=== PATIENT | male | born 1945 ===

== ENCOUNTER 2018-03-29 13:45 | Inpatient (IN) | payer MEDICARE ==
[2018-03-29 15:21] LABS: BASO % 0.4 % (0.0-2.0); EOS # 0.2 K/uL (0.0-0.7); EOS % 2.8 % (0.0-4.0); HEMOGLOBIN 12.4 g/dL (12.0-18.0); LYMPH # 1.6 K/uL (1.0-4.3); LYMPH % 22.2 % (20.0-40.0); MEAN CELL VOLUME 83.7 fL (80.0-94.0); MEAN CORPUSCULAR HEMOGLOBIN 27.9 pg (27.0-31.0); MEAN CORPUSCULAR HGB CONC 33.4 g/dL (33.0-37.0); MEAN PLATELET VOLUME 8.1 fL (7.2-11.7); MONO # 0.6 K/uL (0.0-0.8); MONO % 8.5 % (0.0-10.0); NEUT # 4.8 K/uL (1.8-7.0); NEUT % 66.1 % (50.0-75.0); RBC 4.44 Mil/uL (4.40-5.90); RED CELL DISTRIBUTION WIDTH 15.4 % (11.5-14.5); WHITE BLOOD COUNT 7.3 K/uL (4.8-10.8)
[2018-03-29] MEDS ORDERED: Albuterol 0.083% Inhal Sol (2.5 mg/3 mL) UD IH STA (15:24)
[2018-03-29 15:34] LABS: ALB/GLOB RATIO 1.2 (1.0-2.1); ALBUMIN 3.9 g/dL (3.5-5.0); ALT/SGPT 21 U/L (21-72); AST/SGOT 20 U/L (17-59); BLOOD UREA NITROGEN 11 mg/dL (9-20); CALCIUM 9.2 mg/dl (8.6-10.4); GFR NON-AFRICAN AMERICAN > 60; LIPASE 34 U/L (23-300)
--- NOTE | 2018-03-29 15:39 | C.PDOC ---
History Of Present Illness 73 y/o male with history of HTN, Hypercholesterolemia, COPD, GERD presents to ED with c/o epigastric abdominal pain radiating to chest for 2 months. Patient also c/o sob, hoarse voice, decreased appetite, weight loss (20 lbs in 2 months) and pain to feet bilaterally. Patient seen by PMD today and was instructed to come to ED for further evaluation. Time Seen by Provider: 03/29/18 14:11 Chief Complaint (Nursing): Abdominal Pain History Per: Patient, Family (daughter) History/Exam Limitations: no limitations Onset/Duration Of Symptoms: Days Current Symptoms Are (Timing): Still Present Location Of Pain/Discomfort: Epigastric Past Medical History Reviewed: Historical Data, Nursing Documentation, Vital Signs Vital Signs: Last Vital Signs Temp 97.4 F L 03/29/18 13:58 Pulse 64 03/29/18 13:58 Resp 20 03/29/18 13:58 BP 137/68 03/29/18 13:58 Pulse Ox 99 03/29/18 13:58 - Medical History PMH: Asthma, HTN, Hypercholesterolemia Surgical History: No Surg Hx Family History: States: No Known Family Hx - Social History Hx Alcohol Use: No Hx Substance Use: No - Immunization History Hx Tetanus Toxoid Vaccination: No Hx Influenza Vaccination: No Hx Pneumococcal Vaccination: No Review Of Systems Constitutional: Positive for: Malaise, Weight loss. Negative for: Fever, Chills Cardiovascular: Positive for: Chest Pain Respiratory: Positive for: Shortness of Breath. Negative for: Cough Gastrointestinal: Positive for: Abdominal Pain. Negative for: Nausea, Vomiting Skin: Negative for: Rash Physical Exam - Physical Exam Appears: Non-toxic, Chronically Ill, Other (Hoarse voice) Skin: Warm, Dry, No Rash Head: Atraumatic, Normacephalic Eye(s): bilateral: Normal Inspection, EOMI Oral Mucosa: Moist Neck: Normal ROM, Supple Chest: Symmetrical Cardiovascular: Rhythm Regular Respiratory: Normal Breath Sounds, No Accessory Muscle Use, No Rales, No Rhonchi, No Wheezing Gastrointestinal/Abdominal: Soft, Tenderness (Epigastric), No Guarding, No Rebound Back: No CVA Tenderness Neurological/Psych: Oriented x3, Normal Speech, Normal Cognition ED Course And Treatment - Laboratory Results Result Diagrams: 03/31/18 07:09 03/31/18 07:09 ECG: Interpreted By Me, Viewed By Me ECG Rhythm: Sinus Rhythm Rate From EC (BPM) O2 Sat by Pulse Oximetry: 99 (RA) Pulse Ox Interpretation: Normal Progress Note: EKG, Neb treatment. D/w Dr. Aldana instructs for patient to be admitted under his service. 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 - Scribe Statement The provider has reviewed the documentation as recorded by the Scribe Davion Chavira All medical record entries made by the Oleg were at my direction and personally dictated by me. I have reviewed the chart and agree that the record accurately reflects my personal performance of the history, physical exam, medical decision making, and the department course for this patient. I have also personally directed, reviewed, and agree with the discharge instructions and disposition.
[2018-03-29 15:45] LABS: B-TYPE NATRIURETIC PEPTIDE 340 pg/mL (0-900); CK-MB 1.05 ng/mL (0.0-3.38)
[2018-03-29] MEDS ORDERED: Albuterol 0.083% Inhal Sol (2.5 mg/3 mL) UD ONE (15:47)
--- NOTE | 2018-03-29 16:04 | RAD ---
Date of service: 03/29/2018 PROCEDURE: CHEST RADIOGRAPH, 1 VIEW HISTORY: SOB COMPARISON: None available. FINDINGS: LUNGS: The lungs are clear. PLEURA: No pneumothorax or pleural fluid seen. CARDIOVASCULAR: Mild cardiomegaly. OSSEOUS STRUCTURES: No significant abnormalities. VISUALIZED UPPER ABDOMEN: Normal. OTHER FINDINGS: None. IMPRESSION: No active pulmonary disease.
[2018-03-29 16:10] LABS: SQUAMOUS EPITHIAL < 1 /hpf (0-5); URINE AMORPHOUS SEDIMENT RARE /ul (<OCC); URINE BACTERIA RARE (<OCC); URINE BILIRUBIN NEGATIVE (NEGATIVE); URINE BLOOD 1+ (NEGATIVE); URINE CLARITY Clear (Clear); URINE COLOR Yellow (YELLOW); URINE GLUCOSE (UA) NORMAL (Normal); URINE LEUKOCYTE ESTERASE NEG Leu/uL (Negative); URINE PROTEIN NEGATIVE (NEGATIVE)
[2018-03-29] MEDS ORDERED: Albuterol 0.083% Inhal Sol (2.5 mg/3 mL) UD INH PRN (17:15)
[2018-03-29] MEDS ORDERED: Iohexol 240 (50 ml) PO ONE (17:43)
[2018-03-29] MEDS ORDERED: Iohexol 240 (50 ml) ONE (17:51)
[2018-03-29] MEDS ORDERED: Dextrose 5%-0.225% NS 1,000 ML IV ONE (17:51)
[2018-03-29] MEDS: Dextrose 5%/0.45% NS 1,000 ML IV SCH (17:54)
[2018-03-29] MEDS ORDERED: Iohexol 350mg/ml 100 ML ONE (18:06)
[2018-03-30] MEDS: Dextrose 5%/0.45% NS 1,000 ML IV SCH ×3 (05:48→21:23)
[2018-03-30] MEDS ORDERED: Calcium Carbonate 500 mg Chewable Antacid Tab PO PRN (06:04)
[2018-03-30] MEDS ORDERED: Pantoprazole 20 mg EC Tab PO STA (06:05)
[2018-03-30 07:23] LABS: BASO % 0.6 % (0.0-2.0); EOS # 0.2 K/uL (0.0-0.7); EOS % 3.7 % (0.0-4.0); HEMOGLOBIN 12.2 g/dL (12.0-18.0); LYMPH # 1.3 K/uL (1.0-4.3); LYMPH % 24.2 % (20.0-40.0); MEAN CORPUSCULAR HEMOGLOBIN 28.7 pg (27.0-31.0); MEAN CORPUSCULAR HGB CONC 34.6 g/dL (33.0-37.0); MEAN PLATELET VOLUME 8.5 fL (7.2-11.7); MONO # 0.5 K/uL (0.0-0.8); MONO % 9.5 % (0.0-10.0); NEUT # 3.2 K/uL (1.8-7.0); NRBC % 0.1 % (0.0-2.0); RBC 4.24 Mil/uL (4.40-5.90); RED CELL DISTRIBUTION WIDTH 15.6 % (11.5-14.5); WHITE BLOOD COUNT 5.2 K/uL (4.8-10.8)
[2018-03-30 07:39] LABS: BLOOD UREA NITROGEN 8 mg/dL (9-20); CALCIUM 8.9 mg/dl (8.6-10.4); GFR NON-AFRICAN AMERICAN > 60; HDL CHOLESTEROL 39 mg/dL (30-70)
[2018-03-30 07:41] LABS: LDL CHOLESTEROL 83 mg/dL (0-129)
[2018-03-30] MEDS ORDERED: Influenza Vaccine 60 MCG/0.5 ML SYR (3 yr & up) IM ONE (10:00)
--- NOTE | 2018-03-30 12:59 | CT ---
Date of service: 03/29/2018 PROCEDURE: CT Chest, Abdomen and Pelvis with intravenous contrast HISTORY: Rule out malignancy COMPARISON: N correlation made with chest radiograph obtained earlier same day TECHNIQUE: Contiguous helical/transaxial sections of the chest, abdomen and pelvis performed in standard fashion following oral and intravenous injection of approximately 100 cc Omnipaque 350 contrast material. Additional 2D sagittal and coronal reformats provided. This CT exam was performed using one or more of the following dose reduction techniques: Automated exposure control, adjustment of the mA and/or kV according to patient size, and/or use of iterative reconstruction technique. Radiation dose: Total exam DLP = 500.81 mGy-cm. FINDINGS: CT CHEST WITH CONTRAST: LUNGS: There is a large somewhat lobulated mass lesion (disease most consistent with malignant neoplasm) with scattered spiculations located in the left upper lobe that measures approximately 9.3 x 4.9 x 4.0 cm. This lesion abuts the lateral margin of the transverse portion of the aortic arch and extends anteriorly into the prevascular space. The lesion also extends into the upper mediastinum and hilar region. This lesion completely surrounds the distal aspect of the left main pulmonary artery as well as left upper lobe and and upper lobe segmental branches. The lesion also nearly completely envelopment the left lower lobe branch. There is narrowing of the distal left main pulmonary artery and upper/lower lobe branches. Lesion surrounds and narrows the proximal left upper and lower lobe bronchi bronchi.. Lesion also appears contiguous with what may represent left apical pleural thickening and/or atelectasis. Mild atelectasis and or scarring changes seen in the left lingular region as well. Mild right apical pleural thickening is present... Mild paraseptal emphysematous changes are also present in the upper lobes.. Small 4 mm nodule lateral aspect right middle lobe and a 2nd small nodule also measuring approximately 4 mm nodule medial aspect of the middle lobe bordering fissure. MEDIASTINUM: Heart is enlarged. Aorti no significant pericardial effusion. Ascending thoracic aorta measures approximate 3.5 cm and descending thoracic aorta measures approximate 3.2 cm. Pulmonary trunk measures approximately 0.4 cm. LYMPH NODES: Fairly extensive left hilar and mediastinal adenopathy contiguous with large left upper lobe mass density which abuts the mediastinum. There is a small hiatal hernia. Central airways are midline and patent. No large central endoluminal lesions.. PLEURA: Unremarkable. No pneumothorax. No pleural fluid. BONES: Multilevel degenerative spondylosis of the thoracic as well as upper cervical spine. No acute compression fractures no retropulsed fragments. There are no discrete lytic or blastic lesions. OTHER FINDINGS: None. CT ABDOMEN AND PELVIS: Evaluation of the abdomen is limited due to motion artifact. LIVER: Evaluation of the liver is slightly limited due to motion artifact which results in heterogeneous appearance... There is mild diffuse fatty hepatic infiltration. . There is a small approximately 6 mm rounded low-attenuation lesion left lobe liver which could represent volume averaging of the shawnee hepatis versus tiny cyst or hemangioma. The possibility of a small metastatic deposit cannot be completely excluded. Clinical correlation recommended. GALLBLADDER AND BILE DUCTS: . Gallbladder appears incompletely distended. No evidence of intraluminal gallbladder calculi. PANCREAS: Unremarkable. No gross lesion or ductal dilatation. SPLEEN: Spleen exhibits normal size and attenuation pattern without mass collection or calcification. ADRENALS: Bilateral nodular adrenal gland; rule out metastases. KIDNEYS AND URETERS: Unremarkable. No hydronephrosis. No solid mass. VASCULATURE: No evidence of abdominal aortic or iliac artery aneurysms. Partially calcified atherosclerotic plaque seen along the abdominal aorta and iliac arteries as well as at the origins of major branch vessels. BOWEL: Evaluation of the bowel is limited due to incomplete opacification. Stomach is incompletely distended which in part accounts for thick-walled appearance. Rule out gastritis. Visualized loops of small bowel exhibit normal contour and caliber. No evidence of acute mechanical small bowel obstruction. Stool and air seen throughout the large bowel. APPENDIX: Normal appendix.. PERITONEUM: Unremarkable. No free fluid. No free air. LYMPH NODES: There are a few small nonspecific retroperitoneal lymph nodes. BLADDER: Urinary bladder is incompletely distended which may in part account for thick-walled appearance. Muscular hypertrophy may contribute. Correlation with urinalysis recommended to exclude cystitis or other intrinsic/invasive wall lesion. REPRODUCTIVE: Prostate gland measures approximately 3.4 cm in transverse dimension. BONES: Multilevel degenerative spondylosis of the lumbar spine. There are no acute compression fractures no retropulsed fragments. Definitive lytic or blastic lesions. Sclerotic changes both SI joints left greater than right partial fusion left greater than right. OTHER FINDINGS: None. IMPRESSION: Limited motion degraded study. There is a large left upper lobe mass lesion with lobulated borders and scattered spiculations consistent with neoplasm. Lesion abuts the upper mediastinum including the transverse portion of the aorta. There is mediastinal and hilar adenopathy. Lesion also surrounds the left distal main pulmonary trunk which is and left upper and lower lobe branches with narrowing. Lesion also partially surrounds left upper and lower lobe bronchi with narrowing. Two small nodules right middle lobe. Paraseptal emphysematous changes upper lobes. Evaluation of the abdomen is limited due to motion artifact with resultant heterogeneous appearance of the hepatic parenchyma. There is however mild fatty infiltration. Additionally, there is a small low-attenuation focus left lobe liver possibly representing volume averaging of the shawnee hepatis however small cyst hemangioma or metastatic lesion cannot be excluded.. Bilateral nodular adrenal glands right greater than left. Rule out metastases. Consider follow-up PET scan for further evaluation of all these findings
--- NOTE | 2018-03-30 13:36 | CP.PCM.CON ---
History of Present Illness - History of Present Illness History of Present Illness: 73 yo male h/o HTN, COPD, Chol, TARIQ admitted with weakness and wt loss. Daughter is present. Pt reports wt loss 20 lbs, epig pain, cough,esoph reflux to chest, and dysphagia to pills. Reports PUD many yrs when smoked a lot. Reports colonosocpy 25 yrs ago. Review of Systems - Constitutional Constitutional: Anorexia, Fatigue, Lethargy, Weight Loss. absent: Headache - EENT Eyes: absent: Photophobia Nose/Mouth/Throat: Dysphagia, Hoarsness. absent: Odynophagia, Throat Swelling, Neck Mass - Cardiovascular Cardiovascular: absent: Leg Edema - Respiratory Respiratory: Cough. absent: Hemoptysis, Wheezing - Gastrointestinal Gastrointestinal: Abdominal Pain, Dysphagia, Heartburn - Genitourinary Genitourinary: absent: Hematuria - Musculoskeletal Musculoskeletal: absent: Muscle Weakness, Myalgias - Integumentary Integumentary: absent: Rash, Jaundice - Neurological Neurological: absent: Convulsions Past Patient History - Past Social History Smoking Status: Former Smoker - CARDIAC Hx Hypercholesterolemia: Yes Hx Hypertension: Yes - PULMONARY Hx Asthma: Yes - MUSCULOSKELETAL/RHEUMATOLOGICAL Hx Falls: No - PSYCHIATRIC Hx Substance Use: No - SURGICAL HISTORY Hx Surgeries: Yes Other/Comment: Explore lap 1974 - ANESTHESIA Hx Anesthesia: No Meds Allergies/Adverse Reactions: Allergies Allergy/AdvReac Type Severity Reaction Status Date / Time No Known Allergies Allergy Verified 03/29/18 14:03 - Medications Medications: Current Medications Albuterol Sulfate (Albuterol 0.083% Inhal Cathie (2.5 Mg/3 Ml) Ud) 2.5 mg INH RQ6 PRN PRN Reason: Shortness of Breath Aspirin (Aspirin Chewable) 81 mg PO DAILY [facility] Last Admin: 03/30/18 09:06 Dose: 81 mg Calcium Carbonate (Tums) 500 mg PO BID PRN PRN Reason: Heartburn Cyproheptadine HCl (Periactin) 4 mg PO TID [facility] Heparin Sodium (Porcine) (Heparin) 5,000 units SC Q12 [facility] Last Admin: 03/30/18 09:05 Dose: 5,000 units Hydrochlorothiazide (Microzide) 12.5 mg PO DAILY [facility] Last Admin: 03/30/18 09:05 Dose: 12.5 mg Dextrose/Sodium Chloride (Dextrose 5%/0.45% Ns 1000 Ml) 1,000 mls @ 80 mls/hr IV .[id number] [facility] Last Admin: 03/30/18 05:48 Dose: 80 mls/hr Loratadine (Claritin) 10 mg PO DAILY [facility] Last Admin: 03/30/18 09:05 Dose: 10 mg Losartan Potassium (Cozaar) 50 mg PO DAILY [facility] Last Admin: 03/30/18 09:12 Dose: 50 mg Montelukast Sodium (Singulair) 10 mg PO DAILY [facility] Last Admin: 03/30/18 09:06 Dose: 10 mg Pantoprazole Sodium (Protonix Inj) 40 mg IVP DAILY [facility] Last Admin: 03/30/18 09:04 Dose: 40 mg Pneumococcal Polyvalent Vaccine (Pneumovax 23 Vaccine) 0.5 ml IM .ONCE ONE Stop: 04/02/18 10:01 Rosuvastatin Calcium (Crestor) 10 mg PO HS [facility] Last Admin: 03/29/18 23:00 Dose: 10 mg Physical Exam - Constitutional Appears: Non-toxic - Respiratory Exam Respiratory Exam: Rhonchi - Cardiovascular Exam Cardiovascular Exam: RRR - GI/Abdominal Exam GI & Abdominal Exam: Normal Bowel Sounds, Soft. absent: Distended, Guarding, Mass, Rebound, Tenderness - Extremities Exam Extremities exam: Negative for: tenderness - Neurological Exam Neurological exam: Alert, Oriented x3 - Psychiatric Exam Psychiatric exam: Normal Mood Results - Vital Signs Recent Vital Signs: Last Vital Signs Temp 98.2 F 03/30/18 07:21 Pulse 57 L 03/30/18 07:21 Resp 20 03/30/18 07:21 BP 133/56 L 03/30/18 07:21 Pulse Ox 99 03/30/18 07:21 - Labs Result Diagrams: 03/30/18 07:05 03/30/18 07:05 Labs: Laboratory Results - last 24 hr 03/29/18 03/29/18 03/29/18 15:15 15:15 16:00 WBC 7.3 RBC 4.44 Hgb 12.4 Hct 37.1 MCV 83.7 MCH 27.9 MCHC 33.4 RDW 15.4 H Plt Count 295 MPV 8.1 Neut % (Auto) 66.1 Lymph % (Auto) 22.2 [place] % (Auto) 8.5 Eos % (Auto) 2.8 Baso % (Auto) 0.4 Neut # (Auto) 4.8 Lymph # (Auto) 1.6 [place] # (Auto) 0.6 Eos # (Auto) 0.2 Baso # (Auto) 0.0 Sodium 139 Potassium 4.5 Chloride 101 Carbon Dioxide 27 Anion Gap 15 BUN 11 Creatinine 0.7 L Est GFR ( Amer) > 60 Est GFR (Non-Af Amer) > 60 Random Glucose 93 Calcium 9.2 Total Bilirubin 0.6 AST 20 ALT 21 Alkaline Phosphatase 86 Total Creatine Kinase 53 L CK-MB (Mass) 1.05 Troponin I < 0.0120 NT-Pro-B Natriuret Pep 340 Total Protein 7.0 Albumin 3.9 Globulin 3.2 Albumin/Globulin Ratio 1.2 Triglycerides Cholesterol LDL Cholesterol Direct HDL Cholesterol Lipase 34 CA 19-9 Antigen CA 125 Antigen Urine Color Yellow Urine Clarity Clear Urine pH 7.0 Ur Specific Adrian 1.013 Urine Protein Negative Urine Glucose (UA) Normal Urine Ketones Negative Urine Blood 1+ H Urine Nitrate Negative Urine Bilirubin Negative Urine Urobilinogen 2.0 Ur Leukocyte Esterase Neg Urine WBC (Auto) < 1 Urine RBC (Auto) 1 Ur Squamous Epith Cells < 1 Amorphous Sediment Rare H Urine Bacteria Rare 03/30/18 03/30/18 07:05 07:05 WBC 5.2 RBC 4.24 L Hgb 12.2 Hct 35.2 MCV 83.0 MCH 28.7 MCHC 34.6 RDW 15.6 H Plt Count 300 MPV 8.5 Neut % (Auto) 62.0 Lymph % (Auto) 24.2 [place] % (Auto) 9.5 Eos % (Auto) 3.7 Baso % (Auto) 0.6 Neut # (Auto) 3.2 Lymph # (Auto) 1.3 [place] # (Auto) 0.5 Eos # (Auto) 0.2 Baso # (Auto) 0.0 Sodium 138 Potassium 4.4 Chloride 102 Carbon Dioxide 27 Anion Gap 13 BUN 8 L Creatinine 0.7 L Est GFR ( Amer) > 60 Est GFR (Non-Af Amer) > 60 Random Glucose 112 H Calcium 8.9 Total Bilirubin AST ALT Alkaline Phosphatase Total Creatine Kinase CK-MB (Mass) Troponin I 0.0120 NT-Pro-B Natriuret Pep Total Protein Albumin Globulin Albumin/Globulin Ratio Triglycerides 64 Cholesterol 150 LDL Cholesterol Direct 83 HDL Cholesterol 39 Lipase CA 19-9 Antigen < 1.4 CA 125 Antigen 21.3 Urine Color Urine Clarity Urine pH Ur Specific Adrian Urine Protein Urine Glucose (UA) Urine Ketones Urine Blood Urine Nitrate Urine Bilirubin Urine Urobilinogen Ur Leukocyte Esterase Urine WBC (Auto) Urine RBC (Auto) Ur Squamous Epith Cells Amorphous Sediment Urine Bacteria Assessment & Plan (1) Lung mass Assessment and Plan: r/o malignancy. Pulm , oncology w/u Status: Acute (2) Epigastric pain Assessment and Plan: Gastritis. Consdier ulcer Status: Acute (3) Esophageal reflux Status: Acute (4) Weight loss Assessment and Plan: c/w malignancy Status: Acute (5) COPD (chronic obstructive pulmonary disease) Status: Acute (6) Dysphagia Assessment and Plan: GERD. Rec- EGD- depending on pulm status. Protonix Status: Acute
--- NOTE | 2018-03-30 15:36 | CARD ---
APPROVED REPORT Date of service: 03/29/2018 EKG Measurement Heart [id number] <Conclusion> Sinus rhythm with 1st degree AV block Otherwise normal ECG
[2018-03-30] MEDS: Albuterol 0.083% Inhal Sol (2.5 mg/3 mL) UD INH SCH (19:00)
[2018-03-31] MEDS: Albuterol 0.083% Inhal Sol (2.5 mg/3 mL) UD INH SCH ×4 (02:27→19:14)
[2018-03-31] MEDS: Dextrose 5%/0.45% NS 1,000 ML IV SCH ×3 (07:00→21:26)
[2018-03-31 07:21] LABS: BASO % 0.7 % (0.0-2.0); EOS # 0.2 K/uL (0.0-0.7); EOS % 3.8 % (0.0-4.0); LYMPH # 1.5 K/uL (1.0-4.3); LYMPH % 23.5 % (20.0-40.0); MEAN CELL VOLUME 83.9 fL (80.0-94.0); MEAN CORPUSCULAR HEMOGLOBIN 28.4 pg (27.0-31.0); MEAN CORPUSCULAR HGB CONC 33.8 g/dL (33.0-37.0); MEAN PLATELET VOLUME 8.5 fL (7.2-11.7); MONO # 0.5 K/uL (0.0-0.8); MONO % 8.6 % (0.0-10.0); NEUT # 4.1 K/uL (1.8-7.0); NEUT % 63.4 % (50.0-75.0); NRBC % 0.1 % (0.0-2.0); RBC 4.59 Mil/uL (4.40-5.90); RED CELL DISTRIBUTION WIDTH 15.4 % (11.5-14.5); WHITE BLOOD COUNT 6.4 K/uL (4.8-10.8)
[2018-03-31 07:58] LABS: ALB/GLOB RATIO 1.2 (1.0-2.1); ALBUMIN 3.9 g/dL (3.5-5.0); ALT/SGPT 17 U/L (21-72); AST/SGOT 24 U/L (17-59); BLOOD UREA NITROGEN 7 mg/dL (9-20); CALCIUM 9.2 mg/dl (8.6-10.4)
[2018-03-31 08:12] LABS: GFR NON-AFRICAN AMERICAN > 60
--- NOTE | 2018-03-31 09:54 | CP.PCM.PN ---
Subjective - Date & Time of Evaluation Date of Evaluation: 03/31/18 Time of Evaluation: 09:45 - Subjective Subjective: F/u abdom pain. Daughter is present. Reports poor appetite. Epig pain and TARIQ less with PPI. Denies RB, melena, fever, chills, SZ, LOC, hemoptysis, hematuria Objective - Vital Signs/Intake and Output Vital Signs (last 24 hours): Temp Pulse Resp BP Pulse Ox 98.2 F 60 20 128/67 97 03/31/18 08:17 03/31/18 08:17 03/31/18 08:17 03/31/18 08:17 03/31/18 08:17 Intake and Output: 03/31/18 03/31/18 06:59 18:59 Intake Total 990 Balance 990 - Medications Medications: Current Medications Albuterol Sulfate (Albuterol 0.083% Inhal Cathie (2.5 Mg/3 Ml) Ud) 2.5 mg INH RQ6 [facility] Last Admin: 03/31/18 09:02 Dose: 2.5 mg Aspirin (Aspirin Chewable) 81 mg PO DAILY [facility] Last Admin: 03/31/18 09:17 Dose: 81 mg Calcium Carbonate (Tums) 500 mg PO BID PRN PRN Reason: Heartburn Last Admin: 03/31/18 09:18 Dose: 500 mg Cyproheptadine HCl (Periactin) 4 mg PO TID [facility] Last Admin: 03/31/18 09:18 Dose: 4 mg Heparin Sodium (Porcine) (Heparin) 5,000 units SC Q12 [facility] Last Admin: 03/31/18 09:18 Dose: 5,000 units Hydrochlorothiazide (Microzide) 12.5 mg PO DAILY [facility] Last Admin: 03/31/18 09:17 Dose: 12.5 mg Dextrose/Sodium Chloride (Dextrose 5%/0.45% Ns 1000 Ml) 1,000 mls @ 80 mls/hr IV .[id number] [facility] Last Admin: 03/31/18 08:25 Dose: 80 mls/hr Loratadine (Claritin) 10 mg PO DAILY [facility] Last Admin: 03/31/18 09:18 Dose: 10 mg Losartan Potassium (Cozaar) 50 mg PO DAILY [facility] Last Admin: 03/30/18 09:12 Dose: 50 mg Montelukast Sodium (Singulair) 10 mg PO DAILY [facility] Last Admin: 10/13/18 09:22 Dose: 10 mg Pantoprazole Sodium (Protonix Inj) 40 mg IVP DAILY [facility] Last Admin: 03/31/18 09:18 Dose: 40 mg Pneumococcal Polyvalent Vaccine (Pneumovax 23 Vaccine) 0.5 ml IM .ONCE ONE Stop: 04/02/18 10:01 Rosuvastatin Calcium (Crestor) 10 mg PO HS [facility] Last Admin: 03/30/18 21:17 Dose: 10 mg - Labs Labs: 03/31/18 07:09 03/31/18 07:09 - Constitutional Appears: Non-toxic - Respiratory Exam Respiratory Exam: Rhonchi - Cardiovascular Exam Cardiovascular Exam: RRR - GI/Abdominal Exam GI & Abdominal Exam: Soft, Normal Bowel Sounds. absent: Guarding, Tenderness, Mass, Rebound - Extremities Exam Extremities Exam: absent: Calf Tenderness - Neurological Exam Neurological Exam: Alert, Awake, Oriented x3 Assessment and Plan (1) Lung mass Assessment & Plan: consider malignancy,. F/u pulmonary, oncology Status: Acute (2) Epigastric pain Assessment & Plan: gastritis. Rec- PPI. Hold EGD- depending on pulmonary work-up. Improving with PPI. Discussed with PA and . Status: Acute (3) Esophageal reflux Status: Acute (4) Weight loss Status: Acute (5) COPD (chronic obstructive pulmonary disease) Status: Acute (6) Dysphagia Assessment & Plan: Consider EGD- depending on pulmonary w/u. Status: Acute
--- NOTE | 2018-03-31 14:26 | CP.PCM.CON ---
History of Present Illness - History of Present Illness History of Present Illness: CHART REVIEWED. PT SEEN AND EXAMINED. 73 YO HISP MALE WITH A HX COPD, HTN, GERD, ADM 03/29/18 WITH INCREASED MOD- SEVERE GEN WEAKNESS X 1 MONTH. UNABLE TO EAT +50LB WT LOSS. DENIES DYSPHAGIA. NO N/V. +EPIGASTRIC PAINS. NO SOB. NO COUGH., ON HOME NEB . NO HOME O2. QUIT SMOKING AND ETOH YRS AGO. Review of Systems - Review of Systems All systems: reviewed and no additional remarkable complaints except - Constitutional Constitutional: Weight Loss - EENT Eyes: absent: Change in Vision Ears: absent: Decreased Hearing Nose/Mouth/Throat: Hoarsness - Cardiovascular Cardiovascular: absent: Chest Pain - Respiratory Respiratory: absent: Dyspnea, Hemoptysis, Excessive Mucous Production - Gastrointestinal Gastrointestinal: absent: Coffee Ground Emesis, Nausea, Vomiting - Genitourinary Genitourinary: absent: Difficulty Urinating - Musculoskeletal Musculoskeletal: Muscle Weakness - Integumentary Integumentary: absent: Rash - Neurological Neurological: absent: Confusion, Focal Weakness - Psychiatric Psychiatric: Change in Appetite. absent: Confusion - Endocrine Endocrine: absent: Excessive Sweating - Hematologic/Lymphatic Hematologic: absent: Easy Bleeding Past Patient History - Past Medical History & Family History Past Medical History?: Yes Past Family History: Reviewed and not pertinent - Past Social History Smoking Status: Former Smoker Alcohol: None - CARDIAC Hx Hypercholesterolemia: Yes Hx Hypertension: Yes - PULMONARY Hx Asthma: Yes Hx Chronic Obstructive Pulmonary Disease (COPD): Yes - NEUROLOGICAL Hx Neurological Disorder: No - HEENT Hx HEENT Problems: No - RENAL Hx Chronic Kidney Disease: No - ENDOCRINE/METABOLIC Hx Endocrine Disorders: No - HEMATOLOGICAL/ONCOLOGICAL Hx Blood Disorders: No - INTEGUMENTARY Hx Dermatological Problems: No - MUSCULOSKELETAL/RHEUMATOLOGICAL Hx Falls: No - GASTROINTESTINAL Hx Gastroesophageal Reflux: Yes - GENITOURINARY/GYNECOLOGICAL Hx Genitourinary Disorders: No - PSYCHIATRIC Hx Psychophysiologic Disorder: No Hx Substance Use: No - SURGICAL HISTORY Hx Surgeries: Yes Other/Comment: Explore lap 1973 - ANESTHESIA Hx Anesthesia: Yes Meds Allergies/Adverse Reactions: Allergies Allergy/AdvReac Type Severity Reaction Status Date / Time No Known Allergies Allergy Verified 03/29/18 14:03 - Medications Medications: Current Medications Albuterol Sulfate (Albuterol 0.083% Inhal Cathie (2.5 Mg/3 Ml) Ud) 2.5 mg INH RQ6 [facility] Last Admin: 03/31/18 09:02 Dose: 2.5 mg Aspirin (Aspirin Chewable) 81 mg PO DAILY [facility] Last Admin: 03/31/18 09:17 Dose: 81 mg Calcium Carbonate (Tums) 500 mg PO BID PRN PRN Reason: Heartburn Last Admin: 03/31/18 09:18 Dose: 500 mg Cyproheptadine HCl (Periactin) 4 mg PO TID [facility] Last Admin: 03/31/18 13:04 Dose: 4 mg Heparin Sodium (Porcine) (Heparin) 5,000 units SC Q12 [facility] Last Admin: 03/31/18 09:18 Dose: 5,000 units Hydrochlorothiazide (Microzide) 12.5 mg PO DAILY [facility] Last Admin: 03/31/18 09:17 Dose: 12.5 mg Dextrose/Sodium Chloride (Dextrose 5%/0.45% Ns 1000 Ml) 1,000 mls @ 80 mls/hr IV .[id number] [facility] Last Admin: 03/31/18 08:25 Dose: 80 mls/hr Loratadine (Claritin) 10 mg PO DAILY [facility] Last Admin: 03/31/18 09:18 Dose: 10 mg Losartan Potassium (Cozaar) 50 mg PO DAILY [facility] Last Admin: 03/31/18 09:10 Dose: 50 mg Montelukast Sodium (Singulair) 10 mg PO DAILY [facility] Last Admin: 03/31/18 09:22 Dose: 10 mg Pantoprazole Sodium (Protonix Inj) 40 mg IVP DAILY [facility] Last Admin: 03/31/18 09:18 Dose: 40 mg Pneumococcal Polyvalent Vaccine (Pneumovax 23 Vaccine) 0.5 ml IM .ONCE ONE Stop: 04/02/18 10:01 Rosuvastatin Calcium (Crestor) 10 mg PO HS [facility] Last Admin: 03/30/18 21:17 Dose: 10 mg Physical Exam - Constitutional Appears: Chronically Ill - Head Exam Head Exam: ATRAUMATIC, NORMOCEPHALIC - Eye Exam Eye Exam: EOMI, Normal appearance - ENT Exam ENT Exam: Mucous Membranes Dry - Neck Exam Neck exam: Positive for: Normal Inspection - Respiratory Exam Respiratory Exam: Decreased Breath Sounds. absent: Chest Wall Tenderness, Wheezes - Cardiovascular Exam Cardiovascular Exam: RRR, +S1, +S2 - GI/Abdominal Exam GI & Abdominal Exam: Soft. absent: Tenderness - Rectal Exam Rectal Exam: Deferred - Extremities Exam Extremities exam: Negative for: calf tenderness, pedal edema - Back Exam Back exam: absent: CVA tenderness (L), CVA tenderness (R) - Neurological Exam Neurological exam: Alert, CN II-XII Intact, Oriented x3 - Psychiatric Exam Psychiatric exam: Normal Mood - Skin Skin Exam: Intact Results - Vital Signs Recent Vital Signs: Last Vital Signs Temp 98.2 F 03/31/18 08:17 Pulse 60 03/31/18 08:17 Resp 20 03/31/18 08:17 BP 128/67 03/31/18 08:17 Pulse Ox 97 03/31/18 08:17 - Labs Result Diagrams: 03/31/18 07:09 03/31/18 07:09 Labs: Laboratory Results - last 24 hr 03/31/18 03/31/18 07:09 07:09 WBC 6.4 RBC 4.59 Hgb 13.0 Hct 38.6 MCV 83.9 MCH 28.4 MCHC 33.8 RDW 15.4 H Plt Count 319 MPV 8.5 Neut % (Auto) 63.4 Lymph % (Auto) 23.5 Mora % (Auto) 8.6 Eos % (Auto) 3.8 Baso % (Auto) 0.7 Neut # (Auto) 4.1 Lymph # (Auto) 1.5 Mora # (Auto) 0.5 Eos # (Auto) 0.2 Baso # (Auto) 0.0 Sodium 138 Potassium 4.3 Chloride 103 Carbon Dioxide 23 Anion Gap 16 BUN 7 L Creatinine 0.7 L Est GFR ( Amer) > 60 Est GFR (Non-Af Amer) > 60 Random Glucose 109 Calcium 9.2 Total Bilirubin 0.5 AST 24 ALT 17 L Alkaline Phosphatase 88 Total Protein 7.0 Albumin 3.9 Globulin 3.1 Albumin/Globulin Ratio 1.2 Assessment & Plan (1) Hypertension Status: Acute (2) Lung mass Status: Acute (3) Esophageal reflux Status: Acute (4) Weight loss Status: Acute (5) COPD (chronic obstructive pulmonary disease) Status: Acute - Assessment and Plan (Free Text) Assessment: 73 YO MALE WITH A HX MULT MED PROBS ADM WITH WT LOSS, +CARMELA LUNG MASS ON CT CHEST R/O CA. CONT NEB BD., MONITOR O2 SAT. CT GUIDED BX FOR DX. GI/DVT PROPHYLAXIS. PROG POOR. DISCUSSED WITH STAFF AT LENGTH AND FAMILY AT BEDSIDE.
--- NOTE | 2018-03-31 17:50 | CP.PCM.CON ---
History of Present Illness - History of Present Illness History of Present Illness: 73 year old male with a history of COPD, HTN, HL, presenting with weakness, poor PO intake and weightloss, found to have radiographic evidence of metastatic lung cancer. The patient notes to progressive weakness and weightloss for about 6 weeks time. This has led to a 50 pound weightloss and pain his back. He denies fevers and chills. A CT scan of the C/A/P is concerning for large tumor burden in the chest and adrenal metastasis. Past medical history: COPD, HTN, HL Past surgical history: Abdominal surgery Family history: Brother of unknown cancer Social history: Former 2ppd x 50 years, denies alcohol, and illicit drug use. Allergies: NKA Review of systems: All remaining review of systems including HEENT, cardiovascular, respiratory, gastrointestinal, genitourinary, musculoskeletal, dermatologic, neurologic, and psychiatric are negative unless mentioned in the HPI. Past Patient History - Past Medical History & Family History Past Medical History?: Yes Past Family History: Reviewed and not pertinent - Past Social History Smoking Status: Former Smoker Alcohol: None - CARDIAC Hx Hypercholesterolemia: Yes Hx Hypertension: Yes - PULMONARY Hx Asthma: Yes Hx Chronic Obstructive Pulmonary Disease (COPD): Yes - NEUROLOGICAL Hx Neurological Disorder: No - HEENT Hx HEENT Problems: No - RENAL Hx Chronic Kidney Disease: No - ENDOCRINE/METABOLIC Hx Endocrine Disorders: No - HEMATOLOGICAL/ONCOLOGICAL Hx Blood Disorders: No - INTEGUMENTARY Hx Dermatological Problems: No - MUSCULOSKELETAL/RHEUMATOLOGICAL Hx Falls: No - GASTROINTESTINAL Hx Gastroesophageal Reflux: Yes - GENITOURINARY/GYNECOLOGICAL Hx Genitourinary Disorders: No - PSYCHIATRIC Hx Psychophysiologic Disorder: No Hx Substance Use: No - SURGICAL HISTORY Hx Surgeries: Yes Other/Comment: Explore lap 1975 - ANESTHESIA Hx Anesthesia: Yes Meds Allergies/Adverse Reactions: Allergies Allergy/AdvReac Type Severity Reaction Status Date / Time No Known Allergies Allergy Verified 03/29/18 14:03 - Medications Medications: Current Medications Albuterol Sulfate (Albuterol 0.083% Inhal Cathie (2.5 Mg/3 Ml) Ud) 2.5 mg INH RQ6 [facility] Last Admin: 03/31/18 14:42 Dose: 2.5 mg Aspirin (Aspirin Chewable) 81 mg PO DAILY [facility] Last Admin: 03/31/18 09:17 Dose: 81 mg Calcium Carbonate (Tums) 500 mg PO BID PRN PRN Reason: Heartburn Last Admin: 03/31/18 09:18 Dose: 500 mg Heparin Sodium (Porcine) (Heparin) 5,000 units SC Q12 [facility] Last Admin: 03/31/18 09:18 Dose: 5,000 units Hydrochlorothiazide (Microzide) 12.5 mg PO DAILY [facility] Last Admin: 03/31/18 09:17 Dose: 12.5 mg Dextrose/Sodium Chloride (Dextrose 5%/0.45% Ns 1000 Ml) 1,000 mls @ 80 mls/hr IV .[id number] [facility] Last Admin: 03/31/18 08:25 Dose: 80 mls/hr Loratadine (Claritin) 10 mg PO DAILY [facility] Last Admin: 03/31/18 09:18 Dose: 10 mg Losartan Potassium (Cozaar) 50 mg PO DAILY [facility] Last Admin: 03/31/18 09:10 Dose: 50 mg Megestrol Acetate (Megace) 400 mg PO DAILY [facility] Montelukast Sodium (Singulair) 10 mg PO DAILY [facility] Last Admin: 03/31/18 09:22 Dose: 10 mg Pantoprazole Sodium (Protonix Inj) 40 mg IVP DAILY [facility] Last Admin: 03/31/18 09:18 Dose: 40 mg Pneumococcal Polyvalent Vaccine (Pneumovax 23 Vaccine) 0.5 ml IM .ONCE ONE Stop: 04/02/18 10:01 Rosuvastatin Calcium (Crestor) 10 mg PO HS [facility] Last Admin: 03/30/18 21:17 Dose: 10 mg Physical Exam - Head Exam Head Exam: ATRAUMATIC - Eye Exam Eye Exam: Normal appearance - ENT Exam ENT Exam: Mucous Membranes Dry - Respiratory Exam Respiratory Exam: NORMAL BREATHING PATTERN - Cardiovascular Exam Cardiovascular Exam: +S1, +S2 - GI/Abdominal Exam GI & Abdominal Exam: Normal Bowel Sounds - Extremities Exam Extremities exam: Positive for: pedal edema - Neurological Exam Neurological exam: Oriented x3 - Psychiatric Exam Psychiatric exam: Normal Affect, Normal Mood - Skin Skin Exam: Warm Results - Vital Signs Recent Vital Signs: Last Vital Signs Temp 98.0 F 03/31/18 15:00 Pulse 90 03/31/18 15:00 Resp 20 03/31/18 15:00 BP 114/59 L 03/31/18 15:00 Pulse Ox 96 03/31/18 15:00 - Labs Result Diagrams: 03/31/18 07:09 03/31/18 07:09 Labs: Laboratory Results - last 24 hr 03/31/18 03/31/18 07:09 07:09 WBC 6.4 RBC 4.59 Hgb 13.0 Hct 38.6 MCV 83.9 MCH 28.4 MCHC 33.8 RDW 15.4 H Plt Count 319 MPV 8.5 Neut % (Auto) 63.4 Lymph % (Auto) 23.5 Millard % (Auto) 8.6 Eos % (Auto) 3.8 Baso % (Auto) 0.7 Neut # (Auto) 4.1 Lymph # (Auto) 1.5 Millard # (Auto) 0.5 Eos # (Auto) 0.2 Baso # (Auto) 0.0 Sodium 138 Potassium 4.3 Chloride 103 Carbon Dioxide 23 Anion Gap 16 BUN 7 L Creatinine 0.7 L Est GFR ( Amer) > 60 Est GFR (Non-Af Amer) > 60 Random Glucose 109 Calcium 9.2 Total Bilirubin 0.5 AST 24 ALT 17 L Alkaline Phosphatase 88 Total Protein 7.0 Albumin 3.9 Globulin 3.1 Albumin/Globulin Ratio 1.2 Assessment & Plan (1) Lung mass Assessment and Plan: concerning for lung cancer for CT guided lung lesion biopsy further treatment recommendations based on pathology Status: Acute (2) Anemia Assessment and Plan: anemia of chronic disease Thank you for this interesting consult. Status: Acute
[2018-03-31] MEDS: Megestrol Acetate 40 mg/ml Cup PO SCH (18:20)
[2018-04-01] MEDS: Albuterol 0.083% Inhal Sol (2.5 mg/3 mL) UD INH SCH ×4 (02:23→19:07)
--- NOTE | 2018-04-01 05:37 | PN ---
DATE: 04/01/2018 SUBJECTIVE: Today, the patient is lying on bed, feels weak. Denies any shortness of breath at rest. But, however, is complaining of some discomfort to the throat. PHYSICAL EXAMINATION: VITAL SIGNS: Blood pressure is stable. NECK: Supple. LUNGS: There are some rales bilaterally. HEART: Regular rate and rhythm. ABDOMEN: Soft and nontender. EXTREMITIES: There is no edema. ASSESSMENT AND PLAN: The patient was seen on 03/31/2018. Plan is to add Megace to increase the appetite, and also we are going to add some Ensure. The case was reviewed and discussed with daughter, who is aware of mass of the left upper lobe and will have a consult with Dr. Oro, the registered travel nurse attending, and the case was reviewed also with Pooja Meyers, the nurse practitioner. Kyle Aldana MD
[2018-04-01 08:01] LABS: BASO % 0.6 % (0.0-2.0); EOS # 0.2 K/uL (0.0-0.7); EOS % 3.3 % (0.0-4.0); HEMOGLOBIN 13.8 g/dL (12.0-18.0); LYMPH # 1.6 K/uL (1.0-4.3); LYMPH % 21.5 % (20.0-40.0); MEAN CELL VOLUME 83.8 fL (80.0-94.0); MEAN CORPUSCULAR HEMOGLOBIN 28.7 pg (27.0-31.0); MEAN CORPUSCULAR HGB CONC 34.2 g/dL (33.0-37.0); MEAN PLATELET VOLUME 8.7 fL (7.2-11.7); MONO # 0.6 K/uL (0.0-0.8); MONO % 8.6 % (0.0-10.0); NEUT # 4.8 K/uL (1.8-7.0); NRBC % 0.1 % (0.0-2.0); RBC 4.81 Mil/uL (4.40-5.90); RED CELL DISTRIBUTION WIDTH 15.6 % (11.5-14.5); WHITE BLOOD COUNT 7.3 K/uL (4.8-10.8)
[2018-04-01 08:15] LABS: ALB/GLOB RATIO 1.2 (1.0-2.1); ALBUMIN 3.8 g/dL (3.5-5.0); ALT/SGPT 19 U/L (21-72); AST/SGOT 18 U/L (17-59); BLOOD UREA NITROGEN 8 mg/dL (9-20); CALCIUM 9.5 mg/dl (8.6-10.4); GFR NON-AFRICAN AMERICAN > 60
[2018-04-01] MEDS: Megestrol Acetate 40 mg/ml Cup PO SCH (09:09)
[2018-04-01] MEDS: Dextrose 5%/0.45% NS 1,000 ML IV SCH (09:09)
--- NOTE | 2018-04-01 13:33 | CP.PCM.PN ---
Subjective - Date & Time of Evaluation Date of Evaluation: 04/01/18 Time of Evaluation: 13:29 - Subjective Subjective: PT ALERT, EATING BETTER. NO SOB. NO PAIN. ROS ; OTHERWISE NEG. Objective - Vital Signs/Intake and Output Vital Signs (last 24 hours): Temp Pulse Resp BP Pulse Ox 98.1 F 78 20 128/72 97 04/01/18 07:05 04/01/18 07:05 04/01/18 07:05 04/01/18 07:05 04/01/18 07:05 Intake and Output: 04/01/18 04/01/18 06:59 18:59 Intake Total 1140 1160 Balance 1140 1160 - Medications Medications: Current Medications Albuterol Sulfate (Albuterol 0.083% Inhal Cathie (2.5 Mg/3 Ml) Ud) 2.5 mg INH RQ6 [facility] Last Admin: 04/01/18 13:25 Dose: 2.5 mg Aspirin (Aspirin Chewable) 81 mg PO DAILY [facility] Last Admin: 04/01/18 09:08 Dose: 81 mg Calcium Carbonate (Tums) 500 mg PO BID PRN PRN Reason: Heartburn Last Admin: 03/31/18 09:18 Dose: 500 mg Heparin Sodium (Porcine) (Heparin) 5,000 units SC Q12 [facility] Last Admin: 04/01/18 09:10 Dose: 5,000 units Hydrochlorothiazide (Microzide) 12.5 mg PO DAILY [facility] Last Admin: 04/01/18 09:08 Dose: 12.5 mg Dextrose/Sodium Chloride (Dextrose 5%/0.45% Ns 1000 Ml) 1,000 mls @ 80 mls/hr IV .[id number] [facility] Last Admin: 04/01/18 09:09 Dose: 80 mls/hr Loratadine (Claritin) 10 mg PO DAILY [facility] Last Admin: 04/01/18 09:08 Dose: 10 mg Losartan Potassium (Cozaar) 50 mg PO DAILY [facility] Last Admin: 04/01/18 09:07 Dose: 50 mg Megestrol Acetate (Megace) 400 mg PO DAILY [facility] Last Admin: 04/01/18 09:09 Dose: 400 mg Montelukast Sodium (Singulair) 10 mg PO DAILY [facility] Last Admin: 04/01/18 09:07 Dose: 10 mg Pantoprazole Sodium (Protonix Inj) 40 mg IVP DAILY [facility] Last Admin: 04/01/18 09:11 Dose: 40 mg Pneumococcal Polyvalent Vaccine (Pneumovax 23 Vaccine) 0.5 ml IM .ONCE ONE Stop: 04/02/18 10:01 Rosuvastatin Calcium (Crestor) 10 mg PO HS [facility] Last Admin: 03/31/18 21:25 Dose: 10 mg - Labs Labs: 04/01/18 07:49 04/01/18 07:49 - Constitutional Appears: Chronically Ill - Head Exam Head Exam: ATRAUMATIC, NORMOCEPHALIC - Eye Exam Eye Exam: EOMI, Normal appearance. absent: Scleral icterus - ENT Exam ENT Exam: Mucous Membranes Moist - Neck Exam Neck Exam: Normal Inspection - Respiratory Exam Respiratory Exam: Decreased Breath Sounds. absent: Accessory Muscle Use, Respiratory Distress, Stridor - Cardiovascular Exam Cardiovascular Exam: RRR, +S1, +S2 - GI/Abdominal Exam GI & Abdominal Exam: Soft. absent: Tenderness - Rectal Exam Rectal Exam: Deferred - Extremities Exam Extremities Exam: absent: Calf Tenderness, Pedal Edema - Back Exam Back Exam: absent: CVA tenderness (L), CVA tenderness (R) - Neurological Exam Neurological Exam: Alert, Awake, CN II-XII Intact, Oriented x3 - Psychiatric Exam Psychiatric exam: Normal Mood - Skin Skin Exam: absent: Rash Assessment and Plan (1) Hypertension Status: Acute (2) Lung mass Status: Acute (3) Esophageal reflux Status: Acute (4) Weight loss Status: Acute (5) COPD (chronic obstructive pulmonary disease) Status: Acute - Assessment and Plan (Free Text) Assessment: RESP STATUS COMFORTABLE AT REST. CONT PULM TOILET, NEB BD., MONITOR O2 SAT. CXR REVIEWED., CT REVIEWED +LARGE CARMELA MASS WITH EVID METS. , PLAN FOR CT GUIDED BX R/O CA. ONC EVAL NOTED. PROG POOR. DISCUSSED WITH STAFF.
[2018-04-01 20:07] LABS: INR 1.3; PROTHROMBIN TIME 14.2 SECONDS (9.7-12.2)
--- NOTE | 2018-04-02 00:15 | PN ---
DATE: 04/01/2018 SUBJECTIVE: Today, the patient is more alert and awake and has better appetite, but still coughing and shortness of breath with exertion. PHYSICAL EXAMINATION: VITAL SIGNS: Blood pressure is 108/62, pulse 82, respirations 20, temperature 99.1. NECK: Supple. LUNGS: There are some rales bilaterally and some hoarseness noted. HEART: Regular rate and rhythm. ABDOMEN: Soft and nontender. Positive bowel sounds. EXTREMITIES: There is no edema. LABORATORY DATA: Labs were done which showed WBC 7.3, hemoglobin 13.8, hematocrit 40.3, and platelets 318. Chemistry showed a sodium of 139, potassium of 4.3, chloride 103, bicarb 27, and glucose is 108. ASSESSMENT AND PLAN: Dr. Oro consult is appreciated. consult is also appreciated. We discussed the case and considered bronchoscopy versus biopsy of the breast. The case was discussed with who was at bedside. Kyle Aldana MD
[2018-04-02] MEDS: Albuterol 0.083% Inhal Sol (2.5 mg/3 mL) UD INH SCH ×4 (02:15→19:28)
--- NOTE | 2018-04-02 06:54 | HP ---
HISTORY OF PRESENT ILLNESS: The patient is a 73-year-old male with a history of hypertension, hyperlipidemia, and COPD. The patient came to my office, was complaining of anorexia with remarkable weight loss and generalized weakness. The patient was advised to go to the hospital for evaluation, and the patient was admitted. ALLERGIES: THE PATIENT HAS NO KNOWN ALLERGIES. PAST MEDICAL HISTORY: As I mentioned, history of hypertension, COPD, and also history of peripheral vascular disease. FAMILY HISTORY: Father and mother , unknown cause. 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 He denies EtOH abuse or smoking at this point. REVIEW OF SYSTEMS: RESPIRATORY SYSTEM: The patient has shortness of breath on exertion and congestive cough. CARDIOVASCULAR: Denies chest pain. GASTROINTESTINAL: Anorexia. GENITOURINARY: No dysuria but nocturia two to four times. NEURO: The patient is feeling weak. PSYCHIATRIC: The patient is somewhat forgetful. PHYSICAL EXAMINATION: GENERAL: The patient is alert and awake but very weak with some hoarseness noted. NECK: Supple. LUNGS: There are some rales bilaterally. HEART: Regular rate and rhythm. ABDOMEN: Soft. No tenderness noted. EXTREMITIES: There are varices noted. LABORATORY DATA: The patient had some tests done. WBC was 7.3, hemoglobin 12.4, hematocrit 37.1 and platelets 295. Chemistry: Sodium on admission 139, potassium 4.5, chloride 101, bicarb 27, BUN 11, creatinine 0.7, calcium 9.2. Total bilirubin 0.6, AST 20, ALT 21, alkaline phosphatase 86, and CK of 63. Troponin is 0.012. BNP is 340. The patient today had a CAT scan of the abdomen and pelvis. Evaluation of the abdomen is limited due to motion artifact appearance of the hepatic parenchyma. There is, however, mild fatty infiltration. Additionally, there is a small low-attenuation focus on the left lobe of the liver, possibly . There is a small cyst that can be hemangioma although metastatic lesion cannot be excluded. The chest showed that there is a large left upper lobe mass lesion with lobulated borders and scattered spiculation consistent with neoplasm, of the aorta. There is mediastinal and hilar adenopathy. Lesion is also shown in the left distal main pulmonary trunk and left upper and lower lobes (narrowing lesion surrounding left upper and lower lobe bronchi was narrowing). IMPRESSION AND PLAN: Cachexia rule out malignancy. left upper lobe mass in the lungs, hypertension, cachexia, anorexia, peripheral vascular disease, and dementia. The patient will have a gastroenterology consult with Dr. Hernandez also will have a consult with Dr. Oro, Pulmonary. Also, we are going to order an oncology consult with Dr. Leos. The case was discussed and reviewed with Pooja Meyers, the nurse practitioner. Kyle Aldana MD
[2018-04-02 07:44] LABS: BASO % 0.5 % (0.0-2.0); EOS # 0.3 K/uL (0.0-0.7); EOS % 3.2 % (0.0-4.0); HEMOGLOBIN 13.7 g/dL (12.0-18.0); LYMPH % 22.7 % (20.0-40.0); MEAN CELL VOLUME 84.2 fL (80.0-94.0); MEAN CORPUSCULAR HEMOGLOBIN 28.3 pg (27.0-31.0); MEAN CORPUSCULAR HGB CONC 33.6 g/dL (33.0-37.0); MEAN PLATELET VOLUME 8.7 fL (7.2-11.7); MONO # 0.7 K/uL (0.0-0.8); MONO % 7.5 % (0.0-10.0); NEUT # 5.8 K/uL (1.8-7.0); NEUT % 66.1 % (50.0-75.0); NRBC % 0.1 % (0.0-2.0); RBC 4.83 Mil/uL (4.40-5.90); RED CELL DISTRIBUTION WIDTH 15.9 % (11.5-14.5); WHITE BLOOD COUNT 8.8 K/uL (4.8-10.8)
[2018-04-02 08:02] LABS: ALB/GLOB RATIO 1.2 (1.0-2.1); ALBUMIN 3.8 g/dL (3.5-5.0); ALT/SGPT 23 U/L (21-72); AST/SGOT 44 U/L (17-59); BLOOD UREA NITROGEN 10 mg/dL (9-20); CALCIUM 9.6 mg/dl (8.6-10.4); GFR NON-AFRICAN AMERICAN > 60
[2018-04-02] MEDS: Megestrol Acetate 40 mg/ml Cup PO SCH (09:28)
[2018-04-02] MEDS: Pantoprazole 40 mg EC Tab PO SCH (09:33)
[2018-04-02] MEDS ORDERED: Pneumococcal 23-Valent Vaccine IM ONE (10:00)
--- NOTE | 2018-04-02 14:05 | CP.PCM.PN ---
Subjective - Date & Time of Evaluation Date of Evaluation: 04/02/18 Time of Evaluation: 14:03 - Subjective Subjective: f/u weight loss Ate well today Denies dysphagia/odynophagia Needs biopsy of lung mass- discussed with daughters Objective - Vital Signs/Intake and Output Vital Signs (last 24 hours): Temp Pulse Resp BP Pulse Ox 98.3 F 71 18 126/63 97 04/02/18 08:06 04/02/18 08:06 04/02/18 08:06 04/02/18 08:06 04/02/18 08:06 Intake and Output: 04/02/18 04/02/18 06:59 18:59 Intake Total 1040 Balance 1040 - Medications Medications: Current Medications Albuterol Sulfate (Albuterol 0.083% Inhal Cathie (2.5 Mg/3 Ml) Ud) 2.5 mg INH RQ6 [facility] Last Admin: 04/02/18 02:15 Dose: Not Given Aspirin (Aspirin Chewable) 81 mg PO DAILY [facility] Last Admin: 04/02/18 09:28 Dose: 81 mg Calcium Carbonate (Tums) 500 mg PO BID PRN PRN Reason: Heartburn Last Admin: 03/31/18 09:18 Dose: 500 mg Docusate Sodium (Colace) 100 mg PO BID [facility] Last Admin: 04/02/18 09:28 Dose: 100 mg Hydrochlorothiazide (Microzide) 12.5 mg PO DAILY [facility] Last Admin: 04/02/18 09:28 Dose: 12.5 mg Loratadine (Claritin) 10 mg PO DAILY [facility] Last Admin: 04/02/18 09:28 Dose: 10 mg Losartan Potassium (Cozaar) 50 mg PO DAILY [facility] Last Admin: 04/02/18 09:33 Dose: 50 mg Megestrol Acetate (Megace) 400 mg PO DAILY [facility] Last Admin: 04/02/18 09:28 Dose: 400 mg Montelukast Sodium (Singulair) 10 mg PO DAILY [facility] Last Admin: 04/02/18 09:33 Dose: 10 mg Pantoprazole Sodium (Protonix Ec Tab) 40 mg PO DAILY [facility] Last Admin: 04/02/18 09:33 Dose: 40 mg Pneumococcal Polyvalent Vaccine (Pneumovax 23 Vaccine) 0.5 ml SC .ONCE ONE Stop: 04/04/18 10:01 Rosuvastatin Calcium (Crestor) 10 mg PO HS [facility] Last Admin: 04/01/18 21:20 Dose: 10 mg - Labs Labs: 04/02/18 07:21 04/02/18 07:21 PT 14.2 SECONDS (9.7-12.2) H 04/01/18 19:44 INR 1.3 04/01/18 19:44 APTT 34 SECONDS (21-34) 04/01/18 19:44 - Constitutional Appears: Well, No Acute Distress - Head Exam Head Exam: NORMOCEPHALIC - Eye Exam Eye Exam: absent: Scleral icterus - Cardiovascular Exam Cardiovascular Exam: REGULAR RHYTHM - GI/Abdominal Exam GI & Abdominal Exam: Soft. absent: Tenderness Assessment and Plan (1) Lung mass Assessment & Plan: likely malignant check biopsy Status: Acute (2) Weight loss Assessment & Plan: due to underlying pulmonary lesion Monitor PO intake Status: Acute
--- NOTE | 2018-04-02 14:41 | PCM.IRP ---
History of Present Illness - History of Present Illness History of Present Illness: IR requested to perform CT guided biopsy of left upper lobe mass. CT reviewed and this appears to be post-obstructive atelectasis of left upper lobe bronchus. Most of the consolidation is lung parenchyma. Recommend bronchoscopy or PET scan. Objective - Vital Signs/Intake and Output Vital Signs (last 24 hours): Vital Signs - 24 hr 04/01/18 04/02/18 04/02/18 16:00 00:00 08:06 Temperature 99.1 F 98 F 98.3 F Pulse Rate 82 80 71 Respiratory 20 20 18 Rate Blood Pressure 108/62 121/64 126/63 O2 Sat by Pulse 97 96 97 Oximetry Intake and Output (last 12 hours): Intake & Output 04/01/18 04/02/18 04/02/18 18:59 06:59 18:59 Intake Total 1160 1040 Balance 1160 1040 Intake: Intake, IV Amount 560 560 Right Forearm 560 560 Oral 600 480 Other: # Voids Urine, Voided 2 2 # Bowel Movements 0 0 - Medications Medications: Current Medications Albuterol Sulfate (Albuterol 0.083% Inhal Cathie (2.5 Mg/3 Ml) Ud) 2.5 mg INH RQ6 [facility] Last Admin: 04/02/18 02:15 Dose: Not Given Aspirin (Aspirin Chewable) 81 mg PO DAILY [facility] Last Admin: 04/02/18 09:28 Dose: 81 mg Calcium Carbonate (Tums) 500 mg PO BID PRN PRN Reason: Heartburn Last Admin: 03/31/18 09:18 Dose: 500 mg Docusate Sodium (Colace) 100 mg PO BID [facility] Last Admin: 04/02/18 09:28 Dose: 100 mg Hydrochlorothiazide (Microzide) 12.5 mg PO DAILY [facility] Last Admin: 04/02/18 09:28 Dose: 12.5 mg Loratadine (Claritin) 10 mg PO DAILY [facility] Last Admin: 04/02/18 09:28 Dose: 10 mg Losartan Potassium (Cozaar) 50 mg PO DAILY [facility] Last Admin: 04/02/18 09:33 Dose: 50 mg Megestrol Acetate (Megace) 400 mg PO DAILY [facility] Last Admin: 04/02/18 09:28 Dose: 400 mg Montelukast Sodium (Singulair) 10 mg PO DAILY [facility] Last Admin: 04/02/18 09:33 Dose: 10 mg Pantoprazole Sodium (Protonix Ec Tab) 40 mg PO DAILY [facility] Last Admin: 04/02/18 09:33 Dose: 40 mg Pneumococcal Polyvalent Vaccine (Pneumovax 23 Vaccine) 0.5 ml SC .ONCE ONE Stop: 04/04/18 10:01 Rosuvastatin Calcium (Crestor) 10 mg PO HS [facility] Last Admin: 04/01/18 21:20 Dose: 10 mg - Labs Labs (last 24 hours): Laboratory Results - last 24 hr 04/01/18 04/02/18 04/02/18 19:44 07:21 07:21 WBC 8.8 RBC 4.83 Hgb 13.7 Hct 40.6 MCV 84.2 MCH 28.3 MCHC 33.6 RDW 15.9 H Plt Count 366 MPV 8.7 Neut % (Auto) 66.1 Lymph % (Auto) 22.7 Davis % (Auto) 7.5 Eos % (Auto) 3.2 Baso % (Auto) 0.5 Neut # (Auto) 5.8 Lymph # (Auto) 2.0 Davis # (Auto) 0.7 Eos # (Auto) 0.3 Baso # (Auto) 0.0 PT 14.2 H INR 1.3 APTT 34 Sodium 139 Potassium 4.2 Chloride 102 Carbon Dioxide 27 Anion Gap 14 BUN 10 Creatinine 0.7 L Est GFR ( Amer) > 60 Est GFR (Non-Af Amer) > 60 Random Glucose 97 Calcium 9.6 Phosphorus 3.7 Magnesium 2.1 Total Bilirubin 0.5 AST 44 ALT 23 Alkaline Phosphatase 93 Total Protein 7.0 Albumin 3.8 Globulin 3.2 Albumin/Globulin Ratio 1.2
--- NOTE | 2018-04-02 15:28 | CP.PCM.PN ---
Subjective - Date & Time of Evaluation Date of Evaluation: 04/02/18 Time of Evaluation: 15:28 - Subjective Subjective: PT FEELS BETTER, EATING MORE. NO SOB. ROS; OTHERWISE NEG. Objective - Vital Signs/Intake and Output Vital Signs (last 24 hours): Temp Pulse Resp BP Pulse Ox 98.3 F 71 18 126/63 97 04/02/18 08:06 04/02/18 08:06 04/02/18 08:06 04/02/18 08:06 04/02/18 08:06 Intake and Output: 04/02/18 04/02/18 06:59 18:59 Intake Total 1040 Balance 1040 - Medications Medications: Current Medications Albuterol Sulfate (Albuterol 0.083% Inhal Cathie (2.5 Mg/3 Ml) Ud) 2.5 mg INH RQ6 [facility] Last Admin: 04/02/18 13:30 Dose: 2.5 mg Aspirin (Aspirin Chewable) 81 mg PO DAILY [facility] Last Admin: 04/02/18 09:28 Dose: 81 mg Calcium Carbonate (Tums) 500 mg PO BID PRN PRN Reason: Heartburn Last Admin: 03/31/18 09:18 Dose: 500 mg Docusate Sodium (Colace) 100 mg PO BID [facility] Last Admin: 04/02/18 09:28 Dose: 100 mg Hydrochlorothiazide (Microzide) 12.5 mg PO DAILY [facility] Last Admin: 04/02/18 09:28 Dose: 12.5 mg Loratadine (Claritin) 10 mg PO DAILY [facility] Last Admin: 04/02/18 09:28 Dose: 10 mg Losartan Potassium (Cozaar) 50 mg PO DAILY [facility] Last Admin: 04/02/18 09:33 Dose: 50 mg Megestrol Acetate (Megace) 400 mg PO DAILY [facility] Last Admin: 04/02/18 09:28 Dose: 400 mg Montelukast Sodium (Singulair) 10 mg PO DAILY [facility] Last Admin: 04/02/18 09:33 Dose: 10 mg Pantoprazole Sodium (Protonix Ec Tab) 40 mg PO DAILY [facility] Last Admin: 04/02/18 09:33 Dose: 40 mg Pneumococcal Polyvalent Vaccine (Pneumovax 23 Vaccine) 0.5 ml SC .ONCE ONE Stop: 04/04/18 10:01 Rosuvastatin Calcium (Crestor) 10 mg PO HS [facility] Last Admin: 04/01/18 21:20 Dose: 10 mg - Labs Labs: 04/02/18 07:21 04/02/18 07:21 PT 14.2 SECONDS (9.7-12.2) H 04/01/18 19:44 INR 1.3 04/01/18 19:44 APTT 34 SECONDS (21-34) 04/01/18 19:44 - Constitutional Appears: No Acute Distress, Chronically Ill - Head Exam Head Exam: ATRAUMATIC, NORMOCEPHALIC - Eye Exam Eye Exam: EOMI, Normal appearance - ENT Exam ENT Exam: Mucous Membranes Moist - Neck Exam Neck Exam: Normal Inspection - Respiratory Exam Respiratory Exam: Decreased Breath Sounds - Cardiovascular Exam Cardiovascular Exam: RRR, +S1, +S2 - GI/Abdominal Exam GI & Abdominal Exam: Soft. absent: Tenderness - Rectal Exam Rectal Exam: Deferred - Extremities Exam Extremities Exam: absent: Calf Tenderness, Pedal Edema - Back Exam Back Exam: absent: CVA tenderness (L), CVA tenderness (R) - Neurological Exam Neurological Exam: Alert, Awake, CN II-XII Intact, Oriented x3 - Psychiatric Exam Psychiatric exam: Normal Mood - Skin Skin Exam: absent: Rash Assessment and Plan (1) Hypertension Status: Acute (2) Lung mass Status: Acute (3) Esophageal reflux Status: Acute (4) Weight loss Status: Acute (5) COPD (chronic obstructive pulmonary disease) Status: Acute - Assessment and Plan (Free Text) Assessment: RESP STATUS NO SIG CHANGE., CONT PULM TOILET., MONITOR O2 SAT. CXR REVIEWED. FOR IR EVAL . PROG POOR. DISCUSSED WITH STAFF AND FAMILIY AT BEDSIDE.
--- NOTE | 2018-04-02 22:01 | CP.PCM.PN ---
Subjective - Date & Time of Evaluation Date of Evaluation: 04/02/18 Time of Evaluation: 19:00 - Subjective Subjective: Tired, percutaneous biopsy not done. IR recommends brochoscopy Objective - Vital Signs/Intake and Output Vital Signs (last 24 hours): Temp Pulse Resp BP Pulse Ox 98.6 F 74 20 100/59 L 96 04/02/18 16:05 04/02/18 16:05 04/02/18 16:05 04/02/18 16:05 04/02/18 16:05 - Medications Medications: Current Medications Albuterol Sulfate (Albuterol 0.083% Inhal Cathie (2.5 Mg/3 Ml) Ud) 2.5 mg INH RQ6 [facility] Last Admin: 04/02/18 19:28 Dose: 2.5 mg Aspirin (Aspirin Chewable) 81 mg PO DAILY [facility] Last Admin: 04/02/18 09:28 Dose: 81 mg Calcium Carbonate (Tums) 500 mg PO BID PRN PRN Reason: Heartburn Last Admin: 03/31/18 09:18 Dose: 500 mg Docusate Sodium (Colace) 100 mg PO BID [facility] Last Admin: 04/02/18 17:17 Dose: 100 mg Hydrochlorothiazide (Microzide) 12.5 mg PO DAILY [facility] Last Admin: 04/02/18 09:28 Dose: 12.5 mg Loratadine (Claritin) 10 mg PO DAILY [facility] Last Admin: 04/02/18 09:28 Dose: 10 mg Losartan Potassium (Cozaar) 50 mg PO DAILY [facility] Last Admin: 04/02/18 09:33 Dose: 50 mg Megestrol Acetate (Megace) 400 mg PO DAILY [facility] Last Admin: 04/02/18 09:28 Dose: 400 mg Montelukast Sodium (Singulair) 10 mg PO DAILY [facility] Last Admin: 04/02/18 09:33 Dose: 10 mg Pantoprazole Sodium (Protonix Ec Tab) 40 mg PO DAILY [facility] Last Admin: 04/02/18 09:33 Dose: 40 mg Pneumococcal Polyvalent Vaccine (Pneumovax 23 Vaccine) 0.5 ml SC .ONCE ONE Stop: 04/04/18 10:01 Rosuvastatin Calcium (Crestor) 10 mg PO HS [facility] Last Admin: 04/02/18 21:22 Dose: 10 mg - Labs Labs: 04/02/18 07:21 04/02/18 07:21 PT 14.2 SECONDS (9.7-12.2) H 04/01/18 19:44 INR 1.3 04/01/18 19:44 APTT 34 SECONDS (21-34) 04/01/18 19:44 - Head Exam Head Exam: ATRAUMATIC - Eye Exam Eye Exam: Normal appearance - ENT Exam ENT Exam: Mucous Membranes Dry - Respiratory Exam Respiratory Exam: NORMAL BREATHING PATTERN - Cardiovascular Exam Cardiovascular Exam: +S1, +S2 - GI/Abdominal Exam GI & Abdominal Exam: Normal Bowel Sounds Assessment and Plan (1) Lung mass Assessment & Plan: concerning for lung cancer unable to get CT guided lung lesion biopsy IR recommends bronchoscopy evaluation further treatment recommendations based on pathology Status: Acute (2) Anemia Assessment & Plan: anemia of chronic disease Status: Acute
--- NOTE | 2018-04-03 00:01 | PN ---
DATE: 04/02/2018 SUBJECTIVE: Today, the patient is alert and awake, feels somewhat better and has better appetite. Denied any shortness of breath at rest. No chest pain. No palpitations. PHYSICAL EXAMINATION: VITAL SIGNS: The patient has a blood pressure of 100/59, pulse 74, respirations 20, temperature 98.6. NECK: Supple. There is hoarseness noted. LUNGS: There are some rales bilaterally. HEART: Regular rate and rhythm. ABDOMEN: Soft. EXTREMITIES: There is no edema. ASSESSMENT AND PLAN: The patient was scheduled to have a biopsy of the lung mass but according to the Interventional Radiology, stated that this is probably an atelectasis and has recommended either bronchoscopy or PET scan. We are going to consider a bronchoscopy, and we will discuss the case with Dr. Oro, Pulmonary. The case was reviewed and discussed this morning with David, the nurse practitioner. Kyle Aldana MD
[2018-04-03] MEDS: Albuterol 0.083% Inhal Sol (2.5 mg/3 mL) UD INH SCH ×4 (01:33→19:24)
[2018-04-03] MEDS: Pantoprazole 40 mg EC Tab PO SCH (09:25)
[2018-04-03] MEDS: Megestrol Acetate 40 mg/ml Cup PO SCH (09:26)
--- NOTE | 2018-04-03 11:01 | CP.PCM.PN ---
Subjective - Date & Time of Evaluation Date of Evaluation: 04/03/18 Time of Evaluation: 11:00 - Subjective Subjective: PT ALERT, NO SOB, OCC COUGH +WHITE SPUTUM., ROS; OTHERWISE NEG. Objective - Vital Signs/Intake and Output Vital Signs (last 24 hours): Temp Pulse Resp BP Pulse Ox 98.6 F 98 H 20 114/63 95 04/03/18 07:23 04/03/18 09:25 04/03/18 07:23 04/03/18 09:25 04/03/18 07:23 Intake and Output: 04/03/18 04/03/18 06:59 18:59 Intake Total 250 Balance 250 - Medications Medications: Current Medications Albuterol Sulfate (Albuterol 0.083% Inhal Cathie (2.5 Mg/3 Ml) Ud) 2.5 mg INH RQ6 [facility] Last Admin: 04/03/18 08:54 Dose: 2.5 mg Aspirin (Aspirin Chewable) 81 mg PO DAILY [facility] Last Admin: 04/03/18 09:25 Dose: 81 mg Calcium Carbonate (Tums) 500 mg PO BID PRN PRN Reason: Heartburn Last Admin: 03/31/18 09:18 Dose: 500 mg Docusate Sodium (Colace) 100 mg PO BID [facility] Last Admin: 04/03/18 09:25 Dose: 100 mg Hydrochlorothiazide (Microzide) 12.5 mg PO DAILY [facility] Last Admin: 04/03/18 09:26 Dose: 12.5 mg Loratadine (Claritin) 10 mg PO DAILY [facility] Last Admin: 04/03/18 09:26 Dose: 10 mg Losartan Potassium (Cozaar) 50 mg PO DAILY [facility] Last Admin: 04/03/18 09:26 Dose: 50 mg Megestrol Acetate (Megace) 400 mg PO DAILY [facility] Last Admin: 04/03/18 09:26 Dose: 400 mg Montelukast Sodium (Singulair) 10 mg PO DAILY [facility] Last Admin: 04/03/18 09:26 Dose: 10 mg Pantoprazole Sodium (Protonix Ec Tab) 40 mg PO DAILY [facility] Last Admin: 04/03/18 09:25 Dose: 40 mg Pneumococcal Polyvalent Vaccine (Pneumovax 23 Vaccine) 0.5 ml SC .ONCE ONE Stop: 04/04/18 10:01 Rosuvastatin Calcium (Crestor) 10 mg PO HS [facility] Last Admin: 04/02/18 21:22 Dose: 10 mg - Labs Labs: 04/02/18 07:21 04/02/18 07:21 PT 14.2 SECONDS (9.7-12.2) H 04/01/18 19:44 INR 1.3 04/01/18 19:44 APTT 34 SECONDS (21-34) 04/01/18 19:44 - Constitutional Appears: Chronically Ill - Head Exam Head Exam: ATRAUMATIC, NORMOCEPHALIC - Eye Exam Eye Exam: EOMI - ENT Exam ENT Exam: Mucous Membranes Moist - Neck Exam Neck Exam: Normal Inspection - Respiratory Exam Respiratory Exam: Decreased Breath Sounds. absent: Wheezes - Cardiovascular Exam Cardiovascular Exam: RRR, +S1, +S2 - GI/Abdominal Exam GI & Abdominal Exam: Soft. absent: Tenderness - Rectal Exam Rectal Exam: Deferred - Extremities Exam Extremities Exam: absent: Calf Tenderness, Pedal Edema - Back Exam Back Exam: absent: CVA tenderness (L), CVA tenderness (R) - Neurological Exam Neurological Exam: Alert, Awake, CN II-XII Intact, Oriented x3 - Psychiatric Exam Psychiatric exam: absent: Normal Mood - Skin Skin Exam: absent: Rash Assessment and Plan (1) Hypertension Status: Acute (2) Lung mass Status: Acute (3) Esophageal reflux Status: Acute (4) Weight loss Status: Acute (5) COPD (chronic obstructive pulmonary disease) Status: Acute - Assessment and Plan (Free Text) Assessment: RESP STATUS NO SIG CHANGE., AFEBRILE. CONT PULM TOILET., NEB BD., ADEQ OXYGENATION., CT CHEST REVIEWED WITH RADIOLOGIST., NO ENDOBRONCHIAL LESION SEEN., TO DISCUSS WITH DR MATOS. MARISSA VIRAMONTES. DISCUSSED WITH STAFF AT LENGTH AND PMD.
--- NOTE | 2018-04-03 18:00 | CP.PCM.PN ---
Subjective - Date & Time of Evaluation Date of Evaluation: 04/03/18 Time of Evaluation: 17:40 - Subjective Subjective: f/u abdom pain. Daught karenemi powers Reorts abdom is feeling better. Denies abdom pain, reflux, SZ, RB, melena, DUQUE, hematuria, myalgia Could not do pulm Bx biopsy today Objective - Vital Signs/Intake and Output Vital Signs (last 24 hours): Temp Pulse Resp BP Pulse Ox 98.2 F 79 20 102/54 L 97 04/03/18 15:00 04/03/18 15:00 04/03/18 15:00 04/03/18 15:00 04/03/18 15:00 Intake and Output: 04/03/18 04/03/18 06:59 18:59 Intake Total 250 Balance 250 - Medications Medications: Current Medications Acetaminophen (Tylenol 325mg Tab) 650 mg PO Q6 PRN PRN Reason: Pain, moderate (4-7) Albuterol Sulfate (Albuterol 0.083% Inhal Cathie (2.5 Mg/3 Ml) Ud) 2.5 mg INH RQ6 [facility] Last Admin: 04/03/18 14:18 Dose: 2.5 mg Aspirin (Aspirin Chewable) 81 mg PO DAILY [facility] Last Admin: 04/03/18 09:25 Dose: 81 mg Calcium Carbonate (Tums) 500 mg PO BID PRN PRN Reason: Heartburn Last Admin: 03/31/18 09:18 Dose: 500 mg Docusate Sodium (Colace) 100 mg PO BID [facility] Last Admin: 04/03/18 17:11 Dose: 100 mg Hydrochlorothiazide (Microzide) 12.5 mg PO DAILY [facility] Last Admin: 04/03/18 09:26 Dose: 12.5 mg Loratadine (Claritin) 10 mg PO DAILY [facility] Last Admin: 04/03/18 09:26 Dose: 10 mg Losartan Potassium (Cozaar) 50 mg PO DAILY [facility] Last Admin: 04/03/18 09:26 Dose: 50 mg Megestrol Acetate (Megace) 400 mg PO DAILY [facility] Last Admin: 04/03/18 09:26 Dose: 400 mg Montelukast Sodium (Singulair) 10 mg PO DAILY [facility] Last Admin: 04/03/18 09:26 Dose: 10 mg Pantoprazole Sodium (Protonix Ec Tab) 40 mg PO DAILY [facility] Last Admin: 04/03/18 09:25 Dose: 40 mg Pneumococcal Polyvalent Vaccine (Pneumovax 23 Vaccine) 0.5 ml SC .ONCE ONE Stop: 04/04/18 10:01 Rosuvastatin Calcium (Crestor) 10 mg PO HS [facility] Last Admin: 04/02/18 21:22 Dose: 10 mg - Labs Labs: 04/02/18 07:21 04/02/18 07:21 PT 14.2 SECONDS (9.7-12.2) H 04/01/18 19:44 INR 1.3 04/01/18 19:44 APTT 34 SECONDS (21-34) 04/01/18 19:44 - Constitutional Appears: Non-toxic - Respiratory Exam Respiratory Exam: Rhonchi - Cardiovascular Exam Cardiovascular Exam: RRR - GI/Abdominal Exam GI & Abdominal Exam: Soft, Normal Bowel Sounds. absent: Guarding, Tenderness, Mass - Neurological Exam Neurological Exam: Alert, Oriented x3 Assessment and Plan (1) Lung mass Assessment & Plan: Oncology and pulm w/u. Consider bronch Status: Acute (2) Epigastric pain Assessment & Plan: better. Continue PPI Status: Acute (3) Esophageal reflux Assessment & Plan: better. COntinue PPI.. Will see again if needed. Status: Acute (4) Weight loss Assessment & Plan: lung CA Status: Acute (5) COPD (chronic obstructive pulmonary disease) Status: Acute (6) Dysphagia Assessment & Plan: better Status: Acute
[2018-04-04] MEDS: Albuterol 0.083% Inhal Sol (2.5 mg/3 mL) UD INH SCH ×4 (02:54→19:30)
--- NOTE | 2018-04-04 06:17 | PN ---
DATE: 04/03/2018 SUBJECTIVE: The patient was seen earlier this morning and according to the daughter, the patient was still complaining of anorexia. No chest pain. No shortness of breath. The patient is having some hoarseness. PHYSICAL EXAMINATION: VITAL SIGNS: The patient has a blood pressure of 114/63, pulse is 98, respirations 20, and temperature is 98.2. NECK: Supple. LUNGS: Clear than previously. HEART: Regular rate and rhythm. ABDOMEN: Soft and nontender. No palpable mass. EXTREMITIES: There is no edema noted. ASSESSMENT AND PLAN: The patient has some blood wok done including also a CAT scan of the chest that showed a questionable left upper lobe mass, showed that the epicenter is felt to be located in the left upper hilar region, possibly with or adjacent to the left upper lobe bronchus, and there is also an element of left upper lobe atelectasis likely obstructive, the lesion is accessible for biopsy via bronchoscopy. A PET CT scan is recommended. The case was discussed with Dr. Oro, Pulmonary, and also with Pooja Meyers, the nurse practitioner. The plan is to do a bronchoscopy in the morning. daughter was informed of the management. Kyle Aldana MD
[2018-04-04] MEDS: Pantoprazole 40 mg EC Tab PO SCH (09:49)
[2018-04-04] MEDS: Megestrol Acetate 40 mg/ml Cup PO SCH (09:50)
[2018-04-04] MEDS ORDERED: Pneumococcal 23-Valent Vaccine SC ONE (10:00)
[2018-04-04] MEDS ORDERED: Lidocaine 2% MPF (5 ml) Inj ONE (10:10)
[2018-04-04] MEDS ORDERED: EPINEPHrine 1 mg/ml (1:1000) Inj ONE (10:10)
[2018-04-04] MEDS ORDERED: Propofol 10 mg/ml Inj (20 ML) ONE (10:48)
--- NOTE | 2018-04-04 11:51 | PCM.OP ---
Operative Report - Operative Report Date of Surgery/Procedure: 04/04/18 Time of Surgery/Procedure: 11:43 Surgeon: CARLOS A Anesthesia/Sedation: VISCOUS LIDO TO NARES., AEROSOLIZED 2% LIDO TO OROPHARYNX. IV SEDATION PER ANESTHESIOLOGIST. Pre-Operative Diagnosis: LEFT LUNG MASS Post-Operative Diagnosis: LEFT LUNG MASS Indication for Surgery: LEFT LUNG MASS Operative Findings: FOB DONE VIA LEFT NARES. VOCAL CORDS WNL. TRACHEA WNL. MAJOR AZUL SHARP. RUL NO MASS NL MUCOSA. RML NO MASS NL MUCOSA. RLL NO MASS , NL MUCOSA. CARMELA /LINGULA ERYTHEMATOUS IRREG MUCOSA. NO MASS. BRUSHINGS DONE +FRIABLE, HEMOSTASIS NOTED., WASHINGS DONE. LLL IRREG MUCOSA, NO MASS, EXTRINSIC COMPRESSION. WASHINGS DONE. Procedure/Operation Description: BRONCHOSCOPY WITH BRUSHINGS. Estimated Blood Loss: 0 Complications: NONE Discharge & Condition: PT TOLERATED PROCEDURE WELL.
--- NOTE | 2018-04-04 11:51 | CP.PCM.PN ---
Subjective - Date & Time of Evaluation Date of Evaluation: 04/03/18 Time of Evaluation: 18:00 - Subjective Subjective: Tired, for bronchoscopy in AM Objective - Vital Signs/Intake and Output Vital Signs (last 24 hours): Temp Pulse Resp BP Pulse Ox 98.7 F 81 20 109/62 97 04/04/18 07:55 04/04/18 09:48 04/04/18 07:55 04/04/18 09:48 04/04/18 07:55 - Medications Medications: Current Medications Acetaminophen (Tylenol 325mg Tab) 650 mg PO Q6 PRN PRN Reason: Pain, moderate (4-7) Albuterol Sulfate (Albuterol 0.083% Inhal Cathie (2.5 Mg/3 Ml) Ud) 2.5 mg INH RQ6 [facility] Last Admin: 04/04/18 08:04 Dose: 2.5 mg Aspirin (Aspirin Chewable) 81 mg PO DAILY [facility] Last Admin: 04/04/18 09:49 Dose: 81 mg Calcium Carbonate (Tums) 500 mg PO BID PRN PRN Reason: Heartburn Last Admin: 03/31/18 09:18 Dose: 500 mg Docusate Sodium (Colace) 100 mg PO BID [facility] Last Admin: 04/04/18 09:49 Dose: 100 mg Hydrochlorothiazide (Microzide) 12.5 mg PO DAILY [facility] Last Admin: 04/04/18 09:49 Dose: 12.5 mg Loratadine (Claritin) 10 mg PO DAILY [facility] Last Admin: 04/04/18 09:49 Dose: 10 mg Losartan Potassium (Cozaar) 50 mg PO DAILY [facility] Last Admin: 04/04/18 09:49 Dose: 50 mg Megestrol Acetate (Megace) 400 mg PO DAILY [facility] Last Admin: 04/03/18 09:26 Dose: 400 mg Montelukast Sodium (Singulair) 10 mg PO DAILY [facility] Last Admin: 04/04/18 09:49 Dose: 10 mg Pantoprazole Sodium (Protonix Ec Tab) 40 mg PO DAILY [facility] Last Admin: 04/04/18 09:49 Dose: 40 mg Rosuvastatin Calcium (Crestor) 10 mg PO HS [facility] Last Admin: 04/03/18 21:22 Dose: 10 mg - Labs Labs: 04/02/18 07:21 04/02/18 07:21 PT 14.2 SECONDS (9.7-12.2) H 04/01/18 19:44 INR 1.3 04/01/18 19:44 APTT 34 SECONDS (21-34) 04/01/18 19:44 - Head Exam Head Exam: ATRAUMATIC - Eye Exam Eye Exam: Normal appearance - ENT Exam ENT Exam: Mucous Membranes Dry - Respiratory Exam Respiratory Exam: Decreased Breath Sounds - Cardiovascular Exam Cardiovascular Exam: +S1, +S2 - GI/Abdominal Exam GI & Abdominal Exam: Normal Bowel Sounds Assessment and Plan (1) Lung mass Assessment & Plan: unable to do percutaneous biopsy by IR for bronchoscopy in AM Status: Acute (2) Anemia Assessment & Plan: chronic disease Status: Acute
--- NOTE | 2018-04-04 12:02 | CP.PCM.PN ---
Subjective - Date & Time of Evaluation Date of Evaluation: 04/04/18 Time of Evaluation: 11:56 - Subjective Subjective: PT ALERT, NO SOB. POOR APPETITE. ROS ; OTHERWISE NEG. Objective - Vital Signs/Intake and Output Vital Signs (last 24 hours): Temp Pulse Resp BP Pulse Ox 98.7 F 81 20 109/62 97 04/04/18 07:55 04/04/18 09:48 04/04/18 07:55 04/04/18 09:48 04/04/18 07:55 Intake and Output: 04/04/18 04/04/18 06:59 18:59 Intake Total 350 Balance 350 - Medications Medications: Current Medications Acetaminophen (Tylenol 325mg Tab) 650 mg PO Q6 PRN PRN Reason: Pain, moderate (4-7) Albuterol Sulfate (Albuterol 0.083% Inhal Cathie (2.5 Mg/3 Ml) Ud) 2.5 mg INH RQ6 [facility] Last Admin: 04/04/18 08:04 Dose: 2.5 mg Aspirin (Aspirin Chewable) 81 mg PO DAILY [facility] Last Admin: 04/04/18 09:49 Dose: 81 mg Calcium Carbonate (Tums) 500 mg PO BID PRN PRN Reason: Heartburn Last Admin: 03/31/18 09:18 Dose: 500 mg Docusate Sodium (Colace) 100 mg PO BID [facility] Last Admin: 04/04/18 09:49 Dose: 100 mg Hydrochlorothiazide (Microzide) 12.5 mg PO DAILY [facility] Last Admin: 04/04/18 09:49 Dose: 12.5 mg Loratadine (Claritin) 10 mg PO DAILY [facility] Last Admin: 04/04/18 09:49 Dose: 10 mg Losartan Potassium (Cozaar) 50 mg PO DAILY [facility] Last Admin: 04/04/18 09:49 Dose: 50 mg Megestrol Acetate (Megace) 400 mg PO DAILY [facility] Last Admin: 04/03/18 09:26 Dose: 400 mg Montelukast Sodium (Singulair) 10 mg PO DAILY [facility] Last Admin: 04/04/18 09:49 Dose: 10 mg Pantoprazole Sodium (Protonix Ec Tab) 40 mg PO DAILY [facility] Last Admin: 04/04/18 09:49 Dose: 40 mg Rosuvastatin Calcium (Crestor) 10 mg PO HS [facility] Last Admin: 04/03/18 21:22 Dose: 10 mg - Labs Labs: 04/02/18 07:21 04/02/18 07:21 PT 14.2 SECONDS (9.7-12.2) H 04/01/18 19:44 INR 1.3 04/01/18 19:44 APTT 34 SECONDS (21-34) 04/01/18 19:44 - Constitutional Appears: Chronically Ill - Head Exam Head Exam: ATRAUMATIC, NORMOCEPHALIC - Eye Exam Eye Exam: EOMI, Normal appearance - ENT Exam ENT Exam: Mucous Membranes Moist - Neck Exam Neck Exam: Normal Inspection - Respiratory Exam Respiratory Exam: Decreased Breath Sounds. absent: Wheezes - Cardiovascular Exam Cardiovascular Exam: RRR, +S1, +S2 - GI/Abdominal Exam GI & Abdominal Exam: Soft. absent: Tenderness - Rectal Exam Rectal Exam: Deferred - Extremities Exam Extremities Exam: absent: Calf Tenderness, Pedal Edema - Back Exam Back Exam: absent: CVA tenderness (L), CVA tenderness (R) - Neurological Exam Neurological Exam: Alert, Awake, CN II-XII Intact, Oriented x3 - Psychiatric Exam Psychiatric exam: Normal Mood - Skin Skin Exam: absent: Rash Assessment and Plan (1) Hypertension Status: Acute (2) Lung mass Status: Acute (3) Esophageal reflux Status: Acute (4) Weight loss Status: Acute (5) COPD (chronic obstructive pulmonary disease) Status: Acute - Assessment and Plan (Free Text) Assessment: RESP STATUS NO SIG CHANGE. CONT PULM TOILET., DISCUSSED AND REVIEWED CT WITH RADIOLOGISTS AT [facility] AND DR LOPEZ. PLAN FOR FOB TODAY. DISCUSSED WITH DAUGHTERS AT LENGTH AND STAFF.
--- NOTE | 2018-04-04 12:58 | RAD ---
Date of service: 04/04/2018 HISTORY: post bronchoscopy r/o pneumothorax COMPARISON: Portable chest 03/29/2018. Chest, abdomen and pelvis CT 03/29/2018. FINDINGS: LUNGS: Hazy density corresponding to left upper lobe mass is reiterated. No interval acute infiltrate. Right chest remains clear. PLEURA: No significant pleural effusion identified, no pneumothorax apparent. CARDIOVASCULAR: No atherosclerotic calcification present Normal. OSSEOUS STRUCTURES: No significant abnormalities. VISUALIZED UPPER ABDOMEN: Normal. OTHER FINDINGS: None. IMPRESSION: No interval acute infiltrate, pleural effusion or pneumothorax. No pulmonary vascular congestion. Left upper lobe mass reiterated.
[2018-04-04 13:52] VITALS: RESP 20
--- NOTE | 2018-04-05 00:57 | PN ---
DATE: 04/04/2018 SUBJECTIVE: Today, the patient had a bronchoscopy done and the patient was seen in the recovery room. Alert and awake. Denied any shortness of breath any pain or any dizziness, but generalized weakness. PHYSICAL EXAMINATION: VITAL SIGNS: The patient had blood pressure of 106/59, pulse 70, respiration 20, temperature 98.5. NECK: Supple. No JVD. LUNGS: Clear. HEART: Regular rate and rhythm. ABDOMEN: Soft and nontender. Positive bowel sounds. EXTREMITIES: There is no edema. ASSESSMENT AND PLAN: The patient had a bronchoscopy done as per Lupe Adams, there was no evidence of tumor, but the patient had atelectasis and sent to pathology. Now, the plan is that we are going to continue the respiratory treatment and also we are going to continue the medications, pending the pathology report. The case was reviewed with Lupe Adams and also with Pooja Meyers, the nurse practitioner. Kyle Aldana MD
[2018-04-05] MEDS: Albuterol 0.083% Inhal Sol (2.5 mg/3 mL) UD INH SCH ×3 (02:47→13:05)
[2018-04-05 08:00] VITALS: TEMP 98.2; O2SAT 97
[2018-04-05] MEDS: Pantoprazole 40 mg EC Tab PO SCH (10:05)
[2018-04-05] MEDS: Megestrol Acetate 40 mg/ml Cup PO SCH (10:06)
[2018-04-05 10:07] VITALS: BP 109/64; PULSE 92
[2018-04-05 11:28] LABS: BASO % 0.4 % (0.0-2.0); EOS # 0.2 K/uL (0.0-0.7); HEMOGLOBIN 13.5 g/dL (12.0-18.0); LYMPH # 1.5 K/uL (1.0-4.3); LYMPH % 19.4 % (20.0-40.0); MEAN CELL VOLUME 83.6 fL (80.0-94.0); MEAN CORPUSCULAR HEMOGLOBIN 28.3 pg (27.0-31.0); MEAN CORPUSCULAR HGB CONC 33.9 g/dL (33.0-37.0); MEAN PLATELET VOLUME 8.2 fL (7.2-11.7); MONO # 0.5 K/uL (0.0-0.8); MONO % 7.1 % (0.0-10.0); NEUT # 5.3 K/uL (1.8-7.0); NEUT % 70.1 % (50.0-75.0); NRBC % 0.1 % (0.0-2.0); RBC 4.76 Mil/uL (4.40-5.90); RED CELL DISTRIBUTION WIDTH 15.4 % (11.5-14.5); WHITE BLOOD COUNT 7.5 K/uL (4.8-10.8)
[2018-04-05 12:14] LABS: ALB/GLOB RATIO 1.1 (1.0-2.1); ALBUMIN 3.6 g/dL (3.5-5.0); ALT/SGPT 35 U/L (21-72); AST/SGOT 31 U/L (17-59); BLOOD UREA NITROGEN 17 mg/dL (9-20); CALCIUM 9.3 mg/dl (8.6-10.4); GFR NON-AFRICAN AMERICAN > 60
[2018-04-05 12:26] LABS: ABG ALLEN TEST POS; ARTERIAL BLOOD GAS HCO3 23.6 mmol/L (21-28); ARTERIAL BLOOD GAS HEMOGLOBIN 12.7 g/dL (11.7-17.4); ARTERIAL BLOOD GAS O2 SAT 99.3 % (95-98); ARTERIAL BLOOD GAS PCO2 30 mm/Hg (35-45); ARTERIAL BLOOD GAS PH 7.46 (7.35-7.45); ARTERIAL BLOOD GAS PO2 104 mm/Hg (80-100); ARTERIAL BLOOD GAS TCO2 22.2 mmol/L (22-28)
[2018-04-05] MEDS ORDERED: Potassium Chloride 20 mEq ER Tab PO ONE (12:45)
--- NOTE | 2018-04-05 12:52 | CP.PCM.PN ---
Subjective - Date & Time of Evaluation Date of Evaluation: 04/05/18 Time of Evaluation: 12:52 - Subjective Subjective: PATIENT SEEN AND EXAMINED AT THE BEDSIDE Objective - Vital Signs/Intake and Output Vital Signs (last 24 hours): Temp Pulse Resp BP Pulse Ox 98.2 F 92 H 20 109/64 97 04/05/18 07:59 04/05/18 10:06 04/05/18 07:59 04/05/18 10:06 04/05/18 07:59 - Medications Medications: Current Medications Acetaminophen (Tylenol 325mg Tab) 650 mg PO Q6 PRN PRN Reason: Pain, moderate (4-7) Last Admin: 04/05/18 11:36 Dose: 650 mg Albuterol Sulfate (Albuterol 0.083% Inhal Cathie (2.5 Mg/3 Ml) Ud) 2.5 mg INH RQ6 [facility] Last Admin: 04/05/18 07:33 Dose: 2.5 mg Aspirin (Aspirin Chewable) 81 mg PO DAILY [facility] Last Admin: 04/05/18 10:05 Dose: 81 mg Calcium Carbonate (Tums) 500 mg PO BID PRN PRN Reason: Heartburn Last Admin: 03/31/18 09:18 Dose: 500 mg Docusate Sodium (Colace) 100 mg PO BID [facility] Last Admin: 04/05/18 10:05 Dose: 100 mg Hydrochlorothiazide (Microzide) 12.5 mg PO DAILY [facility] Last Admin: 04/05/18 10:05 Dose: 12.5 mg Loratadine (Claritin) 10 mg PO DAILY [facility] Last Admin: 04/05/18 10:05 Dose: 10 mg Losartan Potassium (Cozaar) 50 mg PO DAILY [facility] Last Admin: 04/05/18 10:05 Dose: 50 mg Megestrol Acetate (Megace) 400 mg PO DAILY [facility] Last Admin: 04/05/18 10:06 Dose: 400 mg Montelukast Sodium (Singulair) 10 mg PO DAILY [facility] Last Admin: 04/05/18 10:05 Dose: 10 mg Pantoprazole Sodium (Protonix Ec Tab) 40 mg PO DAILY [facility] Last Admin: 04/05/18 10:05 Dose: 40 mg Potassium Chloride (Potassium Chloride Oral Soln) 40 meq PO ONCE ONE Stop: 04/05/18 13:01 Rosuvastatin Calcium (Crestor) 10 mg PO HS [facility] Last Admin: 04/04/18 22:40 Dose: Not Given - Labs Labs: 04/05/18 11:12 04/05/18 11:12 PT 14.2 SECONDS (9.7-12.2) H 04/01/18 19:44 INR 1.3 04/01/18 19:44 APTT 34 SECONDS (21-34) 04/01/18 19:44 Assessment and Plan - Assessment and Plan (Free Text) Assessment: FOLLOW UP WITH DR LOPEZ IN HIS OFFICE ----CALL FOR APPOINTMENT ADDRESS YOUR EXAM RESULT AT YOUR VISIT FOLLOW UP WITH DR HANCOCK IN HIS OFFICE ----CALL FOR APPOINTMENT CONT[facility] HOME MEDICATION NEW PRESCRIPTION GIVEN COLACE 100 MG PO TWICE A DAY FOR 5 DAYS PROTONIX 40 MG PO DAILY MEGACE 400 MG PO DAILY ACTIVITY TOLERATED CALL DR LOPEZ OR GO TO THE EMERGENCY ROOM IF SYMPTOM RETURN OR WORSENING
[2018-04-05] MEDS ORDERED: Potassium Chloride 20 mEq/15 ml LIQ UD PO ONE (13:00)
--- NOTE | 2018-04-05 19:40 | CP.PCM.PN ---
Subjective - Date & Time of Evaluation Date of Evaluation: 04/04/18 Time of Evaluation: 12:00 - Subjective Subjective: No complaints. Objective - Vital Signs/Intake and Output Vital Signs (last 24 hours): Temp Pulse Resp BP Pulse Ox 98.2 F 92 H 20 109/64 97 04/05/18 07:59 04/05/18 10:06 04/05/18 07:59 04/05/18 10:06 04/05/18 07:59 - Labs Labs: 04/05/18 11:12 04/05/18 11:12 PT 14.2 SECONDS (9.7-12.2) H 04/01/18 19:44 INR 1.3 04/01/18 19:44 APTT 34 SECONDS (21-34) 04/01/18 19:44 - Head Exam Head Exam: ATRAUMATIC - Eye Exam Eye Exam: Normal appearance - ENT Exam ENT Exam: Mucous Membranes Dry - Respiratory Exam Respiratory Exam: NORMAL BREATHING PATTERN - Cardiovascular Exam Cardiovascular Exam: +S1, +S2 - GI/Abdominal Exam GI & Abdominal Exam: Normal Bowel Sounds Assessment and Plan (1) Lung mass Assessment & Plan: unable to do percutaneous biopsy by IR s/p bronchoscopy Status: Acute (2) Anemia Assessment & Plan: chronic disease Status: Acute
--- NOTE | 2018-04-05 19:41 | CP.PCM.PN ---
Subjective - Date & Time of Evaluation Date of Evaluation: 04/05/18 Time of Evaluation: 12:00 - Subjective Subjective: No complaints. Objective - Vital Signs/Intake and Output Vital Signs (last 24 hours): Temp Pulse Resp BP Pulse Ox 98.2 F 92 H 20 109/64 97 04/05/18 07:59 04/05/18 10:06 04/05/18 07:59 04/05/18 10:06 04/05/18 07:59 - Labs Labs: 04/05/18 11:12 04/05/18 11:12 PT 14.2 SECONDS (9.7-12.2) H 04/01/18 19:44 INR 1.3 04/01/18 19:44 APTT 34 SECONDS (21-34) 04/01/18 19:44 - Head Exam Head Exam: ATRAUMATIC - Eye Exam Eye Exam: Normal appearance - ENT Exam ENT Exam: Mucous Membranes Dry - Respiratory Exam Respiratory Exam: NORMAL BREATHING PATTERN - Cardiovascular Exam Cardiovascular Exam: +S1, +S2 - GI/Abdominal Exam GI & Abdominal Exam: Normal Bowel Sounds Assessment and Plan (1) Lung mass Assessment & Plan: s/p bronchscopy outpatient f/u of results. Status: Acute (2) Anemia Assessment & Plan: chronic disease. Status: Acute
--- NOTE | 2018-04-06 00:45 | PN ---
DATE: 04/05/2018 SUBJECTIVE: Today, the patient is more alert and awake. Has no shortness of breath. No chest pain or palpitation. The patient denies any dizziness or chest pain. The patient has been having improvement of anorexia. PHYSICAL EXAMINATION: VITAL SIGNS: The patient has a blood pressure of 109/64, pulse 92, respirations 20, temperature 98.2. NECK: Supple. No JVD. LUNGS: Clear today. HEART: Regular rate and rhythm. ABDOMEN: Soft. Positive bowel sounds. EXTREMITIES: There is no edema. LABORATORY DATA: Blood test done today showed a WBC of 7.5, hemoglobin 13.5, hematocrit 39.8 and platelet is 374. Chemistry showed a sodium of 137, potassium 3.4, chloride 100, bicarbonate 23, BUN 17, creatinine 0.8, and glucose is 171. ASSESSMENT AND PLAN: The patient had yesterday bronchoscopy done, the result is pending. The patient wants to go home and so we are going to refer him to discharge the patient home today. We will follow the pathology report. The patient is also have to follow with Dr. Oro, the Pulmonary. The case was discussed with Pooja Meyers and David and . Kyle Aldana MD
--- NOTE | 2018-04-11 06:27 | DS ---
HISTORY OF PRESENT ILLNESS: The patient is a 73-year-old male with history of hypertension, hyperlipidemia and COPD. The patient was seen in the emergency room because the patient was found to be anorexic. He has weakness and loss of weight. The patient was admitted to my service and we have found that the patient has lost about 20 pounds for the past few months and still the patient with moderate short of breath. The patient was evaluated and had CAT scan of the chest that was interpreted as having mass in the left upper lobe which was corrected in the addendum that there is an element of left lower lobe atelectasis likely postobstructive, and the patient was somewhat anorexic as I mentioned. On the physical exam also we found the patient had some rales in the lungs, and abdomen was soft. We have requested consult with Dr. Oro Pulmonary and also had a consult with Dr. Leos. The patient was scheduled for IR, but bronchoscopy was done and washing was done by Dr. Oro Pulmonary. Plan is that the patient will be discharged home. Also, we have to mention that prior the patient had GI consult with Dr. Hernandez. Now, the patient is discharged to home, and we are going to continue to follow the bronchoscopy and washing results. Kyle Aldana MD
== END 2018-04-05 13:12 | disposition home or self-care (01) | DRG 181 ==
LOC: C.ER 13:45 → C.9E 15:14 → C.5S 23:00
PROVIDERS: ADMIT Specialist; ATTEND Specialist
PROC: 0BDJ8ZX Extraction of Left Lower Lung Lobe, Via Natural or Artificial Opening Endoscopic, Diagnostic (ICD-10-PCS; principal; 2018-04-04 10:30)
DX: C34.12 Malignant neoplasm of upper lobe, left bronchus or lung (principal); J98.11 Atelectasis; R64 Cachexia; J44.9 Chronic obstructive pulmonary disease, unspecified; I10 Essential (primary) hypertension; R13.10 Dysphagia, unspecified; D63.8 Anemia in other chronic diseases classified elsewhere; I73.9 Peripheral vascular disease, unspecified; F03.90 Unspecified dementia, unspecified severity, without behavioral disturbance, psychotic disturbance, mood disturbance, and anxiety; K21.9 Gastro-esophageal reflux disease without esophagitis; K29.70 Gastritis, unspecified, without bleeding; E78.5 Hyperlipidemia, unspecified; E78.00 Pure hypercholesterolemia, unspecified; Z87.891 Personal history of nicotine dependence

== ENCOUNTER 2018-04-20 22:08 | Inpatient (IN) | payer MEDICARE ==
[2018-04-20 22:51] LABS: BASO # 0.1 K/uL (0.0-0.2); BASO % 0.6 % (0.0-2.0); EOS # 0.3 K/uL (0.0-0.7); EOS % 3.1 % (0.0-4.0); HEMOGLOBIN 12.9 g/dL (12.0-18.0); LYMPH # 2.2 K/uL (1.0-4.3); LYMPH % 24.9 % (20.0-40.0); MEAN CELL VOLUME 83.1 fL (80.0-94.0); MEAN CORPUSCULAR HEMOGLOBIN 28.4 pg (27.0-31.0); MEAN CORPUSCULAR HGB CONC 34.1 g/dL (33.0-37.0); MONO # 0.9 K/uL (0.0-0.8); MONO % 9.6 % (0.0-10.0); NEUT # 5.6 K/uL (1.8-7.0); NEUT % 61.8 % (50.0-75.0); NRBC % 0.1 % (0.0-2.0); RBC 4.54 Mil/uL (4.40-5.90); RED CELL DISTRIBUTION WIDTH 15.3 % (11.5-14.5)
[2018-04-20 22:59] LABS: INR 1.4; PROTHROMBIN TIME 15.1 SECONDS (9.7-12.2)
--- NOTE | 2018-04-20 23:08 | C.PDOC ---
History Of Present Illness 73 year old male with a history of COPD, lung mass, and HTN presents to the emergency department from home with complaints of vomiting and chest pain. Patient reports that his chest pain is chronic, but reports that vomiting started today. Patient reports that he just finished a prolonged hospital course, and that he was due for an endoscopy today but couldn't make it. He has no other complaints otherwise. Time Seen by Provider: 04/20/18 22:19 Chief Complaint (Nursing): Abdominal Pain History Per: Patient History/Exam Limitations: no limitations Onset/Duration Of Symptoms: Days (1) Current Symptoms Are (Timing): Still Present Quality Of Discomfort: "Pain" Associated Symptoms: Vomiting Past Medical History Vital Signs: Last Vital Signs Temp 99.3 F 04/20/18 22:15 Pulse 99 H 04/20/18 22:15 Resp 20 04/20/18 22:15 BP 152/77 H 04/20/18 22:15 Pulse Ox 98 04/20/18 22:15 - Medical History PMH: Asthma, COPD, HTN, Hypercholesterolemia Denies: Chronic Kidney Disease Surgical History: No Surg Hx - [facility] (03/29/18) Family History: States: No Known Family Hx - Social History Hx Alcohol Use: No Hx Substance Use: No - Immunization History Hx Tetanus Toxoid Vaccination: No Hx Influenza Vaccination: No Hx Pneumococcal Vaccination: No Review Of Systems Except As Marked, All Systems Reviewed And Found Negative. Constitutional: Negative for: Fever, Chills Cardiovascular: Positive for: Chest Pain Gastrointestinal: Positive for: Vomiting Physical Exam - Physical Exam Appears: Non-toxic, No Acute Distress, Other (cachectic, chronically ill- appearing) Skin: Warm, Dry Head: Atraumatic, Normacephalic Eye(s): bilateral: Normal Inspection, PERRL, EOMI Oral Mucosa: Moist Neck: Normal, Supple Chest: Symmetrical, No Tenderness Cardiovascular: Rhythm Regular, No Murmur Respiratory: Normal Breath Sounds, No Rales, No Rhonchi, No Wheezing Gastrointestinal/Abdominal: Soft, No Tenderness, No Guarding, No Rebound Extremity: Normal ROM (all extremities) Neurological/Psych: Oriented x3, Normal Speech, Normal Cognition ED Course And Treatment - Laboratory Results Result Diagrams: 04/20/18 22:47 04/20/18 22:47 ECG Rhythm: Sinus Rhythm ECG Interpretation: Normal, No Acute Changes (No ST/T wave changes) Rate From EC O2 Sat by Pulse Oximetry: 98 (RA) Pulse Ox Interpretation: Normal Medical Decision Making Medical Decision Making: pt with known lung mass -now with vomiting Plan: EKG CMP Lipase Troponin CBC PTT Prothrombin Time CXR Zofran 4mg IVP Urinalysis case discussed with dr barboza on arrival, agrees with obs ct shows possible ileus vs obstruction. attemtped to update pmd, pending callback. cxr no interval change. wiht known left sided mass. Disposition - Disposition Disposition: HOSPITALIZED Disposition Time: 01:00 Condition: FAIR - Clinical Impression Clinical Impression: Vomiting, Bowel obstruction - Scribe Statement The provider has reviewed the documentation as recorded by the Scribe (Kodak Levy) Provider Attestation: All medical record entries made by the Scribe were at my direction and personally dictated by me. I have reviewed the chart and agree that the record accurately reflects my personal performance of the history, physical exam, medical decision making, and the department course for this patient. I have also personally directed, reviewed, and agree with the discharge instructions and disposition. Decision To Admit - Pt Status Changed To: Hospital Disposition Of: Inpatient - Admit Certification Admit to Inpatient:: After my assessment, the patient will require hospitalization for at least two midnights. This is because of the severity of symptoms shown, intensity of services needed, and/or the medical risk in this patient being treated as an outpatient. - InPatient: Physician Admission Certification:: needs surgical evla. - . Bed Request Type: Regular Admitting Physician: Kyle Barboza Patient Diagnosis: Vomiting, Bowel obstruction
[2018-04-20 23:09] LABS: ALB/GLOB RATIO 1.2 (1.0-2.1); ALBUMIN 3.9 g/dL (3.5-5.0); ALT/SGPT 36 U/L (21-72); AST/SGOT 26 U/L (17-59); BLOOD UREA NITROGEN 15 mg/dL (9-20); CALCIUM 9.3 mg/dl (8.6-10.4); GFR NON-AFRICAN AMERICAN > 60; LIPASE 51 U/L (23-300)
[2018-04-20] MEDS ORDERED: Iodixanol 320 MG/ML 100 ML BOTTLE IV ONE (23:29)
[2018-04-21 06:58] LABS: URINE BILIRUBIN NEGATIVE (NEGATIVE); URINE BLOOD NEGATIVE (NEGATIVE); URINE CLARITY Hazy (Clear); URINE COLOR Yellow (YELLOW); URINE GLUCOSE (UA) NORMAL (Normal); URINE LEUKOCYTE ESTERASE NEG Leu/uL (Negative); URINE PROTEIN NEGATIVE (NEGATIVE); URINE UROBILINOGEN NORMAL mg/dL (0.2-1.0)
--- NOTE | 2018-04-21 09:47 | RAD ---
Date of service: 04/20/2018 HISTORY: chest pain COMPARISON: Portable chest 03/25/2018. FINDINGS: LUNGS: No right-sided infiltrate identified. Medial left apical density unchanged. Linear atelectasis identified at the left base. Left hemidiaphragm is further elevated, etiology unclear. PLEURA: No significant pleural effusion identified, no pneumothorax apparent. CARDIOVASCULAR: Calcific atherosclerotic changes are seen related to the thoracic aorta. Normal cardiac size. No pulmonary vascular congestion. OSSEOUS STRUCTURES: No significant abnormalities. VISUALIZED UPPER ABDOMEN: Normal. OTHER FINDINGS: None. IMPRESSION: No pneumothorax bilaterally. Medial left apical density unchanged. Left hemidiaphragm further elevated, etiology indeterminate.
[2018-04-21] MEDS: Enoxaparin 40 mg Syringe SC SCH (10:47)
[2018-04-21] MEDS ORDERED: POTASSIUM CHL IV SCH (13:15)
[2018-04-21] MEDS ORDERED: D5 IV SCH (13:15)
[2018-04-21] MEDS ORDERED: [UNRECOGNIZED DRUG - OTHER] IV SCH (13:15)
[2018-04-21] MEDS ORDERED: DEXTROSE IV SCH (13:15)
[2018-04-21] MEDS: Potassium Chl 10 mEq in D5-1/2 1,000 ML IV SCH (14:49)
--- NOTE | 2018-04-21 16:15 | CT ---
Date of service: 04/20/2018 PROCEDURE: CT Abdomen and Pelvis with contrast HISTORY: abd pain, vomiting COMPARISON: None. TECHNIQUE: Following the intravenous administration of iodinated contrast material, a CT examination of the abdomen and pelvis performed from the domes of the diaphragms to the symphysis pubis with reformatted datasets provided in axial, sagittal and coronal planes. Oral contrast was not administered as per referring physician request. Coronal and sagittal reformats were generated. contrast dose: Visipaque 320, 100 Radiation dose: Total exam DLP = 274.44 mGy-cm. This CT exam was performed using one or more of the following dose reduction techniques: Automated exposure control, adjustment of the mA and/or kV according to patient size, and/or use of iterative reconstruction technique. FINDINGS: LOWER THORAX: Ground-glass opacities identified at the lingula and linear atelectasis or fibrosis seen at the left lower lobe. Cardiomegaly. No pulmonary vascular congestion pleural or pericardial effusion. Left perihilar lymphadenopathy or other mass reiterated. LIVER: Unremarkable. No gross lesion or ductal dilatation. GALLBLADDER AND BILE DUCTS: Unremarkable. PANCREAS: Unremarkable. No gross lesion or ductal dilatation. SPLEEN: Unremarkable. ADRENALS: Mild bilateral adrenal hyperplasia is identified with a 1.5 cm nodule identified in the right adrenal gland measuring 39 Hounsfield units. Follow-up MRI without contrast is advised to exclude potential malignancy though this is not definite. KIDNEYS AND URETERS: Unremarkable. No hydronephrosis. No solid mass. VASCULATURE: Nonaneurysmal abdominal aortic calcific atherosclerotic changes are identified. No aortic atherosclerotic calcification or mural plaque present. Extensive iliac arterial atherosclerosis appreciated and there is likely occlusion of the proximal right superficial femoral artery. BOWEL: The stomach is collapsed and poorly evaluated. Evaluation of the gastrointestinal tract is limited due to the lack of oral contrast administration. No bowel obstruction appreciated. Moderate retained fecal material scattered throughout various large-bowel segments. APPENDIX: No CT evidence of appendicitis. Appendix not identified. PERITONEUM: Unremarkable. No free fluid. No free air. LYMPH NODES: Unremarkable. No enlarged lymph nodes. BLADDER: Unremarkable. REPRODUCTIVE: Prostate gland enlargement. BONES: No acute fracture. OTHER FINDINGS: Elevated left hemidiaphragm noted. IMPRESSION: 1. Evaluation of the gastrointestinal tract is limited due to the lack of oral contrast administration. No bowel obstruction, measure edema, free intra peritoneal gas collection or ascites. 2. 1.5 cm right adrenal nodule. Follow-up MRI advised without contrast to exclude potential malignancy. Bilateral adrenal hyperplasia appears mild. 3. Incidental probable occlusion right superficial femoral artery.
--- NOTE | 2018-04-22 00:45 | HP ---
HISTORY OF PRESENT ILLNESS: This patient is a 73-year-old male with history of COPD and lung mass and history of hypertension and weight loss. The patient was brought to the emergency room because of chest pain and vomiting, starting today. The patient also was complaining of anorexia. ALLERGIES: THE PATIENT HAS NO KNOWN ALLERGIES. PAST MEDICAL HISTORY: As I mentioned, history of COPD, questionable lung mass, hypertension, weight loss, depression, and also loss of memory. MEDICATIONS: The patient was on megestrol, hydrochlorothiazide, pantoprazole, Singulair, Proventil inhaler. 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 The patient is living with . FAMILY HISTORY: No inherited disease. REVIEW OF SYSTEMS: RESPIRATORY SYSTEM: Shortness of breath on exertion. CARDIOVASCULAR: No chest pain. GASTROINTESTINAL: The patient has anorexia. Also, the patient is complaining of some epigastric pain and vomiting. GENITOURINARY: No dysuria. NEUROLOGIC: The patient feels weak. PHYSICAL EXAMINATION: GENERAL: The patient is awake but obviously weak. VITAL SIGNS: Has a blood pressure of 126/63, pulse 73, respiration 20, temperature 98.3. NECK: Supple. LUNGS: There are some rales bilaterally and more on the left side. HEART: Regular rate and rhythm. ABDOMEN: Soft. Mild tenderness to the epigastric area. There is an old surgical scar in the epigastric area. Positive bowel sounds. EXTREMITIES: There is no edema. NEUROLOGIC: The patient is alert and awake but weak, unsteady gait. LABORATORY DATA: The patient had some blood tests done. WBC 9, hemoglobin 12.9, hematocrit 37.7, and platelet is 260. Chemistry shows sodium 137, potassium 3.7, chloride 101, bicarb 36, BUN 16, creatinine 0.7, and glucose 111. Calcium 9.3, AST 26, ALT 36, alkaline phosphatase 95. The troponin is less than 0.012, albumin 3.9, globulin 3.2, lipase 61. Coag: PT 16.1, INR 1.1, and PTT 34. The patient also has a chest x-ray that showed new right-sided infiltrates and there is medial left apical density, and unchanged linear atelectasis identified on the left base, left hemidiaphragm is slightly elevated, is unclear. Also I mentioned that the patient was complaining of having black stool. ASSESSMENT: The patient is admitted with diagnoses of: 1. Chronic obstructive pulmonary disease. 2. Gastrointestinal bleed. 3. Lung mass. 4. Weight loss. 5. Possibility of gastrointestinal obstruction. PLAN: The patient is now put on n.p.o. and will continue the current medications including Proventil nebulizer and also Singulair. The patient will continue antibiotic therapy and will increase the calorie diet by adding Ensure. The case was discussed with the nurse, and we have a consult with Dr. Oro of Pulmonary and Dr. Blanton of GI. Kyle Aldana MD
[2018-04-22] MEDS: Potassium Chl 10 mEq in D5-1/2 1,000 ML IV SCH ×3 (01:00→19:39)
[2018-04-22 08:08] LABS: BASO % 0.7 % (0.0-2.0); EOS # 0.3 K/uL (0.0-0.7); EOS % 4.2 % (0.0-4.0); HEMOGLOBIN 12.4 g/dL (12.0-18.0); LYMPH # 1.2 K/uL (1.0-4.3); LYMPH % 17.9 % (20.0-40.0); MEAN CORPUSCULAR HEMOGLOBIN 28.7 pg (27.0-31.0); MEAN CORPUSCULAR HGB CONC 34.6 g/dL (33.0-37.0); MEAN PLATELET VOLUME 8.3 fL (7.2-11.7); MONO # 0.6 K/uL (0.0-0.8); MONO % 8.9 % (0.0-10.0); NEUT # 4.6 K/uL (1.8-7.0); NEUT % 68.3 % (50.0-75.0); NRBC % 0.1 % (0.0-2.0); RBC 4.32 Mil/uL (4.40-5.90); RED CELL DISTRIBUTION WIDTH 15.1 % (11.5-14.5); WHITE BLOOD COUNT 6.7 K/uL (4.8-10.8)
[2018-04-22 08:36] LABS: INR 1.3; PROTHROMBIN TIME 14.6 SECONDS (9.7-12.2)
[2018-04-22 08:38] LABS: ALBUMIN 3.3 g/dL (3.5-5.0); ALT/SGPT 28 U/L (21-72); AST/SGOT 17 U/L (17-59); BLOOD UREA NITROGEN 9 mg/dL (9-20); GFR NON-AFRICAN AMERICAN > 60
--- NOTE | 2018-04-22 08:55 | CP.PCM.CON ---
History of Present Illness - History of Present Illness History of Present Illness: 73 YO HISP MALE WITH A HX COPD, HTN, GERD, +CARMELA LUNG MASS S/P FOB NEG JOCY, LAST MONTH, ADM 04/21/18 WITH INCREASED MOD EPIGASTRIC CONSTANT PAIN X 3 DAYS N/V ?COFFEE GROUNDS NO DIARRHEA. POOR APPETITE X FEW MONTHS, +WT LOSS . PT TX WITH PO AB 2 WKS AGO FOR +PSEUDOMONAS BRONCH CULT. PT DENIES SOB. NO CP. USING ALBUTEROL HOME NEB PRN. AMBULATES INDEPENDENTLY., +GEN WEAKNESS. Review of Systems - Review of Systems All systems: reviewed and no additional remarkable complaints except - Constitutional Constitutional: Weight Loss, Weakness. absent: Fever - EENT Eyes: absent: Change in Vision Ears: absent: Decreased Hearing Nose/Mouth/Throat: Nasal Congestion, Hoarsness - Cardiovascular Cardiovascular: absent: Chest Pain, Edema - Respiratory Respiratory: Cough. absent: Hemoptysis, Stridor, Excessive Mucous Production - Gastrointestinal Gastrointestinal: Coffee Ground Emesis, Heartburn, Nausea, Vomiting. absent: Diarrhea - Genitourinary Genitourinary: absent: Difficulty Urinating - Musculoskeletal Musculoskeletal: absent: Limited Range of Motion - Integumentary Integumentary: absent: Rash - Neurological Neurological: absent: Confusion, Focal Weakness - Psychiatric Psychiatric: absent: Confusion - Endocrine Endocrine: absent: Change in Body Appearance - Hematologic/Lymphatic Hematologic: Lymphadenopathy Past Patient History - Past Medical History & Family History Past Medical History?: Yes Past Family History: Reviewed and not pertinent - Past Social History Smoking Status: Former Smoker Chewing Tobacco Use: No Cigar Use: No Alcohol: None - CARDIAC Hx Hypercholesterolemia: Yes Hx Hypertension: Yes - PULMONARY Hx Asthma: Yes Hx Chronic Obstructive Pulmonary Disease (COPD): Yes Hx Pneumonia: Yes Hx Tuberculosis: No - NEUROLOGICAL Hx Neurological Disorder: No - HEENT Hx HEENT Problems: No - RENAL Hx Chronic Kidney Disease: No - ENDOCRINE/METABOLIC Hx Endocrine Disorders: No - HEMATOLOGICAL/ONCOLOGICAL Hx Blood Disorders: No - INTEGUMENTARY Hx Dermatological Problems: No - MUSCULOSKELETAL/RHEUMATOLOGICAL Hx Falls: No - GASTROINTESTINAL Hx Gastroesophageal Reflux: Yes - GENITOURINARY/GYNECOLOGICAL Hx Genitourinary Disorders: No - PSYCHIATRIC Hx Substance Use: No - SURGICAL HISTORY Hx Surgeries: Yes Other/Comment: Explore lap 1974 - ANESTHESIA Hx Anesthesia: Yes Meds Allergies/Adverse Reactions: Allergies Allergy/AdvReac Type Severity Reaction Status Date / Time No Known Allergies Allergy Verified 03/29/18 14:03 - Medications Medications: Current Medications Albuterol Sulfate (Albuterol 0.083% Inhal Cathie (2.5 Mg/3 Ml) Ud) 2.5 mg INH RQ6 PRN PRN Reason: Shortness of Breath Cyproheptadine HCl (Periactin) 4 mg PO DAILY [facility] Docusate Sodium (Colace) 100 mg PO BID [facility] Last Admin: 04/21/18 17:30 Dose: 100 mg Enoxaparin Sodium (Lovenox) 40 mg SC DAILY [facility] Last Admin: 04/21/18 10:47 Dose: 40 mg Hydrochlorothiazide (Microzide) 12.5 mg PO DAILY [facility] Potassium Chloride/Dextrose/Sod Cl (Potassium Chl 10 Meq In D5-1/2ns) 1,000 mls @ 100 mls/hr IV .Q10H [facility] Last Admin: 04/22/18 01:00 EST Dose: 100 mls/hr Loratadine (Claritin) 10 mg PO DAILY [facility] Losartan Potassium (Cozaar) 50 mg PO DAILY [facility] Megestrol Acetate (Megace) 400 mg PO DAILY [facility] Montelukast Sodium (Singulair) 10 mg PO HS [facility] Last Admin: 04/21/18 22:43 Dose: Not Given Morphine Sulfate (Morphine) 2 mg IVP Q4 PRN PRN Reason: Pain, moderate (4-7) Moxifloxacin HCl (Avelox) 400 mg PO DAILY [facility]; Protocol Ondansetron HCl (Zofran Inj) 4 mg IVP Q4 PRN PRN Reason: Nausea/Vomiting Last Admin: 04/22/18 06:24 Dose: 4 mg Pantoprazole Sodium (Protonix Inj) 40 mg IVP DAILY [facility] Sertraline HCl (Zoloft) 25 mg PO DAILY [facility] Physical Exam - Constitutional Appears: Chronically Ill - Head Exam Head Exam: ATRAUMATIC, NORMOCEPHALIC - Eye Exam Eye Exam: EOMI, Normal appearance - ENT Exam ENT Exam: Mucous Membranes Moist - Neck Exam Neck exam: Positive for: Normal Inspection - Respiratory Exam Respiratory Exam: Decreased Breath Sounds. absent: Accessory Muscle Use, Wheezes - Cardiovascular Exam Cardiovascular Exam: RRR, +S1, +S2 - GI/Abdominal Exam GI & Abdominal Exam: Soft, Tenderness. absent: Rebound, Rigid Additional comments: +EPIGASTRIC - Rectal Exam Rectal Exam: Deferred - Extremities Exam Extremities exam: Negative for: calf tenderness, pedal edema - Back Exam Back exam: absent: CVA tenderness (L), CVA tenderness (R) - Neurological Exam Neurological exam: Alert, CN II-XII Intact, Oriented x3 - Psychiatric Exam Psychiatric exam: Normal Affect Results - Vital Signs Recent Vital Signs: Last Vital Signs Temp 98.6 F 04/22/18 07:43 Pulse 72 04/22/18 07:43 Resp 20 04/22/18 07:43 BP 162/66 H 04/22/18 07:43 Pulse Ox 96 04/22/18 07:43 - Labs Result Diagrams: 04/22/18 07:51 04/22/18 07:51 Labs: Laboratory Results - last 24 hr 04/21/18 04/22/18 04/22/18 18:10 07:51 07:51 WBC 6.7 RBC 4.32 L Hgb 12.4 Hct 35.8 MCV 83.0 MCH 28.7 MCHC 34.6 RDW 15.1 H Plt Count 334 MPV 8.3 Neut % (Auto) 68.3 Lymph % (Auto) 17.9 L [place] % (Auto) 8.9 Eos % (Auto) 4.2 H Baso % (Auto) 0.7 Neut # (Auto) 4.6 Lymph # (Auto) 1.2 [place] # (Auto) 0.6 Eos # (Auto) 0.3 Baso # (Auto) 0.0 PT INR APTT Sodium 137 Potassium 4.3 Chloride 103 Carbon Dioxide 25 Anion Gap 13 BUN 9 Creatinine 0.8 Est GFR ( Amer) > 60 Est GFR (Non-Af Amer) > 60 Random Glucose 108 Calcium 9.0 Phosphorus 4.1 Magnesium 2.1 Total Bilirubin 0.5 AST 17 D ALT 28 Alkaline Phosphatase 71 Total Protein 6.4 Albumin 3.3 L Globulin 3.2 Albumin/Globulin Ratio 1.0 Stool Occult Blood Negative 04/22/18 07:51 WBC RBC Hgb Hct MCV MCH MCHC RDW Plt Count MPV Neut % (Auto) Lymph % (Auto) [place] % (Auto) Eos % (Auto) Baso % (Auto) Neut # (Auto) Lymph # (Auto) [place] # (Auto) Eos # (Auto) Baso # (Auto) PT 14.6 H INR 1.3 APTT 34 Sodium Potassium Chloride Carbon Dioxide Anion Gap BUN Creatinine Est GFR ( Amer) Est GFR (Non-Af Amer) Random Glucose Calcium Phosphorus Magnesium Total Bilirubin AST ALT Alkaline Phosphatase Total Protein Albumin Globulin Albumin/Globulin Ratio Stool Occult Blood Assessment & Plan (1) Abdominal pain Status: Acute (2) COPD (chronic obstructive pulmonary disease) Status: Acute (3) Esophageal reflux Status: Acute (4) Hypertension Status: Acute (5) Lung mass Status: Acute (6) Weight loss Status: Acute - Assessment and Plan (Free Text) Assessment: 73 YO MALE WITH A HX MULT MED PROBS., ADM WITH EPISGASTRIC PAIN, R/O PUD, ?ILEUS. FOR GI EVAL. AFEBRILE ON EMPIRIC AB. +CARMELA LUNG MASS R/O CA WITH SUPERIMPOSED PSEUDOMONAS PNA, TX WITH PO LEVAQUIN. S/P NONDIAGNOSTIC FOB 03/2018. CONT NEB BD, PULM TOILET. REPEAT CT CHEST WHEN STABLE. GI/DVT PROPHYLAXIS. PROG POOR. DISCUSSED WITH STAFF AND FAMILY AT BEDSIDE.
[2018-04-22] MEDS: Megestrol Acetate 40 mg/ml Cup PO SCH (09:27)
[2018-04-22] MEDS: Enoxaparin 40 mg Syringe SC SCH (09:28)
--- NOTE | 2018-04-22 11:08 | CP.PCM.CON ---
History of Present Illness - History of Present Illness History of Present Illness: Covering Dr Blanton CC: abdominal pain HPI: 73 year old man admitted with upper abdominal and chest pain yesterday after eating. Poor appetitCT scan does not show evidence of GI disease, obstruction, malignancy, etc, but constipated bowel pattern is noted.CTe and weight loss, cachexia. Was admitted for same 2 weeks ago at which time pulmonary mass and malignancy were suspected, however malignancy was not diagnosed, based on bronchoscopy and lavage. His symptoms resolved at the time with PPI and patient was released with plans for out patient follow up. Patient also nauseated with meals and daughter states he sometimes has blood in emesis and phlegm and dark BMs. Currently Hgb is stable and unchanged, stool OB is normal and no melena is noted. Has been on antibiotics for pulmonary infection. CT does not show bowel pathology, but contrast was not used. Review of Systems - Gastrointestinal Gastrointestinal: As Per HPI Past Patient History - Past Medical History & Family History Past Medical History?: Yes Past Family History: Reviewed and not pertinent - Past Social History Smoking Status: Former Smoker Chewing Tobacco Use: No Cigar Use: No Alcohol: None - CARDIAC Hx Hypercholesterolemia: Yes Hx Hypertension: Yes - PULMONARY Hx Asthma: Yes Hx Chronic Obstructive Pulmonary Disease (COPD): Yes Hx Pneumonia: Yes Hx Tuberculosis: No - NEUROLOGICAL Hx Neurological Disorder: No - HEENT Hx HEENT Problems: No - RENAL Hx Chronic Kidney Disease: No - ENDOCRINE/METABOLIC Hx Endocrine Disorders: No - HEMATOLOGICAL/ONCOLOGICAL Hx Blood Disorders: No - INTEGUMENTARY Hx Dermatological Problems: No - MUSCULOSKELETAL/RHEUMATOLOGICAL Hx Falls: No - GASTROINTESTINAL Hx Gastroesophageal Reflux: Yes - GENITOURINARY/GYNECOLOGICAL Hx Genitourinary Disorders: No - PSYCHIATRIC Hx Substance Use: No - SURGICAL HISTORY Hx Surgeries: Yes Other/Comment: Explore lap 1973 - ANESTHESIA Hx Anesthesia: Yes Meds Allergies/Adverse Reactions: Allergies Allergy/AdvReac Type Severity Reaction Status Date / Time No Known Allergies Allergy Verified 03/29/18 14:03 - Medications Medications: Current Medications Albuterol Sulfate (Albuterol 0.083% Inhal Cathie (2.5 Mg/3 Ml) Ud) 2.5 mg INH RQ6 PRN PRN Reason: Shortness of Breath Cyproheptadine HCl (Periactin) 4 mg PO DAILY [facility] Last Admin: 04/22/18 09:27 Dose: 4 mg Docusate Sodium (Colace) 100 mg PO BID [facility] Last Admin: 04/22/18 09:27 Dose: 100 mg Enoxaparin Sodium (Lovenox) 40 mg SC DAILY [facility] Last Admin: 04/22/18 09:28 Dose: 40 mg Hydrochlorothiazide (Microzide) 12.5 mg PO DAILY [facility] Last Admin: 04/22/18 09:27 Dose: 12.5 mg Potassium Chloride/Dextrose/Sod Cl (Potassium Chl 10 Meq In D5-1/2ns) 1,000 mls @ 100 mls/hr IV .Q10H [facility] Last Admin: 04/22/18 09:28 Dose: 100 mls/hr Loratadine (Claritin) 10 mg PO DAILY [facility] Last Admin: 04/22/18 09:27 Dose: 10 mg Losartan Potassium (Cozaar) 50 mg PO DAILY [facility] Last Admin: 04/22/18 09:27 Dose: 50 mg Megestrol Acetate (Megace) 400 mg PO DAILY [facility] Last Admin: 04/22/18 09:27 Dose: 400 mg Montelukast Sodium (Singulair) 10 mg PO [facility] Last Admin: 04/21/18 22:43 Dose: Not Given Morphine Sulfate (Morphine) 2 mg IVP Q4 PRN PRN Reason: Pain, moderate (4-7) Moxifloxacin HCl (Avelox) 400 mg PO DAILY [facility]; Protocol Ondansetron HCl (Zofran Inj) 4 mg IVP Q4 PRN PRN Reason: Nausea/Vomiting Last Admin: 04/22/18 06:24 Dose: 4 mg Pantoprazole Sodium (Protonix Inj) 40 mg IVP DAILY [facility] Last Admin: 04/22/18 09:28 Dose: 40 mg Sertraline HCl (Zoloft) 25 mg PO DAILY [facility] Last Admin: 04/22/18 09:27 Dose: 25 mg Physical Exam - Constitutional Appears: Chronically Ill - Head Exam Head Exam: NORMOCEPHALIC - Eye Exam Eye Exam: absent: Scleral icterus - Respiratory Exam Respiratory Exam: NORMAL BREATHING PATTERN - Cardiovascular Exam Cardiovascular Exam: REGULAR RHYTHM - GI/Abdominal Exam GI & Abdominal Exam: Soft. absent: Mass, Tenderness Results - Vital Signs Recent Vital Signs: Last Vital Signs Temp 98.6 F 04/22/18 07:43 Pulse 72 04/22/18 07:43 Resp 20 04/22/18 07:43 BP 162/66 H 04/22/18 07:43 Pulse Ox 96 04/22/18 07:43 - Labs Result Diagrams: 04/22/18 07:51 04/22/18 07:51 Labs: Laboratory Results - last 24 hr 04/21/18 04/22/18 04/22/18 18:10 07:51 07:51 WBC 6.7 RBC 4.32 L Hgb 12.4 Hct 35.8 MCV 83.0 MCH 28.7 MCHC 34.6 RDW 15.1 H Plt Count 334 MPV 8.3 Neut % (Auto) 68.3 Lymph % (Auto) 17.9 L [place] % (Auto) 8.9 Eos % (Auto) 4.2 H Baso % (Auto) 0.7 Neut # (Auto) 4.6 Lymph # (Auto) 1.2 [place] # (Auto) 0.6 Eos # (Auto) 0.3 Baso # (Auto) 0.0 PT INR APTT Sodium 137 Potassium 4.3 Chloride 103 Carbon Dioxide 25 Anion Gap 13 BUN 9 Creatinine 0.8 Est GFR ( Amer) > 60 Est GFR (Non-Af Amer) > 60 Random Glucose 108 Calcium 9.0 Phosphorus 4.1 Magnesium 2.1 Total Bilirubin 0.5 AST 17 D ALT 28 Alkaline Phosphatase 71 Total Protein 6.4 Albumin 3.3 L Globulin 3.2 Albumin/Globulin Ratio 1.0 Stool Occult Blood Negative 04/22/18 07:51 WBC RBC Hgb Hct MCV MCH MCHC RDW Plt Count MPV Neut % (Auto) Lymph % (Auto) [place] % (Auto) Eos % (Auto) Baso % (Auto) Neut # (Auto) Lymph # (Auto) [place] # (Auto) Eos # (Auto) Baso # (Auto) PT 14.6 H INR 1.3 APTT 34 Sodium Potassium Chloride Carbon Dioxide Anion Gap BUN Creatinine Est GFR ( Amer) Est GFR (Non-Af Amer) Random Glucose Calcium Phosphorus Magnesium Total Bilirubin AST ALT Alkaline Phosphatase Total Protein Albumin Globulin Albumin/Globulin Ratio Stool Occult Blood Assessment & Plan (1) Abdominal pain Assessment and Plan: Perhaps peptic. Has not responded to PPI Recommend elective EGD. Pt on Plavix Status: Acute (2) COPD (chronic obstructive pulmonary disease) Assessment and Plan: managed by pulmonary on antibiotics Status: Acute (3) Dysphagia Assessment and Plan: weight loss, anorexia. R/O esophagitis, Lila, etc Rec: UGI series or EGD Dr Blanton will assume GI care in AM Status: Acute (4) Esophageal reflux Assessment and Plan: PPI/EGD may start clear liquids trial Status: Acute (5) Lung mass Assessment and Plan: No malignancy on recent workup. Management Per pulmonary Status: Acute - Date & Time Date: 04/22/18 Time: 11:11
[2018-04-22] MEDS: Sucralfate 1 gm/10 ml Oral Susp UD PO SCH (15:53)
[2018-04-22] MEDS: Acetaminophen 650mg/20.3ml solution UD PO PRN (20:37)
--- NOTE | 2018-04-22 21:33 | PN ---
DATE: 04/22/2018SUBJECTIVE: Today, the patient feels weak. He is complaining of some epigastric pain and increased with swallowing. The patient is having some shortness of breath on exertion, epigastric pain, and constipation. PHYSICAL EXAMINATION: VITAL SIGNS: The patient has a blood pressure of 159/68, pulse of 80, respirations 20, temperature 98.6. NECK: Supple. LUNGS: Some rales bilaterally at the base. HEART: Regular rate and rhythm. Positive murmur. ABDOMEN: Soft. There is mild tenderness to the epigastric area and positive bowel sounds. EXTREMITIES: There is no edema. LABORATORY DONE: The patient has a CT of the abdomen and pelvis which showed the stomach is collapsed and evaluation of the gastrointestinal tract is limited due to the lack of oral contrast. lumbar resection appreciated. Moderate retained fecal material is scattered throughout the various large bowel segments. ASSESSMENT AND PLAN: Gastroenterology consult with covering Dr. Blanton is appreciated. Endoscopy in the morning on Monday, two days from today due to the patient being on Plavix, want to stop the Plavix. Lactulose is ordered for constipation. We encouraged the patient to eat. Kyle Aldana MD
[2018-04-23] MEDS ORDERED: Simethicone 80 mg Chewtab PO ONE (01:23)
[2018-04-23] MEDS: Potassium Chl 10 mEq in D5-1/2 1,000 ML IV SCH ×2 (06:05→16:10)
[2018-04-23] MEDS: Megestrol Acetate 40 mg/ml Cup PO SCH (10:00)
[2018-04-23] MEDS: Sucralfate 1 gm/10 ml Oral Susp UD PO SCH ×3 (10:00→18:15)
[2018-04-23] MEDS: Enoxaparin 40 mg Syringe SC SCH (10:03)
--- NOTE | 2018-04-23 10:42 | CP.PCM.PN ---
Subjective - Date & Time of Evaluation Date of Evaluation: 04/23/18 Time of Evaluation: 10:39 - Subjective Subjective: PT ALERT, +NAUSEA. +COUGH ?HEMOPTYSIS. ROS ; OTHERWISE NEG Objective - Vital Signs/Intake and Output Vital Signs (last 24 hours): Temp Pulse Resp BP Pulse Ox 98.4 F 79 20 124/70 95 04/23/18 08:11 04/23/18 08:11 04/23/18 08:11 04/23/18 08:11 04/23/18 08:11 Intake and Output: 04/23/18 04/23/18 06:59 18:59 Intake Total 820 Balance 820 - Medications Medications: Current Medications Acetaminophen (Tylenol 650mg/20.3ml Solution Ud) 650 mg PO Q6 PRN PRN Reason: Pain, moderate (4-7) Last Admin: 04/22/18 20:37 Dose: 650 mg Albuterol Sulfate (Albuterol 0.083% Inhal Cathie (2.5 Mg/3 Ml) Ud) 2.5 mg INH RQ6 PRN PRN Reason: Shortness of Breath Cyproheptadine HCl (Periactin) 4 mg PO DAILY [facility] Last Admin: 04/23/18 10:30 Dose: Not Given Docusate Sodium (Colace) 100 mg PO BID [facility] Last Admin: 04/23/18 10:29 Dose: Not Given Enoxaparin Sodium (Lovenox) 40 mg SC DAILY [facility] Last Admin: 04/23/18 10:03 Dose: 40 mg Hydrochlorothiazide (Microzide) 12.5 mg PO DAILY [facility] Last Admin: 04/23/18 10:29 Dose: Not Given Potassium Chloride/Dextrose/Sod Cl (Potassium Chl 10 Meq In D5-1/2ns) 1,000 mls @ 100 mls/hr IV .Q10H [facility] Last Admin: 04/23/18 06:05 Dose: 100 mls/hr Lactulose (Enulose) 20 gm PO BID [facility] Last Admin: 04/23/18 10:01 Dose: 20 gm Loratadine (Claritin) 10 mg PO DAILY [facility] Last Admin: 04/23/18 10:29 Dose: Not Given Losartan Potassium (Cozaar) 50 mg PO DAILY [facility] Last Admin: 04/23/18 10:29 Dose: Not Given Megestrol Acetate (Megace) 400 mg PO DAILY [facility] Last Admin: 04/23/18 10:00 Dose: 400 mg Montelukast Sodium (Singulair) 10 mg PO HS [facility] Last Admin: 04/22/18 21:44 Dose: Not Given Morphine Sulfate (Morphine) 2 mg IVP Q4 PRN PRN Reason: Pain, moderate (4-7) Last Admin: 04/23/18 01:32 Dose: 2 mg Moxifloxacin HCl (Avelox) 400 mg PO DAILY [facility]; Protocol Last Admin: 04/23/18 10:29 Dose: Not Given Ondansetron HCl (Zofran Inj) 4 mg IVP Q4 PRN PRN Reason: Nausea/Vomiting Last Admin: 04/23/18 10:06 Dose: 4 mg Pantoprazole Sodium (Protonix Inj) 40 mg IVP DAILY [facility] Last Admin: 04/23/18 10:01 Dose: 40 mg Pneumococcal Polyvalent Vaccine (Pneumovax 23 Vaccine) 0.5 ml IM .ONCE ONE Stop: 04/24/18 10:01 Sertraline HCl (Zoloft) 25 mg PO DAILY [facility] Last Admin: 04/23/18 10:30 Dose: Not Given Sucralfate (Carafate Oral Susp) 1 gm PO TIDAC [facility] Last Admin: 04/23/18 10:00 Dose: 1 gm - Labs Labs: 04/22/18 07:51 04/22/18 07:51 PT 14.6 SECONDS (9.7-12.2) H 04/22/18 07:51 INR 1.3 04/22/18 07:51 APTT 34 SECONDS (21-34) 04/22/18 07:51 - Constitutional Appears: Chronically Ill - Head Exam Head Exam: ATRAUMATIC, NORMOCEPHALIC - Eye Exam Eye Exam: EOMI, Normal appearance - ENT Exam ENT Exam: Mucous Membranes Moist - Neck Exam Neck Exam: Normal Inspection. absent: Tenderness - Respiratory Exam Respiratory Exam: Decreased Breath Sounds. absent: Accessory Muscle Use, Respiratory Distress - Cardiovascular Exam Cardiovascular Exam: RRR, +S1, +S2 - GI/Abdominal Exam GI & Abdominal Exam: Soft. absent: Tenderness - Rectal Exam Rectal Exam: Deferred - Extremities Exam Extremities Exam: absent: Pedal Edema, Tenderness - Back Exam Back Exam: absent: CVA tenderness (L), CVA tenderness (R) - Neurological Exam Neurological Exam: Alert, Awake, CN II-XII Intact, Oriented x3 - Psychiatric Exam Psychiatric exam: Normal Affect - Skin Skin Exam: absent: Rash Assessment and Plan (1) Abdominal pain Status: Acute (2) COPD (chronic obstructive pulmonary disease) Status: Acute (3) Esophageal reflux Status: Acute (4) Hypertension Status: Acute (5) Lung mass Status: Acute (6) Weight loss Status: Acute - Assessment and Plan (Free Text) Assessment: RESP STATUS NO SIG CHANGE., AFEBRILE., CONT PULM TOILET., NEB BD. CHECK SPUTUM CYTO. MONITOR O2 SAT. GI EVAL NOTED, FOR POSS EGD IN AM., CXR REVIEWED., DISCUSSED WITH STAFF AT LENGTH AND FAMILY AT BEDSIDE.
--- NOTE | 2018-04-23 11:27 | CP.PCM.PN ---
Subjective - Date & Time of Evaluation Date of Evaluation: 04/23/18 Time of Evaluation: 11:25 - Subjective Subjective: Events of the weekend discussed with covering doctor. Patient scheduled for EGD tomorrow with Plavix/ASA held to allow biopsies. Pulmonary note reviewed. Objective - Vital Signs/Intake and Output Vital Signs (last 24 hours): Temp Pulse Resp BP Pulse Ox 98.4 F 79 20 124/70 95 04/23/18 08:11 04/23/18 08:11 04/23/18 08:11 04/23/18 08:11 04/23/18 08:11 Intake and Output: 04/23/18 04/23/18 06:59 18:59 Intake Total 820 Balance 820 - Medications Medications: Current Medications Acetaminophen (Tylenol 650mg/20.3ml Solution Ud) 650 mg PO Q6 PRN PRN Reason: Pain, moderate (4-7) Last Admin: 04/22/18 20:37 Dose: 650 mg Albuterol Sulfate (Albuterol 0.083% Inhal Cathie (2.5 Mg/3 Ml) Ud) 2.5 mg INH RQ6 PRN PRN Reason: Shortness of Breath Cyproheptadine HCl (Periactin) 4 mg PO DAILY [facility] Last Admin: 04/23/18 10:30 Dose: Not Given Docusate Sodium (Colace) 100 mg PO BID [facility] Last Admin: 04/23/18 10:29 Dose: Not Given Enoxaparin Sodium (Lovenox) 40 mg SC DAILY [facility] Last Admin: 04/23/18 10:03 Dose: 40 mg Hydrochlorothiazide (Microzide) 12.5 mg PO DAILY [facility] Last Admin: 04/23/18 10:29 Dose: Not Given Potassium Chloride/Dextrose/Sod Cl (Potassium Chl 10 Meq In D5-1/2ns) 1,000 mls @ 100 mls/hr IV .Q10H [facility] Last Admin: 04/23/18 06:05 Dose: 100 mls/hr Lactulose (Enulose) 20 gm PO BID [facility] Last Admin: 04/23/18 10:01 Dose: 20 gm Loratadine (Claritin) 10 mg PO DAILY [facility] Last Admin: 04/23/18 10:29 Dose: Not Given Losartan Potassium (Cozaar) 50 mg PO DAILY [facility] Last Admin: 11/05/18 10:29 Dose: Not Given Megestrol Acetate (Megace) 400 mg PO DAILY [facility] Last Admin: 04/23/18 10:00 Dose: 400 mg Montelukast Sodium (Singulair) 10 mg PO HS [facility] Last Admin: 04/22/18 21:44 Dose: Not Given Morphine Sulfate (Morphine) 2 mg IVP Q4 PRN PRN Reason: Pain, moderate (4-7) Last Admin: 04/23/18 01:32 Dose: 2 mg Moxifloxacin HCl (Avelox) 400 mg PO DAILY [facility]; Protocol Last Admin: 04/23/18 10:29 Dose: Not Given Ondansetron HCl (Zofran Inj) 4 mg IVP Q4 PRN PRN Reason: Nausea/Vomiting Last Admin: 04/23/18 10:06 Dose: 4 mg Pantoprazole Sodium (Protonix Inj) 40 mg IVP DAILY [facility] Last Admin: 04/23/18 10:01 Dose: 40 mg Pneumococcal Polyvalent Vaccine (Pneumovax 23 Vaccine) 0.5 ml IM .ONCE [facility] Stop: 04/24/18 10:01 Sertraline HCl (Zoloft) 25 mg PO DAILY [facility] Last Admin: 04/23/18 10:30 Dose: Not Given Sucralfate (Carafate Oral Susp) 1 gm PO TIDAC [facility] Last Admin: 04/23/18 10:00 Dose: 1 gm - Labs Labs: 04/22/18 07:51 04/22/18 07:51 PT 14.6 SECONDS (9.7-12.2) H 04/22/18 07:51 INR 1.3 04/22/18 07:51 APTT 34 SECONDS (21-34) 04/22/18 07:51 - Constitutional Appears: No Acute Distress, Cachectic - Eye Exam Eye Exam: EOMI, PERRL - Respiratory Exam Respiratory Exam: Decreased Breath Sounds, NORMAL BREATHING PATTERN - Cardiovascular Exam Cardiovascular Exam: REGULAR RHYTHM, +S1 - GI/Abdominal Exam GI & Abdominal Exam: Soft, Normal Bowel Sounds. absent: Tenderness - Back Exam Back Exam: NORMAL INSPECTION Assessment and Plan (1) Dysphagia Assessment & Plan: r/o stricture, malignancy, sever reflux disease or motility disorder. EGD planned for am after Plavix and ASA held for two days Status: Acute (2) Epigastric pain Assessment & Plan: as above Status: Acute (3) Weight loss Assessment & Plan: colonoscopy pending results of EGD prior to discharge. Last exam 15 years ago according to daughter at bedside. Status: Acute
--- NOTE | 2018-04-23 12:16 | CARD ---
APPROVED REPORT Date of service: 04/20/2018 EKG Measurement Heart [id number] <Conclusion> Normal sinus rhythm Left axis deviation Abnormal ECG
[2018-04-23 14:30] LABS: BASO % 0.3 % (0.0-2.0); EOS % 0.4 % (0.0-4.0); HEMOGLOBIN 11.6 g/dL (12.0-18.0); LYMPH # 1.2 K/uL (1.0-4.3); LYMPH % 16.4 % (20.0-40.0); MEAN CELL VOLUME 82.5 fL (80.0-94.0); MEAN CORPUSCULAR HEMOGLOBIN 28.2 pg (27.0-31.0); MEAN CORPUSCULAR HGB CONC 34.2 g/dL (33.0-37.0); MEAN PLATELET VOLUME 8.6 fL (7.2-11.7); MONO # 0.7 K/uL (0.0-0.8); MONO % 9.2 % (0.0-10.0); NEUT # 5.6 K/uL (1.8-7.0); NEUT % 73.7 % (50.0-75.0); NRBC % 0.1 % (0.0-2.0); RBC 4.11 Mil/uL (4.40-5.90); RED CELL DISTRIBUTION WIDTH 15.3 % (11.5-14.5); WHITE BLOOD COUNT 7.6 K/uL (4.8-10.8)
[2018-04-23 15:01] LABS: BLOOD UREA NITROGEN 8 mg/dL (9-20)
[2018-04-23 15:02] LABS: GFR NON-AFRICAN AMERICAN > 60
[2018-04-23] MEDS ORDERED: Potassium Chloride 20 mEq ER Tab PO ONE (17:30)
[2018-04-23] MEDS: Acetaminophen 650mg/20.3ml solution UD PO PRN (23:19)
[2018-04-24] MEDS: Potassium Chl 10 mEq in D5-1/2 1,000 ML IV SCH ×2 (02:16→15:43)
--- NOTE | 2018-04-24 02:39 | PN ---
DATE: 04/24/2018 SUBJECTIVE: Today, the patient was seen early this morning, out of bed to chair. The patient is somewhat comfortable even though the patient had few episode of nausea, vomiting the night before and the patient still has been having some less pain today, epigastric area. PHYSICAL EXAMINATION: VITAL SIGNS: The patient has blood pressure of 122/60, pulse 93, respirations 20, temperature 98.6. NECK: Supple. LUNGS: Some fine rales at the bases. HEART: Regular rate and rhythm. ABDOMEN: Soft, mild epigastric tenderness. EXTREMITIES: There is no edema. LABORATORY DATA: The patient's blood test shows that WBC is 7.6, hemoglobin is 11.6, hematocrit 33.9, and platelet is 320. The chemistries show that the sodium is 135, potassium 3.5, chloride 104, bicarb is 22, BUN 8, creatinine 0.6 and, glucose is 100. ASSESSMENT AND PLAN: Note of Dr. Blanton is appreciated. The patient is going to have an EG tube in the morning and also Dr. Oro, Pulmonary, note is also appreciated, and we will continue biopsy and pathology of the sputum is ordered. Case was reviewed and discussed with the family and also with the nurse practitioner, Pooja Meyers. Kyle Aldana MD
[2018-04-24] MEDS ORDERED: Benzocaine/Menthol (Cepacol) Lozenge MT ONE (05:01)
[2018-04-24] MEDS ORDERED: Simethicone 80 mg Chewtab PO ONE (06:50)
[2018-04-24 07:38] LABS: ALB/GLOB RATIO 1.1 (1.0-2.1); ALBUMIN 3.3 g/dL (3.5-5.0); ALT/SGPT 32 U/L (21-72); AST/SGOT 34 U/L (17-59); BLOOD UREA NITROGEN 7 mg/dL (9-20); CALCIUM 8.7 mg/dl (8.6-10.4); GFR NON-AFRICAN AMERICAN > 60
[2018-04-24] MEDS ORDERED: Propofol 10 mg/ml Inj (20 ML) ONE (08:27)
[2018-04-24] MEDS ORDERED: Pneumococcal 23-Valent Vaccine IM ONE (10:00)
--- NOTE | 2018-04-24 10:14 | CP.PCM.PN ---
Subjective - Date & Time of Evaluation Date of Evaluation: 04/24/18 Time of Evaluation: 10:12 - Subjective Subjective: EGD: See full report Gerd Antral gastritis flattened duodenal folds r/o celiac disease Given absence of significant findings will prep for colonoscopy tomorrow Hold anti platelet drugs and Lovenox for colonoscopy Check celiac antibody profile and genotype Continue Protonix. Check biopsies Objective - Vital Signs/Intake and Output Vital Signs (last 24 hours): Temp Pulse Resp BP Pulse Ox 98.6 F 69 17 124/56 L 99 04/24/18 09:11 04/24/18 09:11 04/24/18 09:11 04/24/18 09:11 04/24/18 09:11 Intake and Output: 04/24/18 04/24/18 06:59 18:59 Intake Total 1000 500 Output Total 750 Balance 250 500 - Medications Medications: Current Medications Acetaminophen (Tylenol 650mg/20.3ml Solution Ud) 650 mg PO Q6 PRN PRN Reason: Pain, moderate (4-7) Last Admin: 04/23/18 23:19 Dose: 650 mg Albuterol Sulfate (Albuterol 0.083% Inhal Cathie (2.5 Mg/3 Ml) Ud) 2.5 mg INH RQ6 PRN PRN Reason: Shortness of Breath Bisacodyl (Dulcolax) 10 mg PO ONCE ONE Stop: 04/24/18 17:01 Cyproheptadine HCl (Periactin) 4 mg PO DAILY [facility] BEDS AT [facility] Last Admin: 04/23/18 12:24 Dose: 4 mg Docusate Sodium (Colace) 100 mg PO BID [facility]S [facility]CLUDE 234 BEDS AT THE [facility] Last Admin: 04/23/18 18:00 Dose: 100 mg Enoxaparin Sodium (Lovenox) 40 mg SC DAILY [facility]S [facility]CLUDE 234 BEDS AT THE [facility] Last Admin: 04/23/18 10:03 Dose: 40 mg Hydrochlorothiazide (Microzide) 12.5 mg PO DAILY [facility]S [facility]CLUDE 234 BEDS AT THE [facility] Last Admin: 04/23/18 10:29 Dose: Not Given Potassium Chloride/Dextrose/Sod Cl (Potassium Chl 10 Meq In D5-1/2ns) 1,000 mls @ 100 mls/hr IV .Q10H [facility]S [facility]CLUDE 234 BEDS AT THE [facility] Last Admin: 04/24/18 02:16 Dose: 100 mls/hr Lactulose (Enulose) 20 gm PO BID COUNTS INCLUDE 234 BEDS AT THE [facility] Last Admin: 04/23/18 18:16 Dose: 20 gm Loratadine (Claritin) 10 mg PO DAILY [facility]S [facility]CLUDE 234 BEDS AT THE [facility] Last Admin: 04/23/18 10:29 Dose: Not Given Losartan Potassium (Cozaar) 50 mg PO DAILY [facility]CLUDE 234 BEDS AT THE [facility] Last Admin: 04/23/18 12:25 Dose: 50 mg Megestrol Acetate (Megace) 400 mg PO DAILY [facility]CLUDE 234 BEDS AT [facility] Last Admin: 04/23/18 10:00 Dose: 400 mg Montelukast Sodium (Singulair) 10 mg PO HS [facility]S [facility]CLUDE 234 BEDS AT [facility] Last Admin: 04/23/18 22:00 Dose: 10 mg Morphine Sulfate (Morphine) 2 mg IVP Q4 PRN PRN Reason: Pain, moderate (4-7) Last Admin: 04/24/18 05:26 Dose: 2 mg Moxifloxacin HCl (Avelox) 400 mg PO DAILY [facility]CLUDE 234 BEDS AT THE [facility]; Protocol Last Admin: 04/23/18 12:25 Dose: 400 mg Ondansetron HCl (Zofran Inj) 4 mg IVP Q4 PRN PRN Reason: Nausea/Vomiting Last Admin: 04/24/18 02:42 Dose: 4 mg Ondansetron HCl (Zofran Tab) 4 mg PO Q8 [facility]S [facility]CLUDE 234 BEDS AT THE [facility] Pantoprazole Sodium (Protonix Inj) 40 mg IVP DAILY [facility]CLUDE 234 BEDS AT THE [facility] Last Admin: 04/23/18 10:01 Dose: 40 mg Pneumococcal Polyvalent Vaccine (Pneumovax 23 Vaccine) 0.5 ml IM .ONCE ONE Stop: 04/24/18 10:01 Polyethylene Glycol/Electrolytes (Golytely) 4,000 ml PO ONCE ONE Stop: 04/24/18 19:01 Sertraline HCl (Zoloft) 25 mg PO DAILY [facility]S [facility]CLUDE 234 BEDS AT [facility] Last Admin: 04/23/18 12:25 Dose: 25 mg Sucralfate (Carafate Oral Susp) 1 gm PO TIDAC COUNTS INCLUDE 234 BEDS AT THE [facility] Last Admin: 04/23/18 18:15 Dose: 1 gm - Labs Labs: 04/23/18 13:45 04/24/18 07:10 PT 14.6 SECONDS (9.7-12.2) H 04/22/18 07:51 INR 1.3 04/22/18 07:51 APTT 34 SECONDS (21-34) 04/22/18 07:51 Assessment and Plan (1) Dysphagia Status: Acute (2) Epigastric pain Status: Acute (3) Weight loss Status: Acute
[2018-04-24] MEDS: Megestrol Acetate 40 mg/ml Cup PO SCH (10:32)
--- NOTE | 2018-04-24 11:51 | CP.PCM.PN ---
Subjective - Date & Time of Evaluation Date of Evaluation: 04/24/18 Time of Evaluation: 11:47 - Subjective Subjective: PT AWAKE, ++HEARTBURN . +NAUSEA. OCC COUGH., ROS; OTHERWISE NEG. Objective - Vital Signs/Intake and Output Vital Signs (last 24 hours): Temp Pulse Resp BP Pulse Ox 98.6 F 69 17 124/56 L 99 04/24/18 09:11 04/24/18 09:11 04/24/18 09:11 04/24/18 09:11 04/24/18 09:11 Intake and Output: 04/24/18 04/24/18 06:59 18:59 Intake Total 1000 500 Output Total 750 Balance 250 500 - Medications Medications: Current Medications Acetaminophen (Tylenol 650mg/20.3ml Solution Ud) 650 mg PO Q6 PRN PRN Reason: Pain, moderate (4-7) Last Admin: 04/23/18 23:19 Dose: 650 mg Albuterol Sulfate (Albuterol 0.083% Inhal Cathie (2.5 Mg/3 Ml) Ud) 2.5 mg INH RQ6 PRN PRN Reason: Shortness of Breath Bisacodyl (Dulcolax) 10 mg PO ONCE ONE Stop: 04/24/18 17:01 Cyproheptadine HCl (Periactin) 4 mg PO DAILY [facility] Last Admin: 04/24/18 10:32 Dose: Not Given Docusate Sodium (Colace) 100 mg PO BID [facility] Last Admin: 04/24/18 10:32 Dose: Not Given Enoxaparin Sodium (Lovenox) 40 mg SC DAILY [facility] Last Admin: 04/23/18 10:03 Dose: 40 mg Hydrochlorothiazide (Microzide) 12.5 mg PO DAILY [facility] Last Admin: 04/24/18 10:32 Dose: Not Given Potassium Chloride/Dextrose/Sod Cl (Potassium Chl 10 Meq In D5-1/2ns) 1,000 mls @ 100 mls/hr IV .Q10H [facility] Last Admin: 04/24/18 02:16 Dose: 100 mls/hr Lactulose (Enulose) 20 gm PO BID [facility] Last Admin: 04/24/18 10:32 Dose: 20 gm Loratadine (Claritin) 10 mg PO DAILY [facility] Last Admin: 04/24/18 10:32 Dose: Not Given Losartan Potassium (Cozaar) 50 mg PO DAILY [facility] Last Admin: 04/24/18 10:32 Dose: Not Given Megestrol Acetate (Megace) 400 mg PO DAILY [facility] Last Admin: 04/24/18 10:32 Dose: 400 mg Montelukast Sodium (Singulair) 10 mg PO HS [facility] Last Admin: 04/23/18 22:00 Dose: 10 mg Morphine Sulfate (Morphine) 2 mg IVP Q4 PRN PRN Reason: Pain, moderate (4-7) Last Admin: 04/24/18 05:26 Dose: 2 mg Moxifloxacin HCl (Avelox) 400 mg PO DAILY [facility]; Protocol Last Admin: 04/24/18 10:33 Dose: Not Given Ondansetron HCl (Zofran Inj) 4 mg IVP Q4 PRN PRN Reason: Nausea/Vomiting Last Admin: 04/24/18 02:42 Dose: 4 mg Ondansetron HCl (Zofran Tab) 4 mg PO Q8 [facility] Pantoprazole Sodium (Protonix Inj) 40 mg IVP DAILY [facility] Last Admin: 04/24/18 10:32 Dose: 40 mg Polyethylene Glycol/Electrolytes (Golytely) 4,000 ml PO ONCE ONE Stop: 04/24/18 19:01 Sertraline HCl (Zoloft) 25 mg PO DAILY [facility] Last Admin: 04/24/18 10:33 Dose: Not Given Sucralfate (Carafate Oral Susp) 1 gm PO TIDAC [facility] Last Admin: 04/23/18 18:15 Dose: 1 gm - Labs Labs: 04/23/18 13:45 04/24/18 07:10 PT 14.6 SECONDS (9.7-12.2) H 04/22/18 07:51 INR 1.3 04/22/18 07:51 APTT 34 SECONDS (21-34) 04/22/18 07:51 - Constitutional Appears: Chronically Ill - Head Exam Head Exam: ATRAUMATIC, NORMOCEPHALIC - Eye Exam Eye Exam: EOMI, Normal appearance - ENT Exam ENT Exam: Mucous Membranes Moist - Neck Exam Neck Exam: Normal Inspection - Respiratory Exam Respiratory Exam: Decreased Breath Sounds. absent: Wheezes - Cardiovascular Exam Cardiovascular Exam: RRR, +S1, +S2 - GI/Abdominal Exam GI & Abdominal Exam: Soft - Rectal Exam Rectal Exam: Deferred - Extremities Exam Extremities Exam: absent: Calf Tenderness, Pedal Edema - Back Exam Back Exam: absent: CVA tenderness (L), CVA tenderness (R) - Neurological Exam Neurological Exam: Alert, Awake, CN II-XII Intact, Oriented x3 - Psychiatric Exam Psychiatric exam: Normal Affect - Skin Skin Exam: absent: Rash Assessment and Plan (1) Abdominal pain Status: Acute (2) COPD (chronic obstructive pulmonary disease) Status: Acute (3) Esophageal reflux Status: Acute (4) Hypertension Status: Acute (5) Lung mass Status: Acute (6) Weight loss Status: Acute - Assessment and Plan (Free Text) Assessment: RESP STATUS NO SIG CHANGE. AFEBRILE ON AB., S/P EGD THIS AM., RESULTS NOTED, PLAN FOR COLONOSCOPY IN AM PER GI. CXR REVIEWED., CONT PULM TOILET., F/U SPUTUM CYTO. DISCUSSED WITH STAFF AND FAMILY AT BEDSIDE AT LENGTH.
[2018-04-24] MEDS: Alum-Mag Hydrox-Simethicone Susp (30 mL) PO PRN ×2 (15:19→21:37)
[2018-04-24] MEDS ORDERED: Bisacodyl 5mg EC Tab PO ONE ×2 (17:00→18:15)
[2018-04-24] MEDS: Sucralfate 1 gm/10 ml Oral Susp UD PO SCH (18:01)
[2018-04-24] MEDS ORDERED: Peg-Electrolyte Oral Soln 4L (Golytely) PO ONE (19:00)
[2018-04-24] MEDS ORDERED: Magnesium Citrate Oral SOL (300 ml) PO ONE (19:47)
[2018-04-24] MEDS: Albuterol 0.083% Inhal Sol (2.5 mg/3 mL) UD INH PRN (19:47)
[2018-04-24] MEDS: Tiotropium 18 mcg Cap For Inhalation INH SCH (19:48)
[2018-04-25] MEDS: Potassium Chl 10 mEq in D5-1/2 1,000 ML IV SCH ×5 (01:41→22:45)
--- NOTE | 2018-04-25 03:39 | PN ---
DATE: 04/24/2018 SUBJECTIVE: Today, the patient had an EGD done. He is having some epigastric discomfort. The patient denies any short of breath and no chest pain. PHYSICAL EXAMINATION: VITAL SIGNS: Blood pressure 152/74, pulse 81, respirations 20, temperature 97.1. NECK: Supple. LUNGS: There are some rales bilaterally. HEART: Regular rate and rhythm. ABDOMEN: Soft and nontender with positive bowel sounds. EXTREMITIES: There is no edema. ASSESSMENT AND PLAN: The patient has an esophagogastroduodenoscopy today that showed gastritis and ruled out celiac disease and as per report, the patient is scheduled for colonoscopy in the morning, so we are going to continue the current treatment. The case was discussed with the daughter at the bedside. Kyle Aldana MD
[2018-04-25] MEDS: Tiotropium 18 mcg Cap For Inhalation INH SCH (08:53)
[2018-04-25] MEDS: Sucralfate 1 gm/10 ml Oral Susp UD PO SCH ×3 (09:44→16:30)
[2018-04-25] MEDS: Megestrol Acetate 40 mg/ml Cup PO SCH (09:44)
[2018-04-25] MEDS ORDERED: Lidocaine Hydrochloride 5 ML INJ ONE (11:09)
[2018-04-25] MEDS ORDERED: Propofol 10 mg/ml Inj (20 ML) ONE (11:09)
[2018-04-25] MEDS ORDERED: Phenylephrine 10 mg/ml Inj ONE (11:18)
--- NOTE | 2018-04-25 11:26 | CP.PCM.PN ---
Subjective - Date & Time of Evaluation Date of Evaluation: 04/25/18 Time of Evaluation: 11:26 - Subjective Subjective: PT WITH LESS ABDOM DISCOMFORT. NO SOB. ROS; OTHERWISE NEG. Objective - Vital Signs/Intake and Output Vital Signs (last 24 hours): Temp Pulse Resp BP Pulse Ox 98.5 F 76 20 137/57 L 96 04/25/18 11:05 04/25/18 11:05 04/25/18 11:05 04/25/18 11:05 04/25/18 11:05 Intake and Output: 04/25/18 04/25/18 06:59 18:59 Intake Total 1920 0 Balance 1920 0 - Medications Medications: Current Medications Acetaminophen (Tylenol 650mg/20.3ml Solution Ud) 650 mg PO Q6 PRN PRN Reason: Pain, moderate (4-7) Last Admin: 04/23/18 23:19 Dose: 650 mg Al Hydrox/Mg Hydrox/Simethicone (Maalox Plus 30 Ml) 30 ml PO Q6 PRN PRN Reason: Indigestion / Heartburn Last Admin: 04/24/18 21:37 Dose: 30 ml Albuterol Sulfate (Albuterol 0.083% Inhal Cathie (2.5 Mg/3 Ml) Ud) 2.5 mg INH RQ6 PRN PRN Reason: Shortness of Breath Last Admin: 04/24/18 19:47 Dose: 2.5 mg Cyproheptadine HCl (Periactin) 4 mg PO DAILY [facility] Last Admin: 04/24/18 10:32 Dose: Not Given Docusate Sodium (Colace) 100 mg PO BID [facility] Last Admin: 04/25/18 09:44 Dose: Not Given Enoxaparin Sodium (Lovenox) 40 mg SC DAILY [facility] Last Admin: 04/23/18 10:03 Dose: 40 mg Hydrochlorothiazide (Microzide) 12.5 mg PO DAILY [facility] Last Admin: 04/25/18 09:44 Dose: Not Given Potassium Chloride/Dextrose/Sod Cl (Potassium Chl 10 Meq In D5-1/2ns) 1,000 mls @ 100 mls/hr IV .Q10H [facility] Last Admin: 04/25/18 09:44 Dose: Not Given Lactulose (Enulose) 20 gm PO BID [facility] Last Admin: 04/25/18 09:44 Dose: Not Given Loratadine (Claritin) 10 mg PO DAILY [facility] Last Admin: 04/25/18 09:44 Dose: Not Given Losartan Potassium (Cozaar) 50 mg PO DAILY [facility] Last Admin: 04/25/18 09:44 Dose: Not Given Megestrol Acetate (Megace) 400 mg PO DAILY [facility] Last Admin: 04/25/18 09:44 Dose: Not Given Montelukast Sodium (Singulair) 10 mg PO HS [facility] Last Admin: 04/24/18 21:31 Dose: 10 mg Morphine Sulfate (Morphine) 2 mg IVP Q4 PRN PRN Reason: Pain, moderate (4-7) Last Admin: 04/24/18 05:26 Dose: 2 mg Moxifloxacin HCl (Avelox) 400 mg PO DAILY [facility]; Protocol Last Admin: 04/24/18 10:33 Dose: Not Given Ondansetron HCl (Zofran Inj) 4 mg IVP Q4 PRN PRN Reason: Nausea/Vomiting Last Admin: 04/24/18 20:40 Dose: 4 mg Pantoprazole Sodium (Protonix Inj) 40 mg IVP DAILY [facility] Last Admin: 04/25/18 09:45 Dose: Not Given Sertraline HCl (Zoloft) 25 mg PO DAILY [facility] Last Admin: 04/25/18 09:45 Dose: Not Given Sucralfate (Carafate Oral Susp) 1 gm PO TIDAC [facility] Last Admin: 04/25/18 09:44 Dose: Not Given Tiotropium [place] (Spiriva) 18 mcg INH RQ24 [facility] Last Admin: 04/25/18 08:53 Dose: 18 mcg - Labs Labs: 04/23/18 13:45 04/24/18 07:10 PT 14.6 SECONDS (9.7-12.2) H 04/22/18 07:51 INR 1.3 04/22/18 07:51 APTT 34 SECONDS (21-34) 04/22/18 07:51 - Constitutional Appears: Chronically Ill - Head Exam Head Exam: ATRAUMATIC, NORMOCEPHALIC - Eye Exam Eye Exam: EOMI, Normal appearance - ENT Exam ENT Exam: Mucous Membranes Moist - Neck Exam Neck Exam: Normal Inspection - Respiratory Exam Respiratory Exam: Decreased Breath Sounds. absent: Wheezes - Cardiovascular Exam Cardiovascular Exam: RRR, +S1, +S2 - GI/Abdominal Exam GI & Abdominal Exam: Soft - Rectal Exam Rectal Exam: Deferred - Extremities Exam Extremities Exam: absent: Calf Tenderness, Pedal Edema - Back Exam Back Exam: absent: CVA tenderness (L), CVA tenderness (R) - Neurological Exam Neurological Exam: Alert, Awake, CN II-XII Intact, Oriented x3 - Psychiatric Exam Psychiatric exam: Normal Affect - Skin Skin Exam: absent: Rash Assessment and Plan (1) Abdominal pain Status: Acute (2) COPD (chronic obstructive pulmonary disease) Status: Acute (3) Esophageal reflux Status: Acute (4) Hypertension Status: Acute (5) Lung mass Status: Acute (6) Weight loss Status: Acute - Assessment and Plan (Free Text) Assessment: RESP STATUS NO SIG CHANGE., CONT PULM TOILET., MONITOR O2 SAT. F/U SPUTUM CYTO. CXR REVIEWED. FOR COLONOSCOPY. DISCUSSED WITH STAFF AND FAMILY AT BEDSIDE.
--- NOTE | 2018-04-25 11:37 | CP.PCM.PN ---
Subjective - Date & Time of Evaluation Date of Evaluation: 04/25/18 Time of Evaluation: 11:35 - Subjective Subjective: Colonoscopy: See full operative report Mild to moderate diverticulosis throughout colon Internal hemorrhoids without bleeding No masses, polyps or obstruction, inflammation. Advance diet Await biopsies and celiac serologies Out patient follow up with me as needed Discussed findings with daughter in detail following exam. Discharge if diet tolerated and cleared by Pulmonary. Objective - Vital Signs/Intake and Output Vital Signs (last 24 hours): Temp Pulse Resp BP Pulse Ox 98.5 F 76 20 137/57 L 96 04/25/18 11:05 04/25/18 11:05 04/25/18 11:05 04/25/18 11:05 04/25/18 11:05 Intake and Output: 04/25/18 04/25/18 06:59 18:59 Intake Total 1920 0 Balance 1920 0 - Medications Medications: Current Medications Acetaminophen (Tylenol 650mg/20.3ml Solution Ud) 650 mg PO Q6 PRN PRN Reason: Pain, moderate (4-7) Last Admin: 04/23/18 23:19 Dose: 650 mg Al Hydrox/Mg Hydrox/Simethicone (Maalox Plus 30 Ml) 30 ml PO Q6 PRN PRN Reason: Indigestion / Heartburn Last Admin: 04/24/18 21:37 Dose: 30 ml Albuterol Sulfate (Albuterol 0.083% Inhal Cathie (2.5 Mg/3 Ml) Ud) 2.5 mg INH RQ6 PRN PRN Reason: Shortness of Breath Last Admin: 04/24/18 19:47 Dose: 2.5 mg Cyproheptadine HCl (Periactin) 4 mg PO DAILY [facility] Last Admin: 04/24/18 10:32 Dose: Not Given Docusate Sodium (Colace) 100 mg PO BID [facility] Last Admin: 04/25/18 09:44 Dose: Not Given Enoxaparin Sodium (Lovenox) 40 mg SC DAILY [facility] Last Admin: 04/23/18 10:03 Dose: 40 mg Hydrochlorothiazide (Microzide) 12.5 mg PO DAILY [facility] Last Admin: 04/25/18 09:44 Dose: Not Given Potassium Chloride/Dextrose/Sod Cl (Potassium Chl 10 Meq In D5-1/2ns) 1,000 mls @ 100 mls/hr IV .Q10H [facility] Last Admin: 04/25/18 09:44 Dose: Not Given Lactulose (Enulose) 20 gm PO BID [facility] Last Admin: 04/25/18 09:44 Dose: Not Given Loratadine (Claritin) 10 mg PO DAILY [facility] Last Admin: 04/25/18 09:44 Dose: Not Given Losartan Potassium (Cozaar) 50 mg PO DAILY [facility] Last Admin: 04/25/18 09:44 Dose: Not Given Megestrol Acetate (Megace) 400 mg PO DAILY [facility] Last Admin: 04/25/18 09:44 Dose: Not Given Montelukast Sodium (Singulair) 10 mg PO HS [facility] Last Admin: 04/24/18 21:31 Dose: 10 mg Morphine Sulfate (Morphine) 2 mg IVP Q4 PRN PRN Reason: Pain, moderate (4-7) Last Admin: 04/24/18 05:26 Dose: 2 mg Moxifloxacin HCl (Avelox) 400 mg PO DAILY [facility]; Protocol Last Admin: 04/24/18 10:33 Dose: Not Given Ondansetron HCl (Zofran Inj) 4 mg IVP Q4 PRN PRN Reason: Nausea/Vomiting Last Admin: 04/24/18 20:40 Dose: 4 mg Pantoprazole Sodium (Protonix Inj) 40 mg IVP DAILY [facility] Last Admin: 04/25/18 09:45 Dose: Not Given Sertraline HCl (Zoloft) 25 mg PO DAILY [facility] Last Admin: 04/25/18 09:45 Dose: Not Given Sucralfate (Carafate Oral Susp) 1 gm PO TIDAC [facility] Last Admin: 04/25/18 09:44 Dose: Not Given Tiotropium [place] (Spiriva) 18 mcg INH RQ24 [facility] Last Admin: 04/25/18 08:53 Dose: 18 mcg - Labs Labs: 04/23/18 13:45 04/24/18 07:10 PT 14.6 SECONDS (9.7-12.2) H 04/22/18 07:51 INR 1.3 04/22/18 07:51 APTT 34 SECONDS (21-34) 04/22/18 07:51 Assessment and Plan (1) Dysphagia Status: Acute (2) Epigastric pain Status: Acute (3) Weight loss Status: Acute
[2018-04-25] MEDS: Alum-Mag Hydrox-Simethicone Susp (30 mL) PO PRN (16:36)
[2018-04-25 16:52] VITALS: RESP 20
--- NOTE | 2018-04-26 00:51 | PN ---
DATE: 04/25/2018 SUBJECTIVE: Today, the patient had a colonoscopy done. Post colonoscopy, the patient was fully alert and awake, denied any abdominal pain. No shortness of breath. The patient has no dizziness although the patient is still weak. PHYSICAL EXAMINATION VITAL SIGNS: The patient has a blood pressure of 147/64, pulse 88, respirations 20, temperature 98.7. NECK: Supple. LUNGS: Some noted. HEART: Regular rate and rhythm. ABDOMEN: Soft. Positive bowel sounds. EXTREMITIES: There is no edema. LABORATORY DATA: Lab was done on 03/23/2018 and the patient had a colonoscopy done and the finding was diverticulosis and internal hemorrhoids. PLAN: Resume diet. Resume medication. Also continue to monitor the respiratory system. The case was discussed with Pooja Meyesr, the nurse practitioner. Kyle Aldana MD
[2018-04-26] MEDS: Potassium Chl 10 mEq in D5-1/2 1,000 ML IV SCH ×3 (04:53→18:44)
[2018-04-26] MEDS: Alum-Mag Hydrox-Simethicone Susp (30 mL) PO PRN ×2 (05:27→13:34)
[2018-04-26 07:05] LABS: BLOOD UREA NITROGEN 8 mg/dL (9-20); CALCIUM 8.3 mg/dl (8.6-10.4); GFR NON-AFRICAN AMERICAN > 60
[2018-04-26 07:20] LABS: BASO % 0.4 % (0.0-2.0); EOS # 0.3 K/uL (0.0-0.7); EOS % 3.9 % (0.0-4.0); LYMPH # 1.8 K/uL (1.0-4.3); LYMPH % 23.9 % (20.0-40.0); MEAN CELL VOLUME 82.4 fL (80.0-94.0); MEAN CORPUSCULAR HEMOGLOBIN 28.5 pg (27.0-31.0); MEAN CORPUSCULAR HGB CONC 34.6 g/dL (33.0-37.0); MEAN PLATELET VOLUME 8.3 fL (7.2-11.7); MONO # 0.8 K/uL (0.0-0.8); MONO % 10.2 % (0.0-10.0); NEUT # 4.6 K/uL (1.8-7.0); NEUT % 61.6 % (50.0-75.0); NRBC % 0.1 % (0.0-2.0); RBC 4.2 Mil/uL (4.40-5.90); WHITE BLOOD COUNT 7.5 K/uL (4.8-10.8)
[2018-04-26] MEDS: Tiotropium 18 mcg Cap For Inhalation INH SCH (08:12)
[2018-04-26] MEDS: Sucralfate 1 gm/10 ml Oral Susp UD PO SCH ×3 (08:20→17:57)
[2018-04-26] MEDS: Megestrol Acetate 40 mg/ml Cup PO SCH (10:20)
[2018-04-26] MEDS: Enoxaparin 40 mg Syringe SC SCH (10:20)
--- NOTE | 2018-04-26 11:52 | CP.PCM.PN ---
Subjective - Date & Time of Evaluation Date of Evaluation: 04/26/18 Time of Evaluation: 11:48 - Subjective Subjective: PT ALERT, +N/V THIS AM WITH EPIGASTRIC DISCOMFORT., NO COUGH., ROS; OTHERWISE NEG. Objective - Vital Signs/Intake and Output Vital Signs (last 24 hours): Temp Pulse Resp BP Pulse Ox 98.4 F 82 20 161/75 H 98 04/26/18 07:00 04/26/18 07:00 04/26/18 07:00 04/26/18 07:00 04/26/18 07:00 Intake and Output: 04/26/18 04/26/18 06:59 18:59 Intake Total 300 850 Balance 300 850 - Medications Medications: Current Medications Acetaminophen (Tylenol 650mg/20.3ml Solution Ud) 650 mg PO Q6 PRN PRN Reason: Pain, moderate (4-7) Last Admin: 04/23/18 23:19 Dose: 650 mg Al Hydrox/Mg Hydrox/Simethicone (Maalox Plus 30 Ml) 30 ml PO Q6 PRN PRN Reason: Indigestion / Heartburn Last Admin: 04/26/18 05:27 Dose: 30 ml Albuterol Sulfate (Albuterol 0.083% Inhal Cathie (2.5 Mg/3 Ml) Ud) 2.5 mg INH RQ6 PRN PRN Reason: Shortness of Breath Last Admin: 04/24/18 19:47 Dose: 2.5 mg Cyproheptadine HCl (Periactin) 4 mg PO DAILY [facility] Last Admin: 04/26/18 10:21 Dose: Not Given Docusate Sodium (Colace) 100 mg PO BID [facility] Last Admin: 04/26/18 10:21 Dose: Not Given Enoxaparin Sodium (Lovenox) 40 mg SC DAILY [facility] Last Admin: 04/26/18 10:20 Dose: 40 mg Hydrochlorothiazide (Microzide) 12.5 mg PO DAILY [facility] Last Admin: 04/26/18 10:20 Dose: 12.5 mg Potassium Chloride/Dextrose/Sod Cl (Potassium Chl 10 Meq In D5-1/2ns) 1,000 mls @ 100 mls/hr IV .Q10H [facility] Last Admin: 04/26/18 08:43 Dose: 100 mls/hr Lactulose (Enulose) 20 gm PO BID [facility] Last Admin: 04/26/18 10:19 Dose: 20 gm Loratadine (Claritin) 10 mg PO DAILY [facility] Last Admin: 04/26/18 10:21 Dose: Not Given Losartan Potassium (Cozaar) 50 mg PO DAILY [facility] Last Admin: 04/26/18 10:20 Dose: 50 mg Megestrol Acetate (Megace) 400 mg PO DAILY [facility] Last Admin: 04/26/18 10:20 Dose: 400 mg Montelukast Sodium (Singulair) 10 mg PO HS [facility] Last Admin: 04/25/18 21:50 Dose: 10 mg Morphine Sulfate (Morphine) 2 mg IVP Q4 PRN PRN Reason: Pain, moderate (4-7) Last Admin: 04/24/18 05:26 Dose: 2 mg Moxifloxacin HCl (Avelox) 400 mg PO DAILY [facility]; Protocol Last Admin: 04/26/18 10:22 Dose: Not Given Ondansetron HCl (Zofran Inj) 4 mg IVP Q4 PRN PRN Reason: Nausea/Vomiting Last Admin: 04/26/18 10:21 Dose: 4 mg Pantoprazole Sodium (Protonix Inj) 40 mg IVP DAILY [facility] Last Admin: 04/26/18 10:20 Dose: 40 mg Sertraline HCl (Zoloft) 25 mg PO DAILY [facility] Last Admin: 04/26/18 10:22 Dose: Not Given Sucralfate (Carafate Oral Susp) 1 gm PO TIDAC [facility] Last Admin: 04/26/18 08:20 Dose: 1 gm Tiotropium [place] (Spiriva) 18 mcg INH RQ24 [facility] Last Admin: 04/26/18 08:12 Dose: 18 mcg - Labs Labs: 04/26/18 06:44 04/26/18 06:44 PT 14.6 SECONDS (9.7-12.2) H 04/22/18 07:51 INR 1.3 04/22/18 07:51 APTT 34 SECONDS (21-34) 04/22/18 07:51 - Constitutional Appears: Chronically Ill - Head Exam Head Exam: ATRAUMATIC, NORMOCEPHALIC - Eye Exam Eye Exam: EOMI, Normal appearance - ENT Exam ENT Exam: Mucous Membranes Moist - Neck Exam Neck Exam: Normal Inspection - Respiratory Exam Respiratory Exam: Decreased Breath Sounds. absent: Respiratory Distress - Cardiovascular Exam Cardiovascular Exam: RRR, +S1, +S2 - GI/Abdominal Exam GI & Abdominal Exam: Soft - Rectal Exam Rectal Exam: Deferred - Extremities Exam Extremities Exam: absent: Calf Tenderness, Pedal Edema - Back Exam Back Exam: absent: CVA tenderness (L), CVA tenderness (R) - Neurological Exam Neurological Exam: Alert, Awake, CN II-XII Intact, Oriented x3 - Psychiatric Exam Psychiatric exam: Normal Affect - Skin Skin Exam: absent: Rash Assessment and Plan (1) Abdominal pain Status: Acute (2) COPD (chronic obstructive pulmonary disease) Status: Acute (3) Esophageal reflux Status: Acute (4) Hypertension Status: Acute (5) Lung mass Status: Acute (6) Weight loss Status: Acute - Assessment and Plan (Free Text) Assessment: RESP STATUS UNLABORED., CONT PULM TOILET. ADEQ OXYGENATION. MONITOR O2 SAT. CXR REVIEWED. S/P COLONSCOPY YESTERDAY, TOLERATED PROCEDURE WELL. RESULTS NOTED +DIVERTICULOSIS. NOT TOLERATING PO NOW. CONT IVF. PROG POOR. DISCUSSED WITH STAFF AT LENGTH AND FAMILY AT BEDSIDE.
--- NOTE | 2018-04-26 22:09 | PN ---
DATE: 04/26/2018 SUBJECTIVE: Today, the patient is complaining of nausea and vomiting, has multiple episodes of vomiting this morning and complaining of severe epigastric discomfort. The patient has nausea. PHYSICAL EXAMINATION: VITAL SIGNS: The patient has a blood pressure of 161/75, pulse 82, respiration 20, temperature 98.4. HEENT: Head is normocephalic. NECK: Supple. LUNGS: He has some rales bilaterally. HEART: Regular rate and rhythm. ABDOMEN: Soft. Positive mild tenderness in the epigastric area. Positive bowel sounds. EXTREMITIES: There is no edema. LABORATORY DATA: Labs done today showed that the WBC is 7.5, hemoglobin 12, hematocrit 34.6, and platelets 313. Chemistry showed sodium 135, potassium 3.8, chloride 104, bicarb is 25, BUN 8, creatinine 0.7, glucose is 100, and calcium 8.3. ASSESSMENT AND PLAN: The plan is that we are going to keep the patient nothing by mouth today. Zofran will be ordered. Also, he is going to have Bentyl 10 mg. The patient will be on intravenous fluid, which should be 100 mL per hour for the next 24 hours. The case was discussed with the family at bedside and also with Pooja Meyers, the nurse practitioner. Kyle Aldana MD
[2018-04-27] MEDS: Potassium Chl 10 mEq in D5-1/2 1,000 ML IV SCH ×4 (04:53→20:40)
[2018-04-27 07:28] LABS: BASO % 0.4 % (0.0-2.0); EOS # 0.3 K/uL (0.0-0.7); LYMPH # 1.6 K/uL (1.0-4.3); LYMPH % 22.8 % (20.0-40.0); MEAN CELL VOLUME 82.3 fL (80.0-94.0); MEAN CORPUSCULAR HEMOGLOBIN 28.9 pg (27.0-31.0); MEAN CORPUSCULAR HGB CONC 35.1 g/dL (33.0-37.0); MEAN PLATELET VOLUME 8.3 fL (7.2-11.7); MONO # 0.7 K/uL (0.0-0.8); MONO % 10.2 % (0.0-10.0); NEUT # 4.3 K/uL (1.8-7.0); NEUT % 62.6 % (50.0-75.0); RBC 4.14 Mil/uL (4.40-5.90); RED CELL DISTRIBUTION WIDTH 14.9 % (11.5-14.5); WHITE BLOOD COUNT 6.8 K/uL (4.8-10.8)
[2018-04-27 07:38] LABS: ALBUMIN 2.9 g/dL (3.5-5.0); ALT/SGPT 31 U/L (21-72); AST/SGOT 21 U/L (17-59); BLOOD UREA NITROGEN 6 mg/dL (9-20); CALCIUM 8.4 mg/dl (8.6-10.4); GFR NON-AFRICAN AMERICAN > 60
[2018-04-27] MEDS: Sucralfate 1 gm/10 ml Oral Susp UD PO SCH ×3 (08:56→16:38)
[2018-04-27] MEDS: Megestrol Acetate 40 mg/ml Cup PO SCH (09:28)
[2018-04-27] MEDS: Tiotropium 18 mcg Cap For Inhalation INH SCH (09:32)
--- NOTE | 2018-04-27 13:47 | CP.PCM.PN ---
Subjective - Date & Time of Evaluation Date of Evaluation: 04/27/18 Time of Evaluation: 13:45 - Subjective Subjective: No pain or bleeding. Celiac antibody testing negative. pathology still pending Objective - Vital Signs/Intake and Output Vital Signs (last 24 hours): Temp Pulse Resp BP Pulse Ox 98.3 F 76 20 133/74 97 04/27/18 07:52 04/27/18 07:52 04/27/18 07:52 04/27/18 07:52 04/27/18 07:52 Intake and Output: 04/27/18 04/27/18 06:59 18:59 Intake Total 800 800 Output Total 800 Balance 0 800 - Medications Medications: Current Medications Acetaminophen (Tylenol 650mg/20.3ml Solution Ud) 650 mg PO Q6 PRN PRN Reason: Pain, moderate (4-7) Last Admin: 04/23/18 23:19 Dose: 650 mg Al Hydrox/Mg Hydrox/Simethicone (Maalox Plus 30 Ml) 30 ml PO Q6 PRN PRN Reason: Indigestion / Heartburn Last Admin: 04/26/18 13:34 Dose: 30 ml Albuterol Sulfate (Albuterol 0.083% Inhal Cathie (2.5 Mg/3 Ml) Ud) 2.5 mg INH RQ6 PRN PRN Reason: Shortness of Breath Last Admin: 04/24/18 19:47 Dose: 2.5 mg Cyproheptadine HCl (Periactin) 4 mg PO DAILY [facility] Last Admin: 04/27/18 09:28 Dose: Not Given Dicyclomine HCl (Bentyl) 10 mg PO BID [facility] Last Admin: 04/27/18 09:26 Dose: 10 mg Docusate Sodium (Colace) 100 mg PO BID [facility] Last Admin: 04/27/18 09:27 Dose: Not Given Enoxaparin Sodium (Lovenox) 40 mg SC DAILY [facility] Last Admin: 04/26/18 10:20 Dose: 40 mg Hydrochlorothiazide (Microzide) 12.5 mg PO DAILY [facility] Last Admin: 04/27/18 09:26 Dose: 12.5 mg Potassium Chloride/Dextrose/Sod Cl (Potassium Chl 10 Meq In D5-1/2ns) 1,000 mls @ 100 mls/hr IV .Q10H [facility] Last Admin: 04/27/18 04:53 Dose: 100 mls/hr Lactulose (Enulose) 20 gm PO BID [facility] Last Admin: 04/27/18 09:28 Dose: Not Given Loratadine (Claritin) 10 mg PO DAILY [facility] Last Admin: 04/27/18 09:27 Dose: Not Given Losartan Potassium (Cozaar) 50 mg PO DAILY [facility] Last Admin: 04/27/18 09:26 Dose: 50 mg Megestrol Acetate (Megace) 400 mg PO DAILY [facility] Last Admin: 04/27/18 09:28 Dose: Not Given Metoclopramide HCl (Reglan) 10 mg IVP ACHS [facility] Montelukast Sodium (Singulair) 10 mg PO HS [facility] Last Admin: 04/26/18 21:33 Dose: Not Given Morphine Sulfate (Morphine) 2 mg IVP Q4 PRN PRN Reason: Pain, moderate (4-7) Last Admin: 04/24/18 05:26 Dose: 2 mg Ondansetron HCl (Zofran Inj) 4 mg IVP Q4 PRN PRN Reason: Nausea/Vomiting Last Admin: 04/26/18 10:21 Dose: 4 mg Pantoprazole Sodium (Protonix Inj) 40 mg IVP DAILY [facility] Last Admin: 04/27/18 11:31 Dose: 40 mg Sertraline HCl (Zoloft) 25 mg PO DAILY [facility] Last Admin: 04/27/18 09:28 Dose: Not Given Sucralfate (Carafate Oral Susp) 1 gm PO TIDAC [facility] Last Admin: 04/27/18 11:42 Dose: 1 gm Tiotropium [place] (Spiriva) 18 mcg INH RQ24 [facility] Last Admin: 04/27/18 09:32 Dose: 18 mcg - Labs Labs: 04/27/18 07:17 04/27/18 07:17 PT 14.6 SECONDS (9.7-12.2) H 04/22/18 07:51 INR 1.3 04/22/18 07:51 APTT 34 SECONDS (21-34) 04/22/18 07:51 - Constitutional Appears: No Acute Distress - Head Exam Head Exam: ATRAUMATIC, NORMOCEPHALIC - Respiratory Exam Respiratory Exam: NORMAL BREATHING PATTERN - Cardiovascular Exam Cardiovascular Exam: REGULAR RHYTHM - GI/Abdominal Exam GI & Abdominal Exam: Soft, Normal Bowel Sounds. absent: Tenderness Assessment and Plan (1) Dysphagia Status: Resolved (2) Epigastric pain Status: Resolved (3) Weight loss Assessment & Plan: Continue supportive care. Awaiting pathology results. No further GI work up at this time. Recall as needed. Status: Acute
--- NOTE | 2018-04-27 14:59 | CP.PCM.PN ---
Subjective - Date & Time of Evaluation Date of Evaluation: 04/27/18 Time of Evaluation: 14:56 - Subjective Subjective: PT FEELS SL BETTER., NO N/V TODAY. NO COUGH. ROS ; OTHERWISE NEG. Objective - Vital Signs/Intake and Output Vital Signs (last 24 hours): Temp Pulse Resp BP Pulse Ox 98.3 F 76 20 133/74 97 04/27/18 07:52 04/27/18 07:52 04/27/18 07:52 04/27/18 07:52 04/27/18 07:52 Intake and Output: 04/27/18 04/27/18 06:59 18:59 Intake Total 800 800 Output Total 800 Balance 0 800 - Medications Medications: Current Medications Acetaminophen (Tylenol 650mg/20.3ml Solution Ud) 650 mg PO Q6 PRN PRN Reason: Pain, moderate (4-7) Last Admin: 04/23/18 23:19 Dose: 650 mg Al Hydrox/Mg Hydrox/Simethicone (Maalox Plus 30 Ml) 30 ml PO Q6 PRN PRN Reason: Indigestion / Heartburn Last Admin: 04/26/18 13:34 Dose: 30 ml Albuterol Sulfate (Albuterol 0.083% Inhal Cathie (2.5 Mg/3 Ml) Ud) 2.5 mg INH RQ6 PRN PRN Reason: Shortness of Breath Last Admin: 04/24/18 19:47 Dose: 2.5 mg Cyproheptadine HCl (Periactin) 4 mg PO DAILY [facility] Last Admin: 04/27/18 09:28 Dose: Not Given Dicyclomine HCl (Bentyl) 10 mg PO BID [facility] Last Admin: 04/27/18 09:26 Dose: 10 mg Docusate Sodium (Colace) 100 mg PO BID [facility] Last Admin: 04/27/18 09:27 Dose: Not Given Enoxaparin Sodium (Lovenox) 40 mg SC DAILY [facility] Last Admin: 04/26/18 10:20 Dose: 40 mg Hydrochlorothiazide (Microzide) 12.5 mg PO DAILY [facility] Last Admin: 04/27/18 09:26 Dose: 12.5 mg Potassium Chloride/Dextrose/Sod Cl (Potassium Chl 10 Meq In D5-1/2ns) 1,000 mls @ 100 mls/hr IV .Q10H [facility] Last Admin: 04/27/18 13:47 Dose: 100 mls/hr Lactulose (Enulose) 20 gm PO BID [facility] Last Admin: 04/27/18 09:28 Dose: Not Given Loratadine (Claritin) 10 mg PO DAILY [facility] Last Admin: 04/27/18 09:27 Dose: Not Given Losartan Potassium (Cozaar) 50 mg PO DAILY [facility] Last Admin: 04/27/18 09:26 Dose: 50 mg Megestrol Acetate (Megace) 400 mg PO DAILY [facility] Last Admin: 04/27/18 09:28 Dose: Not Given Metoclopramide HCl (Reglan) 10 mg IVP ACHS [facility] Last Admin: 04/27/18 13:49 Dose: 10 mg Montelukast Sodium (Singulair) 10 mg PO HS [facility] Last Admin: 04/26/18 21:33 Dose: Not Given Morphine Sulfate (Morphine) 2 mg IVP Q4 PRN PRN Reason: Pain, moderate (4-7) Last Admin: 04/24/18 05:26 Dose: 2 mg Ondansetron HCl (Zofran Inj) 4 mg IVP Q4 PRN PRN Reason: Nausea/Vomiting Last Admin: 04/26/18 10:21 Dose: 4 mg Pantoprazole Sodium (Protonix Inj) 40 mg IVP DAILY [facility] Last Admin: 04/27/18 11:31 Dose: 40 mg Sertraline HCl (Zoloft) 25 mg PO DAILY [facility] Last Admin: 04/27/18 09:28 Dose: Not Given Sucralfate (Carafate Oral Susp) 1 gm PO TIDAC [facility] Last Admin: 04/27/18 11:42 Dose: 1 gm Tiotropium [place] (Spiriva) 18 mcg INH RQ24 [facility] Last Admin: 04/27/18 09:32 Dose: 18 mcg - Labs Labs: 04/27/18 07:17 04/27/18 07:17 PT 14.6 SECONDS (9.7-12.2) H 04/22/18 07:51 INR 1.3 04/22/18 07:51 APTT 34 SECONDS (21-34) 04/22/18 07:51 - Constitutional Appears: Chronically Ill - Head Exam Head Exam: ATRAUMATIC, NORMOCEPHALIC - Eye Exam Eye Exam: EOMI, Normal appearance - ENT Exam ENT Exam: Mucous Membranes Moist - Neck Exam Neck Exam: Normal Inspection - Respiratory Exam Respiratory Exam: Decreased Breath Sounds. absent: Wheezes, Respiratory Distress - Cardiovascular Exam Cardiovascular Exam: RRR, +S1, +S2 - GI/Abdominal Exam GI & Abdominal Exam: Soft. absent: Tenderness - Rectal Exam Rectal Exam: Deferred - Extremities Exam Extremities Exam: absent: Calf Tenderness, Pedal Edema - Back Exam Back Exam: absent: CVA tenderness (L), CVA tenderness (R) - Neurological Exam Neurological Exam: Alert, Awake, CN II-XII Intact, Oriented x3 - Psychiatric Exam Psychiatric exam: Normal Affect - Skin Skin Exam: absent: Rash Assessment and Plan (1) Abdominal pain Status: Acute (2) COPD (chronic obstructive pulmonary disease) Status: Acute (3) Esophageal reflux Status: Acute (4) Hypertension Status: Acute (5) Lung mass Status: Acute (6) Weight loss Status: Acute - Assessment and Plan (Free Text) Assessment: RESP STATUS NO SIG CHANGE., CONT PULM TOILET., MONITOR O2 SAT. CXR REVIEWED. ON IVF, FOR PO LIQ. PROG GUARDED. DISCUSSED WITH STAFF AND FAMILY AT BEDSIDE.
--- NOTE | 2018-04-28 01:51 | PN ---
DATE: 04/27/2018 SUBJECTIVE: Today, the patient is alert and awake but had been complaining of abdominal discomfort and nausea. The patient denies any chest pain or dizziness but has some shortness of breath on exertion. PHYSICAL EXAMINATION: VITAL SIGNS: The patient has a blood pressure of 160/75, pulse 67, respirations 20, temperature 99. NECK: Supple. LUNGS: Rales at the bases. HEART: Regular rate and rhythm. ABDOMEN: Soft, nontender, no palpable mass. There is mild tenderness in the epigastric area and positive bowel sounds. EXTREMITIES: There is no edema. The patient has blood test done that showed WBC 6.8, hemoglobin 12, hematocrit 34, and platelets 305. Chemistry showed sodium 132, potassium 3.6, chloride 102, BUN 6, creatinine 0.7, glucose is 98, and calcium 8.4. AST 21, ALT 31, and alkaline phosphatase 69. So the plan is that we are going to start the patient on a clear liquid diet and ____ also we are going to give some Ensure plus the patient will be put on Zofran. The case was discussed with Micheline Cohen, the nurse practitioner. Kyle Aldana MD
[2018-04-28] MEDS: Potassium Chl 10 mEq in D5-1/2 1,000 ML IV SCH ×3 (06:36→23:30)
[2018-04-28 07:20] LABS: BASO % 0.6 % (0.0-2.0); EOS # 0.3 K/uL (0.0-0.7); EOS % 3.8 % (0.0-4.0); HEMOGLOBIN 12.4 g/dL (12.0-18.0); LYMPH # 1.4 K/uL (1.0-4.3); LYMPH % 20.5 % (20.0-40.0); MEAN CELL VOLUME 82.9 fL (80.0-94.0); MEAN CORPUSCULAR HEMOGLOBIN 27.8 pg (27.0-31.0); MEAN CORPUSCULAR HGB CONC 33.5 g/dL (33.0-37.0); MEAN PLATELET VOLUME 7.8 fL (7.2-11.7); MONO # 0.7 K/uL (0.0-0.8); MONO % 9.8 % (0.0-10.0); NEUT # 4.4 K/uL (1.8-7.0); NEUT % 65.3 % (50.0-75.0); RBC 4.47 Mil/uL (4.40-5.90); RED CELL DISTRIBUTION WIDTH 15.3 % (11.5-14.5); WHITE BLOOD COUNT 6.7 K/uL (4.8-10.8)
[2018-04-28] MEDS: Tiotropium 18 mcg Cap For Inhalation INH SCH (07:35)
[2018-04-28] MEDS: Sucralfate 1 gm/10 ml Oral Susp UD PO SCH ×3 (07:38→17:35)
[2018-04-28 07:50] LABS: ALB/GLOB RATIO 1.1 (1.0-2.1); ALBUMIN 3.4 g/dL (3.5-5.0); ALT/SGPT 34 U/L (21-72); AST/SGOT 25 U/L (17-59); BLOOD UREA NITROGEN 5 mg/dL (9-20); CALCIUM 8.8 mg/dl (8.6-10.4); GFR NON-AFRICAN AMERICAN > 60
--- NOTE | 2018-04-28 09:59 | CP.PCM.PN ---
Subjective - Date & Time of Evaluation Date of Evaluation: 04/28/18 Time of Evaluation: 09:56 - Subjective Subjective: PT ALERT, FEELS BETTER., NO ABD PAIN. NO N/V. LESS COUGH +WHITE SPUTUM., ROS; OTHERWISE NEG Objective - Vital Signs/Intake and Output Vital Signs (last 24 hours): Temp Pulse Resp BP Pulse Ox 98.1 F 83 20 145/73 99 04/28/18 07:58 04/28/18 07:58 04/28/18 07:58 04/28/18 07:58 04/28/18 07:58 Intake and Output: 04/28/18 04/28/18 06:59 18:59 Intake Total 1050 800 Balance 1050 800 - Medications Medications: Current Medications Acetaminophen (Tylenol 650mg/20.3ml Solution Ud) 650 mg PO Q6 PRN PRN Reason: Pain, moderate (4-7) Last Admin: 04/23/18 23:19 Dose: 650 mg Al Hydrox/Mg Hydrox/Simethicone (Maalox Plus 30 Ml) 30 ml PO Q6 PRN PRN Reason: Indigestion / Heartburn Last Admin: 04/26/18 13:34 Dose: 30 ml Albuterol Sulfate (Albuterol 0.083% Inhal Cathie (2.5 Mg/3 Ml) Ud) 2.5 mg INH RQ6 PRN PRN Reason: Shortness of Breath Last Admin: 04/24/18 19:47 Dose: 2.5 mg Cyproheptadine HCl (Periactin) 4 mg PO DAILY [facility] Last Admin: 04/27/18 09:28 Dose: Not Given Dicyclomine HCl (Bentyl) 10 mg PO BID [facility] Last Admin: 04/27/18 18:18 Dose: 10 mg Docusate Sodium (Colace) 100 mg PO BID [facility] Last Admin: 04/27/18 18:19 Dose: Not Given Enoxaparin Sodium (Lovenox) 40 mg SC DAILY [facility] Last Admin: 04/26/18 10:20 Dose: 40 mg Hydrochlorothiazide (Microzide) 12.5 mg PO DAILY [facility] Last Admin: 04/27/18 09:26 Dose: 12.5 mg Potassium Chloride/Dextrose/Sod Cl (Potassium Chl 10 Meq In D5-1/2ns) 1,000 mls @ 100 mls/hr IV .Q10H [facility] Last Admin: 04/28/18 06:36 Dose: Not Given Lactulose (Enulose) 20 gm PO BID [facility] Last Admin: 04/27/18 18:19 Dose: Not Given Loratadine (Claritin) 10 mg PO DAILY [facility] Last Admin: 04/27/18 09:27 Dose: Not Given Losartan Potassium (Cozaar) 50 mg PO DAILY [facility] Last Admin: 04/27/18 09:26 Dose: 50 mg Megestrol Acetate (Megace) 400 mg PO DAILY [facility] Last Admin: 04/27/18 09:28 Dose: Not Given Metoclopramide HCl (Reglan) 10 mg IVP ACHS [facility] Last Admin: 04/28/18 07:38 Dose: 10 mg Montelukast Sodium (Singulair) 10 mg PO HS [facility] Last Admin: 04/27/18 21:49 Dose: Not Given Morphine Sulfate (Morphine) 2 mg IVP Q4 PRN PRN Reason: Pain, moderate (4-7) Last Admin: 04/24/18 05:26 Dose: 2 mg Ondansetron HCl (Zofran Inj) 4 mg IVP Q4 PRN PRN Reason: Nausea/Vomiting Last Admin: 04/26/18 10:21 Dose: 4 mg Pantoprazole Sodium (Protonix Susp) 40 mg PO DAILY [facility] Sertraline HCl (Zoloft) 25 mg PO DAILY [facility] Last Admin: 04/27/18 09:28 Dose: Not Given Sucralfate (Carafate Oral Susp) 1 gm PO TIDAC [facility] Last Admin: 04/28/18 07:38 Dose: 1 gm Tiotropium [place] (Spiriva) 18 mcg INH RQ24 [facility] Last Admin: 04/28/18 07:35 Dose: 18 mcg - Labs Labs: 04/28/18 07:06 04/28/18 07:06 PT 14.6 SECONDS (9.7-12.2) H 04/22/18 07:51 INR 1.3 04/22/18 07:51 APTT 34 SECONDS (21-34) 04/22/18 07:51 - Constitutional Appears: No Acute Distress, Chronically Ill - Head Exam Head Exam: ATRAUMATIC, NORMOCEPHALIC - Eye Exam Eye Exam: EOMI, Normal appearance - ENT Exam ENT Exam: Mucous Membranes Moist - Neck Exam Neck Exam: Normal Inspection - Respiratory Exam Respiratory Exam: Decreased Breath Sounds. absent: Respiratory Distress - Cardiovascular Exam Cardiovascular Exam: RRR, +S1, +S2 - GI/Abdominal Exam GI & Abdominal Exam: Soft. absent: Tenderness - Rectal Exam Rectal Exam: Deferred - Extremities Exam Extremities Exam: absent: Calf Tenderness, Pedal Edema - Back Exam Back Exam: absent: CVA tenderness (L), CVA tenderness (R) - Neurological Exam Neurological Exam: Alert, Awake, CN II-XII Intact, Oriented x3 - Psychiatric Exam Psychiatric exam: Normal Affect - Skin Skin Exam: absent: Rash Assessment and Plan (1) Abdominal pain Status: Acute (2) COPD (chronic obstructive pulmonary disease) Status: Acute (3) Esophageal reflux Status: Acute (4) Hypertension Status: Acute (5) Lung mass Status: Acute (6) Weight loss Status: Acute - Assessment and Plan (Free Text) Assessment: RESP STATUS IMPROVING., AFEBRILE ON AB. TOLERATING PO DIET NOW.,CONT PULM TOILET., NEB BD., INCREASE OOB. CXR REVIEWED. PROG POOR. DISCUSSED WITH STAFF AT LENGTH AND FAMILY AT BEDSIDE.
[2018-04-28] MEDS ORDERED: Pantoprazole 40 mg Susp UD PO SCH (10:00)
[2018-04-28] MEDS: Megestrol Acetate 40 mg/ml Cup PO SCH (10:03)
[2018-04-28] MEDS: Enoxaparin 40 mg Syringe SC SCH (10:04)
[2018-04-29] MEDS: Potassium Chl 10 mEq in D5-1/2 1,000 ML IV SCH ×4 (04:33→21:26)
[2018-04-29] MEDS: Sucralfate 1 gm/10 ml Oral Susp UD PO SCH ×3 (08:00→17:50)
[2018-04-29] MEDS: Tiotropium 18 mcg Cap For Inhalation INH SCH (08:00)
[2018-04-29 08:27] LABS: BASO % 0.6 % (0.0-2.0); EOS # 0.1 K/uL (0.0-0.7); EOS % 1.2 % (0.0-4.0); HEMOGLOBIN 12.8 g/dL (12.0-18.0); LYMPH # 1.1 K/uL (1.0-4.3); LYMPH % 19.3 % (20.0-40.0); MEAN CELL VOLUME 82.2 fL (80.0-94.0); MEAN CORPUSCULAR HEMOGLOBIN 28.4 pg (27.0-31.0); MEAN CORPUSCULAR HGB CONC 34.5 g/dL (33.0-37.0); MEAN PLATELET VOLUME 7.9 fL (7.2-11.7); MONO % 17.6 % (0.0-10.0); NEUT # 3.4 K/uL (1.8-7.0); NEUT % 61.3 % (50.0-75.0); NRBC % 0.1 % (0.0-2.0); RBC 4.51 Mil/uL (4.40-5.90); RED CELL DISTRIBUTION WIDTH 15.2 % (11.5-14.5); WHITE BLOOD COUNT 5.5 K/uL (4.8-10.8)
[2018-04-29 08:47] LABS: BLOOD UREA NITROGEN 5 mg/dL (9-20); CALCIUM 9.2 mg/dl (8.6-10.4); GFR NON-AFRICAN AMERICAN > 60
[2018-04-29] MEDS: Megestrol Acetate 40 mg/ml Cup PO SCH (09:34)
[2018-04-29] MEDS: Enoxaparin 40 mg Syringe SC SCH (09:35)
[2018-04-29] MEDS: Albuterol 0.083% Inhal Sol (2.5 mg/3 mL) UD INH PRN (15:19)
--- NOTE | 2018-04-29 16:27 | CP.PCM.PN ---
Subjective - Date & Time of Evaluation Date of Evaluation: 04/29/18 Time of Evaluation: 16:25 - Subjective Subjective: PT EATING BETTER TODAY., +SOB LAST NIGHT +WHEEZE AND COUGH. BETTER WITH NEB TX. ROS; OTHERWISE NEG. Objective - Vital Signs/Intake and Output Vital Signs (last 24 hours): Temp Pulse Resp BP Pulse Ox 99 F 66 20 155/70 H 97 04/29/18 08:00 04/29/18 08:00 04/29/18 08:00 04/29/18 08:00 04/29/18 08:00 Intake and Output: 04/29/18 04/29/18 06:59 18:59 Intake Total 1000 1160 Balance 1000 1160 - Medications Medications: Current Medications Acetaminophen (Tylenol 650mg/20.3ml Solution Ud) 650 mg PO Q6 PRN PRN Reason: Pain, moderate (4-7) Last Admin: 04/23/18 23:19 Dose: 650 mg Al Hydrox/Mg Hydrox/Simethicone (Maalox Plus 30 Ml) 30 ml PO Q6 PRN PRN Reason: Indigestion / Heartburn Last Admin: 04/26/18 13:34 Dose: 30 ml Albuterol Sulfate (Albuterol 0.083% Inhal Cathie (2.5 Mg/3 Ml) Ud) 2.5 mg INH RQ6 PRN PRN Reason: Shortness of Breath Last Admin: 04/29/18 15:19 Dose: 2.5 mg Clotrimazole (Mycelex [place]) 10 mg PO TID [facility] Last Admin: 04/29/18 14:18 Dose: 10 mg Cyproheptadine HCl (Periactin) 4 mg PO DAILY [facility] Last Admin: 04/29/18 09:35 Dose: 4 mg Dicyclomine HCl (Bentyl) 10 mg PO BID [facility] Last Admin: 04/29/18 09:35 Dose: 10 mg Docusate Sodium (Colace) 100 mg PO BID [facility] Last Admin: 04/29/18 09:44 Dose: Not Given Enoxaparin Sodium (Lovenox) 40 mg SC DAILY [facility] Last Admin: 04/29/18 09:35 Dose: 40 mg Fluconazole (Diflucan) 100 mg PO DAILY [facility]; Protocol Last Admin: 04/29/18 14:18 Dose: 100 mg Hydrochlorothiazide (Microzide) 12.5 mg PO DAILY [facility] Last Admin: 04/29/18 09:34 Dose: 12.5 mg Potassium Chloride/Dextrose/Sod Cl (Potassium Chl 10 Meq In D5-1/2ns) 1,000 mls @ 100 mls/hr IV .Q10H [facility] Last Admin: 04/29/18 09:38 Dose: 100 mls/hr Lactulose (Enulose) 20 gm PO BID [facility] Last Admin: 04/29/18 09:44 Dose: Not Given Loratadine (Claritin) 10 mg PO DAILY [facility] Last Admin: 04/29/18 09:34 Dose: 10 mg Losartan Potassium (Cozaar) 50 mg PO DAILY [facility] Last Admin: 04/29/18 09:34 Dose: 50 mg Megestrol Acetate (Megace) 400 mg PO DAILY [facility] Last Admin: 04/29/18 09:34 Dose: 400 mg Metoclopramide HCl (Reglan) 10 mg IVP ACHS [facility] Last Admin: 04/29/18 11:43 Dose: 10 mg Morphine Sulfate (Morphine) 2 mg IVP Q4 PRN PRN Reason: Pain, moderate (4-7) Last Admin: 04/24/18 05:26 Dose: 2 mg Ondansetron HCl (Zofran Inj) 4 mg IVP Q4 PRN PRN Reason: Nausea/Vomiting Last Admin: 04/26/18 10:21 Dose: 4 mg Pantoprazole Sodium (Protonix Inj) 40 mg IVP DAILY [facility] Pantoprazole Sodium (Protonix Susp) 40 mg PO DAILY [facility] Sertraline HCl (Zoloft) 25 mg PO DAILY [facility] Last Admin: 04/29/18 09:34 Dose: 25 mg Sucralfate (Carafate Oral Susp) 1 gm PO TIDAC [facility] Last Admin: 04/29/18 11:43 Dose: 1 gm Tiotropium [place] (Spiriva) 18 mcg INH RQ24 [facility] Last Admin: 04/29/18 08:00 Dose: 18 mcg - Labs Labs: 04/29/18 08:17 04/29/18 08:17 PT 14.6 SECONDS (9.7-12.2) H 04/22/18 07:51 INR 1.3 04/22/18 07:51 APTT 34 SECONDS (21-34) 04/22/18 07:51 - Constitutional Appears: No Acute Distress, Chronically Ill - Head Exam Head Exam: ATRAUMATIC, NORMOCEPHALIC - Eye Exam Eye Exam: EOMI, Normal appearance - ENT Exam ENT Exam: Mucous Membranes Moist - Neck Exam Neck Exam: Normal Inspection - Respiratory Exam Respiratory Exam: Decreased Breath Sounds. absent: Accessory Muscle Use, Wheezes - Cardiovascular Exam Cardiovascular Exam: RRR, +S1, +S2 - GI/Abdominal Exam GI & Abdominal Exam: Soft. absent: Tenderness - Rectal Exam Rectal Exam: Deferred - Extremities Exam Extremities Exam: absent: Calf Tenderness, Pedal Edema - Back Exam Back Exam: absent: CVA tenderness (L), CVA tenderness (R) - Neurological Exam Neurological Exam: Alert, Awake, CN II-XII Intact, Oriented x3 - Psychiatric Exam Psychiatric exam: Normal Mood - Skin Skin Exam: absent: Rash Assessment and Plan (1) Abdominal pain Status: Acute (2) COPD (chronic obstructive pulmonary disease) Status: Acute (3) Esophageal reflux Status: Acute (4) Hypertension Status: Acute (5) Lung mass Status: Acute (6) Weight loss Status: Acute - Assessment and Plan (Free Text) Assessment: RESP STATUS IMPROVED WITH NEB BD., CONT SPIRIVA. MONITOR O2 SAT. CXR REVIEWED. PO INTAKE BETTER. DISCUSSED WITH STAFF AND FAMILY AT BEDSIDE.
--- NOTE | 2018-04-29 23:46 | PN ---
DATE: 04/29/2018 SUBJECTIVE: Today, the patient is more alert and awake and has no episode of vomiting and denies any abdominal pain this morning; however, the patient has very poor appetite. PHYSICAL EXAMINATION: VITAL SIGNS: Blood pressure is 165/70, pulse 66, respiration 20, temperature 99 degrees Fahrenheit now tonight at 1600 hours it was 98.2. NECK: Supple. HEENT: Mouth is whitish coloration picture. LUNGS: Some rales at the bases. HEART: Regular rate and rhythm. ABDOMEN: Soft and nontender. No palpable mass at this point and positive bowel sounds. EXTREMITIES: There is no edema. NEUROLOGIC: The patient is little weak. LABORATORY DATA: The patient has some blood tests done today show WBC 5.5, hemoglobin 12.8, hematocrit 37, and platelets 263. Chemistry show that sodium 134, potassium 4.3, chloride 100, bicarbonate 26, BUN 5, creatinine 0.7, and glucose is 107. PLAN: Is that we are going to continue the respiratory treatment and we are going to add Diflucan 100 mg daily. Also, we will continue the current medication. The case was discussed with the nurse attending the patient. Kyle Aldana MD
[2018-04-30] MEDS: Potassium Chl 10 mEq in D5-1/2 1,000 ML IV SCH ×4 (05:04→17:46)
[2018-04-30] MEDS: Sucralfate 1 gm/10 ml Oral Susp UD PO SCH ×3 (08:55→17:20)
[2018-04-30] MEDS: Tiotropium 18 mcg Cap For Inhalation INH SCH (08:58)
[2018-04-30] MEDS: Albuterol 0.083% Inhal Sol (2.5 mg/3 mL) UD INH PRN (08:59)
[2018-04-30] MEDS: Pantoprazole 40 mg Susp UD PO SCH (09:35)
[2018-04-30] MEDS: Megestrol Acetate 40 mg/ml Cup PO SCH (09:36)
[2018-04-30] MEDS: Enoxaparin 40 mg Syringe SC SCH (09:36)
--- NOTE | 2018-04-30 10:31 | PN ---
DATE: 04/28/2018 SUBJECTIVE: Today, the whole day, the patient was feeling better and had this evening, the patient had developed some epigastric pain and also mostly some phlegm . The patient, however, denied any chest pain. The patient has bowel movement. PHYSICAL EXAMINATION: VITAL SIGNS: Blood pressure 145/73, pulse 83, respirations 20, temperature 98.1. NECK: Supple. LUNGS: Some rales bilaterally but diminishing. HEART: Regular rate and rhythm. ABDOMEN: Soft. Mild epigastric tenderness. EXTREMITIES: There is no edema. LABORATORY DATA: The lab that was done in the patient showed that WBC is 6.7, hemoglobin 12.4, hematocrit 37, and platelets 363. Chemistry showed sodium 133, potassium 3.6, chloride 99, BUN 5, creatinine 0.6, glucose is 118. PLAN: The plan is that we are going to advance the diet, thick liquid to soft diet, and will be discontinued, but we are going to continue other medications including the Zofran, and for tomorrow. The case was discussed with Pooja Meyers, the nurse practitioner. Kyle Aldana MD
--- NOTE | 2018-04-30 10:56 | CP.PCM.PN ---
Subjective - Date & Time of Evaluation Date of Evaluation: 04/30/18 Time of Evaluation: 10:53 - Subjective Subjective: PT ALERT, OOB IN CHAIR. EATING SMALL AMOUNTS. NO N/V. LESS COUGH. ROS; OTHERWISE NEG Objective - Vital Signs/Intake and Output Vital Signs (last 24 hours): Temp Pulse Resp BP Pulse Ox 98.7 F 100 H 20 136/69 98 04/30/18 07:00 04/30/18 07:00 04/30/18 07:00 04/30/18 07:00 04/30/18 07:00 Intake and Output: 04/30/18 04/30/18 06:59 18:59 Intake Total 1800 Output Total 650 Balance 1150 - Medications Medications: Current Medications Acetaminophen (Tylenol 650mg/20.3ml Solution Ud) 650 mg PO Q6 PRN PRN Reason: Pain, moderate (4-7) Last Admin: 04/23/18 23:19 Dose: 650 mg Al Hydrox/Mg Hydrox/Simethicone (Maalox Plus 30 Ml) 30 ml PO Q6 PRN PRN Reason: Indigestion / Heartburn Last Admin: 04/26/18 13:34 Dose: 30 ml Albuterol Sulfate (Albuterol 0.083% Inhal Cathie (2.5 Mg/3 Ml) Ud) 2.5 mg INH RQ6 PRN PRN Reason: Shortness of Breath Last Admin: 04/30/18 08:59 Dose: 2.5 mg Clotrimazole (Mycelex Ryne) 10 mg PO TID [facility] Last Admin: 04/30/18 10:35 Dose: 10 mg Cyproheptadine HCl (Periactin) 4 mg PO DAILY [facility] Last Admin: 04/30/18 09:36 Dose: 4 mg Dicyclomine HCl (Bentyl) 10 mg PO BID [facility] Last Admin: 04/30/18 09:36 Dose: 10 mg Docusate Sodium (Colace) 100 mg PO BID [facility] Last Admin: 04/29/18 17:49 Dose: 100 mg Enoxaparin Sodium (Lovenox) 40 mg SC DAILY [facility] Last Admin: 04/30/18 09:36 Dose: 40 mg Fluconazole (Diflucan) 100 mg PO DAILY [facility]; Protocol Last Admin: 04/30/18 09:36 Dose: 100 mg Hydrochlorothiazide (Microzide) 12.5 mg PO DAILY [facility] Last Admin: 04/30/18 09:36 Dose: 12.5 mg Potassium Chloride/Dextrose/Sod Cl (Potassium Chl 10 Meq In D5-1/2ns) 1,000 mls @ 100 mls/hr IV .Q10H [facility] Last Admin: 04/30/18 09:37 Dose: Not Given Lactulose (Enulose) 20 gm PO BID [facility] Last Admin: 04/30/18 09:35 Dose: 20 gm Loratadine (Claritin) 10 mg PO DAILY [facility] Last Admin: 04/30/18 09:35 Dose: 10 mg Losartan Potassium (Cozaar) 50 mg PO DAILY [facility] Last Admin: 04/30/18 09:35 Dose: 50 mg Megestrol Acetate (Megace) 400 mg PO DAILY [facility] Last Admin: 04/30/18 09:36 Dose: 400 mg Morphine Sulfate (Morphine) 2 mg IVP Q4 PRN PRN Reason: Pain, moderate (4-7) Last Admin: 04/24/18 05:26 Dose: 2 mg Ondansetron HCl (Zofran Inj) 4 mg IVP Q4 PRN PRN Reason: Nausea/Vomiting Last Admin: 04/26/18 10:21 Dose: 4 mg Pantoprazole Sodium (Protonix Inj) 40 mg IVP DAILY [facility] Last Admin: 04/30/18 10:14 Dose: 40 mg Pantoprazole Sodium (Protonix Susp) 40 mg PO 0700 [facility] Last Admin: 04/30/18 09:35 Dose: 40 mg Sertraline HCl (Zoloft) 25 mg PO DAILY [facility] Last Admin: 04/30/18 09:35 Dose: 25 mg Sucralfate (Carafate Oral Susp) 1 gm PO TIDAC [facility] Last Admin: 04/30/18 08:55 Dose: 1 gm Tiotropium Vassar (Spiriva) 18 mcg INH RQ24 [facility] Last Admin: 04/30/18 08:58 Dose: 18 mcg - Labs Labs: 04/29/18 08:17 04/29/18 08:17 PT 14.6 SECONDS (9.7-12.2) H 04/22/18 07:51 INR 1.3 04/22/18 07:51 APTT 34 SECONDS (21-34) 04/22/18 07:51 - Constitutional Appears: No Acute Distress, Chronically Ill - Head Exam Head Exam: ATRAUMATIC, NORMOCEPHALIC - Eye Exam Eye Exam: EOMI, Normal appearance - ENT Exam ENT Exam: Mucous Membranes Moist - Neck Exam Neck Exam: Normal Inspection - Respiratory Exam Respiratory Exam: Decreased Breath Sounds. absent: Wheezes, Respiratory D istress - Cardiovascular Exam Cardiovascular Exam: RRR, +S1, +S2 - GI/Abdominal Exam GI & Abdominal Exam: Soft. absent: Tenderness - Rectal Exam Rectal Exam: Deferred - Extremities Exam Extremities Exam: absent: Calf Tenderness, Pedal Edema - Back Exam Back Exam: absent: CVA tenderness (L), CVA tenderness (R) - Neurological Exam Neurological Exam: Alert, Awake, CN II-XII Intact, Oriented x3 - Psychiatric Exam Psychiatric exam: Normal Affect - Skin Skin Exam: absent: Rash Assessment and Plan (1) Abdominal pain Status: Acute (2) COPD (chronic obstructive pulmonary disease) Status: Acute (3) Esophageal reflux Status: Acute (4) Hypertension Status: Acute (5) Lung mass Status: Acute (6) Weight loss Status: Acute - Assessment and Plan (Free Text) Assessment: RESP STATUS NO SIG CHANGE., CHANGE DUONEB QID, CONT PULM TOILET., MONITOR O2 SAT. CXR REVIEWED. PO DIET TOLERATED. FOR PT. PROG POOR. DISCUSSED WITH STAFF AT LENGTH AND FAMILY AT BEDSIDE.
[2018-04-30] MEDS: Albuterol-Ipratrop 3 mg / 0.5 (3 ml) UD INH SCH (20:06)
[2018-05-01] MEDS: Albuterol-Ipratrop 3 mg / 0.5 (3 ml) UD INH SCH ×2 (01:56→10:37)
[2018-05-01] MEDS: Potassium Chl 10 mEq in D5-1/2 1,000 ML IV SCH (02:02)
[2018-05-01] MEDS: Alum-Mag Hydrox-Simethicone Susp (30 mL) PO PRN (06:26)
[2018-05-01 07:02] LABS: BASO % 0.3 % (0.0-2.0); EOS # 0.1 K/uL (0.0-0.7); EOS % 0.9 % (0.0-4.0); HEMOGLOBIN 12.3 g/dL (12.0-18.0); LYMPH # 1.5 K/uL (1.0-4.3); LYMPH % 19.3 % (20.0-40.0); MEAN CELL VOLUME 82.5 fL (80.0-94.0); MEAN CORPUSCULAR HEMOGLOBIN 28.2 pg (27.0-31.0); MEAN CORPUSCULAR HGB CONC 34.1 g/dL (33.0-37.0); MEAN PLATELET VOLUME 7.8 fL (7.2-11.7); NEUT # 5.1 K/uL (1.8-7.0); NEUT % 66.5 % (50.0-75.0); RBC 4.36 Mil/uL (4.40-5.90); RED CELL DISTRIBUTION WIDTH 15.5 % (11.5-14.5); WHITE BLOOD COUNT 7.7 K/uL (4.8-10.8)
--- NOTE | 2018-05-01 07:03 | PN ---
DATE: 04/30/2018 SUBJECTIVE: Today, the patient looked better and has no vomiting. No nausea today, and the patient feels little weak. PHYSICAL EXAMINATION: VITAL SIGNS: The patient has blood pressure of 129/63, pulse 67, respirations 20, and temperature 98 degree Fahrenheit. NECK: Supple. No JVD. LUNGS: Clear today. HEART: Regular rate and rhythm. ABDOMEN: Soft. No tenderness in the epigastric area. EXTREMITIES: There is no edema noted. NEUROLOGIC: The patient has some difficulty walking and needs support to walk. Labs showed that WBC is 5.5, hemoglobin 12.8, hematocrit 37, and platelets 163, that was from yesterday. Plan is that we are going to blunt diet with the instructions to the patient to not take spicy food which patient family and also we want to consider sending the patient to TCU for physical therapy, and the case was discussed with, Pooja Meyers, the nurse practitioner. Kyle Aldana MD
[2018-05-01] MEDS: Sucralfate 1 gm/10 ml Oral Susp UD PO SCH ×2 (07:30→11:37)
[2018-05-01] MEDS: Pantoprazole 40 mg Susp UD PO SCH (07:30)
[2018-05-01 07:53] LABS: ALB/GLOB RATIO 1.1 (1.0-2.1); ALBUMIN 3.2 g/dL (3.5-5.0); ALT/SGPT 37 U/L (21-72); AST/SGOT 26 U/L (17-59); CALCIUM 8.7 mg/dl (8.6-10.4); GFR NON-AFRICAN AMERICAN > 60
[2018-05-01 08:18] LABS: BLOOD UREA NITROGEN 5 mg/dL (9-20)
[2018-05-01] MEDS: Enoxaparin 40 mg Syringe SC SCH (09:26)
[2018-05-01] MEDS: Megestrol Acetate 40 mg/ml Cup PO SCH (09:26)
--- NOTE | 2018-05-01 11:48 | CP.PCM.PN ---
Subjective - Date & Time of Evaluation Date of Evaluation: 05/01/18 Time of Evaluation: 11:43 - Subjective Subjective: PT ALERT, EATING NOW. LESS COUGH., +NICHOLE. ROS; OTHERWISE NEG. Objective - Vital Signs/Intake and Output Vital Signs (last 24 hours): Temp Pulse Resp BP Pulse Ox 99.2 F 80 20 144/68 96 05/01/18 07:46 05/01/18 07:46 05/01/18 07:46 05/01/18 07:46 05/01/18 07:46 Intake and Output: 05/01/18 05/01/18 06:59 18:59 Intake Total 1960 Balance 1960 - Medications Medications: Current Medications Acetaminophen (Tylenol 650mg/20.3ml Solution Ud) 650 mg PO Q6 PRN PRN Reason: Pain, moderate (4-7) Last Admin: 04/23/18 23:19 Dose: 650 mg Al Hydrox/Mg Hydrox/Simethicone (Maalox Plus 30 Ml) 30 ml PO Q6 PRN PRN Reason: Indigestion / Heartburn Last Admin: 05/01/18 06:26 Dose: 30 ml Albuterol/Ipratropium (Duoneb 3 Mg/0.5 Mg (3 Ml) Ud) 3 ml INH RQ6 [facility] Last Admin: 05/01/18 10:37 Dose: 3 ml Clotrimazole (Mycelex Ryne) 10 mg PO TID [facility] Last Admin: 05/01/18 09:38 Dose: 10 mg Cyproheptadine HCl (Periactin) 4 mg PO DAILY [facility] Last Admin: 05/01/18 09:27 Dose: 4 mg Dicyclomine HCl (Bentyl) 10 mg PO BID [facility] Last Admin: 05/01/18 09:27 Dose: 10 mg Docusate Sodium (Colace) 100 mg PO BID [facility] Last Admin: 05/01/18 10:13 Dose: 100 mg Enoxaparin Sodium (Lovenox) 40 mg SC DAILY [facility] Last Admin: 05/01/18 09:26 Dose: 40 mg Fluconazole (Diflucan) 100 mg PO DAILY [facility]; Protocol Last Admin: 05/01/18 09:27 Dose: 100 mg Hydrochlorothiazide (Microzide) 12.5 mg PO DAILY [facility] Last Admin: 05/01/18 09:26 Dose: 12.5 mg Potassium Chloride/Dextrose/Sod Cl (Potassium Chl 10 Meq In D5-1/2ns) 1,000 mls @ 100 mls/hr IV .Q10H [facility] Last Admin: 05/01/18 02:02 Dose: 100 mls/hr Lactulose (Enulose) 20 gm PO BID [facility] Last Admin: 05/01/18 09:27 Dose: Not Given Loratadine (Claritin) 10 mg PO DAILY [facility] Last Admin: 05/01/18 09:26 Dose: 10 mg Losartan Potassium (Cozaar) 50 mg PO DAILY [facility] Last Admin: 05/01/18 09:26 Dose: 50 mg Megestrol Acetate (Megace) 400 mg PO DAILY [facility] Last Admin: 05/01/18 09:26 Dose: 400 mg Morphine Sulfate (Morphine) 2 mg IVP Q4 PRN PRN Reason: Pain, moderate (4-7) Last Admin: 04/24/18 05:26 Dose: 2 mg Ondansetron HCl (Zofran Inj) 4 mg IVP Q4 PRN PRN Reason: Nausea/Vomiting Last Admin: 04/26/18 10:21 Dose: 4 mg Pantoprazole Sodium (Protonix Inj) 40 mg IVP DAILY [facility] Last Admin: 05/01/18 09:26 Dose: 40 mg Pantoprazole Sodium (Protonix Susp) 40 mg PO 0700 [facility] Last Admin: 05/01/18 07:30 Dose: 40 mg Sertraline HCl (Zoloft) 25 mg PO DAILY [facility] Last Admin: 05/01/18 09:26 Dose: 25 mg Sucralfate (Carafate Oral Susp) 1 gm PO TIDAC [facility] Last Admin: 05/01/18 11:37 Dose: 1 gm - Labs Labs: 05/01/18 06:53 05/01/18 06:53 PT 14.6 SECONDS (9.7-12.2) H 04/22/18 07:51 INR 1.3 04/22/18 07:51 APTT 34 SECONDS (21-34) 04/22/18 07:51 - Constitutional Appears: No Acute Distress, Chronically Ill - Head Exam Head Exam: ATRAUMATIC, NORMOCEPHALIC - Eye Exam Eye Exam: EOMI, Normal appearance - ENT Exam ENT Exam: Mucous Membranes Moist - Neck Exam Neck Exam: Normal Inspection - Respiratory Exam Respiratory Exam: Decreased Breath Sounds. absent: Respiratory Distress - Cardiovascular Exam Cardiovascular Exam: RRR, +S1, +S2 - GI/Abdominal Exam GI & Abdominal Exam: Soft. absent: Tenderness - Rectal Exam Rectal Exam: Deferred - Extremities Exam Extremities Exam: absent: Calf Tenderness, Pedal Edema - Back Exam Back Exam: absent: CVA tenderness (L), CVA tenderness (R) - Neurological Exam Neurological Exam: Alert, Awake, CN II-XII Intact, Oriented x3 - Psychiatric Exam Psychiatric exam: Normal Mood - Skin Skin Exam: absent: Rash Assessment and Plan (1) Abdominal pain Status: Acute (2) COPD (chronic obstructive pulmonary disease) Status: Acute (3) Esophageal reflux Status: Acute (4) Hypertension Status: Acute (5) Lung mass Status: Acute (6) Weight loss Status: Acute - Assessment and Plan (Free Text) Assessment: RESP STATUS NO SIG CHANGE., CONT NEB BD., MONITOR O2 SAT. CHECK ROOM AIR. CXR REVIEWED. S/P PSEUDOMONAS PNA WITH UNDERLYING LUNG MASS, FOR F/U CT CHEST OUTPT, NEXT WK. ENCOURAGE PO DIET. INCREASE OOB AND PT. PROG POOR. DISCUSSED WITH STAFF AT LENGTH.
[2018-05-01 12:57] LABS: ABG ALLEN TEST POS; ARTERIAL BLOOD GAS HCO3 22.7 mmol/L (21-28); ARTERIAL BLOOD GAS O2 SAT 98.8 % (95-98); ARTERIAL BLOOD GAS PCO2 26 mm/Hg (35-45); ARTERIAL BLOOD GAS PH 7.48 (7.35-7.45); ARTERIAL BLOOD GAS PO2 79 mm/Hg (80-100); ARTERIAL BLOOD GAS TCO2 20.2 mmol/L (22-28)
[2018-05-01 15:55] VITALS: BP 96/62; PULSE 69; TEMP 98.9; O2SAT 95
--- NOTE | 2018-05-02 03:59 | DS ---
HISTORY OF PRESENT ILLNESS: The patient is a 73-year-old who presented to the emergency room complaining of chest pain, vomiting and nausea. The vomiting started on the day of admission and the patient too was anorexic. The patient has lost some weight of at least 10-20 founds for about a few months. PHYSICAL EXAMINATION GENERAL: The patient is very weak. LUNGS: rhonchi. HEART: Regular. ABDOMEN: Soft . There is tenderness in the epigastric area. HOSPITAL COURSE: The patient had a consult with Dr. Blanton of GI, and also the patient had endoscopy and colonoscopy done. The endoscopy revealed gastritis and the colonoscopy showed some internal hemorrhoids. The patient was put on medications including Zofran and Protonix twice a day, Carafate and Bentyl. Also, the patient was put on appetite stimulant, like Megace. The patient also was found to have thrush in the mouth. Diflucan was ordered. Progressively, the patient got better. The nausea and vomiting was controlled. The patient was able to eat a small amount. Neurologically, the patient has an unsteady gait; therefore, we have suggested the patient to go to the rehab, but the family and the patient have refused and want to have this done as outpatient, so the patient will be discharged home today. We will continue to follow this patient in the office in one week. The patient will go home with Protonix, Carafate, Bentyl, Diflucan and other medications. The case was reviewed and discussed in detail with Pooja Meyers, the nurse practitioner. Kyle Aldana MD
--- NOTE | 2018-05-02 06:29 | PN ---
DATE: 05/01/2018 SUBJECTIVE: Today, the patient is alert and awake but weak and no shortness of breath. Denies any abdominal pain, and the patient is able to tolerate bland diet. PHYSICAL EXAMINATION: GENERAL: The patient has a blood pressure of 96/62, pulse 69, respirations 20, temperature 98.9. NECK: Supple. LUNGS: Clear. HEART: Regular rate and rhythm. ABDOMEN: Soft. No tenderness today and positive bowel sound. EXTREMITIES: There is no edema. In the mouth, the white of the tongue is disappearing. The patient has unsteady gait so actually the plan and recommendation is for the patient to go to TCU but family has refused and wants the patient to go home to physical therapy so at this point we are going to discharge this patient home on medications, and the patient will come to my office within one week. Kyle Aldana MD
--- NOTE | 2018-05-24 12:42 | PQF ---
PROVIDER RESPONSE TEXT: Pseudomonas pneumonia PNA R/I REVIEWER QUERY TEXT: Pneumonia Specificity Pneumonia is documented in the Medical Record. Please specify the type of pneumonia and the causative organism (includes probable or suspected) Such as: Type: -- Aspiration pneumonia (please also specify the aspirate) - (please specify cause) - Please indicate if the aspiration is postprocedure -- Bacterial (please document suspected or probable organism) -- Bronchopneumonia (please document suspected or probable organism) -- Interstitial pneumonia -- Organizing pneumonia / BOOP -- Pneumonia with influenza, efrain flu, or H1N1 flu -- RSV -- Tuberculosis, pulmonary -- Viral -- Other, please specify The patient's Clinical Indicators include: 04/21 X-RAY MEDIAL LEFT APICAL DENSITY TX. WITH LEVAQUIN "PLEASE CLARIFY AND DOCUMENT IF 'PNA" WAS R/I OR R/O. Query created by: Nannette Dykes on 05/02/2018 8:39 AM Electronically signed by: Kyle Aldana MD 05/24/2018 12:39 PM
== END 2018-05-01 18:02 | disposition home or self-care (01) | DRG 178 ==
LOC: C.ER 22:08 → C.3T 04-21 01:25
PROVIDERS: ADMIT Specialist; ATTEND Specialist
DX: J15.1 Pneumonia due to Pseudomonas (principal); B37.0 Candidal stomatitis; R64 Cachexia; K29.60 Other gastritis without bleeding; K21.9 Gastro-esophageal reflux disease without esophagitis; K57.90 Diverticulosis of intestine, part unspecified, without perforation or abscess without bleeding; K64.8 Other hemorrhoids; R13.10 Dysphagia, unspecified; I10 Essential (primary) hypertension; E78.00 Pure hypercholesterolemia, unspecified; Z87.891 Personal history of nicotine dependence; J44.9 Chronic obstructive pulmonary disease, unspecified; K59.00 Constipation, unspecified; R91.8 Other nonspecific abnormal finding of lung field

== ENCOUNTER 2018-05-14 17:21 | Inpatient (IN) | payer MEDICARE ==
[2018-05-14 17:34] VITALS: BMI 19.8
[2018-05-14] MEDS ORDERED: Sodium Chloride 0.9% 500 ML IV ONE ×3 (18:25→21:36)
[2018-05-14] MEDS ORDERED: Piperacillin/Tazobact 3.375 gm 100 ML IVPB STA (19:30)
[2018-05-14 19:40] LABS: BASO % 0.2 % (0.0-2.0); EOS # 0.1 K/uL (0.0-0.7); EOS % 0.5 % (0.0-4.0); HEMOGLOBIN 11.5 g/dL (12.0-18.0); LYMPH % 5.6 % (20.0-40.0); MEAN CELL VOLUME 82.5 fL (80.0-94.0); MEAN CORPUSCULAR HEMOGLOBIN 26.9 pg (27.0-31.0); MEAN CORPUSCULAR HGB CONC 32.7 g/dL (33.0-37.0); MEAN PLATELET VOLUME 8.3 fL (7.2-11.7); MONO # 0.9 K/uL (0.0-0.8); MONO % 5.1 % (0.0-10.0); NEUT # 16.6 K/uL (1.8-7.0); NEUT % 88.6 % (50.0-75.0); PLATELET COUNT 459 K/uL (130-400); RBC 4.28 Mil/uL (4.40-5.90); RED CELL DISTRIBUTION WIDTH 14.9 % (11.5-14.5)
[2018-05-14 19:47] LABS: WHITE BLOOD COUNT 18.8 K/uL (4.8-10.8)
--- NOTE | 2018-05-14 19:47 | C.PDOC ---
History Of Present Illness 73 year old male with PMHx of HTN, COPD presents to the ED c/o generalized weakness. Patient was at his PMD's office where he was hypotensive with 80 systolic in the office. upon arrival to er. pt normotensive. of note, pt had prolong hosptiatl course s/p endoscopy and evla for "lung mass". . Patient got IV fluids. Patient also c/o mild upper abdominal burning. Patient denies fever, chills, nausea, vomit, diarrhea, rash, CP, SOB. PMD : Dr. Aldana Time Seen by Provider: 05/14/18 19:24 Chief Complaint (Nursing): Weakness/Neurological Deficit History Per: Patient History/Exam Limitations: no limitations Onset/Duration Of Symptoms: Days Current Symptoms Are (Timing): Still Present Associated Symptoms Preceding Syncopal Episode: No Predromal Symptoms (Sudden Onset) Seizure Or Post-ictal Symptoms: None Fall Associated With With Symptoms: No Severity: None Recent travel outside of the [place]: No Additional History Per: Patient Past Medical History Reviewed: Historical Data, Nursing Documentation, Vital Signs Vital Signs: Last Vital Signs Temp 97.5 F L 05/14/18 18:00 Pulse 82 05/14/18 18:47 Resp 18 05/14/18 18:47 BP 96/55 L 05/14/18 18:47 Pulse Ox 97 05/14/18 18:47 - Medical History PMH: Asthma, COPD, HTN, Hypercholesterolemia, Pneumonia Denies: Chronic Kidney Disease Surgical History: No Surg Hx - [facility] (03/29/18) Family History: States: Unknown Family Hx - Social History Hx Alcohol Use: No Hx Substance Use: No - Immunization History Hx Tetanus Toxoid Vaccination: No Hx Influenza Vaccination: No Hx Pneumococcal Vaccination: No Review Of Systems Constitutional: Negative for: Fever, Chills Eyes: Negative for: Vision Change Cardiovascular: Negative for: Chest Pain, Palpitations Respiratory: Negative for: Shortness of Breath Gastrointestinal: Positive for: Abdominal Pain. Negative for: Nausea, Vomiting Genitourinary: Negative for: Dysuria Neurological: Positive for: Weakness. Negative for: Numbness, Headache, Dizziness Physical Exam - Physical Exam Appears: Non-toxic, Other (cachectic) Skin: Normal Color, Warm, Dry Head: Atraumatic, Normacephalic Eye(s): bilateral: Normal Inspection Oral Mucosa: Moist Neck: Normal ROM, Supple Chest: Symmetrical Cardiovascular: Rhythm Regular Respiratory: No Rales, Rhonchi (scattered), No Wheezing Gastrointestinal/Abdominal: Soft, Tenderness (minimal epigastric), No Guarding, No Rebound Extremity: Normal ROM, No Tenderness, No Swelling Neurological/Psych: Oriented x3, Normal Speech, Normal Cognition Gait: Steady ED Course And Treatment - Laboratory Results Result Diagrams: 05/14/18 19:37 05/14/18 19:37 ECG: Interpreted By Me, Viewed By Me ECG Rhythm: Sinus Rhythm, Nonspecific Changes (ST/T waves) Rate From EC (BPM) O2 Sat by Pulse Oximetry: 97 (ON RA) Pulse Ox Interpretation: Normal Medical Decision Making Medical Decision Making: ?sepsis dehydration. pt chronically ill appearing. s/p recent endoscopyPlan: * VBG * EKG * Labs * CXR * IV fludis * Vancomycin IVPB * Zosyn IVPB * Blood culture * UA pt reassesed. sleeping in nad. b/p stable in er. noted luekocytosis neg la. will emprically cover with antibiotics for ?sepsis. abd soft no ttp. urine pending. case discussed with dr aldana. defer further imaging and w/u to dr aldana. Disposition - Disposition Disposition: HOSPITALIZED Disposition Time: 21:00 Condition: FAIR - Clinical Impression Clinical Impression: Leukocytosis, Weakness, Near syncope - Scribe Statement The provider has reviewed the documentation as recorded by the Scribe Johnny Matos All medical record entries made by the Scribe were at my direction and personally dictated by me. I have reviewed the chart and agree that the record accurately reflects my personal performance of the history, physical exam, medical decision making, and the department course for this patient. I have also personally directed, reviewed, and agree with the discharge instructions and disposition.
[2018-05-14 19:51] LABS: INR 1.4; PROTHROMBIN TIME 15.8 SECONDS (9.7-12.2)
[2018-05-14 19:59] LABS: ALB/GLOB RATIO 0.9 (1.0-2.1); ALBUMIN 3.2 g/dL (3.5-5.0); ALT/SGPT 136 U/L (21-72); AST/SGOT 71 U/L (17-59); BLOOD UREA NITROGEN 48 mg/dL (9-20); CALCIUM 9.1 mg/dl (8.6-10.4); GFR NON-AFRICAN AMERICAN > 60; LIPASE 22 U/L (23-300)
[2018-05-14 20:01] LABS: VENOUS BLOOD GAS BASE EXCESS 3.7 mmol/L (0.0-2.0); VENOUS BLOOD GAS PCO2 43 mmHg (40-60); VENOUS BLOOD GAS PO2 18 mm/Hg (30-55); VENOUS BLOOD PH 7.43 (7.32-7.43)
[2018-05-14 20:06] LABS: LYMPHOCYTE 10 % (20-40); MONOCYTE 3 % (0-10); NEUTROPHIL 87 % (50-75); PLATELET ESTIMATE INCREASED (NORMAL); TOTAL CELLS COUNTED 100
[2018-05-14] MEDS ORDERED: Piperacillin/Tazobact 3.375 gm 100 ML IVPB ONE (20:07)
[2018-05-14] MEDS ORDERED: Vancomycin 1 gm/NS 200 ml 1 GM/200 ML BAG IVPB STA (20:53)
[2018-05-15 05:10] LABS: SQUAMOUS EPITHIAL < 1 /hpf (0-5); URINE BILIRUBIN NEGATIVE (NEGATIVE); URINE BLOOD NEGATIVE (NEGATIVE); URINE CLARITY Clear (Clear); URINE COLOR Yellow (YELLOW); URINE GLUCOSE (UA) NORMAL (Normal); URINE LEUKOCYTE ESTERASE NEG Leu/uL (Negative); URINE PROTEIN NEGATIVE (NEGATIVE); URINE UROBILINOGEN NORMAL mg/dL (0.2-1.0)
[2018-05-15] MEDS: Piperacill/Tazo 3.375gm in Dex 3.375 GM/50 ML BAG IVPB SCH ×3 (05:11→21:33)
[2018-05-15 06:52] LABS: BASO % 0.4 % (0.0-2.0); EOS # 0.2 K/uL (0.0-0.7); EOS % 1.4 % (0.0-4.0); HEMOGLOBIN 10.2 g/dL (12.0-18.0); LYMPH # 1.1 K/uL (1.0-4.3); MEAN CORPUSCULAR HEMOGLOBIN 27.8 pg (27.0-31.0); MEAN CORPUSCULAR HGB CONC 33.9 g/dL (33.0-37.0); MONO # 0.9 K/uL (0.0-0.8); MONO % 7.1 % (0.0-10.0); NEUT # 10.1 K/uL (1.8-7.0); NEUT % 82.1 % (50.0-75.0); PLATELET COUNT 415 K/uL (130-400); RBC 3.67 Mil/uL (4.40-5.90); RED CELL DISTRIBUTION WIDTH 14.7 % (11.5-14.5); WHITE BLOOD COUNT 12.3 K/uL (4.8-10.8)
[2018-05-15] MEDS: Albuterol 0.083% Inhal Sol (2.5 mg/3 mL) UD INH SCH ×3 (07:23→20:02)
[2018-05-15 07:36] LABS: ALB/GLOB RATIO 0.9 (1.0-2.1); ALBUMIN 2.8 g/dL (3.5-5.0); ALT/SGPT 115 U/L (21-72); AST/SGOT 56 U/L (17-59); B-TYPE NATRIURETIC PEPTIDE 253 pg/mL (0-900); BLOOD UREA NITROGEN 34 mg/dL (9-20); CALCIUM 8.6 mg/dl (8.6-10.4); GFR NON-AFRICAN AMERICAN > 60
--- NOTE | 2018-05-15 07:57 | RAD ---
Date of service: 05/14/2018 PROCEDURE: CHEST RADIOGRAPH, 1 VIEW HISTORY: chest pain COMPARISON: Chest x-ray 04/20/2018; CT chest abdomen and pelvis 03/29/2018 FINDINGS: LUNGS: The vague opacity in the left upper lobe obscuring left aortic knob and left main pulmonary artery with contiguous left superomedial pleural thickening compatible with patient's known mass here. The asymmetrically elevated left hemidiaphragm and volume loss are similar. Known left main bronchus occluding obstruction. The left basal atelectasis is similar. PLEURA: No pneumothorax. No pleural effusion. Left superomedial pleural thickening contiguous with left aortic knob. CARDIOVASCULAR: There is presence of aortic atherosclerotic calcification on x-ray. Obscured by the contiguous left para mediastinal/left parahilar mass. Prominent right hilum-may be projectional-not significantly changed with the chest x-ray from 03/29/2018-no referenced right hilar lymphadenopathy. OSSEOUS STRUCTURES: No significant abnormalities. VISUALIZED UPPER ABDOMEN: Normal. OTHER FINDINGS: None. IMPRESSION: Left paramediastinal/blending left perihilar/blending left upper lobe vague opacity compatible with spur prior CT referenced mass here and associated atelectasis. Left superomedial contiguous pleural thickening-unchanged. No interval pathology suspect.
[2018-05-15 08:47] LABS: BASOPHIL 1 % (0-2); EOSINOPHIL 2 % (0-4); LYMPHOCYTE 10 % (20-40); TOTAL CELLS COUNTED 100
[2018-05-15 08:48] LABS: ANISOCYTOSIS SLIGHT; BURR CELLS SLIGHT; HYPOCHROMIC SLIGHT; MONOCYTE 5 % (0-10); NEUTROPHIL 82 % (50-75); OVALOCYTES SLIGHT; PLATELET ESTIMATE NORMAL (NORMAL); POIKILOCYTOSIS SLIGHT
[2018-05-15] MEDS: Pantoprazole 40 mg EC Tab PO SCH (09:29)
[2018-05-15] MEDS: Megestrol Acetate 40 mg/ml Cup PO SCH (09:29)
[2018-05-15] MEDS ORDERED: Potassium Chloride 20 mEq ER Tab PO ONE (09:30)
[2018-05-15] MEDS ORDERED: Losartan 12.5 MG TAB PO SCH (10:00)
--- NOTE | 2018-05-15 10:44 | CP.PCM.CON ---
History of Present Illness - History of Present Illness History of Present Illness: CHART REVIEWED. PT SEEN AND EXAMINED 73 YO HISP MALE WITH A HX COPD, +CARMELA LUNG MASS PROB CA S/P FOB NONDIAGNOSTIC, CACHEXIA, HTN, GERD, ADM 05/14/18 WITH INCREASED SEVERE GEN WEAKNESS X FEW DAYS., UNABLE TO WALK WITHOUT ASSISTANCE. POOR PO INTAKE. + COUGH WITH MILD HEMOPTYSIS YESTERDAY., ON HOME NEB . NO HOME O2. SEEN BY PMD, NOTED HYPOXIA AND HYPOTENSION, EMS CALLED. Review of Systems - Review of Systems All systems: reviewed and no additional remarkable complaints except - Constitutional Constitutional: Malaise, Weight Loss. absent: Fever - EENT Eyes: absent: Change in Vision Nose/Mouth/Throat: absent: Nasal Congestion - Cardiovascular Cardiovascular: Dyspnea on Exertion. absent: Chest Pain, Edema - Respiratory Respiratory: Cough, Dyspnea, Dyspnea on Exertion, Chest Congestion, Excessive Mucous Production - Gastrointestinal Gastrointestinal: Dyspepsia, Heartburn. absent: Nausea, Vomiting - Genitourinary Genitourinary: absent: Difficulty Urinating - Musculoskeletal Musculoskeletal: absent: Joint Swelling - Integumentary Integumentary: absent: Rash - Neurological Neurological: absent: Confusion - Psychiatric Psychiatric: absent: Confusion - Endocrine Endocrine: absent: Change in Body Appearance - Hematologic/Lymphatic Hematologic: Lymphadenopathy Past Patient History - Past Medical History & Family History Past Medical History?: Yes Past Family History: Reviewed and not pertinent - Past Social History Smoking Status: Former Smoker Alcohol: None Home Situation {Lives}: With Family - CARDIAC Hx Cardiac Disorders: Yes Hx Hypercholesterolemia: Yes Hx Hypertension: Yes - PULMONARY Hx Respiratory Disorders: Yes Hx Asthma: Yes Hx Chronic Obstructive Pulmonary Disease (COPD): Yes Hx Pneumonia: Yes Hx Tuberculosis: No - NEUROLOGICAL Hx Neurological Disorder: No - HEENT Hx HEENT Problems: No - RENAL Hx Chronic Kidney Disease: No - ENDOCRINE/METABOLIC Hx Endocrine Disorders: No - HEMATOLOGICAL/ONCOLOGICAL Hx Blood Disorders: No - INTEGUMENTARY Hx Dermatological Problems: No - MUSCULOSKELETAL/RHEUMATOLOGICAL Hx Musculoskeletal Disorders: Yes Hx Falls: No Hx Unsteady Gait: Yes Other/Comment: weakness to all extremities - GASTROINTESTINAL Hx Gastrointestinal Disorders: Yes Hx Gastroesophageal Reflux: Yes - GENITOURINARY/GYNECOLOGICAL Hx Genitourinary Disorders: No - PSYCHIATRIC Hx Psychophysiologic Disorder: No Hx Substance Use: No - SURGICAL HISTORY Hx Surgeries: Yes Other/Comment: Explore lap 1974 - ANESTHESIA Hx Anesthesia: Yes Hx Anesthesia Reactions: No Meds Allergies/Adverse Reactions: Allergies Allergy/AdvReac Type Severity Reaction Status Date / Time No Known Allergies Allergy Verified 05/14/18 17:33 - Medications Medications: Current Medications Al Hydrox/Mg Hydrox/Simethicone (Maalox Plus 30 Ml) 30 ml PO Q6 PRN PRN Reason: Indigestion / Heartburn Albuterol Sulfate (Albuterol 0.083% Inhal Cathie (2.5 Mg/3 Ml) Ud) 2.5 mg INH RQ6 [facility] Last Admin: 05/15/18 07:23 Dose: 2.5 mg Aspirin (Aspirin Chewable) 81 mg PO DAILY [facility] Last Admin: 05/15/18 09:30 Dose: 81 mg Clopidogrel Bisulfate (Plavix) 75 mg PO DAILY [facility] Last Admin: 05/15/18 09:29 Dose: 75 mg Clotrimazole (Mycelex Ryne) 10 mg PO TID [facility] Last Admin: 05/15/18 09:47 Dose: 10 mg Cyproheptadine HCl (Periactin) 4 mg PO DAILY [facility] Last Admin: 05/15/18 09:30 Dose: 4 mg Heparin Sodium (Porcine) (Heparin) 5,000 units SC Q12 [facility] Last Admin: 05/15/18 09:28 Dose: 5,000 units Piperacillin Sod/Tazobactam Sod (Zosyn 3.375 Gm Iv Premix) 3.375 gm in 50 mls @ 100 mls/hr IVPB Q8 [facility]; Protocol Last Admin: 05/15/18 05:11 Dose: 100 mls/hr Losartan Potassium (Cozaar) 25 mg PO DAILY [facility] Last Admin: 05/15/18 09:30 Dose: 25 mg Megestrol Acetate (Megace) 400 mg PO DAILY [facility] Last Admin: 05/15/18 09:29 Dose: 400 mg Montelukast Sodium (Singulair) 10 mg PO DAILY [facility] Last Admin: 05/15/18 09:29 Dose: 10 mg Pantoprazole Sodium (Protonix Ec Tab) 40 mg PO DAILY [facility] Last Admin: 05/15/18 09:29 Dose: 40 mg Potassium Chloride (K-Dur 20 Meq Er Tab) 20 meq PO DAILY [facility] Stop: 05/17/18 16:01 Sertraline HCl (Zoloft) 25 mg PO DAILY [facility] Last Admin: 05/15/18 09:29 Dose: 25 mg Physical Exam - Constitutional Appears: No Acute Distress, Chronically Ill - Head Exam Head Exam: ATRAUMATIC, NORMOCEPHALIC - Eye Exam Eye Exam: EOMI, Normal appearance - ENT Exam ENT Exam: Mucous Membranes Dry - Neck Exam Neck exam: Positive for: Normal Inspection - Respiratory Exam Respiratory Exam: Decreased Breath Sounds. absent: Accessory Muscle Use, Wheezes, Respiratory Distress - Cardiovascular Exam Cardiovascular Exam: RRR, +S1, +S2 - GI/Abdominal Exam GI & Abdominal Exam: Soft. absent: Tenderness - Rectal Exam Rectal Exam: Deferred - Extremities Exam Extremities exam: Negative for: calf tenderness, pedal edema - Back Exam Back exam: absent: CVA tenderness (L), CVA tenderness (R) - Neurological Exam Neurological exam: Alert, CN II-XII Intact, Oriented x3 - Psychiatric Exam Psychiatric exam: Normal Mood Results - Vital Signs Recent Vital Signs: Last Vital Signs Temp 97.2 F L 05/15/18 07:50 Pulse 102 H 05/15/18 07:50 Resp 20 05/15/18 07:50 BP 98/53 L 05/15/18 07:50 Pulse Ox 96 05/15/18 07:50 - Labs Result Diagrams: 05/15/18 06:44 05/15/18 06:44 Labs: Laboratory Results - last 24 hr 05/14/18 05/14/18 05/14/18 19:37 19:37 19:37 WBC 18.8 H D RBC 4.28 L Hgb 11.5 L Hct 35.3 MCV 82.5 MCH 26.9 L MCHC 32.7 L RDW 14.9 H Plt Count 459 H D MPV 8.3 Neut % (Auto) 88.6 H Lymph % (Auto) 5.6 L [place] % (Auto) 5.1 Eos % (Auto) 0.5 Baso % (Auto) 0.2 Neut # (Auto) 16.6 H Lymph # (Auto) 1.0 [place] # (Auto) 0.9 H Eos # (Auto) 0.1 Baso # (Auto) 0.0 Neutrophils % (Manual) 87 H Lymphocytes % (Manual) 10 L Monocytes % (Manual) 3 Eosinophils % (Manual) Basophils % (Manual) Platelet Estimate Increased H RBC Morphology Normal Hypochromasia (manual) Poikilocytosis (manual Anisocytosis (manual) Ovalocytes Alfie Cells PT 15.8 H INR 1.4 APTT 30 pO2 VBG pH VBG pCO2 VBG HCO3 VBG Total CO2 VBG O2 Sat (Calc) VBG Base Excess VBG Potassium Glucose Lactate Sodium 129 L Potassium 3.4 L Chloride 91 L Carbon Dioxide 26 Anion Gap 16 BUN 48 H Creatinine 1.0 Est GFR ( Amer) > 60 Est GFR (Non-Af Amer) > 60 Random Glucose 102 Calcium 9.1 Phosphorus Magnesium Total Bilirubin 0.7 AST 71 H D ALT 136 H D Alkaline Phosphatase 177 H D Troponin I < 0.0120 NT-Pro-B Natriuret Pep Total Protein 6.6 Albumin 3.2 L Globulin 3.5 Albumin/Globulin Ratio 0.9 L Lipase 22 L Venous Blood Potassium Urine Color Urine Clarity Urine pH Ur Specific [place] Urine Protein Urine Glucose (UA) Urine Ketones Urine Blood Urine Nitrate Urine Bilirubin Urine Urobilinogen Ur Leukocyte Esterase Urine WBC (Auto) Urine RBC (Auto) Ur Squamous Epith Cells Hyaline Casts 05/14/18 05/15/18 05/15/18 19:58 05:04 06:44 WBC 12.3 H RBC 3.67 L Hgb 10.2 L Hct 30.1 L MCV 82.0 MCH 27.8 MCHC 33.9 RDW 14.7 H Plt Count 415 H MPV 8.0 Neut % (Auto) 82.1 H Lymph % (Auto) 9.0 L [place] % (Auto) 7.1 Eos % (Auto) 1.4 Baso % (Auto) 0.4 Neut # (Auto) 10.1 H Lymph # (Auto) 1.1 [place] # (Auto) 0.9 H Eos # (Auto) 0.2 Baso # (Auto) 0.0 Neutrophils % (Manual) 82 H Lymphocytes % (Manual) 10 L Monocytes % (Manual) 5 Eosinophils % (Manual) 2 Basophils % (Manual) 1 Platelet Estimate Normal RBC Morphology Hypochromasia (manual) Slight Poikilocytosis (manual Slight Anisocytosis (manual) Slight Ovalocytes Slight [place] Cells Slight PT INR APTT pO2 18 L VBG pH 7.43 VBG pCO2 43 VBG HCO3 25.9 VBG Total CO2 29.8 H VBG O2 Sat (Calc) 22.7 L VBG Base Excess 3.7 H VBG Potassium 3.2 L Glucose 101 Lactate 0.9 Sodium 136.0 Potassium Chloride 102.0 Carbon Dioxide Anion Gap BUN Creatinine Est GFR ( Amer) Est GFR (Non-Af Amer) Random Glucose Calcium Phosphorus Magnesium Total Bilirubin AST ALT Alkaline Phosphatase Troponin I NT-Pro-B Natriuret Pep Total Protein Albumin Globulin Albumin/Globulin Ratio Lipase Venous Blood Potassium 3.2 L Urine Color Yellow Urine Clarity Clear Urine pH 6.0 Ur Specific [place] 1.018 Urine Protein Negative Urine Glucose (UA) Normal Urine Ketones Negative Urine Blood Negative Urine Nitrate Negative Urine Bilirubin Negative Urine Urobilinogen Normal Ur Leukocyte Esterase Neg Urine WBC (Auto) 2 Urine RBC (Auto) 1 Ur Squamous Epith Cells < 1 Hyaline Casts 3-5 H 05/15/18 06:44 WBC RBC Hgb Hct MCV MCH MCHC RDW Plt Count MPV Neut % (Auto) Lymph % (Auto) [place] % (Auto) Eos % (Auto) Baso % (Auto) Neut # (Auto) Lymph # (Auto) [place] # (Auto) Eos # (Auto) Baso # (Auto) Neutrophils % (Manual) Lymphocytes % (Manual) Monocytes % (Manual) Eosinophils % (Manual) Basophils % (Manual) Platelet Estimate RBC Morphology Hypochromasia (manual) Poikilocytosis (manual Anisocytosis (manual) Ovalocytes [place] Cells PT INR APTT pO2 VBG pH VBG pCO2 VBG HCO3 VBG Total CO2 VBG O2 Sat (Calc) VBG Base Excess VBG Potassium Glucose Lactate Sodium 132 Potassium 3.1 L Chloride 96 L Carbon Dioxide 23 Anion Gap 15 BUN 34 H Creatinine 0.8 Est GFR ( Amer) > 60 Est GFR (Non-Af Amer) > 60 Random Glucose 91 Calcium 8.6 Phosphorus 4.3 Magnesium 2.1 Total Bilirubin 0.6 AST 56 ALT 115 H Alkaline Phosphatase 145 H Troponin I NT-Pro-B Natriuret Pep 253 Total Protein 6.0 L Albumin 2.8 L Globulin 3.2 Albumin/Globulin Ratio 0.9 L Lipase Venous Blood Potassium Urine Color Urine Clarity Urine pH Ur Specific [place] Urine Protein Urine Glucose (UA) Urine Ketones Urine Blood Urine Nitrate Urine Bilirubin Urine Urobilinogen Ur Leukocyte Esterase Urine WBC (Auto) Urine RBC (Auto) Ur Squamous Epith Cells Hyaline Casts Assessment & Plan (1) COPD exacerbation Status: Acute (2) Dehydration Status: Acute (3) Cachexia Status: Acute (4) Respiratory failure Status: Acute (5) Near syncope Status: Acute (6) Esophageal reflux Status: Acute (7) Hypertension Status: Acute (8) Lung mass Status: Acute (9) Weight loss Status: Acute - Assessment and Plan (Free Text) Assessment: 73 YO MALE WITH A HX MULT MED PROBS., ADM WITH HYPOTENSION AND DEHYDRATION., +CARMELA LUNG MASS., PREVIOUS W/U NONDIAGNOSTIC. CXR REVIEWED. REPEAT CT CHEST., PULM TOILET., CONT NEB BD., MONITOR O2 SAT, TOLERATING O2 2L. SPUTUM FOR CYTO. CONT EMPIRIC AB. GI/DVT PROPHYLAXIS. DISCUSSED WITH STAFF AND FAMILY AT BEDSIDE.
--- NOTE | 2018-05-15 11:17 | CP.PCM.CON ---
History of Present Illness - History of Present Illness History of Present Illness: 73 year old male with PMHx of HTN, COPD presents to the ED c/o generalized weakness. Patient was at his PMD's office where he was hypotensive with 80 systolic in the office. upon arrival to er. pt normotensive. of note, pt had prolong hosptiatl course s/p endoscopy and evla for "lung mass". . Patient got IV fluids. Patient also c/o mild upper abdominal burning. Patient denies fever, chills, nausea, vomit, diarrhea, rash, CP, SOB. - Medical History PMH: Asthma, COPD, HTN, Hypercholesterolemia, Pneumonia Denies: Chronic Kidney Disease Surgical History: No Surg Hx - Review of Systems - Review of Systems All systems: reviewed and no additional remarkable complaints except - Constitutional Constitutional: As Per HPI - EENT Eyes: absent: As Per HPI, Blind Spots, Blurred Vision, Change in Vision, Decreased Night Vision, Diplopia, Discharge, Dry Eye, Exophthalmos, Floaters, Irritation, Itchy Eyes, Loss of Peripheral Vision, Pain, Photophobia, Requires Corrective Lenses, Sees Flashes, Spots in Vision, Tunnel Vision, Other Visual Disturbances, Loss of Vision, Other Ears: absent: As Per HPI, Decreased Hearing, Ear Discharge, Ear Pain, Tinnitus, Abnormal Hearing, Disequilibrium, Dizziness, Other Nose/Mouth/Throat: absent: As Per HPI, Epistaxis, Nasal Congestion, Nasal Discharge, Nasal Obstruction, Nasal Trauma, Nose Pain, Post Nasal Drip, Sinus Pain, Sinus Pressure, Bleeding Gums, Change in Voice, Dental Pain, Dry Mouth, Dysphagia, Halitosis, Hoarsness, Lip Swelling, Mouth Lesions, Mouth Pain, Odynophagia, Sore Throat, Throat Swelling, Tongue Swelling, Facial Pain, Neck Pain, Neck Mass, Other - Cardiovascular Cardiovascular: As Per HPI - Respiratory Respiratory: As Per HPI - Gastrointestinal Gastrointestinal: As Per HPI - Genitourinary Genitourinary: absent: As Per HPI, Change in Urinary Stream, Difficulty Urinating, Dysuria, Flank Pain, Hematuria, Pyuria, Nocturia, Urinary Incontinence, Urinary Frequency, Urinary Hesitance, Urinary Urgency, Voiding Freq/Small Amts, Freq UTI, Hx Renal/Bladder Calculi, Hx /Renal Surgery, Bladder Distension, Other - Musculoskeletal Musculoskeletal: absent: As Per HPI, Abnormal Gait, Arthralgias, Atrophy, Back Pain, Deformity, Joint Swelling, Limited Range of Motion, Loss of Height, Muscle Cramps, Muscle Weakness, Myalgias, Neck Pain, Numbness, Radiating Pain into Limb, Stiffness, Tingling, Other - Integumentary Integumentary: absent: As Per HPI, Acne, Alopecia, Bleeding Lesions, Change in Hair, Change in Nails, Change in Pigmentation, Changing Lesions, Dry Skin, Erythema, Furuncle, Hirsutism, Lesions, New Lesions, Non-Healing Lesions, Photosensitivity, Pruritus, Rash, Skin Pain, Skin Ulcer, Sores, Striae, Swelling, Unusual Bruising, Wounds, Jaundice, Other - Neurological Neurological: absent: As Per HPI, Abnormal Gait, Abnormal Hearing, Abnormal Movements, Abnormal Speech, Behavioral Changes, Burning Sensations, Confusion, Convulsions, Disequilibrium, Dizziness, Numbness, Focal Weakness, Frequent Fa lls, Headaches, Lack of Coordination, Loss of Vision, Memory Loss, Paresthesias, Radicular Pain, Restless Legs, Sensory Deficit, Syncope, Tingling, Tremor, Vertigo, Weakness, Other Visual Disturbances, Other - Psychiatric Psychiatric: absent: As Per HPI, Abnormal Sleep Pattern, Anhedonia, Anxiety, Auditory Hallucinations, Behavioral Changes, Change in Appetite, Change in Libido, Confusion, Depression, Difficulty Concentrating, Hallucinations, Homicidal Ideation, Hopelessness, Irritability, Memory Loss, Mood Swings, Panic Attacks, Paranoia, Suicidal Ideation, Visual Hallucinations, Tactile Hallucinations, Other - Endocrine Endocrine: absent: As Per HPI, Change in Body Appearance, Change in Libido, Cold Intolorance, Deepening of Voice, Excessive Sweating, Fatigue, Flushing, Heat Intolorance, Increase in Ring/Shoe/Hat Size, Palpitations, Polydipsia, Polyphagia, Polyuria, Other - Hematologic/Lymphatic Hematologic: absent: As Per HPI, Easy Bleeding, Easy Bruising, Lymphadenopathy, Other Past Patient History - Past Medical History & Family History Past Medical History?: Yes Past Family History: Reviewed and not pertinent - Past Social History Smoking Status: Former Smoker Alcohol: None Home Situation {Lives}: With Family - CARDIAC Hx Cardiac Disorders: Yes Hx Hypercholesterolemia: Yes Hx Hypertension: Yes - PULMONARY Hx Respiratory Disorders: Yes Hx Asthma: Yes Hx Chronic Obstructive Pulmonary Disease (COPD): Yes Hx Pneumonia: Yes Hx Tuberculosis: No - NEUROLOGICAL Hx Neurological Disorder: No - HEENT Hx HEENT Problems: No - RENAL Hx Chronic Kidney Disease: No - ENDOCRINE/METABOLIC Hx Endocrine Disorders: No - HEMATOLOGICAL/ONCOLOGICAL Hx Blood Disorders: No - INTEGUMENTARY Hx Dermatological Problems: No - MUSCULOSKELETAL/RHEUMATOLOGICAL Hx Musculoskeletal Disorders: Yes Hx Falls: No Hx Unsteady Gait: Yes Other/Comment: weakness to all extremities - GASTROINTESTINAL Hx Gastrointestinal Disorders: Yes Hx Gastroesophageal Reflux: Yes - GENITOURINARY/GYNECOLOGICAL Hx Genitourinary Disorders: No - PSYCHIATRIC Hx Psychophysiologic Disorder: No Hx Substance Use: No - SURGICAL HISTORY Hx Surgeries: Yes Other/Comment: Explore lap 1973 - ANESTHESIA Hx Anesthesia: Yes Hx Anesthesia Reactions: No Meds Allergies/Adverse Reactions: Allergies Allergy/AdvReac Type Severity Reaction Status Date / Time No Known Allergies Allergy Verified 05/14/18 17:33 - Medications Medications: Current Medications Al Hydrox/Mg Hydrox/Simethicone (Maalox Plus 30 Ml) 30 ml PO Q6 PRN PRN Reason: Indigestion / Heartburn Albuterol Sulfate (Albuterol 0.083% Inhal Cathie (2.5 Mg/3 Ml) Ud) 2.5 mg INH RQ6 [facility] Last Admin: 05/15/18 07:23 Dose: 2.5 mg Aspirin (Aspirin Chewable) 81 mg PO DAILY [facility] Last Admin: 05/15/18 09:30 Dose: 81 mg Clopidogrel Bisulfate (Plavix) 75 mg PO DAILY [facility] Last Admin: 05/15/18 09:29 Dose: 75 mg Clotrimazole (Mycelex Ryne) 10 mg PO TID [facility] Last Admin: 05/15/18 09:47 Dose: 10 mg Cyproheptadine HCl (Periactin) 4 mg PO DAILY [facility] Last Admin: 05/15/18 09:30 Dose: 4 mg Heparin Sodium (Porcine) (Heparin) 5,000 units SC Q12 [facility] Last Admin: 05/15/18 09:28 Dose: 5,000 units Piperacillin Sod/Tazobactam Sod (Zosyn 3.375 Gm Iv Premix) 3.375 gm in 50 mls @ 100 mls/hr IVPB Q8 [facility]; Protocol Last Admin: 05/15/18 05:11 Dose: 100 mls/hr Losartan Potassium (Cozaar) 25 mg PO DAILY [facility] Last Admin: 05/15/18 09:30 Dose: 25 mg Megestrol Acetate (Megace) 400 mg PO DAILY [facility] Last Admin: 05/15/18 09:29 Dose: 400 mg Montelukast Sodium (Singulair) 10 mg PO DAILY [facility] Last Admin: 05/15/18 09:29 Dose: 10 mg Pantoprazole Sodium (Protonix Ec Tab) 40 mg PO DAILY [facility] Last Admin: 05/15/18 09:29 Dose: 40 mg Potassium Chloride (K-Dur 20 Meq Er Tab) 20 meq PO DAILY [facility] Stop: 05/17/18 16:01 Sertraline HCl (Zoloft) 25 mg PO DAILY [facility] Last Admin: 05/15/18 09:29 Dose: 25 mg Physical Exam - Constitutional Appears: Cachectic, Chronically Ill - Head Exam Head Exam: NORMOCEPHALIC - Eye Exam Eye Exam: absent: Scleral icterus - ENT Exam ENT Exam: Mucous Membranes Dry - Neck Exam Neck exam: Negative for: Lymphadenopathy - Respiratory Exam Respiratory Exam: Decreased Breath Sounds, Prolonged Expiratory Phase, Rhonchi - Cardiovascular Exam Cardiovascular Exam: REGULAR RHYTHM, +S1, +S2 - GI/Abdominal Exam GI & Abdominal Exam: Diminished Bowel Sounds, Soft. absent: Tenderness - Rectal Exam Rectal Exam: Deferred - Extremities Exam Extremities exam: Negative for: pedal edema Results - Vital Signs Recent Vital Signs: Last Vital Signs Temp 97.2 F L 05/15/18 07:50 Pulse 102 H 05/15/18 07:50 Resp 20 05/15/18 07:50 BP 98/53 L 05/15/18 07:50 Pulse Ox 96 05/15/18 07:50 - Labs Result Diagrams: 05/15/18 06:44 05/15/18 06:44 Labs: Laboratory Results - last 24 hr 05/14/18 05/14/18 05/14/18 19:37 19:37 19:37 WBC 18.8 H D RBC 4.28 L Hgb 11.5 L Hct 35.3 MCV 82.5 MCH 26.9 L MCHC 32.7 L RDW 14.9 H Plt Count 459 H D MPV 8.3 Neut % (Auto) 88.6 H Lymph % (Auto) 5.6 L [place] % (Auto) 5.1 Eos % (Auto) 0.5 Baso % (Auto) 0.2 Neut # (Auto) 16.6 H Lymph # (Auto) 1.0 [place] # (Auto) 0.9 H Eos # (Auto) 0.1 Baso # (Auto) 0.0 Neutrophils % (Manual) 87 H Lymphocytes % (Manual) 10 L Monocytes % (Manual) 3 Eosinophils % (Manual) Basophils % (Manual) Platelet Estimate Increased H RBC Morphology Normal Hypochromasia (manual) Poikilocytosis (manual Anisocytosis (manual) Ovalocytes Alfie Cells PT 15.8 H INR 1.4 APTT 30 pO2 VBG pH VBG pCO2 VBG HCO3 VBG Total CO2 VBG O2 Sat (Calc) VBG Base Excess VBG Potassium Glucose Lactate Sodium 129 L Potassium 3.4 L Chloride 91 L Carbon Dioxide 26 Anion Gap 16 BUN 48 H Creatinine 1.0 Est GFR ( Amer) > 60 Est GFR (Non-Af Amer) > 60 Random Glucose 102 Calcium 9.1 Phosphorus Magnesium Total Bilirubin 0.7 AST 71 H D ALT 136 H D Alkaline Phosphatase 177 H D Troponin I < 0.0120 NT-Pro-B Natriuret Pep Total Protein 6.6 Albumin 3.2 L Globulin 3.5 Albumin/Globulin Ratio 0.9 L Lipase 22 L Venous Blood Potassium Urine Color Urine Clarity Urine pH Ur Specific [place] Urine Protein Urine Glucose (UA) Urine Ketones Urine Blood Urine Nitrate Urine Bilirubin Urine Urobilinogen Ur Leukocyte Esterase Urine WBC (Auto) Urine RBC (Auto) Ur Squamous Epith Cells Hyaline Casts 05/14/18 05/15/18 05/15/18 19:58 05:04 06:44 WBC 12.3 H RBC 3.67 L Hgb 10.2 L Hct 30.1 L MCV 82.0 MCH 27.8 MCHC 33.9 RDW 14.7 H Plt Count 415 H MPV 8.0 Neut % (Auto) 82.1 H Lymph % (Auto) 9.0 L [place] % (Auto) 7.1 Eos % (Auto) 1.4 Baso % (Auto) 0.4 Neut # (Auto) 10.1 H Lymph # (Auto) 1.1 [place] # (Auto) 0.9 H Eos # (Auto) 0.2 Baso # (Auto) 0.0 Neutrophils % (Manual) 82 H Lymphocytes % (Manual) 10 L Monocytes % (Manual) 5 Eosinophils % (Manual) 2 Basophils % (Manual) 1 Platelet Estimate Normal RBC Morphology Hypochromasia (manual) Slight Poikilocytosis (manual Slight Anisocytosis (manual) Slight Ovalocytes Slight [place] Cells Slight PT INR APTT pO2 18 L VBG pH 7.43 VBG pCO2 43 VBG HCO3 25.9 VBG Total CO2 29.8 H VBG O2 Sat (Calc) 22.7 L VBG Base Excess 3.7 H VBG Potassium 3.2 L Glucose 101 Lactate 0.9 Sodium 136.0 Potassium Chloride 102.0 Carbon Dioxide Anion Gap BUN Creatinine Est GFR ( Amer) Est GFR (Non-Af Amer) Random Glucose Calcium Phosphorus Magnesium Total Bilirubin AST ALT Alkaline Phosphatase Troponin I NT-Pro-B Natriuret Pep Total Protein Albumin Globulin Albumin/Globulin Ratio Lipase Venous Blood Potassium 3.2 L Urine Color Yellow Urine Clarity Clear Urine pH 6.0 Ur Specific [place] 1.018 Urine Protein Negative Urine Glucose (UA) Normal Urine Ketones Negative Urine Blood Negative Urine Nitrate Negative Urine Bilirubin Negative Urine Urobilinogen Normal Ur Leukocyte Esterase Neg Urine WBC (Auto) 2 Urine RBC (Auto) 1 Ur Squamous Epith Cells < 1 Hyaline Casts 3-5 H 05/15/18 06:44 WBC RBC Hgb Hct MCV MCH MCHC RDW Plt Count MPV Neut % (Auto) Lymph % (Auto) [place] % (Auto) Eos % (Auto) Baso % (Auto) Neut # (Auto) Lymph # (Auto) [place] # (Auto) Eos # (Auto) Baso # (Auto) Neutrophils % (Manual) Lymphocytes % (Manual) Monocytes % (Manual) Eosinophils % (Manual) Basophils % (Manual) Platelet Estimate RBC Morphology Hypochromasia (manual) Poikilocytosis (manual Anisocytosis (manual) Ovalocytes [place] Cells PT INR APTT pO2 VBG pH VBG pCO2 VBG HCO3 VBG Total CO2 VBG O2 Sat (Calc) VBG Base Excess VBG Potassium Glucose Lactate Sodium 132 Potassium 3.1 L Chloride 96 L Carbon Dioxide 23 Anion Gap 15 BUN 34 H Creatinine 0.8 Est GFR ( Amer) > 60 Est GFR (Non-Af Amer) > 60 Random Glucose 91 Calcium 8.6 Phosphorus 4.3 Magnesium 2.1 Total Bilirubin 0.6 AST 56 ALT 115 H Alkaline Phosphatase 145 H Troponin I NT-Pro-B Natriuret Pep 253 Total Protein 6.0 L Albumin 2.8 L Globulin 3.2 Albumin/Globulin Ratio 0.9 L Lipase Venous Blood Potassium Urine Color Urine Clarity Urine pH Ur Specific [place] Urine Protein Urine Glucose (UA) Urine Ketones Urine Blood Urine Nitrate Urine Bilirubin Urine Urobilinogen Ur Leukocyte Esterase Urine WBC (Auto) Urine RBC (Auto) Ur Squamous Epith Cells Hyaline Casts
[2018-05-15] MEDS: Alum-Mag Hydrox-Simethicone Susp (30 mL) PO PRN (11:52)
--- NOTE | 2018-05-15 16:21 | CP.PCM.CON ---
History of Present Illness - History of Present Illness History of Present Illness: THORACIC SURGERY CONSULT NOTE FOR DR. DUMONT 73yo M with PMHx of HTN, COPD, GERD, pseudomonas pneumonia, asthma, former heavy tobacco & etoh abuse presented to the ED with generalized weakness. Pt was at his PMD's office where he was noted to be hypoxic and hypotensive with systolic BP in 80s. He was sent to the ED. Per daughter, patient also has very poor po intake secondary to decreased appetite. Has lost 60 lbs over past 3 months. He has been having productive cough with some hemoptysis yesterday. Pt reports SOB but denies CP. Reports heart burn but no other abdominal pain. Denies nausea or vomiting. Of note, patient was admitted twice recently, once in March and once in Apr. He was found to have large left upper lobe lung mass and possible mets at that time. On 05/05/18, he had a bronchoscopy w/ brushings which was negative for malignant cells. Sputum also negative for malignancy. He had a EGD (GERD, gastritis) and colonoscopy (diverticulosis, internal hemorrhoids) in Apr. Most of information obtained from daughter at bedside and from EMR. PMHx: HTN, COPD, GERD, pneumonia, asthma Surg: ex lap 20 yrs ago (daughter states no resection was done) Allerg: none Social hx: former heavy tobacco abuse w/ 2 PPD for many years, quit 10 years ago, former heavy etoh, also quit 10 years ago, denies illicit drug use Review of Systems - Review of Systems All systems: reviewed and no additional remarkable complaints except (as per HPI) Past Patient History - Past Medical History & Family History Past Medical History?: Yes Past Family History: Reviewed and not pertinent - Past Social History Smoking Status: Former Smoker Alcohol: None Home Situation {Lives}: With Family - CARDIAC Hx Hypercholesterolemia: Yes Hx Hypertension: Yes - PULMONARY Hx Chronic Obstructive Pulmonary Disease (COPD): Yes - NEUROLOGICAL Hx Neurological Disorder: No - HEENT Hx HEENT Problems: No - RENAL Hx Chronic Kidney Disease: No - ENDOCRINE/METABOLIC Hx Endocrine Disorders: No - HEMATOLOGICAL/ONCOLOGICAL Hx Blood Disorders: No - INTEGUMENTARY Hx Dermatological Problems: No - MUSCULOSKELETAL/RHEUMATOLOGICAL Hx Musculoskeletal Disorders: Yes Hx Falls: No Hx Unsteady Gait: Yes Other/Comment: weakness to all extremities - GASTROINTESTINAL Hx Gastrointestinal Disorders: Yes Hx Gastroesophageal Reflux: Yes - GENITOURINARY/GYNECOLOGICAL Hx Genitourinary Disorders: No - PSYCHIATRIC Hx Psychophysiologic Disorder: No Hx Substance Use: No - SURGICAL HISTORY Hx Surgeries: Yes Other/Comment: Explore lap 1974 - ANESTHESIA Hx Anesthesia: Yes Hx Anesthesia Reactions: No Meds Allergies/Adverse Reactions: Allergies Allergy/AdvReac Type Severity Reaction Status Date / Time No Known Allergies Allergy Verified 05/14/18 17:33 - Medications Medications: Current Medications Al Hydrox/Mg Hydrox/Simethicone (Maalox Plus 30 Ml) 30 ml PO Q6 PRN PRN Reason: Indigestion / Heartburn Last Admin: 05/15/18 11:52 Dose: 30 ml Albuterol Sulfate (Albuterol 0.083% Inhal Cathie (2.5 Mg/3 Ml) Ud) 2.5 mg INH RQ6 [facility] Last Admin: 05/15/18 13:45 Dose: 2.5 mg Aspirin (Aspirin Chewable) 81 mg PO DAILY [facility] Last Admin: 05/15/18 09:30 Dose: 81 mg Clopidogrel Bisulfate (Plavix) 75 mg PO DAILY [facility] Last Admin: 05/15/18 09:29 Dose: 75 mg Clotrimazole (Mycelex Ryne) 10 mg PO TID [facility] Last Admin: 05/15/18 14:29 Dose: 10 mg Heparin Sodium (Porcine) (Heparin) 5,000 units SC Q12 [facility] Last Admin: 05/15/18 09:28 Dose: 5,000 units Piperacillin Sod/Tazobactam Sod (Zosyn 3.375 Gm Iv Premix) 3.375 gm in 50 mls @ 100 mls/hr IVPB Q8 [facility]; Protocol Last Admin: 05/15/18 14:29 Dose: 100 mls/hr Losartan Potassium (Cozaar) 25 mg PO DAILY [facility] Last Admin: 05/15/18 09:30 Dose: 25 mg Megestrol Acetate (Megace) 400 mg PO DAILY [facility] Last Admin: 05/15/18 09:29 Dose: 400 mg Montelukast Sodium (Singulair) 10 mg PO DAILY [facility] Last Admin: 05/15/18 09:29 Dose: 10 mg Pantoprazole Sodium (Protonix Ec Tab) 40 mg PO DAILY [facility] Last Admin: 05/15/18 09:29 Dose: 40 mg Potassium Chloride (K-Dur 20 Meq Er Tab) 20 meq PO DAILY [facility] Stop: 05/17/18 16:01 Sertraline HCl (Zoloft) 25 mg PO DAILY [facility] Last Admin: 05/15/18 09:29 Dose: 25 mg Physical Exam - Constitutional Appears: Non-toxic, No Acute Distress, Cachectic - Head Exam Head Exam: ATRAUMATIC - Respiratory Exam Respiratory Exam: NORMAL BREATHING PATTERN. absent: Respiratory Distress - Cardiovascular Exam Cardiovascular Exam: +S1, +S2 - GI/Abdominal Exam GI & Abdominal Exam: Soft. absent: Distended, Firm, Rebound, Rigid, Tenderness Additional comments: well healed midline scar - Neurological Exam Neurological exam: Alert Additional comments: Only oriented to person and place (not time) - Psychiatric Exam Psychiatric exam: Normal Affect, Normal Mood - Skin Skin Exam: Dry, Normal Color Results - Vital Signs Recent Vital Signs: Last Vital Signs Temp 97.2 F L 05/15/18 07:50 Pulse 102 H 05/15/18 07:50 Resp 20 05/15/18 07:50 BP 98/53 L 05/15/18 07:50 Pulse Ox 96 05/15/18 07:50 - Labs Result Diagrams: 05/15/18 06:44 05/15/18 06:44 Labs: Laboratory Results - last 24 hr 05/14/18 05/14/18 05/14/18 19:37 19:37 19:37 WBC 18.8 H D RBC 4.28 L Hgb 11.5 L Hct 35.3 MCV 82.5 MCH 26.9 L MCHC 32.7 L RDW 14.9 H Plt Count 459 H D MPV 8.3 Neut % (Auto) 88.6 H Lymph % (Auto) 5.6 L [place] % (Auto) 5.1 Eos % (Auto) 0.5 Baso % (Auto) 0.2 Neut # (Auto) 16.6 H Lymph # (Auto) 1.0 [place] # (Auto) 0.9 H Eos # (Auto) 0.1 Baso # (Auto) 0.0 Neutrophils % (Manual) 87 H Lymphocytes % (Manual) 10 L Monocytes % (Manual) 3 Eosinophils % (Manual) Basophils % (Manual) Platelet Estimate Increased H RBC Morphology Normal Hypochromasia (manual) Poikilocytosis (manual Anisocytosis (manual) Ovalocytes Alfie Cells PT 15.8 H INR 1.4 APTT 30 pO2 VBG pH VBG pCO2 VBG HCO3 VBG Total CO2 VBG O2 Sat (Calc) VBG Base Excess VBG Potassium Glucose Lactate Sodium 129 L Potassium 3.4 L Chloride 91 L Carbon Dioxide 26 Anion Gap 16 BUN 48 H Creatinine 1.0 Est GFR ( Amer) > 60 Est GFR (Non-Af Amer) > 60 Random Glucose 102 Calcium 9.1 Phosphorus Magnesium Total Bilirubin 0.7 AST 71 H D ALT 136 H D Alkaline Phosphatase 177 H D Troponin I < 0.0120 NT-Pro-B Natriuret Pep Total Protein 6.6 Albumin 3.2 L Globulin 3.5 Albumin/Globulin Ratio 0.9 L Lipase 22 L Venous Blood Potassium Urine Color Urine Clarity Urine pH Ur Specific [place] Urine Protein Urine Glucose (UA) Urine Ketones Urine Blood Urine Nitrate Urine Bilirubin Urine Urobilinogen Ur Leukocyte Esterase Urine WBC (Auto) Urine RBC (Auto) Ur Squamous Epith Cells Hyaline Casts 05/14/18 05/15/18 05/15/18 19:58 05:04 06:44 WBC 12.3 H RBC 3.67 L Hgb 10.2 L Hct 30.1 L MCV 82.0 MCH 27.8 MCHC 33.9 RDW 14.7 H Plt Count 415 H MPV 8.0 Neut % (Auto) 82.1 H Lymph % (Auto) 9.0 L [place] % (Auto) 7.1 Eos % (Auto) 1.4 Baso % (Auto) 0.4 Neut # (Auto) 10.1 H Lymph # (Auto) 1.1 [place] # (Auto) 0.9 H Eos # (Auto) 0.2 Baso # (Auto) 0.0 Neutrophils % (Manual) 82 H Lymphocytes % (Manual) 10 L Monocytes % (Manual) 5 Eosinophils % (Manual) 2 Basophils % (Manual) 1 Platelet Estimate Normal RBC Morphology Hypochromasia (manual) Slight Poikilocytosis (manual Slight Anisocytosis (manual) Slight Ovalocytes Slight [place] Cells Slight PT INR APTT pO2 18 L VBG pH 7.43 VBG pCO2 43 VBG HCO3 25.9 VBG Total CO2 29.8 H VBG O2 Sat (Calc) 22.7 L VBG Base Excess 3.7 H VBG Potassium 3.2 L Glucose 101 Lactate 0.9 Sodium 136.0 Potassium Chloride 102.0 Carbon Dioxide Anion Gap BUN Creatinine Est GFR ( Amer) Est GFR (Non-Af Amer) Random Glucose Calcium Phosphorus Magnesium Total Bilirubin AST ALT Alkaline Phosphatase Troponin I NT-Pro-B Natriuret Pep Total Protein Albumin Globulin Albumin/Globulin Ratio Lipase Venous Blood Potassium 3.2 L Urine Color Yellow Urine Clarity Clear Urine pH 6.0 Ur Specific [place] 1.018 Urine Protein Negative Urine Glucose (UA) Normal Urine Ketones Negative Urine Blood Negative Urine Nitrate Negative Urine Bilirubin Negative Urine Urobilinogen Normal Ur Leukocyte Esterase Neg Urine WBC (Auto) 2 Urine RBC (Auto) 1 Ur Squamous Epith Cells < 1 Hyaline Casts 3-5 H 05/15/18 06:44 WBC RBC Hgb Hct MCV MCH MCHC RDW Plt Count MPV Neut % (Auto) Lymph % (Auto) [place] % (Auto) Eos % (Auto) Baso % (Auto) Neut # (Auto) Lymph # (Auto) [place] # (Auto) Eos # (Auto) Baso # (Auto) Neutrophils % (Manual) Lymphocytes % (Manual) Monocytes % (Manual) Eosinophils % (Manual) Basophils % (Manual) Platelet Estimate RBC Morphology Hypochromasia (manual) Poikilocytosis (manual Anisocytosis (manual) Ovalocytes Alfie Cells PT INR APTT pO2 VBG pH VBG pCO2 VBG HCO3 VBG Total CO2 VBG O2 Sat (Calc) VBG Base Excess VBG Potassium Glucose Lactate Sodium 132 Potassium 3.1 L Chloride 96 L Carbon Dioxide 23 Anion Gap 15 BUN 34 H Creatinine 0.8 Est GFR ( Amer) > 60 Est GFR (Non-Af Amer) > 60 Random Glucose 91 Calcium 8.6 Phosphorus 4.3 Magnesium 2.1 Total Bilirubin 0.6 AST 56 ALT 115 H Alkaline Phosphatase 145 H Troponin I NT-Pro-B Natriuret Pep 253 Total Protein 6.0 L Albumin 2.8 L Globulin 3.2 Albumin/Globulin Ratio 0.9 L Lipase Venous Blood Potassium Urine Color Urine Clarity Urine pH Ur Specific [place] Urine Protein Urine Glucose (UA) Urine Ketones Urine Blood Urine Nitrate Urine Bilirubin Urine Urobilinogen Ur Leukocyte Esterase Urine WBC (Auto) Urine RBC (Auto) Ur Squamous Epith Cells Hyaline Casts Assessment & Plan - Assessment and Plan (Free Text) Assessment: 73yo M with PMHx of HTN, COPD, GERD, pseudomonas pneumonia, asthma, former heavy tobacco & etoh abuse presented with generalized weakness. Surgery consulted for large left upper lobe lung mass, possible mets - Afebrile, VSS - Leukocytosis WBC 12.3, anemia Hgb 10.2, INR 1.4 - CT chest/abd/pelvis (03/29/18): Large left upper lobe mass lesion w/ lobulated borders & scattered spiculations consistent w/ neoplasm. Lesion abuts upper mediastinum & transverse portion of aorta. Mediastinal and hilar adenopathy. Lesion also surrounds left distal main pulmonary trunk and left upper and lower lobe branches with narrowing. Lesion also partially surrounds left upper and lower lobe bronchi with narrowing. 2 small nodules right middle lobe. Paraseptal emphysematous changes upper lobes. Small low-attenuation focus left lobe liver possibly representing volume averaging of the shawnee hepatis however small cyst hemangioma or metastatic lesion cannot be excluded. Bilateral nodular adrenal glands right greater than left. Rule out metastases. - Recommend IR CT guided biopsy - If positive, pt will need PET scan - Discussed plan with Dr. Wing Dunn PGY-4
[2018-05-15] MEDS: Potassium Chloride 20 mEq ER Tab PO SCH (16:32)
--- NOTE | 2018-05-15 17:10 | CARD ---
APPROVED REPORT Date of service: 05/14/2018 EKG Measurement Heart [id number] <Conclusion> Normal sinus rhythm Cannot rule out Inferior infarct, age undetermined Abnormal ECG
[2018-05-15] MEDS: Nystatin 100,000 Units/ml Oral Susp 5 ml UD PO SCH ×2 (18:38→21:40)
[2018-05-16] MEDS: Albuterol 0.083% Inhal Sol (2.5 mg/3 mL) UD INH SCH ×4 (01:12→19:53)
[2018-05-16] MEDS: Piperacill/Tazo 3.375gm in Dex 3.375 GM/50 ML BAG IVPB SCH ×3 (05:46→21:29)
[2018-05-16 06:58] LABS: BASO % 0.3 % (0.0-2.0); EOS # 0.1 K/uL (0.0-0.7); HEMOGLOBIN 10.1 g/dL (12.0-18.0); LYMPH % 10.2 % (20.0-40.0); MEAN CELL VOLUME 82.2 fL (80.0-94.0); MEAN CORPUSCULAR HEMOGLOBIN 27.7 pg (27.0-31.0); MEAN CORPUSCULAR HGB CONC 33.7 g/dL (33.0-37.0); MEAN PLATELET VOLUME 7.7 fL (7.2-11.7); MONO # 0.8 K/uL (0.0-0.8); MONO % 8.4 % (0.0-10.0); NEUT # 7.5 K/uL (1.8-7.0); NEUT % 80.1 % (50.0-75.0); RBC 3.63 Mil/uL (4.40-5.90); RED CELL DISTRIBUTION WIDTH 14.8 % (11.5-14.5); WHITE BLOOD COUNT 9.4 K/uL (4.8-10.8)
[2018-05-16 07:31] LABS: BLOOD UREA NITROGEN 21 mg/dL (9-20); CALCIUM 8.7 mg/dl (8.6-10.4); GFR NON-AFRICAN AMERICAN > 60
--- NOTE | 2018-05-16 10:05 | CP.PCM.PN ---
Subjective - Date & Time of Evaluation Date of Evaluation: 05/16/18 Time of Evaluation: 10:02 - Subjective Subjective: PT ALERT, +COUGH., NO SOB. ROS'; OTHERWISE NEG Objective - Vital Signs/Intake and Output Vital Signs (last 24 hours): Temp Pulse Resp BP Pulse Ox 98.3 F 87 18 115/54 L 96 05/16/18 07:00 05/16/18 08:20 05/16/18 07:00 05/16/18 07:00 05/16/18 07:00 Intake and Output: 05/16/18 05/16/18 06:59 18:59 Intake Total 200 Balance 200 - Medications Medications: Current Medications Al Hydrox/Mg Hydrox/Simethicone (Maalox Plus 30 Ml) 30 ml PO Q6 PRN PRN Reason: Indigestion / Heartburn Last Admin: 05/15/18 11:52 Dose: 30 ml Albuterol Sulfate (Albuterol 0.083% Inhal Cathie (2.5 Mg/3 Ml) Ud) 2.5 mg INH RQ6 [facility] Last Admin: 05/16/18 07:45 Dose: 2.5 mg Aspirin (Aspirin Chewable) 81 mg PO DAILY [facility] Last Admin: 05/15/18 09:30 Dose: 81 mg Clopidogrel Bisulfate (Plavix) 75 mg PO DAILY [facility] Last Admin: 05/15/18 09:29 Dose: 75 mg Clotrimazole (Mycelex Ryne) 10 mg PO TID [facility] Last Admin: 05/15/18 17:32 Dose: 10 mg Heparin Sodium (Porcine) (Heparin) 5,000 units SC Q12 [facility] Last Admin: 05/15/18 21:33 Dose: 5,000 units Piperacillin Sod/Tazobactam Sod (Zosyn 3.375 Gm Iv Premix) 3.375 gm in 50 mls @ 100 mls/hr IVPB Q8 [facility]; Protocol Last Admin: 05/16/18 05:46 Dose: 100 mls/hr Sodium Chloride (Sodium Chloride 0.45%) 500 mls @ 50 mls/hr IV .Q10H [facility] Last Admin: 05/15/18 18:19 Dose: 50 mls/hr Losartan Potassium (Cozaar) 25 mg PO DAILY [facility] Last Admin: 05/15/18 09:30 Dose: 25 mg Megestrol Acetate (Megace) 400 mg PO DAILY [facility] Last Admin: 05/15/18 09:29 Dose: 400 mg Montelukast Sodium (Singulair) 10 mg PO DAILY [facility] Last Admin: 05/15/18 09:29 Dose: 10 mg Nystatin (Nystatin Oral Susp) 5 ml PO QID [facility] Last Admin: 05/15/18 21:40 Dose: Not Given Pantoprazole Sodium (Protonix Ec Tab) 40 mg PO DAILY [facility] Last Admin: 05/15/18 09:29 Dose: 40 mg Potassium Chloride (K-Dur 20 Meq Er Tab) 20 meq PO DAILY [facility] Stop: 05/17/18 16:01 Last Admin: 05/15/18 16:32 Dose: 20 meq Sertraline HCl (Zoloft) 25 mg PO DAILY [facility] Last Admin: 05/15/18 09:29 Dose: 25 mg - Labs Labs: 05/16/18 06:51 05/16/18 06:51 PT 15.8 SECONDS (9.7-12.2) H 05/14/18 19:37 INR 1.4 05/14/18 19:37 APTT 30 SECONDS (21-34) 05/14/18 19:37 - Constitutional Appears: No Acute Distress, Chronically Ill - Head Exam Head Exam: ATRAUMATIC, NORMOCEPHALIC - Eye Exam Eye Exam: EOMI, Normal appearance - ENT Exam ENT Exam: Mucous Membranes Moist - Neck Exam Neck Exam: Normal Inspection - Respiratory Exam Respiratory Exam: Decreased Breath Sounds. absent: Accessory Muscle Use, Wheezes - Cardiovascular Exam Cardiovascular Exam: RRR, +S1, +S2 - GI/Abdominal Exam GI & Abdominal Exam: Soft. absent: Tenderness - Rectal Exam Rectal Exam: Deferred - Extremities Exam Extremities Exam: absent: Calf Tenderness, Pedal Edema - Back Exam Back Exam: absent: CVA tenderness (L), CVA tenderness (R) - Neurological Exam Neurological Exam: Alert, Awake, CN II-XII Intact, Oriented x3 - Psychiatric Exam Psychiatric exam: Normal Affect, Normal Mood - Skin Skin Exam: absent: Rash Assessment and Plan (1) COPD exacerbation Status: Acute (2) Dehydration Status: Acute (3) Cachexia Status: Acute (4) Respiratory failure Status: Acute (5) Near syncope Status: Acute (6) Esophageal reflux Status: Acute (7) Hypertension Status: Acute (8) Lung mass Status: Acute (9) Weight loss Status: Acute - Assessment and Plan (Free Text) Assessment: RESP STATUS NO SIG CHANGE., AFEBRILE ON AB. CONT PULM TOILET., NEB BD., MONITOR O2 SAT., CXR REVIEWED. REPEAT CT CHEST., FOR POSS BX. THORACIC EVAL NOTED. PROG GUARDED. DISCUSSED WITH STAFF AT LENGTH AND FAMILY AT BEDSIDE.
[2018-05-16] MEDS: Potassium Chloride 20 mEq ER Tab PO SCH (10:45)
[2018-05-16] MEDS: Megestrol Acetate 40 mg/ml Cup PO SCH (10:45)
[2018-05-16] MEDS: Pantoprazole 40 mg EC Tab PO SCH (10:50)
[2018-05-16] MEDS: Nystatin 100,000 Units/ml Oral Susp 5 ml UD PO SCH ×4 (10:50→21:28)
--- NOTE | 2018-05-16 14:53 | CP.PCM.PN ---
Subjective - Date & Time of Evaluation Date of Evaluation: 05/16/18 Time of Evaluation: 08:00 - Subjective Subjective: no fever + lung mass Objective - Vital Signs/Intake and Output Vital Signs (last 24 hours): Temp Pulse Resp BP Pulse Ox 98.3 F 89 18 115/54 L 96 05/16/18 07:00 05/16/18 11:53 05/16/18 07:00 05/16/18 07:00 05/16/18 07:00 Intake and Output: 05/16/18 05/16/18 06:59 18:59 Intake Total 200 Balance 200 - Medications Medications: Current Medications Al Hydrox/Mg Hydrox/Simethicone (Maalox Plus 30 Ml) 30 ml PO Q6 PRN PRN Reason: Indigestion / Heartburn Last Admin: 05/15/18 11:52 Dose: 30 ml Albuterol Sulfate (Albuterol 0.083% Inhal Cathie (2.5 Mg/3 Ml) Ud) 2.5 mg INH RQ6 [facility] Last Admin: 05/16/18 07:45 Dose: 2.5 mg Aspirin (Aspirin Chewable) 81 mg PO DAILY [facility] Last Admin: 05/16/18 10:45 Dose: 81 mg Clopidogrel Bisulfate (Plavix) 75 mg PO DAILY [facility] Last Admin: 05/16/18 10:44 Dose: 75 mg Clotrimazole (Mycelex Ryne) 10 mg PO TID [facility] Last Admin: 05/16/18 14:07 Dose: Not Given Famotidine (Pepcid) 20 mg PO BID [facility] Heparin Sodium (Porcine) (Heparin) 5,000 units SC Q12 [facility] Last Admin: 05/15/18 21:33 Dose: 5,000 units Piperacillin Sod/Tazobactam Sod (Zosyn 3.375 Gm Iv Premix) 3.375 gm in 50 mls @ 100 mls/hr IVPB Q8 [facility]; Protocol Last Admin: 05/16/18 14:06 Dose: 100 mls/hr Sodium Chloride (Sodium Chloride 0.45%) 500 mls @ 50 mls/hr IV .Q10H [facility] Last Admin: 05/16/18 12:41 Dose: 50 mls/hr Losartan Potassium (Cozaar) 25 mg PO DAILY [facility] Last Admin: 05/16/18 12:40 Dose: 25 mg Megestrol Acetate (Megace) 400 mg PO DAILY [facility] Last Admin: 05/16/18 10:45 Dose: 400 mg Montelukast Sodium (Singulair) 10 mg PO DAILY [facility] Last Admin: 05/16/18 12:39 Dose: 10 mg Nystatin (Nystatin Oral Susp) 5 ml PO QID [facility] Last Admin: 05/16/18 14:05 Dose: 5 ml Potassium Chloride (K-Dur 20 Meq Er Tab) 20 meq PO DAILY [facility] Stop: 05/17/18 16:01 Last Admin: 05/16/18 10:45 Dose: 20 meq Sertraline HCl (Zoloft) 25 mg PO DAILY [facility] Last Admin: 05/16/18 10:45 Dose: 25 mg - Labs Labs: 05/16/18 06:51 05/16/18 06:51 PT 15.8 SECONDS (9.7-12.2) H 05/14/18 19:37 INR 1.4 05/14/18 19:37 APTT 30 SECONDS (21-34) 05/14/18 19:37 - Constitutional Appears: Non-toxic - Head Exam Head Exam: NORMOCEPHALIC - Eye Exam Eye Exam: PERRL - ENT Exam ENT Exam: Mucous Membranes Dry - Neck Exam Neck Exam: Full ROM - Respiratory Exam Respiratory Exam: Decreased Breath Sounds - Cardiovascular Exam Cardiovascular Exam: REGULAR RHYTHM, +S1, +S2 - GI/Abdominal Exam GI & Abdominal Exam: Distended - Rectal Exam Rectal Exam: Deferred - Exam Exam: NORMAL INSPECTION Assessment and Plan (1) COPD exacerbation Status: Acute (2) Dehydration Status: Acute (3) Leukocytosis Status: Acute - Assessment and Plan (Free Text) Assessment: lung mass for bx
--- NOTE | 2018-05-16 16:06 | CP.PCM.PN ---
Subjective - Date & Time of Evaluation Date of Evaluation: 05/16/18 Time of Evaluation: 11:00 - Subjective Subjective: CT Surgery: Dr. Dimas Pt seen and examined. No acute events overnight. Denies any respiratory complaints at this time. Denies fevers/chills. Objective - Vital Signs/Intake and Output Vital Signs (last 24 hours): Temp Pulse Resp BP Pulse Ox 98.3 F 89 18 115/54 L 96 05/16/18 07:00 05/16/18 11:53 05/16/18 07:00 05/16/18 07:00 05/16/18 07:00 Intake and Output: 05/16/18 05/16/18 06:59 18:59 Intake Total 200 Balance 200 - Medications Medications: Current Medications Al Hydrox/Mg Hydrox/Simethicone (Maalox Plus 30 Ml) 30 ml PO Q6 PRN PRN Reason: Indigestion / Heartburn Last Admin: 05/15/18 11:52 Dose: 30 ml Albuterol Sulfate (Albuterol 0.083% Inhal Cathie (2.5 Mg/3 Ml) Ud) 2.5 mg INH RQ6 [facility] Last Admin: 05/16/18 13:40 Dose: 2.5 mg Aspirin (Aspirin Chewable) 81 mg PO DAILY [facility] Last Admin: 05/16/18 10:45 Dose: 81 mg Clopidogrel Bisulfate (Plavix) 75 mg PO DAILY [facility] Last Admin: 05/16/18 10:44 Dose: 75 mg Clotrimazole (Mycelex Ryne) 10 mg PO TID [facility] Last Admin: 05/16/18 14:07 Dose: Not Given Famotidine (Pepcid) 20 mg PO BID [facility] Heparin Sodium (Porcine) (Heparin) 5,000 units SC Q12 [facility] Last Admin: 05/15/18 21:33 Dose: 5,000 units Piperacillin Sod/Tazobactam Sod (Zosyn 3.375 Gm Iv Premix) 3.375 gm in 50 mls @ 100 mls/hr IVPB Q8 [facility]; Protocol Last Admin: 05/16/18 14:06 Dose: 100 mls/hr Sodium Chloride (Sodium Chloride 0.45%) 500 mls @ 50 mls/hr IV .Q10H [facility] Last Admin: 05/16/18 12:41 Dose: 50 mls/hr Losartan Potassium (Cozaar) 25 mg PO DAILY [facility] Last Admin: 05/16/18 12:40 Dose: 25 mg Megestrol Acetate (Megace) 400 mg PO DAILY [facility] Last Admin: 05/16/18 10:45 Dose: 400 mg Montelukast Sodium (Singulair) 10 mg PO DAILY [facility] Last Admin: 05/16/18 12:39 Dose: 10 mg Nystatin (Nystatin Oral Susp) 5 ml PO QID [facility] Last Admin: 05/16/18 14:05 Dose: 5 ml Potassium Chloride (K-Dur 20 Meq Er Tab) 20 meq PO DAILY [facility] Stop: 05/17/18 16:01 Last Admin: 05/16/18 10:45 Dose: 20 meq Sertraline HCl (Zoloft) 25 mg PO DAILY [facility] Last Admin: 05/16/18 10:45 Dose: 25 mg - Labs Labs: 05/16/18 06:51 05/16/18 06:51 PT 15.8 SECONDS (9.7-12.2) H 05/14/18 19:37 INR 1.4 05/14/18 19:37 APTT 30 SECONDS (21-34) 05/14/18 19:37 - Constitutional Appears: Well, No Acute Distress - ENT Exam ENT Exam: Mucous Membranes Moist - Respiratory Exam Respiratory Exam: NORMAL BREATHING PATTERN - Cardiovascular Exam Cardiovascular Exam: RRR - Neurological Exam Neurological Exam: Alert, Awake - Skin Skin Exam: Dry, Warm Assessment and Plan - Assessment and Plan (Free Text) Assessment: 73M with left upper lobe lung mass as seen on CT Plan: - Recommend IR guided biopsy of lung mass - if positive for malignancy recommend PET scan - outpt follow up with CT surgery if needed - no plan for surgical intervention at this time - d/w Dr. Wing Little
[2018-05-16] MEDS: Sodium Chloride 0.45% 1,000 ML IV SCH (17:49)
--- NOTE | 2018-05-17 00:15 | CON ---
DATE: 05/16/2018 CARDIOLOGY CONSULTATION REASON FOR CONSULTATION: Abnormal EKG with evidence of inferior wall infarct as well as hypotension on admission. HISTORY OF PRESENT ILLNESS: The patient is a 73-year-old male, who was diagnosed recently with a lung mass, presents because of generalized weakness and hypotension with systolic blood pressure of 80 mmHg in office. The patient had a recent prolonged hospitalization at [facility] status post bronchoscopy for evaluation of lung mass. According to the daughter, who was at the bedside, the patient has no known history of coronary artery disease. The patient has been depressed, experiencing productive cough with blood-tinged sputum, and has been progressively losing weight with a very poor appetite. SOCIAL HISTORY: The patient is a former smoker. He lives with his and his daughter. MEDICATIONS: Albuterol inhaler 2.5 mg every 6 hours, aspirin 81 mg once a day, Cozaar 25 mg once a day, heparin 5000 units subcutaneously every 12 hours is being on hold, K-Dur 20 mEq once a day, Megace 400 mg daily, Mycelex 10 mg p.o. three times a day, Pepcid 20 mg p.o. twice a day, Plavix 75 mg once a day, and Zosyn 3.375 g intravenously every 8 hours. PHYSICAL EXAMINATION: GENERAL: The patient is an elderly male, who is lethargic and does not appear to be in acute distress. VITAL SIGNS: Blood pressure 115/54, heart rate 87, temperature 98.3, respirations 18. The patient has very poor skin turgor. HEENT: Normocephalic. CHEST: Diminished air entry bilaterally. HEART: S1 and S2, regular. ABDOMEN: Soft. EXTREMITIES: No edema. LABORATORY DATA: Today's hemoglobin and hematocrit 10.1 and 29.8. White count 9.4, platelet count 420,000. Today's SMA-7: Sodium 133, potassium 4.1, chloride 97, CO2 of 26, glucose 102, BUN 21, creatinine 0.7. Initial AST and ALT are 71 and 136 respectively. Alkaline phosphatase 177. INR on admission was 1.4. EKG revealed sinus rhythm, consider old inferior infarct. Chest x-ray during this admission revealed a large paramediastinal blending, left perihilar blending, left upper lobe vague opacity compatible with prior CT referenced mass here and associated atelectasis. Superimposed ____ pleural thickening unchanged. Chest, abdomen, and pelvis CT scan done last month revealed a large left upper lobe mass lesion with lobulated border and scattered spiculations consistent with neoplasm. Lesion abuts the upper mediastinum including the transverse portion of the aorta. There is mediastinal and hilar adenopathy. Lesion also surrounds the left distal main pulmonary trunk and the left upper and lower lobe branches with narrowing. Lesion also partially surrounds the left upper and lower lobe bronchi with narrowing. ASSESSMENT: 1. Status post hypotensive episode. 2. Lung mass. Consider underlying malignancy. 3. Anemia. 4. Elevated liver enzymes. RECOMMENDATIONS: Discontinue both aspirin and subcutaneous heparin. Obtain an echocardiography study to rule out any cardiac involvement for the lung mass. Start telemetry monitoring. Zach Marquez MD
[2018-05-17] MEDS: Albuterol 0.083% Inhal Sol (2.5 mg/3 mL) UD INH SCH ×4 (01:27→19:41)
--- NOTE | 2018-05-17 02:15 | PN ---
DATE: 05/16/2018 SUBJECTIVE: The patient was seen early this morning and resting comfortably in bed. No shortness of breath. No apparent distress; however, the patient is seen to have no appetite. OBJECTIVE: VITAL SIGNS: He had a blood pressure of 102/52, pulse 92, respirations 20, temperature 98.8. LUNGS: Some rales bilaterally. HEART: Regular rate and rhythm. ABDOMEN: Soft. Nontender. No palpable mass. Mild tenderness in the epigastric area. EXTREMITIES: There is no edema, and the patient has severe weight loss. LABORATORY DATA: Showed WBC 9.4, hemoglobin 10.1, hematocrit 29.8, and platelet is 420. Chemistry showed sodium of 133, potassium 4.1, chloride 97, BUN 21, creatinine 0.7, and glucose 102. ASSESSMENT AND PLAN: The plan is that the patient has a lung mass, was seen also by Dr. Dimas, an associate. The patient will need to have a biopsy of the mass and also going to continue the current medication including nebulizer . I did note Dr. Dimas's note is also appreciated. At this time, the case was discussed with Pooja Meyers, the Nurse Practitioner, and also the daughter and the patient. From 05/17/2018 to 05/21/2018, the patient will be covered medically by Dr. Marquez. Dr. Marquez is informed. Kyle Aldana MD
[2018-05-17] MEDS: Piperacill/Tazo 3.375gm in Dex 3.375 GM/50 ML BAG IVPB SCH ×3 (06:05→21:21)
[2018-05-17] MEDS: Sodium Chloride 0.45% 1,000 ML IV SCH (08:45)
[2018-05-17] MEDS: Potassium Chloride 20 mEq ER Tab PO SCH (10:21)
[2018-05-17] MEDS: Nystatin 100,000 Units/ml Oral Susp 5 ml UD PO SCH ×4 (10:21→21:21)
[2018-05-17] MEDS: Megestrol Acetate 40 mg/ml Cup PO SCH (10:22)
[2018-05-17] MEDS ORDERED: Midazolam 2 MG/2 ML VIAL ONE ×2 (10:55)
[2018-05-17] MEDS ORDERED: Propofol 10 mg/ml Inj (20 ML) ONE (10:55)
--- NOTE | 2018-05-17 11:31 | PCM.SURG1 ---
Surgeon's Initial Post Op Note - Surgeon's Notes Surgeon: Zoltan Eckert MD [employer] As[employer]er: NONE Type of Anesthesia: IV Sedation Pre-Operative Diagnosis: LUng cancer Operative Findings: CT showed large left lung mass Post-Operative Diagnosis: Lung cancer Operation Performed: CT guided lung mass biopsy Specimen/Specimens Removed: 20 gauge core x 2 Estimated Blood Loss: EBL {In ML}: 0 Blood Products Given: N/A Drains Used: No Drains Post-Op Condition: Fair Date of Surgery/Procedure: 05/17/18 Time of Surgery/Procedure: 11:25
--- NOTE | 2018-05-17 12:46 | CT ---
PROCEDURE: Date of procedure: 05/17/2018 Procedure: 1. CT-guided lung mass biopsy, CPT [address] Guidance for biopsy, 57590 Radiation: 428.33 MGy-cm Medications: The patient was sedated by anesthesiologist along with physiologic monitoring. HISTORY: Left upper lobe lung mass TECHNIQUE: Following informed consent and procedure time out, the patient was placed prone on the CT table and noncontrast CT scan was performed. Noncontrast CT scan confirmed the presence large left lung mass with extension to mediastinum. A skin localizer was placed on the patient's LEFT back and a repeat CT scan was performed. The skin was marked, prepped, and draped in the usual sterile fashion. After the skin was anesthetized with lidocaine and the patient sedated by the anesthesiologist, a 20 gauge core needle was advanced percutaneously under direct CT guidance into the mass. Upon confirmation of needle position, Two 20-gauge core specimens were obtained and sent for routine pathology. The needle was removed and a xeroform dressing was applied. A post biopsy CT scan showed no pneumothorax. IMPRESSION: CT guided core biopsy left lung mass.
--- NOTE | 2018-05-17 16:38 | RAD ---
Date of service: 05/17/2018 HISTORY: post lung biopsy COMPARISON: 05/14/2018 FINDINGS: LUNGS: The prior superior left paramediastinal vague opacity compatible with patient's known left lung mass and associated pleural parenchymal pathology here show slight increase opacity consistent with the recent biopsy. PLEURA: No significant pleural effusion identified,. A interval small left apical pneumothorax pleural reflection is appreciated approximately 6 mm from the undersurface of the left 2nd rib series 6558, image 1. CARDIOVASCULAR: There is presence of aortic atherosclerotic calcification on x-ray. Normal cardiac size. No pulmonary vascular congestion. The fullness to the right hilum is similar. OSSEOUS STRUCTURES: No significant abnormalities. VISUALIZED UPPER ABDOMEN: Large amount of gas within grossly nondistended small-bowel loops. The asymmetrically elevated left hemidiaphragm is similar. OTHER FINDINGS: None. IMPRESSION: Interval small left apical pneumothorax. This finding was called up to the nurse Salma taking care of this patient on 05/17/2018 at approximately 4:30 p.m. Other findings as above.
--- NOTE | 2018-05-17 18:30 | PN ---
DATE: 05/17/2018 SUBJECTIVE: The patient has been kept n.p.o. for lung biopsy. He denies any chest pain or shortness of breath. The daughter stayed overnight with him on a recliner. PHYSICAL EXAMINATION: VITAL SIGNS: Blood pressure 108/61, heart rate 95, temperature 97.1, respirations 20. HEENT: Pale conjunctivae. CHEST: Clear. HEART: S1 and S2, regular. EXTREMITIES: No edema. ASSESSMENT: 1. Status post hypertensive episodes on admission and in the primary physician's office. 2. Lung mass, rule out underlying malignancy. 3. Anemia. 4. Elevated liver enzymes. RECOMMENDATIONS: Aspirin and Plavix are being on hold. The patient will undergo a lung biopsy today. In the meantime, continue IV Zosyn at 3.375 g every 8 hours, and I will follow the echocardiographic study that was performed today to rule out any cardiac involvement by the lung mass. Zach Marquez MD
--- NOTE | 2018-05-17 19:01 | CARD ---
APPROVED REPORT Date of service: 05/17/2018 EXAM: Two-dimensional and M-mode echocardiogram with Doppler and color Doppler. Other Information Quality : GoodRhythm : INDICATION Syncope COPD RISK FACTORS Hypertension Hyperlipidemia 2D DIMENSIONS IVSd0.9 (0.7-1.1cm)LVDd4.8 (3.9-5.9cm) LVOT Diameter2.1 (1.8-2.4cm)PWd1.0 (0.7-1.1cm) LA Igqonr96 (18-58mL)LVDs3.3 (2.5-4.0cm) FS (%) 30.6 %LVEF (%)58.0 (>50%) LVEF (Duval's)63.31 %IVC0.00 cm M-Mode DIMENSIONS RVDd2.24 (2.1-3.2cm)Left Atrium (MM)3.01 (2.5-4.0cm) IVSd1.04 (0.7-1.1cm)Aortic Root3.90 (2.2-3.7cm) LVDd5.28 (4.0-5.6cm)Aortic Cusp Exc.2.10 (1.5-2.0cm) PWd1.04 (0.7-1.1cm)FS (%) 34 % LVDs3.48 (2.0-3.8cm)LVEF (%)63 (>50%) Aortic Valve AoV Peak Xjuyipht531.0cm/sAoV VTI32.5cmAO Peak GR.22mmHg LVOT Peak Cssvfhlt65.4cm/sLVOT VTI16.84cmAO Mean GR.9mmHg AI P 1/2 Aear060gj Mitral Valve MV E Zhpnqdkc29.2cm/sMV A Dzqxvibe599.8cm/sE/A ratio0.6 TDI Lateral E' Peak V6.09cm/sMedial E' Peak V10.22cm/sE/Lateral E'10.9 E/Medial E'6.5 Tricuspid Valve TR Peak Jvegdfcp048my/sTR Peak Gr.59amVqWOTC82gzCo LEFT VENTRICLE The left ventricle is normal size. There is normal left ventricular wall thickness. The left ventricular systolic function is normal. The left ventricular ejection fraction is within the normal range. There is normal LV segmental wall motion. Transmitral Doppler flow pattern is Grade I-abnormal relaxation pattern. RIGHT VENTRICLE The right ventricle is normal size. The right ventricular systolic function is normal. AORTIC VALVE The aortic valve is slightly calcified but opens well. No significant gradients. There is trace to mild aortic regurgitation. MITRAL VALVE The mitral valve is normal in structure. There is no mitral valve regurgitation noted. TRICUSPID VALVE The tricuspid valve is normal in structure. There is mild tricuspid regurgitation. Right ventricular systolic pressure is estimated at - 38 mmHg. There is mild pulmonary hypertension. PULMONIC VALVE The pulmonary valve is normal in structure. GREAT VESSELS The aortic root size is prominent to borderline dilated. The aortic root displays mild to moderate sclerocalcific changes. The IVC is normal in size and collapses >50% with inspiration. PERICARDIAL EFFUSION There is no pericardial effusion. <Conclusion> The left ventricular systolic function is normal. There is normal LV segmental wall motion. Diastolic dysfunction Grade I-abnormal relaxation pattern. The right ventricular systolic function is normal. Aortic valve sclerosis. There is trace to mild aortic regurgitation. There is mild tricuspid regurgitation. Right ventricular systolic pressure is estimated at - 38 mmHg compatible with mild pulmonary hypertension. The aortic root size is prominent to borderline dilated. The aortic root displays mild to moderate sclerocalcific changes. There is no pericardial effusion.
[2018-05-17 19:15] LABS: ABG ALLEN TEST POS; ARTERIAL BLOOD GAS HCO3 23.5 mmol/L (21-28); ARTERIAL BLOOD GAS O2 SAT 98.9 % (95-98); ARTERIAL BLOOD GAS PCO2 27 mm/Hg (35-45); ARTERIAL BLOOD GAS PH 7.49 (7.35-7.45); ARTERIAL BLOOD GAS PO2 84 mm/Hg (80-100); ARTERIAL BLOOD GAS TCO2 21.4 mmol/L (22-28)
--- NOTE | 2018-05-17 19:40 | CP.PCM.PN ---
Subjective - Date & Time of Evaluation Date of Evaluation: 05/17/18 Time of Evaluation: 19:36 - Subjective Subjective: PT ALERT, NO SOB., S/P CT GUIDED LUNG BX TODAY. ROS; OTHERWISE NEG. Objective - Vital Signs/Intake and Output Vital Signs (last 24 hours): Temp Pulse Resp BP Pulse Ox 98.2 F 88 20 107/64 96 05/17/18 15:30 05/17/18 15:30 05/17/18 15:30 05/17/18 15:30 05/17/18 15:30 Intake and Output: 05/17/18 05/18/18 18:59 06:59 Intake Total 480 Balance 480 - Medications Medications: Current Medications Al Hydrox/Mg Hydrox/Simethicone (Maalox Plus 30 Ml) 30 ml PO Q6 PRN PRN Reason: Indigestion / Heartburn Last Admin: 05/15/18 11:52 Dose: 30 ml Albuterol Sulfate (Albuterol 0.083% Inhal Cathie (2.5 Mg/3 Ml) Ud) 2.5 mg INH RQ6 [facility] Last Admin: 05/17/18 13:36 Dose: 2.5 mg Aspirin (Aspirin Chewable) 81 mg PO DAILY [facility] Last Admin: 05/16/18 10:45 Dose: 81 mg Clopidogrel Bisulfate (Plavix) 75 mg PO DAILY [facility] Last Admin: 05/16/18 10:44 Dose: 75 mg Clotrimazole (Mycelex Ryne) 10 mg PO TID [facility] Last Admin: 05/17/18 18:07 Dose: 10 mg Famotidine (Pepcid) 20 mg PO BID [facility] Last Admin: 05/17/18 18:07 Dose: 20 mg Heparin Sodium (Porcine) (Heparin) 5,000 units SC Q12 [facility] Last Admin: 05/15/18 21:33 Dose: 5,000 units Piperacillin Sod/Tazobactam Sod (Zosyn 3.375 Gm Iv Premix) 3.375 gm in 50 mls @ 100 mls/hr IVPB Q8 [facility]; Protocol Last Admin: 05/17/18 14:16 Dose: 100 mls/hr Sodium Chloride (Sodium Chloride 0.45%) 1,000 mls @ 50 mls/hr IV .Q20H [facility] Last Admin: 05/17/18 08:45 Dose: 50 mls/hr Losartan Potassium (Cozaar) 25 mg PO DAILY [facility] Last Admin: 05/17/18 14:00 Dose: Not Given Megestrol Acetate (Megace) 400 mg PO DAILY [facility] Last Admin: 05/17/18 10:22 Dose: Not Given Montelukast Sodium (Singulair) 10 mg PO DAILY [facility] Last Admin: 05/17/18 10:21 Dose: 10 mg Nystatin (Nystatin Oral Susp) 5 ml PO QID [facility] Last Admin: 05/17/18 18:07 Dose: 5 ml Sertraline HCl (Zoloft) 25 mg PO DAILY [facility] Last Admin: 05/17/18 10:21 Dose: 25 mg - Labs Labs: 05/16/18 06:51 05/16/18 06:51 PT 15.8 SECONDS (9.7-12.2) H 05/14/18 19:37 INR 1.4 05/14/18 19:37 APTT 30 SECONDS (21-34) 05/14/18 19:37 - Constitutional Appears: No Acute Distress, Chronically Ill - Head Exam Head Exam: ATRAUMATIC, NORMOCEPHALIC - Eye Exam Eye Exam: EOMI, Normal appearance - ENT Exam ENT Exam: Mucous Membranes Moist - Neck Exam Neck Exam: Normal Inspection - Respiratory Exam Respiratory Exam: absent: Chest Wall Tenderness, Wheezes, Respiratory Distress - Cardiovascular Exam Cardiovascular Exam: RRR, +S1, +S2 - GI/Abdominal Exam GI & Abdominal Exam: Soft. absent: Tenderness - Rectal Exam Rectal Exam: Deferred - Extremities Exam Extremities Exam: absent: Calf Tenderness, Pedal Edema - Back Exam Back Exam: absent: CVA tenderness (L), CVA tenderness (R) - Neurological Exam Neurological Exam: Alert, Awake, CN II-XII Intact - Psychiatric Exam Psychiatric exam: Normal Mood - Skin Skin Exam: absent: Rash Assessment and Plan (1) COPD exacerbation Status: Acute (2) Dehydration Status: Acute (3) Cachexia Status: Acute (4) Respiratory failure Status: Acute (5) Near syncope Status: Acute (6) Esophageal reflux Status: Acute (7) Hypertension Status: Acute (8) Lung mass Status: Acute (9) Weight loss Status: Acute - Assessment and Plan (Free Text) Assessment: RESP STATUS COMFORTABLE AT REST., S/P CT GUIDED BX LEFT LUNG MASS., PATH PENDING. POST PROCEDURE CT REVIEWED, NEG, F/U CXR REVIEWED, +SMALL LEFT APICAL PTX NOTED., CONT O2 4L, MONITOR O2 SAT., REPEAT CXR IN AM. PULM TOILET., AFEBRILE ON AB. CARDIO W/U IN PROGRESS. PROG POOR. DISCUSSED WITH STAFF AT LENGTH AND FAMILY AT BEDSIDE.
[2018-05-18] MEDS: Alum-Mag Hydrox-Simethicone Susp (30 mL) PO PRN (00:22)
[2018-05-18] MEDS: Albuterol 0.083% Inhal Sol (2.5 mg/3 mL) UD INH SCH ×4 (01:15→19:33)
[2018-05-18] MEDS: Piperacill/Tazo 3.375gm in Dex 3.375 GM/50 ML BAG IVPB SCH ×3 (05:39→22:10)
[2018-05-18 07:23] LABS: BASO % 0.4 % (0.0-2.0); EOS # 0.2 K/uL (0.0-0.7); EOS % 2.4 % (0.0-4.0); HEMOGLOBIN 10.2 g/dL (12.0-18.0); LYMPH # 1.4 K/uL (1.0-4.3); LYMPH % 13.7 % (20.0-40.0); MEAN CELL VOLUME 82.8 fL (80.0-94.0); MEAN CORPUSCULAR HGB CONC 33.8 g/dL (33.0-37.0); MEAN PLATELET VOLUME 7.8 fL (7.2-11.7); MONO # 0.8 K/uL (0.0-0.8); MONO % 7.4 % (0.0-10.0); NEUT # 7.8 K/uL (1.8-7.0); NEUT % 76.1 % (50.0-75.0); RBC 3.63 Mil/uL (4.40-5.90); RED CELL DISTRIBUTION WIDTH 15.1 % (11.5-14.5); WHITE BLOOD COUNT 10.2 K/uL (4.8-10.8)
[2018-05-18 07:47] LABS: BLOOD UREA NITROGEN 12 mg/dL (9-20); CALCIUM 8.7 mg/dl (8.6-10.4); GFR NON-AFRICAN AMERICAN > 60
[2018-05-18] MEDS: Sodium Chloride 0.45% 1,000 ML IV SCH ×2 (08:49→10:30)
[2018-05-18] MEDS: Nystatin 100,000 Units/ml Oral Susp 5 ml UD PO SCH ×5 (10:22→22:11)
[2018-05-18] MEDS: Megestrol Acetate 40 mg/ml Cup PO SCH ×2 (10:22→10:32)
--- NOTE | 2018-05-18 10:53 | RAD ---
Date of service: 05/18/2018 HISTORY: follow up cxr left pneumothorax COMPARISON: Comparison made with chest radiograph 05/17/2018.. Comparison also made with prior CT chest 03/29/2018 TECHNIQUE: Chest PA and lateral FINDINGS: LUNGS: There appears to be a small residual left apical pneumothorax. Previously noted large on lobulated mass lesion in the left upper lobe is poorly seen compared to prior CT scan chest. Elevation left hemidiaphragm with suspected mild left basilar atelectasis. PLEURA: As above. No significant pleural effusion identified. . CARDIOVASCULAR: Mild aortic atherosclerotic calcification present. Normal cardiac size. No pulmonary vascular congestion. OSSEOUS STRUCTURES: No significant abnormalities. VISUALIZED UPPER ABDOMEN: Normal. OTHER FINDINGS: None. IMPRESSION: Small residual left apical pneumothorax. Large lobulated left upper lobe mass poorly seen on this study. Elevation left hemidiaphragm with suspected mild left basilar atelectasis.
[2018-05-18] MEDS: Sodium Chloride 0.9% 1,000 ML IV SCH (12:50)
--- NOTE | 2018-05-18 13:14 | CT ---
Date of service: 05/18/2018 PROCEDURE: CT HEAD WITHOUT CONTRAST. HISTORY: AMS COMPARISON: None available. TECHNIQUE: Axial computed tomography images were obtained through the head/brain without intravenous contrast. Radiation dose: Total exam DLP = 1723.77 mGy-cm. This CT exam was performed using one or more of the following dose reduction techniques: Automated exposure control, adjustment of the mA and/or kV according to patient size, and/or use of iterative reconstruction technique. FINDINGS: HEMORRHAGE: No intracranial hemorrhage. BRAIN: No intracranial mass. Please note that evaluation of the brain is limited by patient motion artifact particularly obscuring the posterior fossa. Mild atrophy. Mild to moderate periventricular white matter lucency with patchy deep/subcortical white matter lucency consistent with chronic microvascular ischemic change. No evidence of acute infarct. VENTRICLES: Unremarkable. No hydrocephalus. CALVARIUM: Unremarkable. PARANASAL SINUSES: Unremarkable as visualized. No significant inflammatory changes. MASTOID AIR CELLS: Unremarkable as visualized. No inflammatory changes. OTHER FINDINGS: None. IMPRESSION: No intracranial mass, hemorrhage or evidence of acute infarct. Atrophy and microvascular white matter ischemic change consistent patient age.
--- NOTE | 2018-05-18 15:18 | CP.PCM.PN ---
Subjective - Date & Time of Evaluation Date of Evaluation: 05/18/18 Time of Evaluation: 15:16 - Subjective Subjective: PT ALERT, OOB IN CHAIR., NO SOB. ROS; OTHERWISE NEG. Objective - Vital Signs/Intake and Output Vital Signs (last 24 hours): Temp Pulse Resp BP Pulse Ox 97.5 F L 90 20 130/66 98 05/18/18 07:00 05/18/18 12:30 05/18/18 07:00 05/18/18 07:00 05/18/18 07:00 Intake and Output: 05/18/18 05/18/18 06:59 18:59 Intake Total 690 Output Total 500 Balance 190 - Medications Medications: Current Medications Al Hydrox/Mg Hydrox/Simethicone (Maalox Plus 30 Ml) 30 ml PO Q6 PRN PRN Reason: Indigestion / Heartburn Last Admin: 05/18/18 00:22 Dose: 30 ml Albuterol Sulfate (Albuterol 0.083% Inhal Cathie (2.5 Mg/3 Ml) Ud) 2.5 mg INH RQ6 [facility] Last Admin: 05/18/18 13:45 Dose: 2.5 mg Aspirin (Aspirin Chewable) 81 mg PO DAILY [facility] Last Admin: 05/18/18 10:29 Dose: Not Given Clopidogrel Bisulfate (Plavix) 75 mg PO DAILY [facility] Last Admin: 05/18/18 10:31 Dose: Not Given Clotrimazole (Mycelex Ryne) 10 mg PO TID [facility] Last Admin: 05/18/18 14:12 Dose: 10 mg Famotidine (Pepcid) 20 mg PO BID [facility] Last Admin: 05/18/18 10:31 Dose: Not Given Heparin Sodium (Porcine) (Heparin) 5,000 units SC Q12 [facility] Last Admin: 05/15/18 21:33 Dose: 5,000 units Piperacillin Sod/Tazobactam Sod (Zosyn 3.375 Gm Iv Premix) 3.375 gm in 50 mls @ 100 mls/hr IVPB Q8 [facility]; Protocol Last Admin: 05/18/18 14:12 Dose: 100 mls/hr Sodium Chloride (Sodium Chloride 0.45%) 1,000 mls @ 50 mls/hr IV .Q20H [facility] Last Admin: 05/18/18 10:30 Dose: Not Given Sodium Chloride (Sodium Chloride 0.9%) 1,000 mls @ 60 mls/hr IV .[id number] [facility] Last Admin: 05/18/18 12:50 Dose: 60 mls/hr Losartan Potassium (Cozaar) 25 mg PO DAILY [facility] Last Admin: 05/18/18 10:32 Dose: Not Given Megestrol Acetate (Megace) 400 mg PO DAILY [facility] Last Admin: 05/18/18 10:32 Dose: Not Given Montelukast Sodium (Singulair) 10 mg PO DAILY [facility] Last Admin: 05/18/18 10:31 Dose: Not Given Nystatin (Nystatin Oral Susp) 5 ml PO QID [facility] Last Admin: 05/18/18 14:12 Dose: 5 ml Sertraline HCl (Zoloft) 25 mg PO DAILY [facility] Last Admin: 05/18/18 10:31 Dose: Not Given - Labs Labs: 05/18/18 07:09 05/18/18 07:09 PT 15.8 SECONDS (9.7-12.2) H 05/14/18 19:37 INR 1.4 05/14/18 19:37 APTT 30 SECONDS (21-34) 05/14/18 19:37 - Constitutional Appears: No Acute Distress, Chronically Ill - Head Exam Head Exam: ATRAUMATIC, NORMOCEPHALIC - Eye Exam Eye Exam: EOMI, Normal appearance - ENT Exam ENT Exam: Mucous Membranes Moist - Respiratory Exam Respiratory Exam: absent: Accessory Muscle Use, Rhonchi, Respiratory Distress - Cardiovascular Exam Cardiovascular Exam: RRR, +S1, +S2 - GI/Abdominal Exam GI & Abdominal Exam: Soft. absent: Tenderness - Rectal Exam Rectal Exam: Deferred - Extremities Exam Extremities Exam: absent: Calf Tenderness, Pedal Edema - Back Exam Back Exam: absent: CVA tenderness (L), CVA tenderness (R) - Neurological Exam Neurological Exam: Alert, Awake, CN II-XII Intact - Psychiatric Exam Psychiatric exam: Normal Mood - Skin Skin Exam: absent: Rash Assessment and Plan (1) COPD exacerbation Status: Acute (2) Dehydration Status: Acute (3) Cachexia Status: Acute (4) Respiratory failure Status: Acute (5) Near syncope Status: Acute (6) Esophageal reflux Status: Acute (7) Hypertension Status: Acute (8) Lung mass Status: Acute (9) Weight loss Status: Acute - Assessment and Plan (Free Text) Assessment: RESP STATUS COMFORTABLE AT REST. CONT PULM TOILET., NEB BD., MONITOR O2 SAT. +SMALL APICAL PTX POST BX YESTERDAY. CXR REVIEWED, F/U REPEAT CXR. F/U PATH. DISCUSSED WITH STAFF AND FAMILY AT BEDSIDE.
--- NOTE | 2018-05-18 16:28 | PN ---
DATE: 05/18/2018 SUBJECTIVE: The patient underwent lung biopsy yesterday, which was complicated by small left apical pneumothorax. However, the patient has been confused and at times agitated since he had the biopsy. Repeat chest x-ray today revealed same small residual left apical pneumothorax and the patient is not in any respiratory difficulty at this time. The patient's daughter is at the bedside and she stayed overnight with him. PHYSICAL EXAMINATION: VITAL SIGNS: Blood pressure 130/66, heart rate 90, temperature 97.5, and respirations 20. HEENT: Pale conjunctivae. CHEST: Minimal rhonchi. HEART: S1 and S2 regular. EXTREMITIES: No edema. LABORATORY DATA: Today's hemoglobin and hematocrit 10.1 and 30.1, white count 10.2, and platelet count 449,000. Today's SMA-7 is within normal limit except for sodium of 131 and creatinine of 0.5. ASSESSMENT: 1. Lung mass, status post CT-guided biopsy. 2. Altered mental status. 3. Small left apical pneumothorax. 4. Hyponatremia. 5. Depression and very poor appetite. PLAN: Keep subcutaneous heparin on hold as well as aspirin and Plavix. Start normal saline at 60 mL an hour and continue Zosyn at 3.375 g intravenously every 8 hours. I will request CT scan without contrast and Psychiatry consult has been requested from Dr. Emerson. The case was discussed with the patient's daughter at the bedside. Zach Marquez MD
--- NOTE | 2018-05-18 17:54 | CP.PCM.PN ---
Subjective - Date & Time of Evaluation Date of Evaluation: 05/18/18 Time of Evaluation: 07:00 - Subjective Subjective: s/p Bx small PTX afeb nad Objective - Vital Signs/Intake and Output Vital Signs (last 24 hours): Temp Pulse Resp BP Pulse Ox 98.4 F 92 H 20 119/61 98 05/18/18 15:50 05/18/18 16:00 05/18/18 15:50 05/18/18 15:50 05/18/18 15:50 Intake and Output: 05/18/18 05/18/18 06:59 18:59 Intake Total 690 Output Total 500 Balance 190 - Medications Medications: Current Medications Al Hydrox/Mg Hydrox/Simethicone (Maalox Plus 30 Ml) 30 ml PO Q6 PRN PRN Reason: Indigestion / Heartburn Last Admin: 05/18/18 00:22 Dose: 30 ml Albuterol Sulfate (Albuterol 0.083% Inhal Cathie (2.5 Mg/3 Ml) Ud) 2.5 mg INH RQ6 [facility] Last Admin: 05/18/18 13:45 Dose: 2.5 mg Aspirin (Aspirin Chewable) 81 mg PO DAILY [facility] Last Admin: 05/18/18 10:29 Dose: Not Given Clopidogrel Bisulfate (Plavix) 75 mg PO DAILY [facility] Last Admin: 05/18/18 10:31 Dose: Not Given Clotrimazole (Mycelex Ryne) 10 mg PO TID [facility] Last Admin: 05/18/18 17:37 Dose: 10 mg Famotidine (Pepcid) 20 mg PO BID [facility] Last Admin: 05/18/18 17:37 Dose: 20 mg Heparin Sodium (Porcine) (Heparin) 5,000 units SC Q12 [facility] Last Admin: 05/15/18 21:33 Dose: 5,000 units Piperacillin Sod/Tazobactam Sod (Zosyn 3.375 Gm Iv Premix) 3.375 gm in 50 mls @ 100 mls/hr IVPB Q8 [facility]; Protocol Last Admin: 05/18/18 14:12 Dose: 100 mls/hr Sodium Chloride (Sodium Chloride 0.45%) 1,000 mls @ 50 mls/hr IV .Q20H [facility] Last Admin: 05/18/18 10:30 Dose: Not Given Sodium Chloride (Sodium Chloride 0.9%) 1,000 mls @ 60 mls/hr IV .[id number] [facility] Last Admin: 05/18/18 12:50 Dose: 60 mls/hr Losartan Potassium (Cozaar) 25 mg PO DAILY [facility] Last Admin: 05/18/18 10:32 Dose: Not Given Megestrol Acetate (Megace) 400 mg PO DAILY [facility] Last Admin: 05/18/18 10:32 Dose: Not Given Montelukast Sodium (Singulair) 10 mg PO DAILY [facility] Last Admin: 05/18/18 10:31 Dose: Not Given Nystatin (Nystatin Oral Susp) 5 ml PO QID [facility] Last Admin: 05/18/18 17:37 Dose: 5 ml Sertraline HCl (Zoloft) 25 mg PO DAILY [facility] Last Admin: 05/18/18 10:31 Dose: Not Given - Labs Labs: 05/18/18 07:09 05/18/18 07:09 PT 15.8 SECONDS (9.7-12.2) H 05/14/18 19:37 INR 1.4 05/14/18 19:37 APTT 30 SECONDS (21-34) 05/14/18 19:37 - Constitutional Appears: Non-toxic, Chronically Ill - Head Exam Head Exam: NORMOCEPHALIC - Eye Exam Eye Exam: absent: Scleral icterus - ENT Exam ENT Exam: Mucous Membranes Dry - Neck Exam Neck Exam: absent: Lymphadenopathy - Respiratory Exam Respiratory Exam: Decreased Breath Sounds - Cardiovascular Exam Cardiovascular Exam: REGULAR RHYTHM - GI/Abdominal Exam GI & Abdominal Exam: Distended, Soft - Rectal Exam Rectal Exam: Deferred - Exam Exam: NORMAL INSPECTION Assessment and Plan (1) COPD exacerbation Status: Acute (2) Dehydration Status: Acute (3) Leukocytosis Status: Acute - Assessment and Plan (Free Text) Assessment: cont iv rx await bx /cultures
[2018-05-19] MEDS: Albuterol 0.083% Inhal Sol (2.5 mg/3 mL) UD INH SCH ×4 (01:16→19:31)
[2018-05-19] MEDS: Sodium Chloride 0.9% 1,000 ML IV SCH ×2 (06:05→22:07)
[2018-05-19] MEDS: Piperacill/Tazo 3.375gm in Dex 3.375 GM/50 ML BAG IVPB SCH ×3 (06:06→21:59)
[2018-05-19] MEDS: Sodium Chloride 0.45% 1,000 ML IV SCH (06:25)
[2018-05-19] MEDS: Megestrol Acetate 40 mg/ml Cup PO SCH (10:03)
[2018-05-19] MEDS: Nystatin 100,000 Units/ml Oral Susp 5 ml UD PO SCH ×4 (10:04→21:59)
--- NOTE | 2018-05-19 11:02 | CP.PCM.PN ---
Subjective - Date & Time of Evaluation Date of Evaluation: 05/19/18 Time of Evaluation: 11:00 - Subjective Subjective: PT ALERT, OOB IN CHAIR. NO SOB. NO COUGH. ROS; OTHERWISE NEG. Objective - Vital Signs/Intake and Output Vital Signs (last 24 hours): Temp Pulse Resp BP Pulse Ox 97.9 F 83 20 133/66 99 05/19/18 07:00 05/19/18 09:15 05/19/18 07:00 05/19/18 07:00 05/19/18 07:00 - Medications Medications: Current Medications Al Hydrox/Mg Hydrox/Simethicone (Maalox Plus 30 Ml) 30 ml PO Q6 PRN PRN Reason: Indigestion / Heartburn Last Admin: 05/18/18 00:22 Dose: 30 ml Albuterol Sulfate (Albuterol 0.083% Inhal Cathie (2.5 Mg/3 Ml) Ud) 2.5 mg INH RQ6 [facility] Last Admin: 05/19/18 08:16 Dose: 2.5 mg Aspirin (Aspirin Chewable) 81 mg PO DAILY [facility] Last Admin: 05/19/18 10:03 Dose: Not Given Clopidogrel Bisulfate (Plavix) 75 mg PO DAILY [facility] Last Admin: 05/19/18 10:04 Dose: Not Given Clotrimazole (Mycelex Yrne) 10 mg PO TID [facility] Last Admin: 05/19/18 10:03 Dose: 10 mg Famotidine (Pepcid) 20 mg PO BID [facility] Last Admin: 05/19/18 10:03 Dose: 20 mg Heparin Sodium (Porcine) (Heparin) 5,000 units SC Q12 [facility] Last Admin: 05/15/18 21:33 Dose: 5,000 units Piperacillin Sod/Tazobactam Sod (Zosyn 3.375 Gm Iv Premix) 3.375 gm in 50 mls @ 100 mls/hr IVPB Q8 [facility]; Protocol Last Admin: 05/19/18 06:06 Dose: 100 mls/hr Sodium Chloride (Sodium Chloride 0.45%) 1,000 mls @ 50 mls/hr IV .Q20H [facility] Last Admin: 05/19/18 06:25 Dose: Not Given Sodium Chloride (Sodium Chloride 0.9%) 1,000 mls @ 60 mls/hr IV .[id number] [facility] Last Admin: 05/19/18 06:05 Dose: 60 mls/hr Losartan Potassium (Cozaar) 25 mg PO DAILY [facility] Last Admin: 05/19/18 10:03 Dose: 25 mg Megestrol Acetate (Megace) 400 mg PO DAILY [facility] Last Admin: 05/19/18 10:03 Dose: 400 mg Montelukast Sodium (Singulair) 10 mg PO DAILY [facility] Last Admin: 05/19/18 10:03 Dose: 10 mg Nystatin (Nystatin Oral Susp) 5 ml PO QID [facility] Last Admin: 05/19/18 10:04 Dose: 5 ml Sertraline HCl (Zoloft) 25 mg PO DAILY [facility] Last Admin: 05/19/18 10:03 Dose: 25 mg - Labs Labs: 05/18/18 07:09 05/18/18 07:09 PT 15.8 SECONDS (9.7-12.2) H 05/14/18 19:37 INR 1.4 05/14/18 19:37 APTT 30 SECONDS (21-34) 05/14/18 19:37 - Constitutional Appears: No Acute Distress, Chronically Ill - Head Exam Head Exam: ATRAUMATIC, NORMOCEPHALIC - Eye Exam Eye Exam: EOMI, Normal appearance - ENT Exam ENT Exam: Mucous Membranes Moist - Neck Exam Neck Exam: Normal Inspection - Respiratory Exam Respiratory Exam: Decreased Breath Sounds. absent: Accessory Muscle Use, Chest Wall Tenderness, Wheezes, Respiratory Distress - Cardiovascular Exam Cardiovascular Exam: RRR, +S1, +S2 - GI/Abdominal Exam GI & Abdominal Exam: Soft. absent: Tenderness - Rectal Exam Rectal Exam: Deferred - Extremities Exam Extremities Exam: absent: Calf Tenderness, Pedal Edema - Back Exam Back Exam: absent: CVA tenderness (L), CVA tenderness (R) - Neurological Exam Neurological Exam: Alert, Awake, CN II-XII Intact - Psychiatric Exam Psychiatric exam: Normal Mood - Skin Skin Exam: absent: Rash Assessment and Plan (1) COPD exacerbation Status: Acute (2) Dehydration Status: Acute (3) Cachexia Status: Acute (4) Respiratory failure Status: Acute (5) Near syncope Status: Acute (6) Esophageal reflux Status: Acute (7) Hypertension Status: Acute (8) Lung mass Status: Acute (9) Weight loss Status: Acute - Assessment and Plan (Free Text) Assessment: RESP STATUS COMFORTABLE AT REST. O2 SAT 98% ON ROOM AIR. CONT MONITOR O2 SAT. CXR REVIEWED, +SMALL APICAL LEFT PTX, POST BX, F/U PATH RESULTS. PROG POOR. DISCUSSED WITH STAFF AT LENGTH AND FAMILY AT BEDSIDE.
--- NOTE | 2018-05-19 17:15 | PN ---
DATE: 05/19/2018 SUBJECTIVE: The patient is currently sitting oriented with his next to him and he is eating properly. No reported hemoptysis. PHYSICAL EXAMINATION: VITAL SIGNS: Blood pressure 133/66, heart rate 76, temperature 97.9, and respiration 20. HEENT: Normocephalic. CHEST: Bilateral rhonchi. HEART: S1, S2 regular. EXTREMITIES: No edema. CT scan without contrast performed yesterday noted evidence of acute infarct. Atrophy and microvascular white matter ischemic changes consistent with the patient's age. Lung biopsy: Diagnosis was nondiagnostic specimen, fibrotic and necrotic lung parenchyma with patchy and pigmentation. No visible tumor is identified. ASSESSMENT: 1. Improved hypotension. 2. Lung mass rule out underlying malignancy. The patient's lung biopsy was nonspecific. 3. Small left apical pneumothorax on lung biopsy. 4. Anemia. 5. Altered mental status which is currently improved. 6. Systemic hypertension. RECOMMENDATIONS: Continue albuterol inhaler every 6 hours p.r.n., continue Zosyn 3.375 g every 8 hours. The patient is to resume aspirin 81 mg once a day. I will discuss with Dr. Ortega an alternative approach such as an open lung biopsy. Zach Marquez MD
[2018-05-19 19:19] LABS: FOLATE 15.2 ng/mL
[2018-05-20] MEDS: Albuterol 0.083% Inhal Sol (2.5 mg/3 mL) UD INH SCH (01:16)
--- NOTE | 2018-05-20 01:23 | CON ---
DATE: 05/19/2018 PSYCHIATRIC CONSULTATION CHIEF COMPLAINT AND REASON FOR CONSULTATION: The patient is referred by Dr. Aldana for evaluation for depression as well as the patient was exhibiting increasing confusion after procedure. HISTORY OF PRESENT ILLNESS: This is a case of a 73-year-old male who is a patient of Dr. Aldana with history of hypertension and COPD. The patient was brought into the emergency room complaining of generalized weakness as well as poor appetite, and according to the family, the patient has lost weight over 60 pounds in the last 5 to 6 months. The patient was noted to be hypotensive in the doctor's office, but in the emergency room, he was normotensive. The patient did admit that he was not eating well and has feeling weak. The patient, according to the family, was getting depressed. This is a case of a 73-year-old male who was referred by Dr. Aldana for evaluation of generalized weakness, poor appetite, and weight loss. The patient has been losing weight for the last 5 to 6 months and lost over 60 pounds, has poor appetite, and according to the daughter, has been getting depressed ever since he lost his job. 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 According to the family, he has had undergone multiple workups, but according to the daughter, the results were inconclusive. The patient did admit that he feels depressed, he has poor appetite. He was given Zoloft at 25 mg daily and was given also, on review of his chart. Periactin, but without any good results. He was admitted here for further treatment, and treatment of his weakness and poor p.o. intake. Patient underwent recent left lung CT guided biopsy and got confused. As per pharmacy records, he was given Versed and Profolol. His mental staus has improved after 2 days but still not eating. PAST PSYCHIATRIC HISTORY: Denies any. MEDICAL HISTORY: The patient has history of generalized weakness, near syncope, leukocytosis, failure to thrive, history of COPD, history of dehydration, cachexia, hypertension, and esophageal reflux. DRUG AND ALCOHOL HISTORY: Denies any. ALLERGIES: THE PATIENT HAS NO KNOWN ALLERGIES. PSYCHOSOCIAL HISTORY: He lives with his family. 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 The patient states he was using mask. REVIEW OF HIS MEDICATIONS: The patient was taking Periactin at home as well as taking Zoloft 25 mg daily as well as taking Megace. LIST OF CURRENT MEDICATIONS: The patient is taking aspirin, albuterol, Cozaar, heparin, Maalox, Megace 400 mg daily, clotrimazole, Pepcid, Plavix, Zoloft 25 mg daily for depression. REVIEW OF SYSTEMS: The patient is alert. According to the nurse, he is much better since the procedure. He was confused for 1 or 2 days, but today he is back to his baseline. PHYSICAL EXAMINATION: VITAL SIGNS: Temperature is 97.9, pulse rate is 92, blood pressure is 133/66, respirations 20, and oxygen saturation is 99%. SKIN: No diaphoresis. HEENT: No headache. No dizziness. NECK: Supple. RESPIRATORY: No dyspnea. CARDIOVASCULAR: No chest pain. GASTROINTESTINAL: Very poor appetite. The patient, according to the daughter, tried to eat 2 bites and that is it. No nausea. No vomiting. EXTREMITIES: Gait is unsteady. MUSCULOSKELETAL: Generalized weakness. NEUROLOGIC: Feels weak, but oriented x3. GENITOURINARY: No problems. The patient reports weight loss of over 60 pounds in the last 5 to 6 months. MENTAL STATUS EXAMINATION: Cachectic-looking male who looks stated age, oriented to time. She is Azeri speaking. Mood is depressed, dysphoric. Affect is restricted. Speech, spontaneous. Thought process, coherent. Thought content, no psychosis. No suicidal or homicidal ideation. Attention and memory seem to be fair. Insight and judgment is fair. Impulse control is fair. DIAGNOSTIC STUDIES: The patient had a CAT scan of the head that showed no intracranial mass, hemorrhage, or evidence of acute infarct. The patient had a lung biopsy for mass in the left lung. The patient had a chest x-ray done that showed the following result. The patient has a small residual left apical pneumothorax and large lobulated left upper lobe mass poorly seen in the study, elevation of left hemidiaphragm, suspected mild left basilar atelectasis. REVIEW OF HIS LABORATORIES: The patient's WBC is 10.2, H and H 10.2/30.1. His MCV is 82.8. The patient's platelet is elevated at 449. Calcium is 8.7. IMPRESSION: Delirium, probably secondary to medcations from his recent lung biopsy, which has resolved as well as major depression as well as to consider mood disorder secondary to medical problems. PLAN AND RECOMMENDATION: The patient is seen. Meds reviewed. We will discontinue the Zoloft as his appetite is very poor and Zoloft can worsen anorexia. We will continue the Megace 400 mg p.o. daily to improve his appetite. We will do a blood test for depression as well as such as B12 level, folate, magnesium, thyroid, vitamin D, and also, we will check his biopsy result. Continue treatment plan as outlined. We will also monitor his p.o. intake. Thank you very much for the consult. Richmond Emerson MD MTDD
[2018-05-20] MEDS: Piperacill/Tazo 3.375gm in Dex 3.375 GM/50 ML BAG IVPB SCH ×3 (05:22→22:36)
[2018-05-20 08:20] LABS: BASO % 0.5 % (0.0-2.0); EOS # 0.3 K/uL (0.0-0.7); EOS % 3.1 % (0.0-4.0); HEMOGLOBIN 10.8 g/dL (12.0-18.0); LYMPH # 1.7 K/uL (1.0-4.3); LYMPH % 18.8 % (20.0-40.0); MEAN CELL VOLUME 82.9 fL (80.0-94.0); MEAN CORPUSCULAR HEMOGLOBIN 28.3 pg (27.0-31.0); MEAN CORPUSCULAR HGB CONC 34.1 g/dL (33.0-37.0); MEAN PLATELET VOLUME 7.8 fL (7.2-11.7); MONO # 0.6 K/uL (0.0-0.8); MONO % 7.4 % (0.0-10.0); NEUT # 6.2 K/uL (1.8-7.0); NEUT % 70.2 % (50.0-75.0); NRBC % 0.1 % (0.0-2.0); RBC 3.82 Mil/uL (4.40-5.90); RED CELL DISTRIBUTION WIDTH 15.2 % (11.5-14.5); WHITE BLOOD COUNT 8.8 K/uL (4.8-10.8)
[2018-05-20 08:49] LABS: ALB/GLOB RATIO 0.8 (1.0-2.1); ALBUMIN 2.8 g/dL (3.5-5.0); ALT/SGPT 168 U/L (21-72); AST/SGOT 134 U/L (17-59); BLOOD UREA NITROGEN 7 mg/dL (9-20); GFR NON-AFRICAN AMERICAN > 60
[2018-05-20] MEDS: Nystatin 100,000 Units/ml Oral Susp 5 ml UD PO SCH ×3 (11:08→18:53)
[2018-05-20] MEDS: Megestrol Acetate 40 mg/ml Cup PO SCH (11:08)
--- NOTE | 2018-05-20 16:12 | PN ---
DATE: 05/20/2018 SUBJECTIVE: The patient is oriented and he drank his Ensure, sitting with his daughter, who stayed overnight with him. Denies any chest pain. Yesterday, mild hemoptysis was reported. PHYSICAL EXAMINATION: VITAL SIGNS: Blood pressure 117/68, heart rate 80, and temperature 98.2. HEENT: Pale conjunctivae. CHEST: Clear. HEART: S1 and S2, regular. EXTREMITIES: No edema. LABORATORY DATA: Today's SMA-7 is within normal limit except for BUN and creatinine of 7 and 0.6. Today's AST and ALT are 134 and 168 respectively. Alkaline phosphatase is elevated at 170. TSH level done yesterday was within normal limit. Today's hemoglobin and hematocrit are 10.8 and 31.6, white count 8.8, and platelet count 516,000. The patient was evaluated yesterday by Dr. Emerson and the impression was delirium, probably secondary to medications, which has resolved as well as major depression as well as consider mood disorder secondary to medication problem and recommendation was to discontinue Zoloft because of his poor appetite and to continue Megace, obtain B12 level, folate, magnesium, thyroid, and vitamin D. ASSESSMENT: 1. Lung mass. 2. Status post hypotensive episode in DrAnant office. 3. Small left apical pneumothorax. 4. Anemia. 5. Depression. 6. Systemic hypertension. RECOMMENDATIONS: Continue aspirin 81 mg once a day, Cozaar 25 mg once a day, and Zosyn at 3.375 g intravenously every 8 hours. Case was discussed with the patient's daughter about further workup for the patient's lung mass, which will be discussed with the primary physician and the dock clerk tomorrow. Zach Marquez MD
--- NOTE | 2018-05-20 16:27 | CP.PCM.PN ---
Subjective - Date & Time of Evaluation Date of Evaluation: 05/20/18 Time of Evaluation: 16:24 - Subjective Subjective: PT ALERT, IN NO DISTRESS. NO SOB. LESS COUGH. ROS; OTHERWISE NEG. Objective - Vital Signs/Intake and Output Vital Signs (last 24 hours): Temp Pulse Resp BP Pulse Ox 98 F 82 20 119/61 100 05/20/18 07:00 05/20/18 07:00 05/20/18 07:00 05/20/18 07:00 05/20/18 07:00 Intake and Output: 05/20/18 05/20/18 06:59 18:59 Intake Total 680 Balance 680 - Medications Medications: Current Medications Al Hydrox/Mg Hydrox/Simethicone (Maalox Plus 30 Ml) 30 ml PO Q6 PRN PRN Reason: Indigestion / Heartburn Last Admin: 05/18/18 00:22 Dose: 30 ml Aspirin (Aspirin Chewable) 81 mg PO DAILY [facility] Last Admin: 05/20/18 11:09 Dose: 81 mg Clopidogrel Bisulfate (Plavix) 75 mg PO DAILY [facility] Last Admin: 05/20/18 11:08 Dose: 75 mg Clotrimazole (Mycelex Ryne) 10 mg PO TID [facility] Last Admin: 05/20/18 13:18 Dose: 10 mg Famotidine (Pepcid) 20 mg PO BID [facility] Last Admin: 05/20/18 11:09 Dose: 20 mg Heparin Sodium (Porcine) (Heparin) 5,000 units SC Q12 [facility] Last Admin: 05/15/18 21:33 Dose: 5,000 units Piperacillin Sod/Tazobactam Sod (Zosyn 3.375 Gm Iv Premix) 3.375 gm in 50 mls @ 100 mls/hr IVPB Q8 [facility]; Protocol Last Admin: 05/20/18 13:18 Dose: 100 mls/hr Sodium Chloride (Sodium Chloride 0.9%) 1,000 mls @ 60 mls/hr IV .[id number] [facility] Last Admin: 05/19/18 22:07 Dose: 60 mls/hr Losartan Potassium (Cozaar) 25 mg PO DAILY [facility] Last Admin: 05/20/18 11:09 Dose: 25 mg Megestrol Acetate (Megace) 400 mg PO DAILY [facility] Last Admin: 05/20/18 11:08 Dose: 400 mg Mirtazapine (Remeron) 7.5 mg PO HS [facility] Last Admin: 05/19/18 21:59 Dose: 7.5 mg Montelukast Sodium (Singulair) 10 mg PO DAILY [facility] Last Admin: 05/20/18 11:09 Dose: 10 mg Nystatin (Nystatin Oral Susp) 5 ml PO QID [facility] Last Admin: 05/20/18 13:18 Dose: 5 ml - Labs Labs: 05/20/18 08:10 05/20/18 08:10 PT 15.8 SECONDS (9.7-12.2) H 05/14/18 19:37 INR 1.4 05/14/18 19:37 APTT 30 SECONDS (21-34) 05/14/18 19:37 - Constitutional Appears: No Acute Distress, Chronically Ill - Head Exam Head Exam: ATRAUMATIC, NORMOCEPHALIC - Eye Exam Eye Exam: EOMI, Normal appearance - ENT Exam ENT Exam: Mucous Membranes Moist - Neck Exam Neck Exam: Normal Inspection - Respiratory Exam Respiratory Exam: Decreased Breath Sounds. absent: Accessory Muscle Use, Chest Wall Tenderness, Rhonchi, Wheezes, Respiratory Distress - Cardiovascular Exam Cardiovascular Exam: RRR, +S1, +S2 - GI/Abdominal Exam GI & Abdominal Exam: Soft. absent: Tenderness - Rectal Exam Rectal Exam: Deferred - Extremities Exam Extremities Exam: absent: Calf Tenderness, Pedal Edema - Back Exam Back Exam: absent: CVA tenderness (L), CVA tenderness (R) - Neurological Exam Neurological Exam: Alert, Awake, CN II-XII Intact - Psychiatric Exam Psychiatric exam: Normal Mood - Skin Skin Exam: absent: Rash Assessment and Plan (1) COPD exacerbation Status: Acute (2) Dehydration Status: Acute (3) Cachexia Status: Acute (4) Respiratory failure Status: Acute (5) Near syncope Status: Acute (6) Esophageal reflux Status: Acute (7) Hypertension Status: Acute (8) Lung mass Status: Acute (9) Weight loss Status: Acute - Assessment and Plan (Free Text) Assessment: RESP STATUS COMFORTABLE. +LEFT APICAL PTX S/P CT GUIDED LUNG BX CARMELA MASS. CXR REVIEWED, REPEAT IN AM FOR RESOLUTION., MONITOR O2 SAT,. F/U PATH. PSYCH EVAL NOTED. PROG POOR. DISCUSSED WITH STAFF AND FAMILY AT BEDSIDE,.
[2018-05-20] MEDS: Sodium Chloride 0.9% 1,000 ML IV SCH (18:00)
--- NOTE | 2018-05-20 18:13 | RAD ---
Chest x-ray single frontal view HISTORY: Pneumothorax. COMPARISON: 05/17/2018. Findings: Interval worsening of a now moderate left-sided pneumothorax. Consolidative mass / masslike opacification throughout the left lung extending to the left infrahilar region. Diffuse increased interstitial lung markings in the right lung. Right infrahilar consolidative changes. Calcification at the aortic knob. Enlarged ectatic aorta. Cardiomegaly. Right apical pleural thickening. Degenerative changes in the spine and shoulders. Impression: Worsening now moderate left-sided pneumothorax. These findings were discussed with Lia at 6:04 p.m. on 05/20/2018.
[2018-05-21] MEDS: Piperacill/Tazo 3.375gm in Dex 3.375 GM/50 ML BAG IVPB SCH ×3 (05:41→22:29)
[2018-05-21] MEDS: Sodium Chloride 0.9% 1,000 ML IV SCH ×2 (07:25→13:03)
[2018-05-21] MEDS: Megestrol Acetate 40 mg/ml Cup PO SCH (10:24)
--- NOTE | 2018-05-21 10:54 | RAD ---
Date of service: 05/21/2018 HISTORY: pneumothorax getting bigger and worse. COMPARISON: 05/20/2018 FINDINGS: LUNGS: Right lung is clear. There is redemonstration of consolidation in the left upper lobe. PLEURA: No change in moderate left pneumothorax. No right pleural effusion or right pneumothorax. CARDIOVASCULAR: The heart is normal in size. Atherosclerotic aortic arch calcifications are present. OSSEOUS STRUCTURES: Within normal limits for the patient's age. VISUALIZED UPPER ABDOMEN: Normal. OTHER FINDINGS: None. IMPRESSION: No change in moderate left pneumothorax. Persistent consolidation in the left upper lobe.
[2018-05-21] MEDS: Alum-Mag Hydrox-Simethicone Susp (30 mL) PO PRN (11:42)
--- NOTE | 2018-05-21 12:58 | CP.PCM.PN ---
Subjective - Date & Time of Evaluation Date of Evaluation: 05/21/18 Time of Evaluation: 12:30 - Subjective Subjective: CT surgery Pt seen and examined. Called for pneumothorax on CXR worsening. Pt denies any breathing issues besides cough at night. Currently on ventimask O2. Objective - Vital Signs/Intake and Output Vital Signs (last 24 hours): Temp Pulse Resp BP Pulse Ox 98.1 F 87 18 123/71 100 05/21/18 07:00 05/21/18 07:55 05/21/18 07:00 05/21/18 07:00 05/21/18 07:00 Intake and Output: 05/21/18 05/21/18 06:59 18:59 Intake Total 650 Balance 650 - Medications Medications: Current Medications Al Hydrox/Mg Hydrox/Simethicone (Maalox Plus 30 Ml) 30 ml PO Q6 PRN PRN Reason: Indigestion / Heartburn Last Admin: 05/21/18 11:42 Dose: 30 ml Aspirin (Aspirin Chewable) 81 mg PO DAILY [facility] Last Admin: 05/21/18 10:24 Dose: 81 mg Clopidogrel Bisulfate (Plavix) 75 mg PO DAILY [facility] Last Admin: 05/21/18 10:24 Dose: 75 mg Clotrimazole (Mycelex Ryne) 10 mg PO TID [facility] Last Admin: 05/21/18 10:25 Dose: 10 mg Famotidine (Pepcid) 20 mg PO BID [facility] Last Admin: 05/21/18 10:24 Dose: 20 mg Heparin Sodium (Porcine) (Heparin) 5,000 units SC Q12 [facility] Last Admin: 05/15/18 21:33 Dose: 5,000 units Piperacillin Sod/Tazobactam Sod (Zosyn 3.375 Gm Iv Premix) 3.375 gm in 50 mls @ 100 mls/hr IVPB Q8 [facility]; Protocol Last Admin: 05/21/18 05:41 Dose: 100 mls/hr Sodium Chloride (Sodium Chloride 0.9%) 1,000 mls @ 60 mls/hr IV .[id number] [facility] Last Admin: 05/21/18 07:25 Dose: Not Given Losartan Potassium (Cozaar) 25 mg PO DAILY [facility] Last Admin: 05/21/18 10:24 Dose: 25 mg Mirtazapine (Remeron) 7.5 mg PO HS [facility] Last Admin: 05/20/18 22:37 Dose: 7.5 mg Montelukast Sodium (Singulair) 10 mg PO DAILY [facility] Last Admin: 05/21/18 10:24 Dose: 10 mg - Labs Labs: 05/20/18 08:10 05/20/18 08:10 PT 15.8 SECONDS (9.7-12.2) H 05/14/18 19:37 INR 1.4 05/14/18 19:37 APTT 30 SECONDS (21-34) 05/14/18 19:37 - Constitutional Appears: Non-toxic, No Acute Distress - Head Exam Head Exam: ATRAUMATIC, NORMOCEPHALIC - Eye Exam Eye Exam: EOMI. absent: Scleral icterus - Respiratory Exam Respiratory Exam: Decreased Breath Sounds (on L), NORMAL BREATHING PATTERN. absent: Accessory Muscle Use, Chest Wall Tenderness, Respiratory Distress - GI/Abdominal Exam GI & Abdominal Exam: Soft. absent: Distended, Tenderness - Neurological Exam Neurological Exam: Alert, Awake, Oriented x3 - Skin Skin Exam: Dry, Warm Assessment and Plan - Assessment and Plan (Free Text) Assessment: 73M with worsening pneumothorax s/p CT guided biopsy of lung mass. Plan: Recommend CT guided pigtail chest tube D/W Dr. Wing Wilcox PGY4
--- NOTE | 2018-05-21 14:56 | PCM.SURG1 ---
Surgeon's Initial Post Op Note - Surgeon's Notes Surgeon: Zoltan Eckert MD Communications Attendant: NONE Type of Anesthesia: Local Pre-Operative Diagnosis: Left PTX Operative Findings: CT showed 30% left PTX, left upper lobe mass. Post-Operative Diagnosis: Left PTX Operation Performed: CT guided placement of an 8 fr pigtail in left pleural space. Specimen/Specimens Removed: none Estimated Blood Loss: EBL {In ML}: 0 Blood Products Given: N/A Drains Used: No Drains, López Bal Post-Op Condition: Fair Date of Surgery/Procedure: 05/21/18 Time of Surgery/Procedure: 15:50
--- NOTE | 2018-05-21 15:01 | PN ---
DATE: 05/21/2018 SUBJECTIVE: The patient denies any chest pain, dizziness or shortness of breath. The patient's daughter is at the bedside. She slept next to him overnight. He is still having poor appetite. No reported arrhythmia. PHYSICAL EXAMINATION VITAL SIGNS: Blood pressure 123/71, heart rate 86, temperature 98.1, and respiration 18. HEENT: Pale conjunctivae. CHEST: Diminished breath sounds over the bases. HEART: S1, S2 regular. EXTREMITIES: No edema. Today's chest x-ray report, no change in the moderate left pneumothorax with persistent consolidation in the left upper lobe. ASSESSMENT: 1. Status post hypotensive episode. 2. Lungs mass with left upper lobe consolidation. 3. Moderate left pneumothorax. 4. Mild anemia. 5. Depression. RECOMMENDATIONS: Continue aspirin 81 mg once a day, Cozaar 25 mg once a day, subcutaneous heparin 5000 units every 12 hours, Plavix 75 mg once a day, Zosyn 3.375 g intravenously every 8 hours. I discussed the case with Dr. Emerson, the psychiatrist, small cell lung cancer is usually treated with depression as presenting complaint; however, discussed the case with primary physician as well as Dr. Oro about further workup for the lung mass. Zach Marquez MD
[2018-05-21 15:05] LABS: HEPATITIS B SURFACE AG Negative (NEGATIVE)
[2018-05-21 15:11] LABS: HEPATITIS A IGM NEGATIVE (NEGATIVE); HEPATITIS B CORE AB NEGATIVE (NEGATIVE)
[2018-05-21 15:22] LABS: HEPATITIS C ANTIBODY NEGATIVE (NEGATIVE)
--- NOTE | 2018-05-21 16:01 | PN ---
DATE: 05/21/2018 SUBJECTIVE: The patient is seen with his daughter. The patient refusing to take his meds and says he has absolutely no appetite. The patient is currently on Megace and Remeron. REVIEW OF SYSTEMS: GENERAL: The patient is more alert and verbal, seen with family, but looks clinically depressed. He says he has no appetite. Daughter was reporting that the patient was having some off and on periods of visual hallucinations. He said he was still seeing a wallet full of money. SKIN: No diaphoresis. HEENT: No headache or dizziness. NECK: Supple. RESPIRATORY: No dyspnea. CARDIOVASCULAR: No chest pain. GASTROINTESTINAL: He has poor appetite. No nausea or vomiting. EXTREMITIES: No tremors. Gait is unsteady. MUSCULAR: He still has generalized weakness. NEURO: Alert, oriented x3. He seems to be back to his baseline, but having occasional periods of hallucinations. PHYSICAL EXAMINATION: VITAL SIGNS: Temperature is 98.1, pulse rate 86, blood pressure is 123/71, respirations 18, oxygen saturation is 100%. MENTAL STATUS: Elderly male who is about 5 feet 6 inches and weighs 126 pounds, sitting in his room with his daughter. Mood is still depressed, anxious, somatic. Affect is reactive. Speech is spontaneous. Thought process coherent. Thought content: The patient states he has no appetite, no suicidal ideation. The patient is reporting intermittent periods of visual hallucinations, seeing a wallet full of money. Attention and memory seems to be fair. Insight and judgment fair. Impulse control is fair. LABORATORY DATA: The patient's B12 is 522. His total vitamin D is a little low at 25.5, folate is 15.2, TSH third generation is 1.16. The patient also had a biopsy done of the left lung, that showed no viable tumor. The patient has a lung mass in the left lung. The patient had chest x-ray done and showed worsening left pneumothorax. The patient is followed by Dr. Oro. His lab also showed that his liver function tests are elevated, AST is 134, ALT is 168 and alkaline phosphatase is 170. His last chest x-ray result showed no change in moderate left pneumothorax and persistent consolidation of left upper lobe. The patient still has significant symptoms of depression and has very poor appetite. IMPRESSION: History of delirium multifactorial as well as major depression and mood disorder secondary to medical problems. PLAN AND RECOMMENDATIONS: The patient seen, meds reviewed. We will stop the Megace for now as the patient has elevated liver function tests. We will continue the Remeron 7.5 mg at bedtime. The patient is followed by Dr. Oro for the patient's pulmonary problem, especially the patient's left-sided pneumothorax. Note, the patient is presenting with clinical depression and may have lung cancer. Small cell carcinoma is the most common lung cancer that can present initially as a depressive episode prior to the diagnosis of cancer although this patient's lung biopsy is negative and no viable tumor noted. We will readjust his meds accordingly, but for now we will cut down the Megace due to his elevated liver enzymes and just keep his Remeron 7.5 mg at bedtime. The patient has worsening left pneumothorax. We will hold off until his lung condition will improve and then suggest the patient may benefit from Marinol nstead of Megace to improve his appetite. We will follow up the patient's mental status accordingly. Richmond Emerson MD MTD[facility]
--- NOTE | 2018-05-21 16:42 | CP.PCM.PN ---
Subjective - Date & Time of Evaluation Date of Evaluation: 05/21/18 Time of Evaluation: 16:39 - Subjective Subjective: PT ALERT, NO SOB. OCC COUGH., NO DISTRESS +LEFT CT. ROS; OTHERWSIE NEG. Objective - Vital Signs/Intake and Output Vital Signs (last 24 hours): Temp Pulse Resp BP Pulse Ox 98.1 F 87 18 123/71 100 05/21/18 07:00 05/21/18 07:55 05/21/18 07:00 05/21/18 07:00 05/21/18 07:00 Intake and Output: 05/21/18 05/21/18 06:59 18:59 Intake Total 650 960 Output Total 200 Balance 650 760 - Medications Medications: Current Medications Al Hydrox/Mg Hydrox/Simethicone (Maalox Plus 30 Ml) 30 ml PO Q6 PRN PRN Reason: Indigestion / Heartburn Last Admin: 05/21/18 11:42 Dose: 30 ml Aspirin (Aspirin Chewable) 81 mg PO DAILY [facility] Last Admin: 05/21/18 10:24 Dose: 81 mg Clopidogrel Bisulfate (Plavix) 75 mg PO DAILY [facility] Last Admin: 05/21/18 10:24 Dose: 75 mg Clotrimazole (Mycelex Ryne) 10 mg PO TID [facility] Last Admin: 05/21/18 14:25 Dose: Not Given Famotidine (Pepcid) 20 mg PO BID [facility] Last Admin: 05/21/18 10:24 Dose: 20 mg Heparin Sodium (Porcine) (Heparin) 5,000 units SC Q12 [facility] Last Admin: 05/15/18 21:33 Dose: 5,000 units Piperacillin Sod/Tazobactam Sod (Zosyn 3.375 Gm Iv Premix) 3.375 gm in 50 mls @ 100 mls/hr IVPB Q8 [facility]; Protocol Last Admin: 05/21/18 13:46 Dose: 100 mls/hr Losartan Potassium (Cozaar) 25 mg PO DAILY [facility] Last Admin: 05/21/18 10:24 Dose: 25 mg Mirtazapine (Remeron) 7.5 mg PO HS [facility] Last Admin: 05/20/18 22:37 Dose: 7.5 mg Montelukast Sodium (Singulair) 10 mg PO DAILY [facility] Last Admin: 05/21/18 10:24 Dose: 10 mg - Labs Labs: 05/20/18 08:10 05/20/18 08:10 PT 15.8 SECONDS (9.7-12.2) H 05/14/18 19:37 INR 1.4 05/14/18 19:37 APTT 30 SECONDS (21-34) 05/14/18 19:37 - Constitutional Appears: No Acute Distress, Chronically Ill - Head Exam Head Exam: ATRAUMATIC, NORMOCEPHALIC - Eye Exam Eye Exam: EOMI, Normal appearance - ENT Exam ENT Exam: Mucous Membranes Moist - Neck Exam Neck Exam: Normal Inspection - Respiratory Exam Respiratory Exam: absent: Accessory Muscle Use, Wheezes, Respiratory Distress Additional comments: +LEFT CT - Cardiovascular Exam Cardiovascular Exam: RRR, +S1, +S2 - GI/Abdominal Exam GI & Abdominal Exam: Soft. absent: Tenderness - Rectal Exam Rectal Exam: Deferred - Extremities Exam Extremities Exam: absent: Calf Tenderness, Pedal Edema - Back Exam Back Exam: absent: CVA tenderness (L), CVA tenderness (R) - Neurological Exam Neurological Exam: Alert, Awake, CN II-XII Intact, Oriented x3 - Psychiatric Exam Psychiatric exam: Depressed - Skin Skin Exam: absent: Rash Assessment and Plan (1) COPD exacerbation Status: Acute (2) Dehydration Status: Acute (3) Cachexia Status: Acute (4) Respiratory failure Status: Acute (5) Near syncope Status: Acute (6) Esophageal reflux Status: Acute (7) Hypertension Status: Acute (8) Lung mass Status: Acute (9) Weight loss Status: Acute - Assessment and Plan (Free Text) Assessment: RESP STATUS STABLE S/P LEFT CT PLACEMENT FOR INCREASED LEFT PTX~30%. CXR REVIEWED. CONT PULM TOILET, MONITOR O2 SAT, TOLERATING O2 4L. LUNG BX PATH NONDIAGNOSTIC. TO DISCUSS WITH THORACIC POSS MEDIASTINOSCOPY. PROG POOR. DI SCUSSED WITH STAFF AT LENGTH AND FAMILY AT BEDSIDE.
[2018-05-22] MEDS: Sodium Chloride 0.9% 1,000 ML IV SCH (02:35)
[2018-05-22] MEDS: Piperacill/Tazo 3.375gm in Dex 3.375 GM/50 ML BAG IVPB SCH ×3 (05:44→21:51)
[2018-05-22 07:27] LABS: BASO % 0.6 % (0.0-2.0); EOS # 0.2 K/uL (0.0-0.7); EOS % 2.8 % (0.0-4.0); HEMOGLOBIN 10.8 g/dL (12.0-18.0); LYMPH # 1.5 K/uL (1.0-4.3); LYMPH % 17.8 % (20.0-40.0); MEAN CELL VOLUME 82.8 fL (80.0-94.0); MEAN CORPUSCULAR HEMOGLOBIN 28.2 pg (27.0-31.0); MEAN CORPUSCULAR HGB CONC 34.1 g/dL (33.0-37.0); MEAN PLATELET VOLUME 7.5 fL (7.2-11.7); MONO # 0.6 K/uL (0.0-0.8); MONO % 7.2 % (0.0-10.0); NEUT # 5.9 K/uL (1.8-7.0); NEUT % 71.6 % (50.0-75.0); RBC 3.81 Mil/uL (4.40-5.90); RED CELL DISTRIBUTION WIDTH 15.3 % (11.5-14.5); WHITE BLOOD COUNT 8.2 K/uL (4.8-10.8)
[2018-05-22 08:28] LABS: ALB/GLOB RATIO 0.8 (1.0-2.1); ALBUMIN 2.8 g/dL (3.5-5.0); ALT/SGPT 147 U/L (21-72); AST/SGOT 65 U/L (17-59); BLOOD UREA NITROGEN 8 mg/dL (9-20); CALCIUM 8.9 mg/dl (8.6-10.4); GFR NON-AFRICAN AMERICAN > 60
--- NOTE | 2018-05-22 08:50 | RAD ---
Date of service: 05/22/2018 HISTORY: follow up post left pigtail insertion COMPARISON: 05/21/2018 FINDINGS: LUNGS: The prior left paramediastinal/upper lobe dense consolidation is currently less dense and less discrete-partial re-expansion partial improved aeration here is inferred.. Here an underlying left lung mass has been referenced and the biopsied. Asymmetrically elevated left hemidiaphragm-similar. No interval right lung pathology seen. Right lung clear. PLEURA: No significant pleural effusion identified,. The size of the prior left superior pneumothorax is currently less. Interval insertion of a pigtail catheter core projecting over left mid lung zone noted. No mediastinal shift seen. Interval vague left lateral mid lung zone pleural base opacity inferred as changes associated with interval catheter insertion here. CARDIOVASCULAR: There is presence of aortic atherosclerotic calcification on x-ray. Ectatic unfolded thoracic aorta similar Normal cardiac size. No pulmonary vascular congestion. OSSEOUS STRUCTURES: No significant abnormalities. VISUALIZED UPPER ABDOMEN: Normal. OTHER FINDINGS: None. IMPRESSION: Interval decrease in size of the left apical pneumothorax. Interval improved aeration left upper lobe. Interval insertion left chest catheter-as above. Other findings as above.
--- NOTE | 2018-05-22 08:54 | CP.PCM.PN ---
Subjective - Date & Time of Evaluation Date of Evaluation: 05/22/18 Time of Evaluation: 08:51 - Subjective Subjective: PT ALERT, LESS SOB,.+COUGH NOT EATING. ROS; OTHERWISE NEG Objective - Vital Signs/Intake and Output Vital Signs (last 24 hours): Temp Pulse Resp BP Pulse Ox 97.8 F 80 18 123/66 99 05/22/18 07:00 05/22/18 07:00 05/22/18 07:00 05/22/18 07:00 05/22/18 07:00 Intake and Output: 05/22/18 05/22/18 06:59 18:59 Intake Total 770 Output Total 400 Balance 370 - Medications Medications: Current Medications Al Hydrox/Mg Hydrox/Simethicone (Maalox Plus 30 Ml) 30 ml PO Q6 PRN PRN Reason: Indigestion / Heartburn Last Admin: 05/21/18 11:42 Dose: 30 ml Aspirin (Aspirin Chewable) 81 mg PO DAILY [facility] Last Admin: 05/21/18 10:24 Dose: 81 mg Clopidogrel Bisulfate (Plavix) 75 mg PO DAILY [facility] Last Admin: 05/21/18 10:24 Dose: 75 mg Clotrimazole (Mycelex Ryne) 10 mg PO TID [facility] Last Admin: 05/21/18 17:24 Dose: 10 mg Famotidine (Pepcid) 20 mg PO BID [facility] Last Admin: 05/21/18 17:24 Dose: 20 mg Heparin Sodium (Porcine) (Heparin) 5,000 units SC Q12 [facility] Last Admin: 05/15/18 21:33 Dose: 5,000 units Piperacillin Sod/Tazobactam Sod (Zosyn 3.375 Gm Iv Premix) 3.375 gm in 50 mls @ 100 mls/hr IVPB Q8 [facility]; Protocol Last Admin: 05/22/18 05:44 Dose: 100 mls/hr Losartan Potassium (Cozaar) 25 mg PO DAILY [facility] Last Admin: 05/21/18 10:24 Dose: 25 mg Mirtazapine (Remeron) 7.5 mg PO HS [facility] Last Admin: 05/21/18 22:29 Dose: 7.5 mg Montelukast Sodium (Singulair) 10 mg PO DAILY [facility] Last Admin: 05/21/18 10:24 Dose: 10 mg - Labs Labs: 05/22/18 07:22 12/04/18 07:22 PT 15.8 SECONDS (9.7-12.2) H 05/14/18 19:37 INR 1.4 05/14/18 19:37 APTT 30 SECONDS (21-34) 05/14/18 19:37 - Constitutional Appears: No Acute Distress, Chronically Ill - Head Exam Head Exam: ATRAUMATIC, NORMOCEPHALIC - Eye Exam Eye Exam: EOMI, Normal appearance - ENT Exam ENT Exam: Mucous Membranes Moist - Neck Exam Neck Exam: Normal Inspection - Respiratory Exam Respiratory Exam: Decreased Breath Sounds. absent: Accessory Muscle Use, Wheezes, Respiratory Distress - Cardiovascular Exam Cardiovascular Exam: RRR, +S1, +S2 - GI/Abdominal Exam GI & Abdominal Exam: Soft. absent: Tenderness - Rectal Exam Rectal Exam: Deferred - Extremities Exam Extremities Exam: absent: Calf Tenderness, Pedal Edema - Back Exam Back Exam: absent: CVA tenderness (L), CVA tenderness (R) - Neurological Exam Neurological Exam: Alert, Awake, CN II-XII Intact, Oriented x3 - Psychiatric Exam Psychiatric exam: Depressed - Skin Skin Exam: absent: Rash Assessment and Plan (1) COPD exacerbation Status: Acute (2) Dehydration Status: Acute (3) Cachexia Status: Acute (4) Respiratory failure Status: Acute (5) Near syncope Status: Acute (6) Esophageal reflux Status: Acute (7) Hypertension Status: Acute (8) Lung mass Status: Acute (9) Weight loss Status: Acute - Assessment and Plan (Free Text) Assessment: RESP STATUS COMFORTABLE AT REST., +LEFT CT IN PLACE., CONT PULM TOILET., NEB B D., CXR REVIEWED; MONITOR O2 SAT. PROG POOR. DISCUSSED WITH STAFF AT LENGTH.
--- NOTE | 2018-05-22 12:57 | CT ---
PROCEDURE: Date of procedure:05/21/2018 Procedure: 1. Placement of a left chest tube with CT guidance. Medications: 8CC 1 percent lidocaine, HISTORY: Left pneumothorax, shortness of breath. TECHNIQUE: Following informed consent and procedure time-out, the patient was placed supine on the CT table in noncontrast CT performed. CT scan showed a moderate left pneumothorax. Left upper lobe lung mass again seen. A skin localizer was placed and patient chest a repeat CT scan performed. The anterior chest wall was marked and prepped in the usual sterile fashion. After the skin was anesthetized with lidocaine, a [place] catheter was advanced into the pleural space. The catheter was exchanged over an 035 guidewire and tract was dilated to accommodate a 8.5 Burmese pigtail catheter formed within the pleural space. The pleural drainage catheter was attached to wall suction. Repeat CT scan showed resolved pneumothorax. A xeroform dressing was applied. IMPRESSION: Placement of an 8.5 Burmese left chest tube for pneumothorax. There were no immediate complications.
--- NOTE | 2018-05-22 15:38 | PN ---
DATE: 05/22/2018 SUBJECTIVE: The patient underwent a left side chest tube placement yesterday. He is still depressed, only drank Ensure. Does not appear to be in respiratory distress at this time. PHYSICAL EXAMINATION: VITAL SIGNS: Blood pressure 123/56, heart rate 80, and temperature 97.8, respirations 18. HEENT: Pale conjunctivae. CHEST: Absent breath sounds over left apex. HEART: S1 and S2, regular. EXTREMITIES: No edema. LABORATORY DATA: Today's hemoglobin and hematocrit 10.8 and 31.6, white count 8.2, platelet count 489,000. Today's SMA-7 sodium 136, potassium 4, chloride 106, CO2 of 20, glucose 83, BUN 8, creatinine 0.5. ASSESSMENT: 1. Left pneumothorax status post 8-Belarusian pigtail catheter placed in the left pleural space. 2. Lungs mass. 3. Status post hypotensive episode. 4. Anemia. 5. Elevated liver enzymes. RECOMMENDATIONS: Continue aspirin 81 mg once a day, Cozaar 25 mg once a day, Plavix 75 mg once a day, subcutaneous heparin is on hold. Continue Zosyn 3.375 g intravenously every 8 hours. Case was discussed yesterday and today with Dr. Emerson,, primary physician and when discussed with the patient's daughter at the bedside, she elected not to pursue an open lung biopsy for now because of his poor overall condition. I will further discuss the case back with Dr. Emerson,. Zach Marquez MD
[2018-05-22] MEDS: Dextrose 5%/0.45% NS 1,000 ML IV SCH (16:04)
--- NOTE | 2018-05-22 16:36 | PN ---
DATE: 05/22/2018 SUBJECTIVE: The patient is seen with his daughter. The patient is back to his baseline. He is alert, but feeling weak and only drinking Ensure. He says he has no appetite. Labs reviewed. His liver function test seems to be improving, especially the ALT has decreased after off Megace. Case discussed with , the patient's primary attending. The patient still has very poor p.o. intake and has depression. We will start, on Provigil to improve his mood and alertness instead of Marinol and increase the dose of Remeron. We will put the patient on Provigil and Remeron combination. The patient is still undergoing pulmonary diagnostic test as the patient is high risk for cancer. His compliance is still variable. PHYSICAL EXAMINATION: VITAL SIGNS: Temperature is 97.8, pulse rate 94, blood pressure 123/66, respirations 18, oxygen saturation is 99%. REVIEW OF SYSTEMS: GENERAL: The patient is seen in his room resting in a Cyn chair. SKIN: No diaphoresis. HEENT: No headache. No dizziness. NECK: Supple. RESPIRATORY: No acute respiratory distress. CARDIOVASCULAR: No chest pain. GASTROINTESTINAL: He has a very poor appetite. No nausea or vomiting. EXTREMITIES: Gait is unsteady. MUSCULOSKELETAL: Feels weak. NEUROLOGICAL: Alert, oriented x3. He is back to his baseline. GENITOURINARY: No problems. MENTAL STATUS: Cachectic-looking male who looks stated age, oriented x3. Mood is depressed, somatic. Affect is reactive. Speech is spontaneous. Thought process coherent. Thought content, still has very poor appetite. No psychosis. No suicidal or homicidal ideation. Attention and memory seems to be fair. Insight and judgment fair. Impulse control is fair. IMPRESSION: History of delirium resolved as well as depression and mood disorder secondary to possible lung carcinoma. PLAN AND RECOMMENDATIONS: The patient seen, meds reviewed. Continue present management. The patient is followed by Dr. Oro. We will put the patient on Provigil 100 mg in the morning and increase the dose of Remeron to 15 mg at bedtime. We will monitor his p.o. intake. Continue treatment plan as outlined. We will continue also his enteral supplements. Richmond Emerson MD [facility] # [id number] [facility]TD[facility]
--- NOTE | 2018-05-23 01:24 | PN ---
DATE: 05/22/2018 SUBJECTIVE: The patient was seen today early this morning, out of bed to chair. The patient is somewhat depressed but in no apparent distress. PHYSICAL EXAMINATION: VITAL SIGNS: The patient has a blood pressure of 109/64, pulse is 98, respiratory rate 20, temperature 97.6. HEENT: Eyes PERRLA. Conjunctivae pinkish. NECK: Supple. No JVD. LUNGS: Some rales bilaterally as before. CHEST: The patient also has a chest tube in the left hemithorax. HEART: Regular rate and rhythm. ABDOMEN: Soft. Nontender. EXTREMITIES: There is no edema. PSYCHIATRIC: The patient looks depressed. ASSESSMENT AND PLAN: The case was discussed with the daughter and suggestion was recommended to do a biopsy of the lung mass, and the case is in discussion with psychiatrist and final inspector truck trailer, and also the thoracic surgeon will be contacted but in fact during this conversation with the family and with the daughter, she explains that the patient does not show any obligation at this point. In view of the lung biopsy, the patient had somewhat three days of hallucination; however, we are going to continue to do the possibilities we have and continue current conservative treatment. Kyle Aldana MD
[2018-05-23] MEDS: Piperacill/Tazo 3.375gm in Dex 3.375 GM/50 ML BAG IVPB SCH ×3 (06:23→21:18)
--- NOTE | 2018-05-23 06:26 | PN ---
DATE: 05/21/2018 For today, I am resuming the service as I was apparently on vacation for a few days. I was covered by Dr. Marquez. SUBJECTIVE: Today, the patient was seen in the evening. The patient was alert and awake, but as per daughter, the patient is anorexic and depressed. During the period I was away, the patient had a left lung biopsy done and that was due to having pneumothorax. The patient is now being on a chest tube. However, the patient is asymptomatic . PHYSICAL EXAMINATION: VITAL SIGNS: Blood pressure is 118/69, pulse 92, respirations 20, and temperature 98 degrees Fahrenheit. The patient is getting a little more weight than at the time of admission. NECK: Supple. LUNGS: There are some rales bilaterally, and there is chest tube on the left side functioning. ABDOMEN: Soft and nontender. EXTREMITIES: There is no edema. There is tenderness . LABORATORY DATA: The patient's blood test showed that WBC 8.8, hemoglobin is 10.8, hematocrit 31.6, platelet is 516. Chemistries showed sodium 134, potassium 4.4, chloride 102, bicarb 24, BUN 7, creatinine 0.6. AST 134, ALT is 58, and alkaline phosphatase 170 . PLAN: Case was discussed with Dr. Marquez. I want to do a biopsy Dr. Marquez, and we will consider surgical and cardiothoracic consult. Kyle Aldana MD
--- NOTE | 2018-05-23 09:39 | CP.PCM.PN ---
Subjective - Date & Time of Evaluation Date of Evaluation: 05/23/18 Time of Evaluation: 09:36 - Subjective Subjective: PT ALERT, OOB IN CHAIR., NO SOB. +COUGH. ROS; OTHERWISE NEG Objective - Vital Signs/Intake and Output Vital Signs (last 24 hours): Temp Pulse Resp BP Pulse Ox 98 F 88 18 123/68 95 05/23/18 07:00 05/23/18 07:00 05/23/18 07:00 05/23/18 07:00 05/23/18 07:00 Intake and Output: 05/23/18 05/23/18 06:59 18:59 Intake Total 754 Output Total 45 Balance 709 - Medications Medications: Current Medications Al Hydrox/Mg Hydrox/Simethicone (Maalox Plus 30 Ml) 30 ml PO Q6 PRN PRN Reason: Indigestion / Heartburn Last Admin: 05/21/18 11:42 Dose: 30 ml Aspirin (Aspirin Chewable) 81 mg PO DAILY [facility] Last Admin: 05/22/18 09:53 Dose: 81 mg Clopidogrel Bisulfate (Plavix) 75 mg PO DAILY [facility] Last Admin: 05/22/18 09:53 Dose: 75 mg Clotrimazole (Mycelex Ryne) 10 mg PO TID [facility] Last Admin: 05/22/18 18:03 Dose: 10 mg Famotidine (Pepcid) 20 mg PO BID [facility] Last Admin: 05/22/18 18:03 Dose: 20 mg Heparin Sodium (Porcine) (Heparin) 5,000 units SC Q12 [facility] Last Admin: 05/15/18 21:33 Dose: 5,000 units Piperacillin Sod/Tazobactam Sod (Zosyn 3.375 Gm Iv Premix) 3.375 gm in 50 mls @ 100 mls/hr IVPB Q8 [facility]; Protocol Last Admin: 05/23/18 06:23 Dose: 100 mls/hr Dextrose/Sodium Chloride (Dextrose 5%/0.45% Ns 1000 Ml) 1,000 mls @ 50 mls/hr IV .Q20H [facility] Last Admin: 05/22/18 16:04 Dose: 50 mls/hr Losartan Potassium (Cozaar) 25 mg PO DAILY [facility] Last Admin: 05/22/18 09:53 Dose: 25 mg Mirtazapine (Remeron) 15 mg PO HS [facility] Last Admin: 05/22/18 21:51 Dose: 15 mg Modafinil (Provigil) 100 mg PO DAILY [facility] Montelukast Sodium (Singulair) 10 mg PO DAILY [facility] Last Admin: 05/22/18 09:53 Dose: 10 mg - Labs Labs: 05/22/18 07:22 05/22/18 07:22 PT 15.8 SECONDS (9.7-12.2) H 05/14/18 19:37 INR 1.4 05/14/18 19:37 APTT 30 SECONDS (21-34) 05/14/18 19:37 - Constitutional Appears: No Acute Distress, Cachectic, Chronically Ill - Head Exam Head Exam: ATRAUMATIC, NORMOCEPHALIC - Eye Exam Eye Exam: EOMI, Normal appearance - ENT Exam ENT Exam: Mucous Membranes Moist - Neck Exam Neck Exam: Normal Inspection - Respiratory Exam Respiratory Exam: Decreased Breath Sounds. absent: Accessory Muscle Use, Wheezes, Respiratory Distress - Cardiovascular Exam Cardiovascular Exam: RRR, +S1, +S2 - GI/Abdominal Exam GI & Abdominal Exam: Soft. absent: Tenderness - Rectal Exam Rectal Exam: Deferred - Extremities Exam Extremities Exam: absent: Calf Tenderness, Pedal Edema - Back Exam Back Exam: absent: CVA tenderness (L), CVA tenderness (R) - Neurological Exam Neurological Exam: Alert, Awake, CN II-XII Intact - Psychiatric Exam Psychiatric exam: Normal Mood - Skin Skin Exam: absent: Rash Assessment and Plan (1) COPD exacerbation Status: Acute (2) Dehydration Status: Acute (3) Cachexia Status: Acute (4) Respiratory failure Status: Acute (5) Near syncope Status: Acute (6) Esophageal reflux Status: Acute (7) Hypertension Status: Acute (8) Lung mass Status: Acute (9) Weight loss Status: Acute - Assessment and Plan (Free Text) Assessment: RESP STATUS IMPROVING., CONT NEB BD., TOLERATING O2 4L , MONITOR O2 SAT. CXR REVIEWED. +LEFT CT . DEFER FURTHER W/U AT THIS TIME PER FAMILY DISCUSSION. ENCOURAGE PO INTAKE. PROG POOR. DISCUSSED WITH STAFF AT LENGTH AND FAMILY AT BEDSIDE.
[2018-05-23] MEDS: Dextrose 5%/0.45% NS 1,000 ML IV SCH (12:51)
--- NOTE | 2018-05-23 19:36 | PN ---
DATE: 05/23/2018 SUBJECTIVE: The patient seen. The patient is feeling very weak and absolutely has almost zero appetite. The patient, according to the daughter, drank a third of the one bottle of Ensure. The patient still has chest tube, but not having any pulmonary problems, but continues to have very poor p.o. intake. The patient is currently on Remeron and Provigil. PHYSICAL EXAMINATION: VITAL SIGNS: Temperature 98, pulse 88, blood pressure 123/68, respirations 18, oxygen saturations 95%. REVIEW OF SYSTEMS: GENERAL: The patient is alert, but feeling very weak. He has poor appetite. Seen in his room with his family. SKIN: No diaphoresis. HEENT: No headache or dizziness. NECK: Supple. RESPIRATORY: Not in acute respiratory distress. The patient has history of pneumothorax and having chest tube. CARDIOVASCULAR: No palpitations. GASTROINTESTINAL: The patient has very poor appetite. No nausea, no vomiting. EXTREMITIES: Gait is unsteady. No tremors. MUSCULOSKELETAL: Feels weak. NEURO: Alert and oriented x3. GENITOURINARY: No dysuria. MENTAL STATUS EXAMINATION: A frail-looking male who looks cachectic, oriented x3. Mood is depressed, somatic. Affect is reactive. Speech is spontaneous. Thought process is coherent. Thought content: The patient states he has no appetite. No psychosis. No suicidal or homicidal ideation. Attention and memory seem to be fair. Insight and judgement are fair. Impulse control is fair. IMPRESSION: History of delirium, as well as depression and mood disorder secondary to medical problems. PLAN AND RECOMMENDATIONS: The patient seen, meds reviewed. Continue Provigil and Remeron as ordered. Continue treatment plan as outlined. We will monitor his p.o. intake. I do suggest if the patient can have some parenteral nutrition as the patient's p.o. intake is almost zero. The patient is not eating for the last few weeks and has lost over 60 pounds. He may benefit from parenteral nutrition support, to continue. Family is trying to encourage him to eat, but still refusing to eat. Richmond Emerson MD
--- NOTE | 2018-05-23 21:52 | PN ---
DATE: 05/23/2018 SUBJECTIVE: The patient is sitting on a chair. His and daughter are at the bedside. No chest pain. No reported arrhythmia. He still has very poor appetite and he only drank Ensure. PHYSICAL EXAMINATION: VITAL SIGNS: Blood pressure 111/64, heart rate 80, temperature 97.7, respirations 20. HEENT: Pale conjunctivae. CHEST: Bilateral rhonchi. HEART: S1, S2 regular. EXTREMITIES: No edema. LABORATORY DATA: I reviewed the recreational vehicle repairer's assessment, which is respiratory status improving. Continue nebulizer, correcting O2 at 4 L. Defer further workup at this time as per family. ASSESSMENT AND PLAN: 1. Near-syncopal episode upon presentation. 2. Lung mass, consider underlying malignancy. 3. Chronic obstructive lung disease. 4. Anorexia. 5. Mild anemia. 6. Elevated liver enzymes. 7. Left pneumothorax, status post pigtail catheter placement. RECOMMENDATIONS: I agree with the current assessment of Dr. Oro, the recreational vehicle repairer. Continue conservative medical approach including aspirin 81 mg once a day, Cozaar 25 mg once a day, resume subcutaneous heparin if the patient cleared from the pulmonary point of view. Continue Plavix 75 mg once a day, Zosyn at 3.375 g intravenously every 8 hours. Discontinue telemetry. Zach Marquez MD
--- NOTE | 2018-05-23 22:32 | CP.PCM.PN ---
Subjective - Date & Time of Evaluation Date of Evaluation: 05/23/18 Time of Evaluation: 07:00 - Subjective Subjective: seen on rounds family at bedside Chest tube in place Objective - Vital Signs/Intake and Output Vital Signs (last 24 hours): Temp Pulse Resp BP Pulse Ox 97.7 F 86 20 111/64 98 05/23/18 15:00 05/23/18 16:20 05/23/18 15:00 05/23/18 15:00 05/23/18 15:00 Intake and Output: 05/23/18 05/24/18 18:59 06:59 Intake Total 460 450 Output Total 10 400 Balance 450 50 - Medications Medications: Current Medications Al Hydrox/Mg Hydrox/Simethicone (Maalox Plus 30 Ml) 30 ml PO Q6 PRN PRN Reason: Indigestion / Heartburn Last Admin: 05/21/18 11:42 Dose: 30 ml Aspirin (Aspirin Chewable) 81 mg PO DAILY [facility] Last Admin: 05/23/18 09:35 Dose: 81 mg Clopidogrel Bisulfate (Plavix) 75 mg PO DAILY [facility] Last Admin: 05/23/18 09:36 Dose: 75 mg Clotrimazole (Mycelex Ryne) 10 mg PO TID [facility] Last Admin: 05/23/18 18:14 Dose: 10 mg Famotidine (Pepcid) 20 mg PO BID [facility] Last Admin: 05/23/18 18:13 Dose: 20 mg Heparin Sodium (Porcine) (Heparin) 5,000 units SC Q12 [facility] Last Admin: 05/15/18 21:33 Dose: 5,000 units Piperacillin Sod/Tazobactam Sod (Zosyn 3.375 Gm Iv Premix) 3.375 gm in 50 mls @ 100 mls/hr IVPB Q8 [facility]; Protocol Last Admin: 05/23/18 21:18 Dose: 100 mls/hr Dextrose/Sodium Chloride (Dextrose 5%/0.45% Ns 1000 Ml) 1,000 mls @ 50 mls/hr IV .Q20H [facility] Last Admin: 05/23/18 12:51 Dose: 50 mls/hr Losartan Potassium (Cozaar) 25 mg PO DAILY [facility] Last Admin: 05/23/18 09:35 Dose: 25 mg Mirtazapine (Remeron) 15 mg PO HS [facility] Last Admin: 05/23/18 21:18 Dose: 15 mg Modafinil (Provigil) 100 mg PO DAILY [facility] Last Admin: 05/23/18 09:41 Dose: 100 mg Montelukast Sodium (Singulair) 10 mg PO DAILY [facility] Last Admin: 05/23/18 09:35 Dose: 10 mg - Labs Labs: 05/22/18 07:22 05/22/18 07:22 PT 15.8 SECONDS (9.7-12.2) H 05/14/18 19:37 INR 1.4 05/14/18 19:37 APTT 30 SECONDS (21-34) 05/14/18 19:37 - Constitutional Appears: Non-toxic - Head Exam Head Exam: NORMOCEPHALIC - Eye Exam Eye Exam: PERRL - ENT Exam ENT Exam: Mucous Membranes Dry - Neck Exam Neck Exam: absent: Normal Inspection - Respiratory Exam Respiratory Exam: Decreased Breath Sounds, Prolonged Expiratory Phase, Rhonchi - Cardiovascular Exam Cardiovascular Exam: REGULAR RHYTHM, +S1, +S2 - GI/Abdominal Exam GI & Abdominal Exam: Distended, Soft - Rectal Exam Rectal Exam: Deferred - Exam Exam: NORMAL INSPECTION - Extremities Exam Extremities Exam: absent: Calf Tenderness - Back Exam Back Exam: absent: CVA tenderness (L), CVA tenderness (R), rash noted - Neurological Exam Neurological Exam: Alert, CN II-XII Intact - Psychiatric Exam Psychiatric exam: Depressed - Skin Skin Exam: Dry Assessment and Plan (1) COPD exacerbation Status: Acute (2) Dehydration Status: Acute (3) Leukocytosis Status: Acute - Assessment and Plan (Free Text) Assessment: renew iv rx chest tube in place
--- NOTE | 2018-05-23 23:23 | PN ---
DATE: 05/23/2018 SUBJECTIVE: Today, the patient was seen early this morning. Out of bed to chair. No shortness of breath. No apparent distress. However, the patient is still having anorexia, but somewhat improving. The patient appeared to have a better movement. PHYSICAL EXAMINATION: VITAL SIGNS: The patient has a blood pressure of 111/64, pulse 80, respiration 20, and temperature 97.7. NECK: Supple. No JVD. LUNGS: Some rales bilaterally. HEART: Regular rate and rhythm. ABDOMEN: Soft. Nontender. No palpable mass. EXTREMITIES: There is no edema. ASSESSMENT AND PLAN: The plan is that we are going to continue the current treatment and a chest x-ray tomorrow, and also we are going to get a blood work tomorrow. We are going to start the patient on physical therapy as soon as the chest tube is removed. Again, the case was discussed with the family and then with the daughter and no consideration for any intervention at this time for obtaining the biopsy of the mass in the lung. The case was reviewed and discussed with Pooja Meyers, the nurse practitioner. Kyle Aldana MD
[2018-05-24] MEDS: Piperacill/Tazo 3.375gm in Dex 3.375 GM/50 ML BAG IVPB SCH ×3 (05:12→21:46)
[2018-05-24 07:17] LABS: BASO # 0.1 K/uL (0.0-0.2); BASO % 0.6 % (0.0-2.0); EOS # 0.2 K/uL (0.0-0.7); HEMOGLOBIN 12.5 g/dL (12.0-18.0); LYMPH # 1.3 K/uL (1.0-4.3); LYMPH % 12.8 % (20.0-40.0); MEAN CELL VOLUME 83.2 fL (80.0-94.0); MEAN CORPUSCULAR HEMOGLOBIN 28.7 pg (27.0-31.0); MEAN CORPUSCULAR HGB CONC 34.4 g/dL (33.0-37.0); MEAN PLATELET VOLUME 7.7 fL (7.2-11.7); MONO # 0.8 K/uL (0.0-0.8); MONO % 7.4 % (0.0-10.0); NEUT # 7.8 K/uL (1.8-7.0); NEUT % 77.2 % (50.0-75.0); NRBC % 0.1 % (0.0-2.0); RBC 4.35 Mil/uL (4.40-5.90); RED CELL DISTRIBUTION WIDTH 15.3 % (11.5-14.5); WHITE BLOOD COUNT 10.1 K/uL (4.8-10.8)
[2018-05-24 07:28] LABS: BLOOD UREA NITROGEN 9 mg/dL (9-20); CALCIUM 9.2 mg/dl (8.6-10.4); GFR NON-AFRICAN AMERICAN > 60
[2018-05-24] MEDS: Dextrose 5%/0.45% NS 1,000 ML IV SCH (08:05)
[2018-05-24] MEDS: Alum-Mag Hydrox-Simethicone Susp (30 mL) PO PRN (09:24)
--- NOTE | 2018-05-24 12:49 | RAD ---
Date of service: 05/24/2018 HISTORY: F/U PNEUMOTHORAX COMPARISON: 05/22/2018 FINDINGS: LUNGS: The prior left paramediastinal/upper lobe consolidation appears more extensive the left upper and left mid lung zone than before. The left hemidiaphragm is inferred as elevated and left subdiaphragmatic bowel loops here noted. PLEURA: Small left pleural effusion inferred. The prior small left apical pneumothorax is not currently appreciated. The prior left [place] pigtail chest catheter at the mid left hemithoracic level is similar position. Left hemidiaphragm appears higher than before. Some respiratory splinting mild contiguous atelectatic changes here is possible. The prior left superomedial pleural thickening and blending left paramediastinal neoplastic opacity is hree noted. CARDIOVASCULAR: There is presence of aortic atherosclerotic calcification on x-ray. Normal cardiac size. No pulmonary vascular congestion. OSSEOUS STRUCTURES: Bilateral shoulder arthrosis VISUALIZED UPPER ABDOMEN: Normal. OTHER FINDINGS: None. IMPRESSION: The prior left apical pneumothorax is not appreciated on this exam. No change in left chest tube positioning. Interval increased diffuse opacity of the superior left hemithorax.; Interval increased-progressive infiltrate and/or atelectasis in the prior neoplastic area is 1 consideration. Interval pleural base pathology seen on end is another. The left superomedial visceral pleural thickening and blending left paramediastinal/left suprahilar neoplastic opacity are re-noted Interval atelectatic changes/left hemidiaphragm elevation noted. Left chest tube associated respiratory splinting is 1 consideration. Follow-up recommended.
--- NOTE | 2018-05-24 19:41 | CP.PCM.PN ---
Subjective - Date & Time of Evaluation Date of Evaluation: 05/24/18 Time of Evaluation: 19:38 - Subjective Subjective: PT RESTING COMFORTABLY. NO SOB. HAD ENSURE TODAY. ROS; OTHERWISE NEG. Objective - Vital Signs/Intake and Output Vital Signs (last 24 hours): Temp Pulse Resp BP Pulse Ox 98.2 F 85 20 106/61 99 05/24/18 16:30 05/24/18 16:30 05/24/18 16:30 05/24/18 16:30 05/24/18 16:30 - Medications Medications: Current Medications Al Hydrox/Mg Hydrox/Simethicone (Maalox Plus 30 Ml) 30 ml PO Q6 PRN PRN Reason: Indigestion / Heartburn Last Admin: 05/24/18 09:24 Dose: 30 ml Aspirin (Aspirin Chewable) 81 mg PO DAILY [facility] Last Admin: 05/24/18 09:22 Dose: 81 mg Clopidogrel Bisulfate (Plavix) 75 mg PO DAILY [facility] Last Admin: 05/24/18 09:21 Dose: 75 mg Clotrimazole (Mycelex Ryne) 10 mg PO TID [facility] Last Admin: 05/24/18 17:40 Dose: 10 mg Famotidine (Pepcid) 20 mg PO BID [facility] Last Admin: 05/24/18 17:40 Dose: 20 mg Heparin Sodium (Porcine) (Heparin) 5,000 units SC Q12 [facility] Last Admin: 05/15/18 21:33 Dose: 5,000 units Piperacillin Sod/Tazobactam Sod (Zosyn 3.375 Gm Iv Premix) 3.375 gm in 50 mls @ 100 mls/hr IVPB Q8 [facility]; Protocol Last Admin: 05/24/18 13:24 Dose: 100 mls/hr Dextrose/Sodium Chloride (Dextrose 5%/0.45% Ns 1000 Ml) 1,000 mls @ 50 mls/hr IV .Q20H [facility] Last Admin: 05/24/18 08:05 Dose: 50 mls/hr Losartan Potassium (Cozaar) 25 mg PO DAILY [facility] Last Admin: 05/24/18 09:22 Dose: 25 mg Mirtazapine (Remeron) 15 mg PO HS [facility] Last Admin: 05/23/18 21:18 Dose: 15 mg Modafinil (Provigil) 100 mg PO DAILY [facility] Last Admin: 05/24/18 09:22 Dose: 100 mg Montelukast Sodium (Singulair) 10 mg PO DAILY [facility] Last Admin: 05/24/18 09:23 Dose: 10 mg - Labs Labs: 05/24/18 07:06 05/24/18 07:06 PT 15.8 SECONDS (9.7-12.2) H 05/14/18 19:37 INR 1.4 05/14/18 19:37 APTT 30 SECONDS (21-34) 05/14/18 19:37 - Constitutional Appears: No Acute Distress, Cachectic, Chronically Ill - Head Exam Head Exam: ATRAUMATIC, NORMOCEPHALIC - Eye Exam Eye Exam: EOMI, Normal appearance - ENT Exam ENT Exam: Mucous Membranes Dry - Neck Exam Neck Exam: Normal Inspection - Respiratory Exam Respiratory Exam: Decreased Breath Sounds. absent: Respiratory Distress Additional comments: +LEFT CT - Cardiovascular Exam Cardiovascular Exam: RRR, +S1, +S2 - GI/Abdominal Exam GI & Abdominal Exam: Soft. absent: Tenderness - Rectal Exam Rectal Exam: Deferred - Extremities Exam Extremities Exam: absent: Calf Tenderness, Pedal Edema - Back Exam Back Exam: absent: CVA tenderness (L), CVA tenderness (R) - Neurological Exam Neurological Exam: Alert, Awake, CN II-XII Intact - Psychiatric Exam Psychiatric exam: Depressed - Skin Skin Exam: absent: Rash Assessment and Plan (1) COPD exacerbation Status: Acute (2) Dehydration Status: Acute (3) Cachexia Status: Acute (4) Respiratory failure Status: Acute (5) Near syncope Status: Acute (6) Esophageal reflux Status: Acute (7) Hypertension Status: Acute (8) Lung mass Status: Acute (9) Weight loss Status: Acute - Assessment and Plan (Free Text) Assessment: RESP STATUS NO SIG CHANGE., CONT PULM TOILET., LEFT CT +. CXR REVIEWED, RESOLVING PTX. ADEQ OXYGENATION. ENCOURAGE PO INTAKE. PROG POOR. DISCUSSED WITH STAFF AND FAMILY AT BEDSIDE.
--- NOTE | 2018-05-24 22:22 | PN ---
DATE: 05/24/2018 SUBJECTIVE: According to the patient's daughter at the bedside, the patient was feeling dizzy today. He has a very poor appetite, only drank Ensure. No chest pain. PHYSICAL EXAMINATION: VITAL SIGNS: Blood pressure 136/68, heart rate 84, temperature 97.8, and respirations 18. HEENT: Normocephalic. CHEST: Diminished breath sounds around the bases. HEART: S1, S2. Regular. EXTREMITIES: Significant muscle wasting. LABORATORY DATA: Hemoglobin and hematocrit 12.5 and 36.2, white count 10.1, and platelet count 574,000. Today's SMA-7 is within normal limits except for creatinine 0.6. Today's chest x-ray, the prior apical pneumothorax is not appreciated on the exam. Interval increased diffuse opacity of the superior left hemothorax, interval increased progressive infiltrate, and/or atelectasis and prior neoplastic area. ASSESSMENT: 1. Lung mass. 2. Resolving left apical pneumothorax. 3. Atelectatic changes and left hemidiaphragmatic elevation. 4. Left chest tube associated respiratory splinting is a consideration. RECOMMENDATIONS: Continue current aspirin 81 mg once a day, Cozaar 25 mg once a day, Plavix 75 mg once a day, Zosyn at 3.375 g intravenously every 8 hours. The option of nasogastric tube feeding was discussed with the patient via interpretation and his answer was he will think about it. Zach Marquez MD
[2018-05-25] MEDS: Piperacill/Tazo 3.375gm in Dex 3.375 GM/50 ML BAG IVPB SCH ×3 (05:05→21:18)
[2018-05-25] MEDS: Dextrose 5%/0.45% NS 1,000 ML IV SCH (06:40)
--- NOTE | 2018-05-25 07:29 | PN ---
DATE: 05/24/2018 SUBJECTIVE: Today, the patient is more alert and awake. The patient was found to be out of bed to chair. Has no shortness of breath. PHYSICAL EXAMINATION: VITAL SIGNS: The patient has a blood pressure of 126/68, pulse 84, respirations 18, temperature 97.8. NECK: Supple. LUNGS: Rales bilaterally. HEART: Regular rate and rhythm. ABDOMEN: Soft, nontender. No palpable mass. EXTREMITIES: No edema. LABORATORY DATA: Lab showed WBC 10.1, hemoglobin is 12.5, hematocrit 36.2, and platelet is 574. Chemistry showed a sodium of 134, potassium 4.3, chloride 101, bicarb is 24, BUN is 9, creatinine 0.6, and calcium 9.2. Sputum culture is positive for Klebsiella pneumoniae and sensitive to Zosyn. The patient is already on Zosyn. ASSESSMENT AND PLAN: Again, the plan is to continue the antibiotic therapy. We will continue to follow up the x-ray. The chest x-ray has shown prior small left apical pneumothorax, is not currently appreciated. The prior left [place] pigtail chest catheter in the mid left hemithorax is in similar position. The left hemidiaphragm appears higher than before and is possible. Again, the plan is to continue antibiotic therapy. We will consider to removing the chest tube and start the physical therapy. The case was reviewed and discussed with Pooja Meyers, the nurse practitioner. Kyle Aldana MD
--- NOTE | 2018-05-25 10:46 | RAD ---
Date of service: 05/25/2018 HISTORY: s/p removal of chest tube COMPARISON: 05/24/2018 FINDINGS: LUNGS: No definite consolidation. PLEURA: Blunting of left costophrenic angle. Likely small pleural effusion. There is left apical pleural thickening or apical capping by pleural fluid. No right-sided pleural effusion is evident. There is left-sided volume loss with shift of the heart mediastinum towards the left side. Elevated left hemidiaphragm common nonspecific. Left pleural pigtail catheter has been removed since the prior examination. There is no pneumothorax seen. CARDIOVASCULAR: No aortic atherosclerotic calcification present. Normal cardiac size. No pulmonary vascular congestion. OSSEOUS STRUCTURES: No significant abnormalities. VISUALIZED UPPER ABDOMEN: Normal. OTHER FINDINGS: None. IMPRESSION: Status post removal of left pleural pigtail catheter. Left-sided volume loss. Probable small left pleural effusion. No definite infiltrate. Likely elevated left hemidiaphragm.
[2018-05-25 14:13] LABS: ABG ALLEN TEST POS; ARTERIAL BLOOD GAS O2 SAT 96.9 % (95-98); ARTERIAL BLOOD GAS PCO2 28 mm/Hg (35-45); ARTERIAL BLOOD GAS PH 7.49 (7.35-7.45); ARTERIAL BLOOD GAS PO2 68 mm/Hg (80-100); ARTERIAL BLOOD GAS TCO2 22.2 mmol/L (22-28)
--- NOTE | 2018-05-25 15:22 | CP.PCM.PN ---
Subjective - Date & Time of Evaluation Date of Evaluation: 05/25/18 Time of Evaluation: 15:19 - Subjective Subjective: PT ALERT, NO SOB , S/P LEFT CT REMOVAL. ROS; OTHERWISE NEG. Objective - Vital Signs/Intake and Output Vital Signs (last 24 hours): Temp Pulse Resp BP Pulse Ox 98.2 F 82 18 112/63 98 05/25/18 07:00 05/25/18 07:00 05/25/18 07:00 05/25/18 07:00 05/25/18 07:00 Intake and Output: 05/25/18 05/25/18 06:59 18:59 Intake Total 690 Balance 690 - Medications Medications: Current Medications Al Hydrox/Mg Hydrox/Simethicone (Maalox Plus 30 Ml) 30 ml PO Q6 PRN PRN Reason: Indigestion / Heartburn Last Admin: 05/24/18 09:24 Dose: 30 ml Aspirin (Aspirin Chewable) 81 mg PO DAILY [facility] Last Admin: 05/25/18 09:29 Dose: 81 mg Clopidogrel Bisulfate (Plavix) 75 mg PO DAILY [facility] Last Admin: 05/25/18 09:29 Dose: 75 mg Clotrimazole (Mycelex Ryne) 10 mg PO TID [facility] Last Admin: 05/25/18 13:30 Dose: 10 mg Famotidine (Pepcid) 20 mg PO BID [facility] Last Admin: 05/25/18 09:29 Dose: 20 mg Heparin Sodium (Porcine) (Heparin) 5,000 units SC Q12 [facility] Last Admin: 05/15/18 21:33 Dose: 5,000 units Piperacillin Sod/Tazobactam Sod (Zosyn 3.375 Gm Iv Premix) 3.375 gm in 50 mls @ 100 mls/hr IVPB Q8 [facility]; Protocol Last Admin: 05/25/18 14:49 Dose: 100 mls/hr Dextrose/Sodium Chloride (Dextrose 5%/0.45% Ns 1000 Ml) 1,000 mls @ 50 mls/hr IV .Q20H [facility] Last Admin: 05/25/18 06:40 Dose: 50 mls/hr Losartan Potassium (Cozaar) 25 mg PO DAILY [facility] Last Admin: 05/25/18 09:28 Dose: 25 mg Mirtazapine (Remeron) 15 mg PO HS [facility] Last Admin: 05/24/18 21:46 Dose: 15 mg Modafinil (Provigil) 100 mg PO DAILY [facility] Last Admin: 05/25/18 09:29 Dose: 100 mg Montelukast Sodium (Singulair) 10 mg PO DAILY [facility] Last Admin: 05/25/18 09:29 Dose: 10 mg - Labs Labs: 05/24/18 07:06 05/24/18 07:06 PT 15.8 SECONDS (9.7-12.2) H 05/14/18 19:37 INR 1.4 05/14/18 19:37 APTT 30 SECONDS (21-34) 05/14/18 19:37 - Constitutional Appears: No Acute Distress, Cachectic, Chronically Ill - Head Exam Head Exam: ATRAUMATIC, NORMOCEPHALIC - Eye Exam Eye Exam: EOMI, Normal appearance - ENT Exam ENT Exam: Mucous Membranes Moist - Neck Exam Neck Exam: Normal Inspection - Respiratory Exam Respiratory Exam: Decreased Breath Sounds. absent: Accessory Muscle Use, Wheezes, Respiratory Distress - Cardiovascular Exam Cardiovascular Exam: RRR, +S1, +S2 - GI/Abdominal Exam GI & Abdominal Exam: Soft. absent: Tenderness - Rectal Exam Rectal Exam: Deferred - Extremities Exam Extremities Exam: absent: Calf Tenderness, Pedal Edema - Back Exam Back Exam: absent: CVA tenderness (L), CVA tenderness (R) - Neurological Exam Neurological Exam: Alert, Awake, CN II-XII Intact, Oriented x3 - Psychiatric Exam Psychiatric exam: Normal Mood - Skin Skin Exam: absent: Rash Assessment and Plan (1) COPD exacerbation Status: Acute (2) Dehydration Status: Acute (3) Cachexia Status: Acute (4) Respiratory failure Status: Acute (5) Near syncope Status: Acute (6) Esophageal reflux Status: Acute (7) Hypertension Status: Acute (8) Lung mass Status: Chronic (9) Weight loss Status: Acute - Assessment and Plan (Free Text) Assessment: RESP STATUS COMFORTABLE S/P LEFT CT REMOVAL. CXR REVIEWED, NO PTX. CONT PULM TOILET., NEB BD., MONITOR O2 SAT. ENCOURAGE PO INTAKE., REFUSING PEG. PROG POOR. DISCUSSED WITH STAFF AT LENGTH AND DR SHOEMAKER AND FAMILY AT BEDSIDE.
--- NOTE | 2018-05-25 19:47 | PN ---
DATE: 05/25/2018 SUBJECTIVE: The patient seen, more alert, verbal, not in acute respiratory distress, was seen lying in bed with his family around. The patient has absolutely very poor appetite and p.o. intake. Family is trying to encourage him. Case discussed with Dr. Aldana and due to the patient's poor p.o. intake and the patient will benefit from parenteral nutrition, especially that he is not eating very well and losing weight. The patient has been started on Provigil and Remeron. PHYSICAL EXAMINATION: VITAL SIGNS: Temperature 98.2, pulse 82, blood pressure 112/63, respirations 18, and oxygen saturations 98%. Psych lee, the patient is on Provigil 100 mg daily and Remeron 15 mg at bedtime. LABORATORY DATA: Review of his labs, the patient's liver function test is still elevated, but a little better. REVIEW OF SYSTEMS: The patient in his room, his family had stated alert, verbal, still feeling weak, has poor appetite. PHYSICAL EXAMINATION: SKIN: No diaphoresis. HEENT: No headache, no dizziness. NECK: Supple. RESPIRATORY: No dyspnea. CARDIOVASCULAR: No chest pain. GASTROINTESTINAL: Poor appetite. No nausea, no vomiting. EXTREMITIES: The patient's gait, moving extremities. No tremors. MUSCULOSKELETAL: Feels weak. NEURO: Alert and oriented x3. GENITOURINARY: No dysuria. MENTAL STATUS EXAMINATION: An elderly male, who looks alert and oriented x3, not in any acute respiratory distress. Mood is depressed and anxious. Affect is restricted. Speech is spontaneous. Thought process is coherent. Thought content, the patient states he has no appetite. No suicidal or homicidal ideation. Attention and memory seem to be fair. Insight and judgment are fair. Impulse control is fair. 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 PLAN AND RECOMMENDATIONS: The patient seen, meds reviewed. Discussed with Dr. Aldana. The patient will be started with parenteral nutrition. Psych lee, we will continue the psych medication Provigil 100 mg in the morning and Remeron 15 mg at bedtime. The patient is more alert at this time, but still has very poor p.o. intake. Richmond Emerson MD [facility] # [id number]
--- NOTE | 2018-05-25 22:36 | PN ---
DATE: 05/25/2018 SUBJECTIVE: The patient still has poor appetite. Pigtail tube was removed this morning. No shortness of breath but feels weak. PHYSICAL EXAMINATION: VITAL SIGNS: Blood pressure 102/57, heart rate 87, temperature 97.2, and respirations 20. HEENT: Normocephalic. CHEST: Bilateral rhonchi. HEART: S1 and S2 regular. EXTREMITIES: Showed no edema. ASSESSMENT: 1. Lung mass. 2. Status post iatrogenic left apical pneumothorax which resolved. 3. Status post hypertensive episode upon presentation. 4. Atelectasis with left hemidiaphragmatic elevation. RECOMMENDATIONS: Continue aspirin 81 mg once a day, Cozaar 25 mg once a day, Plavix 75 mg once a day, Zosyn 3.375 g intravenously every 8 hours. Case was discussed with the patient's family. Patient refuses the idea of subacute rehab. Continue current conservative medical approach. Zach Marquez MD
[2018-05-26] MEDS: Piperacill/Tazo 3.375gm in Dex 3.375 GM/50 ML BAG IVPB SCH ×3 (05:25→21:44)
[2018-05-26] MEDS: Alum-Mag Hydrox-Simethicone Susp (30 mL) PO PRN (11:41)
--- NOTE | 2018-05-26 12:09 | CP.PCM.PN ---
Subjective - Date & Time of Evaluation Date of Evaluation: 05/26/18 Time of Evaluation: 12:06 - Subjective Subjective: PT ALERT, OOB IN CHAIR., NO SOB. NO PAIN. ROS ; OTHERWISE NEG. Objective - Vital Signs/Intake and Output Vital Signs (last 24 hours): Temp Pulse Resp BP Pulse Ox 97.3 F L 78 20 111/63 96 05/26/18 07:00 05/26/18 09:28 05/26/18 07:00 05/26/18 09:28 05/26/18 07:00 Intake and Output: 05/26/18 05/26/18 06:59 18:59 Intake Total 450 Balance 450 - Medications Medications: Current Medications Al Hydrox/Mg Hydrox/Simethicone (Maalox Plus 30 Ml) 30 ml PO Q6 PRN PRN Reason: Indigestion / Heartburn Last Admin: 05/26/18 11:41 Dose: 30 ml Aspirin (Aspirin Chewable) 81 mg PO DAILY [facility] Last Admin: 05/26/18 09:30 Dose: 81 mg Clopidogrel Bisulfate (Plavix) 75 mg PO DAILY [facility] Last Admin: 05/26/18 09:29 Dose: 75 mg Clotrimazole (Mycelex Ryne) 10 mg PO TID [facility] Last Admin: 05/26/18 09:29 Dose: 10 mg Famotidine (Pepcid) 20 mg PO BID [facility] Last Admin: 05/26/18 09:29 Dose: 20 mg Heparin Sodium (Porcine) (Heparin) 5,000 units SC Q12 [facility] Last Admin: 05/15/18 21:33 Dose: 5,000 units Piperacillin Sod/Tazobactam Sod (Zosyn 3.375 Gm Iv Premix) 3.375 gm in 50 mls @ 100 mls/hr IVPB Q8 [facility]; Protocol Last Admin: 05/26/18 05:25 Dose: 100 mls/hr Multivitamins/Vitamin C 10 ml/Chromium/Copper/Manganese/Zinc 1 ml/ Amino Acids 1,011 mls @ 70 mls/hr IV .[id number] [facility] Stop: 05/27/18 08:26 Amino Acids (Clinimix 4.25/5 % "E" (1000 Ml)) 1,000 mls @ 70 mls/hr IV .[id number] ONE Stop: 05/27/18 22:43 Losartan Potassium (Cozaar) 25 mg PO DAILY [facility] Last Admin: 05/26/18 09:29 Dose: 25 mg Mirtazapine (Remeron) 15 mg PO HS [facility] Last Admin: 05/25/18 21:18 Dose: 15 mg Modafinil (Provigil) 100 mg PO DAILY [facility] Last Admin: 05/26/18 09:29 Dose: 100 mg Montelukast Sodium (Singulair) 10 mg PO DAILY [facility] Last Admin: 05/26/18 09:29 Dose: 10 mg - Labs Labs: 05/24/18 07:06 05/24/18 07:06 PT 15.8 SECONDS (9.7-12.2) H 05/14/18 19:37 INR 1.4 05/14/18 19:37 APTT 30 SECONDS (21-34) 05/14/18 19:37 - Constitutional Appears: No Acute Distress, Cachectic, Chronically Ill - Head Exam Head Exam: ATRAUMATIC, NORMOCEPHALIC - Eye Exam Eye Exam: EOMI, Normal appearance - ENT Exam ENT Exam: Mucous Membranes Moist - Neck Exam Neck Exam: Normal Inspection - Respiratory Exam Respiratory Exam: Decreased Breath Sounds. absent: Wheezes, Respiratory Distress - Cardiovascular Exam Cardiovascular Exam: RRR, +S1, +S2 - GI/Abdominal Exam GI & Abdominal Exam: Soft. absent: Tenderness - Rectal Exam Rectal Exam: Deferred - Extremities Exam Extremities Exam: absent: Calf Tenderness, Pedal Edema - Back Exam Back Exam: absent: CVA tenderness (L), CVA tenderness (R) - Neurological Exam Neurological Exam: Alert, Awake, CN II-XII Intact - Psychiatric Exam Psychiatric exam: Normal Mood - Skin Skin Exam: absent: Rash Assessment and Plan (1) COPD exacerbation Status: Acute (2) Dehydration Status: Acute (3) Cachexia Status: Acute (4) Respiratory failure Status: Acute (5) Near syncope Status: Acute (6) Esophageal reflux Status: Acute (7) Hypertension Status: Acute (8) Lung mass Status: Chronic (9) Weight loss Status: Acute - Assessment and Plan (Free Text) Assessment: RESP STATUS COMFORTABLE. S/P LEFT PTX., CONT PULM TOILET., MONITOR O2 SAT. CXR REVIEWED.,ENCOURAGE PO INTAKE.DISCUSSED WITH STAFF AND FAMILY AT BEDSIDE
[2018-05-26] MEDS ORDERED: PPN #1 IV SCH (18:00)
--- NOTE | 2018-05-26 21:26 | PN ---
DATE: 05/26/2018 SUBJECTIVE: The patient was reported to me by the nurse to have had hemoptysis last night; however, the family member, the and the daughter at the bedside, are unaware of this symptom. The patient had his Ensure and a small amount of milk today. No chest pain, no dizziness, but the patient is still feeling weak. PHYSICAL EXAMINATION: VITAL SIGNS: Blood pressure 111/64, heart rate 78, temperature 97.3, respirations 20. HEENT: Normocephalic. CHEST: Clear. HEART: S1 and S2 are regular. EXTREMITIES: Significant muscle wasting. ASSESSMENT: 1. Lung mass, very likely malignant mass. 2. Cachexia. 3. Chronic obstructive pulmonary disease. 4. Near syncope on admission. 5. Depression and anorexia. RECOMMENDATIONS: Continue aspirin 81 mg once a day, Cozaar 25 mg once a day, subcutaneous heparin is still on hold. We will discontinue Plavix for now. Continue Zosyn at 3.375 g every 8 hours. Zach Marquez MD
--- NOTE | 2018-05-26 22:04 | PN ---
DATE: 05/26/2018 SUBJECTIVE: Today, the patient is more alert and awake, but the patient is still anorexic and the patient is feeding every hour with family assistance. PHYSICAL EXAMINATION: GENERAL: The patient is obviously cachectic. VITAL SIGNS: The patient has a blood pressure of 111/63, pulse 73, respirations 20, blood pressure mean is 79, and temperature 97.3. LUNGS: Rales at the bases. HEART: Regular rate and rhythm. ABDOMEN: Soft, nontender, no palpable masses. EXTREMITIES: There is no edema. PLAN: The patient had the test done and we are going to repeat the chest x-ray on Monday that will be in two days and also we are going to do the blood work . Kyle Aldana MD
--- NOTE | 2018-05-26 22:06 | PN ---
DATE: 05/26/2018 SUBJECTIVE: The patient is more alert, verbal in his room, has very poor p.o. intake despite encouragement, seen with his family. Discussed with the patient about the patient's treatment option. The patient may benefit from PEG placement due to his 3-month history of poor p.o. intake and increasing debility, the patient may benefit from having a PEG tube to replenish his nutrition. The patient's family tried to feed him today, but he did not eat other thing. The patient is not always drinking Ensure and a few tablespoons of food. He is not having abdominal pain or anything, but the patient will benefit from GI consult and PEG tube. I did talk with the family and they said they are going to discuss with the family as well as with the patient and to discuss with Dr. Aldana if the patient can have PEG tube for nutritional supplements. The patient is not eating p.o. PHYSICAL EXAMINATION: VITAL SIGNS: Temperature 97.3, pulse 78, blood pressure 111/63, respirations 20, oxygen saturation is 96%. GENERAL: He is alert, verbal, seen in his room with family. SKIN: No diaphoresis. HEENT: No headache, no dizziness. NECK: Supple. RESPIRATORY: Not in acute respiratory distress. CARDIOVASCULAR: No chest pain. GASTROINTESTINAL: Absolutely has no appetite. No nausea, no vomiting. No abdominal pain. EXTREMITIES: The patient is moving extremities but possibly spending most time in bed. NEUROLOGIC: Alert and oriented x3, seen with family and friends. MENTAL STATUS EXAMINATION: A frail-looking elderly male who looks stated age. Mood is depressed. Affect is reactive. Speech is spontaneous. Thought process is coherent. Thought content: He has no appetite, no active psychosis, no suicidal ideation. Attention and memory seem to be fair. Insight and judgment fair. Impulse control is fair. IMPRESSION: History of delirium, major depression, mood disorder secondary to medical problems. Consider malignancy of the lung. The patient has a lung mass. PLAN AND RECOMMENDATIONS: The patient seen, meds reviewed. Discussed with the patient. I will discuss with the family and to discuss with Dr. Aldana if the patient can be referred for GI and for possible PEG tube placement. I did discuss with them that due to his very poor p.o. intake and has not been eating in a long time, the patient will benefit from PEG tube to replenish his nutritional deficiency as well as for him to get better. The patient's psychiatric medications work better if the patient is taking food. The patient is currently on Provigil and Remeron, but needs to eat. The patient is also followed by Dr. Oro, director consumer affairs. Richmond Emerson MD MTDD
[2018-05-27] MEDS: Piperacill/Tazo 3.375gm in Dex 3.375 GM/50 ML BAG IVPB SCH ×3 (06:01→21:29)
[2018-05-27 08:22] LABS: BASO # 0.1 K/uL (0.0-0.2); BASO % 0.8 % (0.0-2.0); EOS # 0.1 K/uL (0.0-0.7); EOS % 1.4 % (0.0-4.0); HEMOGLOBIN 12.1 g/dL (12.0-18.0); LYMPH # 1.4 K/uL (1.0-4.3); LYMPH % 14.9 % (20.0-40.0); MEAN CELL VOLUME 83.2 fL (80.0-94.0); MEAN CORPUSCULAR HGB CONC 33.6 g/dL (33.0-37.0); MEAN PLATELET VOLUME 7.9 fL (7.2-11.7); MONO # 0.8 K/uL (0.0-0.8); MONO % 8.4 % (0.0-10.0); NEUT # 7.2 K/uL (1.8-7.0); NEUT % 74.5 % (50.0-75.0); NRBC % 0.1 % (0.0-2.0); RBC 4.32 Mil/uL (4.40-5.90); RED CELL DISTRIBUTION WIDTH 15.3 % (11.5-14.5); WHITE BLOOD COUNT 9.6 K/uL (4.8-10.8)
[2018-05-27] MEDS ORDERED: PPN #2 IV ONE (08:26)
[2018-05-27 08:38] LABS: ALB/GLOB RATIO 0.9 (1.0-2.1); ALBUMIN 3.3 g/dL (3.5-5.0); ALT/SGPT 80 U/L (21-72); AST/SGOT 44 U/L (17-59); BLOOD UREA NITROGEN 15 mg/dL (9-20); CALCIUM 9.3 mg/dl (8.6-10.4); GFR NON-AFRICAN AMERICAN > 60
--- NOTE | 2018-05-27 10:04 | PN ---
DATE: 05/25/2018 SUBJECTIVE: The patient was seen early this morning and the patient is at this time lying on bed and denied any shortness of breath or chest pain. No palpitation. The patient has felt very weak. PHYSICAL EXAMINATION: VITAL SIGNS: Blood pressure was 102/57, pulse 87, respirations 20, temperature 97.2. NECK: Supple. LUNGS: Some rales bilaterally. HEART: Regular rate and rhythm. ABDOMEN: Soft and nontender. No palpable mass. EXTREMITIES: There is no edema. LABORATORY DATA: The patient had test done. The chest x-ray that was done today has shown that after removing the chest tube I assume that the blunting on the left costophrenic angle and left apical pleural thickening and apical capping by pleural fluid and there is a left-sided volume loss with cyst of the mediastinum towards the left side. There is elevated left hemidiaphragm, nonspecific. PLAN: The plan is that we are going to continue the current medications, antibiotic therapy, and also we considered to give the patient some nutrition like TPN since the patient has a very loss of appetite and the patient will also have incentive spirometry due to atelectasis. The case was reviewed and discussed with Pooja Meyers, nurse practitioner. Kyle Aldana MD
--- NOTE | 2018-05-27 10:09 | HP ---
HISTORY OF PRESENT ILLNESS: The patient is a 73-year-old male, patient of mine, with a history of COPD, hypertension, and weight loss. The patient was seen in my office, and the patient was found to be hypotensive with a blood pressure of 80 systolic, and also the patient had an O2 saturation of 85% to 89%. Oxygen was present in the patient and O2 saturation was 93% to 95%. EMS was called and the patient was brought to the emergency room where he was admitted. The patient has a past medical history of hypertension, COPD, weight loss, and depression. The patient was recently admitted for pneumonia and generalized weakness. PAST MEDICAL HISTORY: As I mentioned above. ALLERGIES: THE PATIENT HAS NO KNOWN ALLERGY. 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 No history of alcohol abuse. FAMILY HISTORY: No inherited disease. REVIEW OF SYSTEMS: RESPIRATORY SYSTEM: At that time, the patient was shortness of breath on minor effort. CARDIOVASCULAR: No chest pain. GASTROINTESTINAL: There is severe anorexia. GENITOURINARY: No dysuria. NEUROLOGIC: The patient was very weak. PHYSICAL EXAMINATION: GENERAL: The patient was awake and alert, but very weak. The patient was cachectic. VITAL SIGNS: Blood pressure as I mentioned in my office was 80 systolic and heart rate as I mentioned was tachycardic at the rate of 110, and respiration was 20. LUNGS: Some rales are noted bilaterally. HEART: Regular rate and rhythm and tachycardic. ABDOMEN: Soft and nontender. No palpable mass. EXTREMITIES: There is no edema. NEUROLOGIC: The patient has unsteady gait. LABORATORY DATA: Has shown that the patient has a WBC of 18.8, hemoglobin 11.5, hematocrit 35, and platelet is 459. Sodium was 129, potassium 3.4, chloride 91, bicarb 26. BUN and creatinine . The patient has a chest x-ray that was significant for infiltrate. IMPRESSION: 1. The patient was admitted with diagnosis of pneumonia. 2. Hyponatremia. 3. Hypokalemia. 4. Chronic obstructive pulmonary disease. 5. Depression. 6. Weight loss. PLAN: The patient will have a consult with Dr. Oro, Pulmonary at that time and also ID consult with Dr. Garcia. Kyle Aldana MD [facility] # [id number]
[2018-05-27] MEDS ORDERED: PPN #1 IV SCH (13:45)
--- NOTE | 2018-05-27 13:51 | CP.PCM.PN ---
Subjective - Date & Time of Evaluation Date of Evaluation: 05/27/18 Time of Evaluation: 09:00 - Subjective Subjective: afeb alert CT out NAD Objective - Vital Signs/Intake and Output Vital Signs (last 24 hours): Temp Pulse Resp BP Pulse Ox 97.3 F L 82 18 129/71 96 05/27/18 07:00 05/27/18 07:00 05/27/18 07:00 05/27/18 07:00 05/27/18 07:00 Intake and Output: 05/27/18 05/27/18 06:59 18:59 Intake Total 710 Balance 710 - Medications Medications: Current Medications Al Hydrox/Mg Hydrox/Simethicone (Maalox Plus 30 Ml) 30 ml PO Q6 PRN PRN Reason: Indigestion / Heartburn Last Admin: 05/26/18 11:41 Dose: 30 ml Aspirin (Aspirin Chewable) 81 mg PO DAILY [facility] Last Admin: 05/27/18 09:21 Dose: 81 mg Clotrimazole (Mycelex Ryne) 10 mg PO TID [facility] Last Admin: 05/27/18 09:31 Dose: 10 mg Famotidine (Pepcid) 20 mg PO BID [facility] Last Admin: 05/27/18 09:21 Dose: 20 mg Heparin Sodium (Porcine) (Heparin) 5,000 units SC Q12 [facility] Last Admin: 05/15/18 21:33 Dose: 5,000 units Piperacillin Sod/Tazobactam Sod (Zosyn 3.375 Gm Iv Premix) 3.375 gm in 50 mls @ 100 mls/hr IVPB Q8 [facility]; Protocol Last Admin: 05/27/18 06:01 Dose: 100 mls/hr Amino Acids (Clinimix 4.25/5 % "E" (1000 Ml)) 1,000 mls @ 70 mls/hr IV .[id number] ONE Stop: 05/27/18 22:43 Last Admin: 05/27/18 09:21 Dose: 70 mls/hr Amino Acids (Clinimix 4.25/5 % "E" (1000 Ml)) 1,000 mls @ 70 mls/hr IV .[id number] [facility] Stop: 05/28/18 22:43 Multivitamins/Vitamin C 10 ml/Chromium/Copper/Manganese/Zinc 1 ml/ Amino Acids 1,011 mls @ 70 mls/hr IV .[id number] ONE Stop: 05/28/18 08:26 Losartan Potassium (Cozaar) 25 mg PO DAILY [facility] Last Admin: 05/27/18 09:21 Dose: 25 mg Mirtazapine (Remeron) 15 mg PO HS [facility] Last Admin: 05/26/18 21:37 Dose: 15 mg Modafinil (Provigil) 100 mg PO DAILY [facility] Last Admin: 05/27/18 09:21 Dose: 100 mg Montelukast Sodium (Singulair) 10 mg PO DAILY [facility] Last Admin: 05/27/18 09:21 Dose: 10 mg - Labs Labs: 05/27/18 08:07 05/27/18 08:07 PT 15.8 SECONDS (9.7-12.2) H 05/14/18 19:37 INR 1.4 05/14/18 19:37 APTT 30 SECONDS (21-34) 05/14/18 19:37 - Constitutional Appears: Non-toxic, Chronically Ill - Head Exam Head Exam: NORMOCEPHALIC - Eye Exam Eye Exam: absent: Scleral icterus - ENT Exam ENT Exam: Mucous Membranes Dry - Neck Exam Neck Exam: absent: Thyromegaly - Respiratory Exam Respiratory Exam: Decreased Breath Sounds - Cardiovascular Exam Cardiovascular Exam: REGULAR RHYTHM - GI/Abdominal Exam GI & Abdominal Exam: Distended, Soft - Rectal Exam Rectal Exam: Deferred - Exam Exam: NORMAL INSPECTION Assessment and Plan (1) COPD exacerbation Status: Acute (2) Dehydration Status: Acute (3) Leukocytosis Status: Acute
--- NOTE | 2018-05-27 13:52 | CP.PCM.PN ---
Subjective - Date & Time of Evaluation Date of Evaluation: 05/27/18 Time of Evaluation: 13:50 - Subjective Subjective: PT AWAKE. COUGH, STREAKY HEMOPTYSIS THIS AM. ROS ;OTHERWISE NEG. Objective - Vital Signs/Intake and Output Vital Signs (last 24 hours): Temp Pulse Resp BP Pulse Ox 97.3 F L 82 18 129/71 96 05/27/18 07:00 05/27/18 07:00 05/27/18 07:00 05/27/18 07:00 05/27/18 07:00 Intake and Output: 05/27/18 05/27/18 06:59 18:59 Intake Total 710 Balance 710 - Medications Medications: Current Medications Al Hydrox/Mg Hydrox/Simethicone (Maalox Plus 30 Ml) 30 ml PO Q6 PRN PRN Reason: Indigestion / Heartburn Last Admin: 05/26/18 11:41 Dose: 30 ml Aspirin (Aspirin Chewable) 81 mg PO DAILY [facility] Last Admin: 05/27/18 09:21 Dose: 81 mg Clotrimazole (Mycelex Ryne) 10 mg PO TID [facility] Last Admin: 05/27/18 09:31 Dose: 10 mg Famotidine (Pepcid) 20 mg PO BID [facility] Last Admin: 05/27/18 09:21 Dose: 20 mg Heparin Sodium (Porcine) (Heparin) 5,000 units SC Q12 [facility] Last Admin: 05/15/18 21:33 Dose: 5,000 units Piperacillin Sod/Tazobactam Sod (Zosyn 3.375 Gm Iv Premix) 3.375 gm in 50 mls @ 100 mls/hr IVPB Q8 [facility]; Protocol Last Admin: 05/27/18 06:01 Dose: 100 mls/hr Amino Acids (Clinimix 4.25/5 % "E" (1000 Ml)) 1,000 mls @ 70 mls/hr IV .[id number] ONE Stop: 05/27/18 22:43 Last Admin: 05/27/18 09:21 Dose: 70 mls/hr Amino Acids (Clinimix 4.25/5 % "E" (1000 Ml)) 1,000 mls @ 70 mls/hr IV .[id number] ONE Stop: 05/28/18 22:43 Multivitamins/Vitamin C 10 ml/Chromium/Copper/Manganese/Zinc 1 ml/ Amino Acids 1,011 mls @ 70 mls/hr IV .[id number] ONE Stop: 05/28/18 08:26 Losartan Potassium (Cozaar) 25 mg PO DAILY [facility] Last Admin: 05/27/18 09:21 Dose: 25 mg Mirtazapine (Remeron) 15 mg PO HS [facility] Last Admin: 05/26/18 21:37 Dose: 15 mg Modafinil (Provigil) 100 mg PO DAILY [facility] Last Admin: 05/27/18 09:21 Dose: 100 mg Montelukast Sodium (Singulair) 10 mg PO DAILY [facility] Last Admin: 05/27/18 09:21 Dose: 10 mg - Labs Labs: 05/27/18 08:07 05/27/18 08:07 PT 15.8 SECONDS (9.7-12.2) H 05/14/18 19:37 INR 1.4 05/14/18 19:37 APTT 30 SECONDS (21-34) 05/14/18 19:37 - Constitutional Appears: No Acute Distress, Cachectic, Chronically Ill - Head Exam Head Exam: ATRAUMATIC, NORMOCEPHALIC - Eye Exam Eye Exam: EOMI, Normal appearance - ENT Exam ENT Exam: Mucous Membranes Dry - Neck Exam Neck Exam: Normal Inspection - Respiratory Exam Respiratory Exam: Decreased Breath Sounds. absent: Accessory Muscle Use, Wheezes, Respiratory Distress - Cardiovascular Exam Cardiovascular Exam: RRR, +S1, +S2 - GI/Abdominal Exam GI & Abdominal Exam: Soft. absent: Tenderness - Rectal Exam Rectal Exam: Deferred - Extremities Exam Extremities Exam: absent: Calf Tenderness, Pedal Edema - Back Exam Back Exam: absent: CVA tenderness (L), CVA tenderness (R) - Neurological Exam Neurological Exam: Alert, Awake, CN II-XII Intact - Psychiatric Exam Psychiatric exam: Depressed - Skin Skin Exam: absent: Rash Assessment and Plan (1) COPD exacerbation Status: Acute (2) Dehydration Status: Acute (3) Cachexia Status: Acute (4) Respiratory failure Status: Acute (5) Near syncope Status: Acute (6) Esophageal reflux Status: Acute (7) Hypertension Status: Acute (8) Lung mass Status: Chronic (9) Weight loss Status: Acute - Assessment and Plan (Free Text) Assessment: RESP STATUS UNLABORED., MONITOR FOR HEMOPTYSIS. CONT NEB BD., PULM TOILET.,CXR REVIEWED. S/P LEFT PTX. , F/U REPEAT IN AM. FOR POSS PEG PER FAMILY. DISCUSSED WITH STAFF .
[2018-05-27] MEDS ORDERED: PPN #3 IV ONE (18:00)
--- NOTE | 2018-05-27 21:29 | PN ---
DATE: 05/27/2018 SUBJECTIVE: The patient was started on TPN yesterday. The patient according to has productive cough of blood-tinged sputum. No dizziness but there is weakness. PHYSICAL EXAMINATION: VITAL SIGNS: Blood pressure 129/70, heart rate 79, temperature 98.1, and respirations 20. HEENT: Normocephalic. CHEST: Clear. HEART: S1 and S2 are regular. ABDOMEN: Soft. EXTREMITIES: Significant muscle wasting. LABORATORY DATA: Today's SMA-7: Sodium 135, potassium 4.1, chloride 102, CO2 of 21, glucose 110, BUN 16, and creatinine 0.5. Today's hemoglobin and hematocrit 12.1 and 36, white count 9.6, and platelet count 570,000. ASSESSMENT: 1. Near-syncopal episode on presentation. 2. Lung mass. 3. Cachexia. 4. Chronic obstructive lung disease. 5. Depression. RECOMMENDATIONS: Continue aspirin 81 mg once a day. Continue Cozaar 25 mg once a day, Pepcid 20 mg p.o. twice a day, and IV Zosyn at 3.375 g every 8 hours. The plan is to perform a gastrostomy feeding tube next week. The patient can undergo the procedure from the cardiac point of view. Zach Marquez MD
--- NOTE | 2018-05-27 23:25 | PN ---
DATE: 05/27/2018 SUBJECTIVE: Today, the patient is alert and awake. Denied any abdominal pain, but the patient is still anorexic. PHYSICAL EXAMINATION: VITAL SIGNS: The patient has a blood pressure of 129/70, pulse 79, respirations 20, temperature 98.1. HEENT: Mouth is moist but there is a thrush in the tongue. NECK: Supple. No JVD. LUNGS: Have some rales bilaterally. HEART: Regular rate and rhythm. ABDOMEN: Soft. Nontender. No palpable mass. EXTREMITIES: There is no edema. LABORATORY DATA: Labs showed WBC 9.6, hemoglobin 12.1, hematocrit 36, and platelets 570. Chemistry showed a sodium of 135, potassium 4.1, chloride 102, bicarbonate 21, BUN 16, creatinine 1.5, and GFR is 60. AST is 44, ALT is 80, and alkaline phosphatase is 163, going down. ASSESSMENT AND PLAN: The plan is that we are going to place the patient on total parenteral nutrition. We are going to try to give the patient again Diflucan and also continue to monitor liver enzymes . Kyle Aldana MD
[2018-05-28] MEDS: Piperacill/Tazo 3.375gm in Dex 3.375 GM/50 ML BAG IVPB SCH ×3 (05:55→21:57)
[2018-05-28] MEDS: Alum-Mag Hydrox-Simethicone Susp (30 mL) PO PRN ×2 (06:01→13:18)
[2018-05-28 08:11] LABS: BASO # 0.1 K/uL (0.0-0.2); EOS # 0.2 K/uL (0.0-0.7); EOS % 1.7 % (0.0-4.0); HEMOGLOBIN 11.8 g/dL (12.0-18.0); LYMPH # 1.5 K/uL (1.0-4.3); LYMPH % 15.6 % (20.0-40.0); MEAN CELL VOLUME 83.7 fL (80.0-94.0); MEAN CORPUSCULAR HEMOGLOBIN 28.4 pg (27.0-31.0); MEAN CORPUSCULAR HGB CONC 33.9 g/dL (33.0-37.0); MEAN PLATELET VOLUME 8.2 fL (7.2-11.7); MONO # 0.9 K/uL (0.0-0.8); MONO % 8.6 % (0.0-10.0); NEUT # 7.2 K/uL (1.8-7.0); NEUT % 73.1 % (50.0-75.0); RBC 4.15 Mil/uL (4.40-5.90); RED CELL DISTRIBUTION WIDTH 15.8 % (11.5-14.5); WHITE BLOOD COUNT 9.9 K/uL (4.8-10.8)
[2018-05-28] MEDS ORDERED: PPN #4 IV ONE (08:26)
[2018-05-28 08:45] LABS: ALB/GLOB RATIO 0.9 (1.0-2.1); ALBUMIN 3.2 g/dL (3.5-5.0); ALT/SGPT 76 U/L (21-72); AST/SGOT 40 U/L (17-59); BLOOD UREA NITROGEN 19 mg/dL (9-20); CALCIUM 9.3 mg/dl (8.6-10.4); GFR NON-AFRICAN AMERICAN > 60
--- NOTE | 2018-05-28 09:06 | CP.PCM.PN ---
Subjective - Date & Time of Evaluation Date of Evaluation: 05/28/18 Time of Evaluation: 09:04 - Subjective Subjective: PT AWAKE., OOB IN CHAIR., NO SOB. ROS; OTHERWISE NEG Objective - Vital Signs/Intake and Output Vital Signs (last 24 hours): Temp Pulse Resp BP Pulse Ox 97.9 F 82 18 119/66 95 05/28/18 07:00 05/28/18 07:00 05/28/18 07:00 05/28/18 07:00 05/28/18 07:00 Intake and Output: 05/28/18 05/28/18 06:59 18:59 Intake Total 850 Balance 850 - Medications Medications: Current Medications Al Hydrox/Mg Hydrox/Simethicone (Maalox Plus 30 Ml) 30 ml PO Q6 PRN PRN Reason: Indigestion / Heartburn Last Admin: 05/28/18 06:01 Dose: 30 ml Aspirin (Aspirin Chewable) 81 mg PO DAILY [facility] Last Admin: 05/27/18 09:21 Dose: 81 mg Clotrimazole (Mycelex Ryne) 10 mg PO TID [facility] Last Admin: 05/27/18 17:55 Dose: 10 mg Famotidine (Pepcid) 20 mg PO BID [facility] Last Admin: 05/27/18 17:55 Dose: 20 mg Heparin Sodium (Porcine) (Heparin) 5,000 units SC Q12 [facility] Last Admin: 05/15/18 21:33 Dose: 5,000 units Piperacillin Sod/Tazobactam Sod (Zosyn 3.375 Gm Iv Premix) 3.375 gm in 50 mls @ 100 mls/hr IVPB Q8 [facility]; Protocol Last Admin: 05/28/18 05:55 Dose: 100 mls/hr Amino Acids (Clinimix 4.25/5 % "E" (1000 Ml)) 1,000 mls @ 70 mls/hr IV .[id number] ONE Stop: 05/28/18 22:43 Last Admin: 05/28/18 08:39 Dose: 70 mls/hr Losartan Potassium (Cozaar) 25 mg PO DAILY [facility] Last Admin: 05/27/18 09:21 Dose: 25 mg Mirtazapine (Remeron) 15 mg PO HS [facility] Last Admin: 05/27/18 21:29 Dose: 15 mg Modafinil (Provigil) 100 mg PO DAILY [facility] Last Admin: 05/27/18 09:21 Dose: 100 mg Montelukast Sodium (Singulair) 10 mg PO DAILY [facility] Last Admin: 05/27/18 09:21 Dose: 10 mg - Labs Labs: 05/28/18 08:04 05/28/18 08:04 PT 15.8 SECONDS (9.7-12.2) H 05/14/18 19:37 INR 1.4 05/14/18 19:37 APTT 30 SECONDS (21-34) 05/14/18 19:37 - Constitutional Appears: Non-toxic, No Acute Distress, Cachectic, Chronically Ill - Head Exam Head Exam: ATRAUMATIC, NORMOCEPHALIC - Eye Exam Eye Exam: EOMI, Normal appearance - ENT Exam ENT Exam: Mucous Membranes Moist - Neck Exam Neck Exam: Normal Inspection - Respiratory Exam Respiratory Exam: Decreased Breath Sounds. absent: Accessory Muscle Use, Wheezes, Respiratory Distress - Cardiovascular Exam Cardiovascular Exam: RRR, +S1, +S2 - GI/Abdominal Exam GI & Abdominal Exam: Soft. absent: Tenderness - Rectal Exam Rectal Exam: Deferred - Extremities Exam Extremities Exam: absent: Calf Tenderness, Pedal Edema - Back Exam Back Exam: absent: CVA tenderness (L), CVA tenderness (R) - Neurological Exam Neurological Exam: Awake, CN II-XII Intact - Psychiatric Exam Psychiatric exam: Normal Mood - Skin Skin Exam: absent: Rash Assessment and Plan (1) COPD exacerbation Status: Acute (2) Dehydration Status: Acute (3) Cachexia Status: Acute (4) Respiratory failure Status: Acute (5) Near syncope Status: Acute (6) Esophageal reflux Status: Acute (7) Hypertension Status: Acute (8) Lung mass Status: Chronic (9) Weight loss Status: Acute - Assessment and Plan (Free Text) Assessment: RESP STATUS COMFORTABLE. S/P LEFT PTX, CT REMOVED. CONT PULM TOILET., NEB BD., MONITOR O2 SAT. INCENT. SPIROM POOR EFFORT. CXR REVIEWED. AFEBRILE. ID F/U NOT ED. NUTRITIONAL SUPPORT. PROG POOR. DISCUSSED WITH STAFF.
--- NOTE | 2018-05-28 11:55 | RAD ---
Date of service: 05/28/2018 HISTORY: pneumonia COMPARISON: Portable chest 05/25/2018. FINDINGS: LUNGS: Right lung remains clear. Volume loss in the left lung is reiterated with elevated left hemidiaphragm and no interval change in likely small pleural effusion. Retrocardiac airspace disease remains in question. Apical pleural thickening or fluid is again identified. Left mediastinal shift is stable, remaining mild. No appreciable pneumothorax bilaterally or right pleural effusion identified. PLEURA: CARDIOVASCULAR: Calcific atherosclerotic changes are seen related to the thoracic aorta. Normal cardiac size. No pulmonary vascular congestion. OSSEOUS STRUCTURES: No significant abnormalities. VISUALIZED UPPER ABDOMEN: Normal. OTHER FINDINGS: None. IMPRESSION: Stable left-sided volume loss, limited left mediastinal shift and pleural changes as discussed above at the left apex and left base. Limited left basilar retrocardiac airspace disease again evident.
--- NOTE | 2018-05-28 12:21 | CP.PCM.PN ---
Subjective - Date & Time of Evaluation Date of Evaluation: 05/28/18 Time of Evaluation: 08:00 - Subjective Subjective: IV Mycamine added for severe candidiasis Objective - Vital Signs/Intake and Output Vital Signs (last 24 hours): Temp Pulse Resp BP Pulse Ox 97.9 F 82 18 119/66 95 05/28/18 07:00 05/28/18 07:00 05/28/18 07:00 05/28/18 07:00 05/28/18 07:00 Intake and Output: 05/28/18 05/28/18 06:59 18:59 Intake Total 850 Balance 850 - Medications Medications: Current Medications Al Hydrox/Mg Hydrox/Simethicone (Maalox Plus 30 Ml) 30 ml PO Q6 PRN PRN Reason: Indigestion / Heartburn Last Admin: 05/28/18 06:01 Dose: 30 ml Aspirin (Aspirin Chewable) 81 mg PO DAILY [facility] Last Admin: 05/28/18 09:57 Dose: 81 mg Clotrimazole (Mycelex Ryne) 10 mg PO TID [facility] Last Admin: 05/28/18 09:58 Dose: 10 mg Famotidine (Pepcid) 20 mg PO BID [facility] Last Admin: 05/28/18 09:57 Dose: 20 mg Heparin Sodium (Porcine) (Heparin) 5,000 units SC Q12 [facility] Last Admin: 05/15/18 21:33 Dose: 5,000 units Piperacillin Sod/Tazobactam Sod (Zosyn 3.375 Gm Iv Premix) 3.375 gm in 50 mls @ 100 mls/hr IVPB Q8 [facility]; Protocol Last Admin: 05/28/18 05:55 Dose: 100 mls/hr Amino Acids (Clinimix 4.25/5 % "E" (1000 Ml)) 1,000 mls @ 70 mls/hr IV .[id number] ONE Stop: 05/28/18 22:43 Last Admin: 05/28/18 08:39 Dose: 70 mls/hr Multivitamins/Vitamin C 10 ml/Chromium/Copper/Manganese/Zinc 1 ml/ Amino Acids 1,011 mls @ 70 mls/hr IV .[id number] ONE Stop: 05/29/18 08:26 Amino Acids (Clinimix 4.25/5 % "E" (1000 Ml)) 1,000 mls @ 70 mls/hr IV .[id number] [facility] Stop: 05/29/18 17:59 Losartan Potassium (Cozaar) 25 mg PO DAILY [facility] Last Admin: 05/28/18 09:57 Dose: 25 mg Mirtazapine (Remeron) 15 mg PO HS [facility] Last Admin: 05/27/18 21:29 Dose: 15 mg Modafinil (Provigil) 100 mg PO DAILY [facility] Last Admin: 05/28/18 09:57 Dose: 100 mg Montelukast Sodium (Singulair) 10 mg PO DAILY [facility] Last Admin: 05/28/18 09:57 Dose: 10 mg - Labs Labs: 05/28/18 08:04 05/28/18 08:04 PT 15.8 SECONDS (9.7-12.2) H 05/14/18 19:37 INR 1.4 05/14/18 19:37 APTT 30 SECONDS (21-34) 05/14/18 19:37 - Constitutional Appears: Non-toxic, Chronically Ill - Head Exam Head Exam: NORMOCEPHALIC - Eye Exam Eye Exam: absent: Scleral icterus - ENT Exam ENT Exam: Mucous Membranes Dry - Neck Exam Neck Exam: absent: Lymphadenopathy - Respiratory Exam Respiratory Exam: Decreased Breath Sounds - Cardiovascular Exam Cardiovascular Exam: REGULAR RHYTHM - GI/Abdominal Exam GI & Abdominal Exam: Distended - Rectal Exam Rectal Exam: Deferred - Exam Exam: NORMAL INSPECTION Assessment and Plan (1) COPD exacerbation Status: Acute (2) Dehydration Status: Acute (3) Leukocytosis Status: Acute
[2018-05-28] MEDS: Micafungin 100 MG in Sodium Chloride 0.9% 100 ML IV SCH (13:40)
--- NOTE | 2018-05-28 15:57 | PN ---
DATE: 05/28/2018 SUBJECTIVE: The patient is seen with his daughter. The patient is receiving now TPN, but still has very poor p.o. intake. The patient is feeling weak and still wants to go home. According to daughter, the patient has often periods of hallucination and confusion. The patient as well as the family seem to be amenable for PEG tube placement as the patient has very poor p.o. intake. The patient is currently having PPN, but this is only on a temporary basis. The patient is not agitated and cooperative. PHYSICAL EXAMINATION: VITAL SIGNS: Temperature 97.9, pulse 82, blood pressure 119/66, respirations 18, and oxygen saturations 95% on room air. GENERAL: He is alert, verbal, feeling weak, seen in his room, sitting in the chair, seen with daughter. Has a poor appetite. SKIN: No diaphoresis. HEENT: No headache or dizziness. NECK: Supple. RESPIRATORY: No dyspnea. CARDIOVASCULAR: No chest pain. GASTROINTESTINAL: The patient continues to have very poor appetite. No nausea or vomiting and no abdominal pain. EXTREMITIES: Gait is unsteady. MUSCULOSKELETAL: Feels weak. NEUROLOGIC: Alert and oriented x3. GENITOURINARY: No problems. MENTAL STATUS EXAMINATION: A frail-looking elderly male, who looks stated age, oriented x 3. Mood is still depressed, somatic, anxious. Affect is reactive. Speech is daze. Thought process, no psychosis, no suicidal or homicidal ideation, although the patient has reported to the daughter to have intermittent bouts of hallucinations in the hospital, visual in nature. Attention and memory seem to be fair. Insight and judgment fair. Impulse control is fair. IMPRESSION: History of delirium as well as history of depression, mood disorder, and history of lung mass. PLAN AND RECOMMENDATIONS: The patient is seen, meds reviewed. Continue present psych medications. Continue TPN as ordered. The patient would benefit from having a PEG tube and also to be seen first by GI for possible PEG tube placement to help him replenish his nutrition. Richmond Emerson MD [facility]
[2018-05-28] MEDS ORDERED: PPN IV ONE (18:00)
[2018-05-29] MEDS: Piperacill/Tazo 3.375gm in Dex 3.375 GM/50 ML BAG IVPB SCH ×3 (05:34→21:15)
--- NOTE | 2018-05-29 07:13 | PN ---
DATE: 05/28/2018 SUBJECTIVE: Today, the patient is alert and awake, out of bed this morning. Denies any shortness of breath. No chest pain, no palpitation. No dizziness. PHYSICAL EXAMINATION: VITAL SIGNS: Blood pressure of 122/68, pulse 82, respirations 20, temperature 98 degrees Fahrenheit. HEENT: Mouth showed that a thrush noted in the tongue. NECK: Supple. No JVD. CHEST: on the chest wall. HEART: Regular rate and rhythm. LUNGS: Rales bilaterally. ABDOMEN: Soft and nontender. No palpable mass. EXTREMITIES: There is no edema. LABORATORY DATA: The patient has some tests done. WBC is 9.9, hemoglobin 11.8, hematocrit 34.7, and platelets 543. Chemistries showed sodium 135, potassium 4.2, chloride 100, bicarb is 25, BUN 19, creatinine 0.7, glucose 107, alk phos is 165, ALT is 76, AST 40. PLAN: The case was discussed with Dr. Garcia in the ID, and they have ordered sodium 100 mL one hour. The case was reviewed and discussed with Pooja Meyers, nurse practitioner. Kyle Aldana MD
[2018-05-29 07:32] LABS: ALB/GLOB RATIO 0.9 (1.0-2.1); ALBUMIN 3.1 g/dL (3.5-5.0); BILIRUBIN,DIRECT 0.4 mg/dL (0.0-0.4)
[2018-05-29] MEDS ORDERED: PPN#6 IV SCH (08:25)
--- NOTE | 2018-05-29 09:28 | CP.PCM.CON ---
History of Present Illness - History of Present Illness History of Present Illness: 73 yo male well known to me who recently had a colonoscopy 05/06 on past admission showing diverticulosis and internal hemorrhoids related to his chronic constipation. Admitted now with COPD exacerbation and L Lung mass that was non-diagnostic biopsy on bronchoscopy. Has had sepsis. Asked to see for PEG tube placement due to inadequate po intake. Has known gala thrush and likely esophagistis treated by ID. No bleeding or melena. 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 Review of Systems - Review of Systems Systems not reviewed;Unavailable: Dementia Past Patient History - Past Medical History & Family History Past Medical History?: Yes Past Family History: Reviewed and not pertinent - Past Social History Smoking Status: Former Smoker Alcohol: None Drugs: Denies Home Situation {Lives}: With Family - CARDIAC Hx Cardiac Disorders: Yes Hx Hypercholesterolemia: Yes Hx Hypertension: Yes - PULMONARY Hx Respiratory Disorders: Yes Hx Asthma: Yes Hx Chronic Obstructive Pulmonary Disease (COPD): Yes Hx Pneumonia: Yes Hx Tuberculosis: No - NEUROLOGICAL Hx Neurological Disorder: No - HEENT Hx HEENT Problems: No - RENAL Hx Chronic Kidney Disease: No - ENDOCRINE/METABOLIC Hx Endocrine Disorders: No - HEMATOLOGICAL/ONCOLOGICAL Hx Blood Disorders: No Hx Cirrhosis: No Hx Hepatitis A: No Hx Hepatitis B: No Hx Hepatitis C: No - INTEGUMENTARY Hx Dermatological Problems: No - MUSCULOSKELETAL/RHEUMATOLOGICAL Hx Musculoskeletal Disorders: Yes Hx Falls: No Hx Unsteady Gait: Yes Other/Comment: weakness to all extremities - GASTROINTESTINAL Hx Gastrointestinal Disorders: Yes Hx Diverticulitis: Yes (Diverticulosis 04/2018 colonoscopy) Hx Gastritis: Yes Hx Gastroesophageal Reflux: Yes Hx Hemorrhoids: Yes - GENITOURINARY/GYNECOLOGICAL Hx Genitourinary Disorders: No - PSYCHIATRIC Hx Psychophysiologic Disorder: No Hx Substance Use: No - SURGICAL HISTORY Hx Surgeries: Yes Other/Comment: Explore lap 1974 - ANESTHESIA Hx Anesthesia: Yes Hx Anesthesia Reactions: No Meds Allergies/Adverse Reactions: Allergies Allergy/AdvReac Type Severity Reaction Status Date / Time No Known Allergies Allergy Verified 05/14/18 17:33 - Medications Medications: Current Medications Al Hydrox/Mg Hydrox/Simethicone (Maalox Plus 30 Ml) 30 ml PO Q6 PRN PRN Reason: Indigestion / Heartburn Last Admin: 05/28/18 13:18 Dose: 30 ml Aspirin (Aspirin Chewable) 81 mg PO DAILY [facility] Last Admin: 05/28/18 09:57 Dose: 81 mg Clotrimazole (Mycelex Ryne) 10 mg PO TID [facility] Last Admin: 05/28/18 17:56 Dose: 10 mg Famotidine (Pepcid) 20 mg PO BID [facility] Last Admin: 05/28/18 17:56 Dose: 20 mg Heparin Sodium (Porcine) (Heparin) 5,000 units SC Q12 [facility] Last Admin: 05/15/18 21:33 Dose: 5,000 units Piperacillin Sod/Tazobactam Sod (Zosyn 3.375 Gm Iv Premix) 3.375 gm in 50 mls @ 100 mls/hr IVPB Q8 [facility]; Protocol Last Admin: 05/29/18 05:34 Dose: 100 mls/hr Amino Acids (Clinimix 4.25/5 % "E" (1000 Ml)) 1,000 mls @ 70 mls/hr IV .[id number] [facility] Stop: 05/29/18 17:59 Last Admin: 05/29/18 08:58 Dose: 70 mls/hr Micafungin Sodium 100 mg/ (Sodium Chloride) 100 mls @ 100 mls/hr IV Q24H [facility]; Protocol Last Admin: 05/28/18 13:40 Dose: 100 mls/hr Multivitamins/Vitamin C 10 ml/Chromium/Copper/Manganese/Zinc 1 ml/ Amino Acids 1,011 mls @ 70 mls/hr IV .[id number] [facility] Stop: 05/30/18 08:26 Amino Acids (Clinimix 4.25/5 % "E" (1000 Ml)) 1,000 mls @ 70 mls/hr IV .[id number] [facility] Stop: 05/30/18 17:59 Losartan Potassium (Cozaar) 25 mg PO DAILY [facility] Last Admin: 05/28/18 09:57 Dose: 25 mg Mirtazapine (Remeron) 15 mg PO HS [facility] Last Admin: 05/28/18 21:57 Dose: 15 mg Modafinil (Provigil) 100 mg PO DAILY [facility] Last Admin: 05/28/18 09:57 Dose: 100 mg Montelukast Sodium (Singulair) 10 mg PO DAILY [facility] Last Admin: 05/28/18 09:57 Dose: 10 mg Physical Exam - Constitutional Appears: No Acute Distress, Chronically Ill - Head Exam Head Exam: ATRAUMATIC, NORMOCEPHALIC - Eye Exam Eye Exam: EOMI, PERRL - Respiratory Exam Respiratory Exam: Decreased Breath Sounds, Rhonchi - Cardiovascular Exam Cardiovascular Exam: REGULAR RHYTHM, +S1 - GI/Abdominal Exam GI & Abdominal Exam: Normal Bowel Sounds, Soft. absent: Distended, Mass, Rebound, Rigid, Tenderness - Rectal Exam Rectal Exam: Deferred - Extremities Exam Extremities exam: Negative for: pedal edema - Skin Skin Exam: Dry, Warm Results - Vital Signs Recent Vital Signs: Last Vital Signs Temp 97.4 F L 05/29/18 08:27 Pulse 83 05/29/18 08:27 Resp 20 05/29/18 08:27 BP 126/69 05/29/18 08:27 Pulse Ox 98 05/29/18 08:27 - Labs Result Diagrams: 05/28/18 08:04 05/28/18 08:04 Labs: Laboratory Results - last 24 hr 05/29/18 06:43 Total Bilirubin 0.4 Direct Bilirubin 0.4 AST 70 H D ALT 80 H Alkaline Phosphatase 162 H Total Protein 6.7 Albumin 3.1 L Globulin 3.6 Albumin/Globulin Ratio 0.9 L Assessment & Plan (1) Malnutrition Assessment and Plan: Agree with benefit of placement of PEG tube if family agreeable and consent obtained. On TPN for now with higher risk of sepsis and Candidemia which patient already has oral thrush. Hold Heparin for possible PEG in am. Status: Acute (2) Thrush, oral Status: Acute (3) Lung mass Status: Chronic
--- NOTE | 2018-05-29 10:21 | CP.PCM.PN ---
Subjective - Date & Time of Evaluation Date of Evaluation: 05/29/18 Time of Evaluation: 10:19 - Subjective Subjective: PT ALERT, OOB IN CHAIR., NO SOB. EATING POORLY. ROS; OTHERWISE NEG Objective - Vital Signs/Intake and Output Vital Signs (last 24 hours): Temp Pulse Resp BP Pulse Ox 97.4 F L 83 20 126/69 98 05/29/18 08:27 05/29/18 08:27 05/29/18 08:27 05/29/18 08:27 05/29/18 08:27 Intake and Output: 05/29/18 05/29/18 06:59 18:59 Intake Total 1630 Output Total 1 Balance 1629 - Medications Medications: Current Medications Al Hydrox/Mg Hydrox/Simethicone (Maalox Plus 30 Ml) 30 ml PO Q6 PRN PRN Reason: Indigestion / Heartburn Last Admin: 05/28/18 13:18 Dose: 30 ml Clotrimazole (Mycelex Ryne) 10 mg PO TID [facility] Last Admin: 05/28/18 17:56 Dose: 10 mg Famotidine (Pepcid) 20 mg PO BID [facility] Last Admin: 05/28/18 17:56 Dose: 20 mg Heparin Sodium (Porcine) (Heparin) 5,000 units SC Q12 [facility] Last Admin: 05/15/18 21:33 Dose: 5,000 units Piperacillin Sod/Tazobactam Sod (Zosyn 3.375 Gm Iv Premix) 3.375 gm in 50 mls @ 100 mls/hr IVPB Q8 [facility]; Protocol Last Admin: 05/29/18 05:34 Dose: 100 mls/hr Amino Acids (Clinimix 4.25/5 % "E" (1000 Ml)) 1,000 mls @ 70 mls/hr IV .[id number] [facility] Stop: 05/29/18 17:59 Last Admin: 05/29/18 08:58 Dose: 70 mls/hr Micafungin Sodium 100 mg/ (Sodium Chloride) 100 mls @ 100 mls/hr IV Q24H [facility]; Protocol Last Admin: 05/28/18 13:40 Dose: 100 mls/hr Multivitamins/Vitamin C 10 ml/Chromium/Copper/Manganese/Zinc 1 ml/ Amino Acids 1,011 mls @ 70 mls/hr IV .[id number] [facility] Stop: 05/30/18 08:26 Amino Acids (Clinimix 4.25/5 % "E" (1000 Ml)) 1,000 mls @ 70 mls/hr IV .[id number] [facility] Stop: 05/30/18 17:59 Losartan Potassium (Cozaar) 25 mg PO DAILY [facility] Last Admin: 05/28/18 09:57 Dose: 25 mg Mirtazapine (Remeron) 15 mg PO HS [facility] Last Admin: 05/28/18 21:57 Dose: 15 mg Modafinil (Provigil) 100 mg PO DAILY [facility] Last Admin: 05/28/18 09:57 Dose: 100 mg Montelukast Sodium (Singulair) 10 mg PO DAILY [facility] Last Admin: 05/28/18 09:57 Dose: 10 mg - Labs Labs: 05/28/18 08:04 05/28/18 08:04 PT 15.8 SECONDS (9.7-12.2) H 05/14/18 19:37 INR 1.4 05/14/18 19:37 APTT 30 SECONDS (21-34) 05/14/18 19:37 - Constitutional Appears: No Acute Distress, Cachectic, Chronically Ill - Head Exam Head Exam: ATRAUMATIC, NORMOCEPHALIC - Eye Exam Eye Exam: EOMI, Normal appearance - ENT Exam ENT Exam: Mucous Membranes Dry - Neck Exam Neck Exam: Normal Inspection - Respiratory Exam Respiratory Exam: Decreased Breath Sounds. absent: Wheezes, Respiratory Distress - Cardiovascular Exam Cardiovascular Exam: RRR, +S1, +S2 - GI/Abdominal Exam GI & Abdominal Exam: Soft. absent: Tenderness - Rectal Exam Rectal Exam: Deferred - Extremities Exam Extremities Exam: absent: Calf Tenderness, Pedal Edema - Back Exam Back Exam: absent: CVA tenderness (L), CVA tenderness (R) - Neurological Exam Neurological Exam: Alert, Awake, CN II-XII Intact, Oriented x3 - Psychiatric Exam Psychiatric exam: Normal Mood - Skin Skin Exam: absent: Rash Assessment and Plan (1) COPD exacerbation Status: Acute (2) Dehydration Status: Acute (3) Cachexia Status: Acute (4) Respiratory failure Status: Acute (5) Near syncope Status: Acute (6) Esophageal reflux Status: Acute (7) Hypertension Status: Acute (8) Lung mass Status: Chronic (9) Weight loss Status: Acute - Assessment and Plan (Free Text) Assessment: RESP STATUS NO SIG CHANGE., CONT PULM TOILET., ADEQ OXYGENATION., CXR REVIEWED. CONT AB PER ID. FOR POSS PEG. PROG POOR. DISCUSSED WITH STAFF AND FAMILY AT BEDSIDE.
[2018-05-29] MEDS: Alum-Mag Hydrox-Simethicone Susp (30 mL) PO PRN (10:40)
--- NOTE | 2018-05-29 11:42 | PN ---
DATE: 05/29/2018 SUBJECTIVE: I have seen the patient. According to the daughter, he is able to consume three bottles of Ensure. The patient still has very poor p.o. intake. The patient has been referred to be seen by BALDEV Zapata MD, for possible PEG tube placement. The patient still is amenable for PEG tube placement due to his very poor p.o. intake. I have seen his daughter today and no behavioral problems reported overnight. PHYSICAL EXAMINATION: VITAL SIGNS: Temperature 97.4, pulse 83, blood pressure 126/69, respirations 20, oxygen saturation is 98%. SKIN: No diaphoresis. HEENT: No headache or dizziness. NECK: Supple. RESPIRATORY: No dyspnea. CARDIOVASCULAR: No chest pain. GASTROINTESTINAL: The patient has poor p.o. intake. No nausea or vomiting. No abdominal pain. EXTREMITIES: Gait is unsteady. Spending more time in bed due to tremors. MUSCULOSKELETAL: Feels weak. NEUROLOGIC: Alert, oriented x3. GENITOURINARY: No problems. MENTAL STATUS EXAMINATION: Frail-looking male who looks stated age, oriented x3. His current weight now is 118, the patient at admission was 126. The patient has been losing weight due to poor p.o. intake. Speech is spontaneous. Affect is reactive. Mood is depressed, somatic. Thought process is coherent. Thought content, the patient still willing to go for a PEG tube placement. No psychosis. No suicidal or homicidal ideation. Attention and memory seems to be fair. Insight and judgment fair. Impulse control is fair. LABORATORY DATA: Review of his labs: His liver enzyme seems to be still elevated. According to the daughter, the patient is complaining at times of difficulty swallowing pills. The patient has been treated by Dr. Garcia for oral candidiasis. The patient is still feeling weak, but alert, in his room. States that he is still unable to eat regular food, but drinking Ensure. The patient is receiving now PPN. IMPRESSION: History of delirium, drug-induced disorder, history of depression, mood disorder secondary to medical problems, history of lung mass. PLAN AND RECOMMENDATION: The patient seen, meds reviewed. Continue present management. Continue present psych meds. The patient is for possible PEG tube placement. The patient referred to be seen by Dr. Blanton. Richmond Emerson MD [facility] # [id number]
[2018-05-29] MEDS: Micafungin 100 MG in Sodium Chloride 0.9% 100 ML IV SCH (14:05)
[2018-05-29] MEDS ORDERED: PPN IV SCH (18:00)
--- NOTE | 2018-05-29 21:13 | PN ---
DATE: 05/29/2018 SUBJECTIVE: The patient productive cough of blood tinged sputum. He still has poor appetite. He did sign a consent for gastrostomy feeding tube but the procedure has not been scheduled yet. The patient was evaluated by Dr. Herbert Blanton, the [employer] consultant, and according to his assessment that he agreed was placement of PEG tube if family agreeable. PHYSICAL EXAMINATION: VITAL SIGNS: Blood pressure 109/74, heart rate 80, temperature 97.3, respirations 20. HEENT: Normocephalic. CHEST: Bilateral rhonchi. HEART: S1, S2 regular. EXTREMITIES: No edema. LABORATORY DATA: Today's hemoglobin and hematocrit 11.8 and 34.7, white count 9.9, platelet count 543,000. Today's SMA-7 was within normal limits except for creatinine 0.7. ASSESSMENT: 1. Near syncopal episode upon presentation. 2. Lung mass. 3. Status post left pneumothorax following lung biopsy which resolved completely. 4. Very poor appetite. 5. Oral thrush. 6. Systemic hypertension. RECOMMENDATIONS: Continue Cozaar at 25 mg once a day, subcutaneous heparin is on hold. Continue IV micafungin at 100 mg daily and Zosyn at 3.375 g intravenously every 8 hours. Zach Marquez MD [facility] # [id number]
--- NOTE | 2018-05-30 04:21 | PN ---
DATE: 05/29/2018 SUBJECTIVE: Today, the patient is awake, alert, but still anorexic, and the patient was seen this morning out-of-bed to chair, and denied any pain except anorexia. The patient has been feeling weak. PHYSICAL EXAMINATION: VITAL SIGNS: The patient has a blood pressure of 126/69, pulse is 83, respirations 20, and temperature 97.4. HEENT: The head is normocephalic. Mouth has thrush over the tongue and palate. NECK: Supple. LUNGS: There are some rales at the bases. HEART: Regular rate and rhythm. ABDOMEN: Soft, nontender. No palpable mass. EXTREMITIES: There is no edema. NEUROLOGIC: . The patient looks depressed and anorexic. LABORATORY DATA: Blood work was done on 05/28/2018 showed WBC 9.9, hemoglobin 11.8, hematocrit 34.7, and platelet is 543. The chemistry showed a sodium of 135, potassium 4.2, chloride 100, bicarb 25, BUN is 19, and creatinine 0.7. AST is 70 now, ALT is 80, and alkaline phosphatase today is 162. PLAN: We are going to continue IV antifungal medications. The plan was that to put a PEG in the patient, however, as the discussed with the daughter, she thought the patient needs endoscopy only and no PEG at this time. So this afternoon, Dr. Blanton was called in the GI to inform him about the decision from the daughter. So, the PEG is currently postponed for next week. So, the daughter also is made aware of by nurse. Kyle Aldana MD
[2018-05-30] MEDS: Piperacill/Tazo 3.375gm in Dex 3.375 GM/50 ML BAG IVPB SCH ×3 (05:39→21:03)
[2018-05-30] MEDS ORDERED: PPN IV SCH (08:27)
--- NOTE | 2018-05-30 09:52 | CP.PCM.PN ---
Subjective - Date & Time of Evaluation Date of Evaluation: 05/30/18 Time of Evaluation: 09:49 - Subjective Subjective: Called by Dr Aldana last night because family only wanted diagnostic EGD to be done at present to give his anti-fungal therapy more time to work and then decide on PEG at later time. Advised that in view of his clinical poor condition I did not want to put him under sedation twice for EGD x2. EGD for today cancelled and he will either have a diagnostic EGD/PEG next week or defer in event of clinical improvement. Tolerated some of diet yesterday. Objective - Vital Signs/Intake and Output Vital Signs (last 24 hours): Temp Pulse Resp BP Pulse Ox 98.0 F 84 20 142/70 96 05/30/18 08:39 05/30/18 08:39 05/30/18 08:39 05/30/18 08:39 05/30/18 08:39 Intake and Output: 05/30/18 05/30/18 06:59 18:59 Intake Total 710 Balance 710 - Medications Medications: Current Medications Clotrimazole (Mycelex Ryne) 10 mg PO TID [facility] Last Admin: 05/30/18 09:15 Dose: 10 mg Famotidine (Pepcid) 20 mg PO BID [facility] Last Admin: 05/29/18 17:57 Dose: 20 mg Heparin Sodium (Porcine) (Heparin) 5,000 units SC Q12 [facility] Last Admin: 05/15/18 21:33 Dose: 5,000 units Piperacillin Sod/Tazobactam Sod (Zosyn 3.375 Gm Iv Premix) 3.375 gm in 50 mls @ 100 mls/hr IVPB Q8 [facility]; Protocol Last Admin: 05/30/18 05:39 Dose: 100 mls/hr Micafungin Sodium 100 mg/ (Sodium Chloride) 100 mls @ 100 mls/hr IV Q24H [facility]; Protocol Last Admin: 05/29/18 14:05 Dose: 100 mls/hr Amino Acids (Clinimix 4.25/5 % "E" (1000 Ml)) 1,000 mls @ 70 mls/hr IV .[id number] [facility] Stop: 05/30/18 17:59 Last Admin: 05/30/18 08:30 Dose: 70 mls/hr Losartan Potassium (Cozaar) 25 mg PO DAILY [facility] Last Admin: 05/30/18 09:16 Dose: 25 mg Mirtazapine (Remeron) 15 mg PO HS [facility] Last Admin: 05/29/18 21:15 Dose: 15 mg Modafinil (Provigil) 100 mg PO DAILY [facility] Last Admin: 05/30/18 09:16 Dose: 100 mg Montelukast Sodium (Singulair) 10 mg PO DAILY [facility] Last Admin: 05/30/18 09:15 Dose: 10 mg - Labs Labs: 05/28/18 08:04 05/28/18 08:04 PT 15.8 SECONDS (9.7-12.2) H 05/14/18 19:37 INR 1.4 05/14/18 19:37 APTT 30 SECONDS (21-34) 05/14/18 19:37 - Constitutional Appears: Cachectic, Chronically Ill - Head Exam Head Exam: ATRAUMATIC, NORMOCEPHALIC - Eye Exam Eye Exam: EOMI, PERRL - Respiratory Exam Respiratory Exam: Decreased Breath Sounds, Rhonchi - Cardiovascular Exam Cardiovascular Exam: REGULAR RHYTHM, +S1 - GI/Abdominal Exam GI & Abdominal Exam: Soft, Normal Bowel Sounds. absent: Tenderness Additional comments: large midline scar from above to below umbilicus. - Extremities Exam Extremities Exam: Normal Inspection Assessment and Plan (1) Malnutrition Assessment & Plan: Will observe over weekend for clinical response and adequacy of po intake. PEG cancelled for now. Can reschedule for monday of next week if family decides again in favor of tube placement. Continue PPI and antifungal therapy per ID. Will reassess in a couple of days and speak with daughter again. Will follow as needed. Status: Acute (2) Thrush, oral Assessment & Plan: as above Status: Acute (3) Lung mass Assessment & Plan: As per Pulmonary. Biopsy non-diagnostic earlier this admission. Status: Chronic
--- NOTE | 2018-05-30 10:12 | CP.PCM.PN ---
Subjective - Date & Time of Evaluation Date of Evaluation: 05/30/18 Time of Evaluation: 10:09 - Subjective Subjective: PT ALERT, OOB IN CHAIR., NO SOB. +DYSPHAGIA . INTERMITTENT CONFUSION. ROS; OTHERWISE NEG. Objective - Vital Signs/Intake and Output Vital Signs (last 24 hours): Temp Pulse Resp BP Pulse Ox 98.0 F 84 20 142/70 96 05/30/18 08:39 05/30/18 08:39 05/30/18 08:39 05/30/18 08:39 05/30/18 08:39 Intake and Output: 05/30/18 05/30/18 06:59 18:59 Intake Total 710 Balance 710 - Medications Medications: Current Medications Clotrimazole (Mycelex Ryne) 10 mg PO TID [facility] Last Admin: 05/30/18 09:15 Dose: 10 mg Famotidine (Pepcid) 20 mg PO BID [facility] Last Admin: 05/29/18 17:57 Dose: 20 mg Heparin Sodium (Porcine) (Heparin) 5,000 units SC Q12 [facility] Last Admin: 05/15/18 21:33 Dose: 5,000 units Piperacillin Sod/Tazobactam Sod (Zosyn 3.375 Gm Iv Premix) 3.375 gm in 50 mls @ 100 mls/hr IVPB Q8 [facility]; Protocol Last Admin: 05/30/18 05:39 Dose: 100 mls/hr Micafungin Sodium 100 mg/ (Sodium Chloride) 100 mls @ 100 mls/hr IV Q24H [facility]; Protocol Last Admin: 05/29/18 14:05 Dose: 100 mls/hr Amino Acids (Clinimix 4.25/5 % "E" (1000 Ml)) 1,000 mls @ 70 mls/hr IV .[id number] [facility] Stop: 05/30/18 17:59 Last Admin: 05/30/18 08:30 Dose: 70 mls/hr Losartan Potassium (Cozaar) 25 mg PO DAILY [facility] Last Admin: 05/30/18 09:16 Dose: 25 mg Mirtazapine (Remeron) 15 mg PO HS [facility] Last Admin: 05/29/18 21:15 Dose: 15 mg Modafinil (Provigil) 100 mg PO DAILY [facility] Last Admin: 05/30/18 09:16 Dose: 100 mg Montelukast Sodium (Singulair) 10 mg PO DAILY [facility] Last Admin: 05/30/18 09:15 Dose: 10 mg - Labs Labs: 05/28/18 08:04 05/28/18 08:04 PT 15.8 SECONDS (9.7-12.2) H 05/14/18 19:37 INR 1.4 05/14/18 19:37 APTT 30 SECONDS (21-34) 05/14/18 19:37 - Constitutional Appears: No Acute Distress, Cachectic, Chronically Ill - Head Exam Head Exam: ATRAUMATIC, NORMOCEPHALIC - Eye Exam Eye Exam: EOMI, Normal appearance - ENT Exam ENT Exam: Mucous Membranes Dry - Neck Exam Neck Exam: Normal Inspection - Respiratory Exam Respiratory Exam: Decreased Breath Sounds. absent: Accessory Muscle Use, Wheezes, Respiratory Distress - Cardiovascular Exam Cardiovascular Exam: RRR, +S1, +S2 - GI/Abdominal Exam GI & Abdominal Exam: Soft. absent: Tenderness - Rectal Exam Rectal Exam: Deferred - Extremities Exam Extremities Exam: absent: Calf Tenderness, Pedal Edema - Back Exam Back Exam: absent: CVA tenderness (L), CVA tenderness (R) - Neurological Exam Neurological Exam: Alert, Awake, CN II-XII Intact - Psychiatric Exam Psychiatric exam: Depressed - Skin Skin Exam: absent: Rash Assessment and Plan (1) COPD exacerbation Status: Acute (2) Dehydration Status: Acute (3) Cachexia Status: Acute (4) Respiratory failure Status: Acute (5) Near syncope Status: Acute (6) Esophageal reflux Status: Acute (7) Hypertension Status: Acute (8) Lung mass Status: Chronic (9) Weight loss Status: Acute - Assessment and Plan (Free Text) Assessment: RESP STATUS NO SIG CHANGE., CONT PULM TOILET., NEB BD., MONITOR O2 SAT. CXR REVIEWED. ON ANTIFUNGAL TX +ORAL THRUSH. PEG POSTPONED. PROG POOR. DISCUSSED WITH STAFF AND FAMILY AT BEDSIDE.
[2018-05-30] MEDS: Micafungin 100 MG in Sodium Chloride 0.9% 100 ML IV SCH (12:30)
[2018-05-30] MEDS ORDERED: Aluminum Hydroxide/Magnesium Hydroxide Susp (30 mL) PO PRN (15:04)
[2018-05-30] MEDS ORDERED: PPN IV ONE (18:00)
--- NOTE | 2018-05-30 18:33 | PN ---
DATE: 05/30/2018 SUBJECTIVE: The patient is still having a very poor appetite. He only drank milk. PHYSICAL EXAMINATION: VITAL SIGNS: Blood pressure 142/70, heart rate 84, temperature 98, and respirations 20. HEENT: Normocephalic. CHEST: Minimal rhonchi. HEART: S1, S2 regular. EXTREMITIES: No edema. ASSESSMENT: 1. Lung mass. 2. Cachexia. 3. Near-syncopal episode. 4. Dehydration. RECOMMENDATIONS: Case was discussed in detail with his primary physician, Dr. Kyle Aldana and with nurse practitioner. The daughter changed her mind about the issue of gastrostomy feeding tube placement and instead she agreed for an open lung biopsy. I did contact Dr. Dimas and explained the case to him and I text messaged him the patient's name and room number. In the meantime, continue Cozaar 25 mg daily, is still on hold, continue micafungin at 100 mg intravenously daily and Mycelex Ryne 10 mg t.i.d., as well as IV Zosyn at 3.375 g every 8 hours. Zach Marquez MD
--- NOTE | 2018-05-30 18:56 | PN ---
DATE: 05/30/2018 SUBJECTIVE: The patient is seen. The patient is more alert with periods of confusion, but no hallucination. The patient is for possible EGD. The patient was seen by Dr. Blanton; however, PEG tube has been deferred at this time until after EGD. The patient, according to the daughter, is drinking three Ensures. The patient refusing to eat homemade food. PHYSICAL EXAMINATION: VITAL SIGNS: Temperature 98, pulse 84, blood pressure 142/70, respirations 20, oxygen saturations 96%. LABORATORY DATA: Review of his labs: His liver enzyme seems to be improving. REVIEW OF SYSTEMS: GENERAL: He is alert with periods of confusion but not agitated, seen siting in a Jayden chair. SKIN: No diaphoresis. HEENT: No headache or dizziness. RESPIRATORY: No dyspnea. CARDIOVASCULAR: No chest pain. GASTROINTESTINAL: Has poor appetite and the patient also was earlier complaining of pain with swallowing. No nausea, no vomiting. No abdominal pain. EXTREMITIES: Gait is unsteady. MUSCULOSKELETAL: Feels weak. NEURO: Alert with intermittent periods of confusion. The patient has not eaten well in weeks due to having urinary problems. MENTAL STATUS EXAMINATION: Elderly male who looks stated age, alert, oriented x2 with periods of confusion. Speech is slow, [place]-speaking. Affect is restricted. Mood dysphoric, depressed, somatic. The patient is currently on Provigil and Remeron. Thought process coherent. Thought content, no overt psychosis. The patient continues to have poor appetite. He said he has no appetite. No suicidal ideation. Attention and memory seems to be fair. Insight fair. Impulse control is fair. IMPRESSION: History of delirium as well as history of depression and mood disorder secondary to medical problems, failure to thrive, history of lung mass. RECOMMENDATIONS: The patient seen, meds reviewed. Continue present psych meds. The patient is on Provigil and Remeron. Continue PPN as ordered. The patient has been referred and seen already by GI, but awaiting PEG tube placement. The patient also for possible EGD. The patient has oral candidiasis. Continue treatment plan as outlined. Richmond Emerson MD [facility] # [id number] MTDD
--- NOTE | 2018-05-31 02:14 | PN ---
DATE: 05/30/2018 SUBJECTIVE: Today, the patient is more alert and awake. The patient is sitting on a reclining chair. No apparent shortness of breath or dizziness. The patient is still weak, but improving. PHYSICAL EXAMINATION: VITAL SIGNS: The patient has a blood pressure of 122/70, pulse 84, respirations 20, temperature 98 degrees Fahrenheit. HEENT: Mouth has oral thrush, but clean up. NECK: Supple. LUNGS: Has some fine rales bilaterally. HEART: Regular rate and rhythm. ABDOMEN: Soft and nontender. EXTREMITIES: There is no edema, however, the patient is still anorexic. ASSESSMENT AND PLAN: The plan is that the case was discussed with the family again, the and daughter. Now, they are going to consider a biopsy of the mass in the lungs, so we discussed the case with Dr. Marquez, the [employer]airer [employer], who is contacting the thoracic surgeons. The case again was discussed with Pooja Meyers, the nurse practitioner. Kyle Aldana MD
[2018-05-31] MEDS: Piperacill/Tazo 3.375gm in Dex 3.375 GM/50 ML BAG IVPB SCH ×3 (05:27→22:15)
[2018-05-31] MEDS ORDERED: PPN#10 IV SCH (08:25)
[2018-05-31 09:40] LABS: BASO # 0.1 K/uL (0.0-0.2); BASO % 1.4 % (0.0-2.0); EOS # 0.3 K/uL (0.0-0.7); EOS % 2.5 % (0.0-4.0); HEMOGLOBIN 12.2 g/dL (12.0-18.0); LYMPH # 2.1 K/uL (1.0-4.3); MEAN CELL VOLUME 84.1 fL (80.0-94.0); MEAN CORPUSCULAR HEMOGLOBIN 28.1 pg (27.0-31.0); MEAN CORPUSCULAR HGB CONC 33.4 g/dL (33.0-37.0); MEAN PLATELET VOLUME 8.4 fL (7.2-11.7); MONO # 1.1 K/uL (0.0-0.8); MONO % 10.9 % (0.0-10.0); NEUT # 6.7 K/uL (1.8-7.0); NEUT % 65.2 % (50.0-75.0); NRBC % 0.1 % (0.0-2.0); RBC 4.36 Mil/uL (4.40-5.90); RED CELL DISTRIBUTION WIDTH 15.6 % (11.5-14.5); WHITE BLOOD COUNT 10.3 K/uL (4.8-10.8)
[2018-05-31 10:07] LABS: ALBUMIN 3.6 g/dL (3.5-5.0); BLOOD UREA NITROGEN 19 mg/dL (9-20); CALCIUM 9.8 mg/dl (8.6-10.4); GFR NON-AFRICAN AMERICAN > 60
[2018-05-31 10:08] LABS: ALB/GLOB RATIO 0.9 (1.0-2.1); ALT/SGPT 81 U/L (21-72); AST/SGOT 51 U/L (17-59)
[2018-05-31] MEDS: Micafungin 100 MG in Sodium Chloride 0.9% 100 ML IV SCH (13:19)
[2018-05-31] MEDS: guaiFENesin 100 mg/5 ml Syrup UD PO SCH ×3 (14:40→22:13)
[2018-05-31] MEDS ORDERED: PPN#11 IV ONE (18:00)
--- NOTE | 2018-05-31 18:33 | CP.PCM.PN ---
Subjective - Date & Time of Evaluation Date of Evaluation: 05/31/18 Time of Evaluation: 18:31 - Subjective Subjective: PT AWAKE , +COUGH +THICK SPUTUM TODAY. SWALLOWING BETTER., ROS; OTHERWISE NEG. Objective - Vital Signs/Intake and Output Vital Signs (last 24 hours): Temp Pulse Resp BP Pulse Ox 98.7 F 94 H 18 109/62 97 05/31/18 15:00 05/31/18 15:00 05/31/18 15:00 05/31/18 15:00 05/31/18 15:00 Intake and Output: 05/31/18 05/31/18 06:59 18:59 Intake Total 520 610 Balance 520 610 - Medications Medications: Current Medications Al Hydrox/Mg Hydrox/Simethicone (Maalox 30 Ml) 30 ml PO Q8 PRN PRN Reason: Indigestion / Heartburn Albuterol Sulfate (Albuterol 0.042% Inhal Cathie (1.25mg/3ml) Ud) 1.25 mg INH RQ6 [facility] Clotrimazole (Mycelex Ryne) 10 mg PO TID [facility] Last Admin: 05/31/18 18:27 Dose: 10 mg Famotidine (Pepcid) 20 mg PO BID [facility] Last Admin: 05/31/18 18:25 Dose: 20 mg Guaifenesin (Robitussin) 100 mg PO QID [facility] Last Admin: 05/31/18 18:26 Dose: 100 mg Heparin Sodium (Porcine) (Heparin) 5,000 units SC Q12 [facility] Last Admin: 05/15/18 21:33 Dose: 5,000 units Piperacillin Sod/Tazobactam Sod (Zosyn 3.375 Gm Iv Premix) 3.375 gm in 50 mls @ 100 mls/hr IVPB Q8 [facility]; Protocol Last Admin: 05/31/18 14:32 Dose: 100 mls/hr Micafungin Sodium 100 mg/ (Sodium Chloride) 100 mls @ 100 mls/hr IV Q24H [facility]; Protocol Last Admin: 05/31/18 13:19 Dose: 100 mls/hr Multivitamins/Vitamin C 10 ml/Chromium/Copper/Manganese/Zinc 1 ml/ Amino Acids 1,011 mls @ 70 mls/hr IV .[id number] [facility] Stop: 06/01/18 08:26 Amino Acids (Clinimix 4.25/5 % "E" (1000 Ml)) 1,000 mls @ 70 mls/hr IV .[id number] [facility] Stop: 06/01/18 17:59 Losartan Potassium (Cozaar) 25 mg PO DAILY [facility] Last Admin: 05/31/18 09:19 Dose: 25 mg Mirtazapine (Remeron) 15 mg PO HS [facility] Last Admin: 05/30/18 21:03 Dose: 15 mg Modafinil (Provigil) 100 mg PO DAILY [facility] Last Admin: 05/31/18 09:19 Dose: 100 mg Montelukast Sodium (Singulair) 10 mg PO DAILY [facility] Last Admin: 05/31/18 09:19 Dose: 10 mg - Labs Labs: 05/31/18 09:30 05/31/18 09:30 PT 15.8 SECONDS (9.7-12.2) H 05/14/18 19:37 INR 1.4 05/14/18 19:37 APTT 30 SECONDS (21-34) 05/14/18 19:37 - Constitutional Appears: No Acute Distress, Cachectic, Chronically Ill - Head Exam Head Exam: ATRAUMATIC, NORMOCEPHALIC - Eye Exam Eye Exam: EOMI, Normal appearance - ENT Exam ENT Exam: Mucous Membranes Moist - Neck Exam Neck Exam: Normal Inspection - Respiratory Exam Respiratory Exam: Decreased Breath Sounds. absent: Accessory Muscle Use, Rhonchi, Wheezes, Respiratory Distress - Cardiovascular Exam Cardiovascular Exam: RRR, +S1, +S2 - GI/Abdominal Exam GI & Abdominal Exam: Soft. absent: Tenderness - Rectal Exam Rectal Exam: Deferred - Extremities Exam Extremities Exam: absent: Calf Tenderness, Pedal Edema - Back Exam Back Exam: absent: CVA tenderness (L), CVA tenderness (R) - Neurological Exam Neurological Exam: Alert, Awake, CN II-XII Intact - Psychiatric Exam Psychiatric exam: Depressed - Skin Skin Exam: absent: Rash Assessment and Plan (1) COPD exacerbation Status: Acute (2) Dehydration Status: Acute (3) Cachexia Status: Acute (4) Respiratory failure Status: Acute (5) Near syncope Status: Acute (6) Esophageal reflux Status: Acute (7) Hypertension Status: Acute (8) Lung mass Status: Chronic (9) Weight loss Status: Acute - Assessment and Plan (Free Text) Assessment: RESP STATUS NO SIG CHANGE., CONT NEB BD., ADD MUCOMYST. CONT PULM TOILET., MONITOR O2 SAT. CXR REVIEWED. PROG POOR. DISCUSSED WITH STAFF AND FAMILY AT BEDSIDE.
--- NOTE | 2018-05-31 19:03 | PN ---
DATE: 05/31/2018 SUBJECTIVE: The patient still has extremely poor appetite. He denies any chest pain. He is experiencing productive cough. PHYSICAL EXAMINATION: VITAL SIGNS: Blood pressure 135/74, heart rate 85, temperature 98.2, respirations 18. HEENT: Normocephalic. CHEST: Bibasilar rhonchi. HEART: S1 and S2, regular. EXTREMITIES: No edema. LABORATORY DATA: Today's hemoglobin, hematocrit, and white count are within normal limits. Platelet count is elevated at 612. SMA-7 is within normal limits except for creatinine of 0.7. ASSESSMENT: 1. Near-syncopal episodes on admission. 2. Lung mass. 3. Status post left apical pneumothorax. 4. Severe anorexia. 5. Significant oral thrush. RECOMMENDATIONS: Continue current IV micafungin, continue Cozaar 25 mg once a day, Zosyn 3.375 g intravenously every 8 hours, start albuterol nebulizer as well as Robitussin therapy. The daughter today changed her mind about having an open lung biopsy. Zach Marquez MD
[2018-05-31] MEDS: Albuterol 0.042% Inhal Sol (1.25 mg/3 mL) UD INH SCH (20:11)
[2018-05-31] MEDS: Acetylcysteine 20% Inhal Soln (4ml) INH SCH (20:11)
[2018-06-01] MEDS: Albuterol 0.042% Inhal Sol (1.25 mg/3 mL) UD INH SCH ×4 (02:30→19:45)
[2018-06-01] MEDS: Acetylcysteine 20% Inhal Soln (4ml) INH SCH ×4 (02:30→19:46)
[2018-06-01] MEDS: Piperacill/Tazo 3.375gm in Dex 3.375 GM/50 ML BAG IVPB SCH (06:13)
--- NOTE | 2018-06-01 06:26 | PN ---
DATE: 05/31/2018 SUBJECTIVE: Today, the patient was seen early this morning, out of bed to chair. No apparent residual distress. Denied any shortness of breath. No chest pain. Only the patient is still anorexic. PHYSICAL EXAMINATION: VITAL SIGNS: The patient has a blood pressure of 109/62, pulse 94, respirations 18, temperature 98.7. NECK: Supple. No JVD. LUNGS: ____ but apparently decreasing. HEART: Regular rate and rhythm. ABDOMEN: Soft, nontender. No palpable mass. EXTREMITIES: There is no edema. LABORATORY DATA: The patient has blood test done. WBC is 10.3, hemoglobin 12.2, hematocrit 36.6, and platelet is 612. Chemistry: Sodium 135, potassium 4.4, chloride 100, and bicarb 24. BUN 19, creatinine 0.7, and glucose 108. AST 51, ALT 81, alkaline phosphatase is 192. ASSESSMENT AND PLAN: The case was discussed again with family. The suggestion made to have lung biopsy but he and the family refused, discussed case with and daughter next to patient. They preferred not to do any biopsy, but to consider percutaneous endoscopic gastrostomy tube and we are going to inform Dr. Blanton, Gastroenterology, regarding putting the percutaneous endoscopic gastrostomy tube. Prognosis is poor. The case was discussed with Dr. Marquez, data analytics developer and also Pooja Meyers, the nurse practitioner. Kyle Aldana MD
[2018-06-01] MEDS ORDERED: PPN#12 IV SCH (08:25)
[2018-06-01] MEDS: guaiFENesin 100 mg/5 ml Syrup UD PO SCH ×4 (10:01→22:38)
--- NOTE | 2018-06-01 12:38 | CP.PCM.PN ---
Subjective - Date & Time of Evaluation Date of Evaluation: 06/01/18 Time of Evaluation: 12:35 - Subjective Subjective: PT OOB IN CHAIR., NO DISTRESS. LESS COUGH. ROS; OTHERWISE NEG. Objective - Vital Signs/Intake and Output Vital Signs (last 24 hours): Temp Pulse Resp BP Pulse Ox 97.7 F 99 H 20 127/64 96 06/01/18 07:00 06/01/18 07:00 06/01/18 07:00 06/01/18 07:00 06/01/18 05:00 Intake and Output: 06/01/18 06/01/18 06:59 18:59 Intake Total 1320 Balance 1320 - Medications Medications: Current Medications Acetylcysteine (Acetylcysteine 20%) 4 ml INH RQ6 [facility] Last Admin: 06/01/18 07:49 Dose: 4 ml Al Hydrox/Mg Hydrox/Simethicone (Maalox 30 Ml) 30 ml PO Q8 PRN PRN Reason: Indigestion / Heartburn Albuterol Sulfate (Albuterol 0.042% Inhal Cathie (1.25mg/3ml) Ud) 1.25 mg INH RQ6 [facility] Last Admin: 06/01/18 07:50 Dose: 1.25 mg Clotrimazole (Mycelex Ryne) 10 mg PO TID [facility] Last Admin: 06/01/18 10:01 Dose: 10 mg Famotidine (Pepcid) 20 mg PO BID [facility] Last Admin: 06/01/18 10:01 Dose: 20 mg Guaifenesin (Robitussin) 100 mg PO QID [facility] Last Admin: 06/01/18 10:01 Dose: 100 mg Heparin Sodium (Porcine) (Heparin) 5,000 units SC Q12 [facility] Last Admin: 05/15/18 21:33 Dose: 5,000 units Piperacillin Sod/Tazobactam Sod (Zosyn 3.375 Gm Iv Premix) 3.375 gm in 50 mls @ 100 mls/hr IVPB Q8 [facility]; Protocol Last Admin: 06/01/18 06:13 Dose: 100 mls/hr Micafungin Sodium 100 mg/ (Sodium Chloride) 100 mls @ 100 mls/hr IV Q24H [facility]; Protocol Last Admin: 05/31/18 13:19 Dose: 100 mls/hr Amino Acids (Clinimix 4.25/5 % "E" (1000 Ml)) 1,000 mls @ 70 mls/hr IV .[id number] [facility] Stop: 06/01/18 17:59 Last Admin: 06/01/18 08:30 Dose: 70 mls/hr Losartan Potassium (Cozaar) 25 mg PO DAILY [facility] Last Admin: 06/01/18 10:01 Dose: 25 mg Mirtazapine (Remeron) 15 mg PO HS [facility] Last Admin: 05/31/18 22:12 Dose: 15 mg Modafinil (Provigil) 100 mg PO DAILY [facility] Last Admin: 06/01/18 10:01 Dose: 100 mg Montelukast Sodium (Singulair) 10 mg PO DAILY [facility] Last Admin: 06/01/18 10:01 Dose: 10 mg - Labs Labs: 05/31/18 09:30 05/31/18 09:30 PT 15.8 SECONDS (9.7-12.2) H 05/14/18 19:37 INR 1.4 05/14/18 19:37 APTT 30 SECONDS (21-34) 05/14/18 19:37 - Constitutional Appears: No Acute Distress, Cachectic, Chronically Ill - Head Exam Head Exam: ATRAUMATIC, NORMOCEPHALIC - Eye Exam Eye Exam: EOMI, Normal appearance - ENT Exam ENT Exam: Mucous Membranes Moist - Neck Exam Neck Exam: Normal Inspection - Respiratory Exam Respiratory Exam: Decreased Breath Sounds. absent: Accessory Muscle Use, Wheezes, Respiratory Distress - Cardiovascular Exam Cardiovascular Exam: RRR, +S1, +S2 - GI/Abdominal Exam GI & Abdominal Exam: Soft. absent: Tenderness - Rectal Exam Rectal Exam: Deferred - Extremities Exam Extremities Exam: absent: Calf Tenderness, Pedal Edema - Back Exam Back Exam: absent: CVA tenderness (L), CVA tenderness (R) - Neurological Exam Neurological Exam: Alert, Awake, CN II-XII Intact - Psychiatric Exam Psychiatric exam: Depressed - Skin Skin Exam: absent: Rash Assessment and Plan (1) COPD exacerbation Status: Acute (2) Dehydration Status: Acute (3) Cachexia Status: Acute (4) Respiratory failure Status: Acute (5) Near syncope Status: Acute (6) Esophageal reflux Status: Acute (7) Hypertension Status: Acute (8) Lung mass Status: Chronic (9) Weight loss Status: Acute - Assessment and Plan (Free Text) Assessment: RESP STATUS UNLABORED. CONT PULM TOILET., NEB BD WITH MUCOMYST. CXR REVIEWED. MONITOR O2 SAT. NO FURTHER W/U FOR LUNG MASS AT THIS TIME PER PT AND FAMILY WISHES. FOR POSS PEG. PROG POOR. DISCUSSED WITH STAFF.
[2018-06-01] MEDS: Micafungin 100 MG in Sodium Chloride 0.9% 100 ML IV SCH (14:14)
[2018-06-01] MEDS ORDERED: PPN IV SCH (18:00)
[2018-06-01] MEDS: Fat Emulsion 20% IV 500 ML IV SCH (18:48)
[2018-06-01] MEDS: Megestrol Acetate 40 mg/ml Cup PO SCH (18:50)
--- NOTE | 2018-06-01 20:41 | CP.PCM.PN ---
Subjective - Date & Time of Evaluation Date of Evaluation: 06/01/18 Time of Evaluation: 20:39 - Subjective Subjective: Labored breathing noted. Consent for PEG had been obtained to insert this past monday but then daughter changed her mind desiring a longer trial of the anti-fungal treatement started by ID. Advised that I would delay PEG date until monday next which is my next Endoscopy schedule block time. Discussed with Dr Sanchez directly, family at bedside and staff/career agent as well. Objective - Vital Signs/Intake and Output Vital Signs (last 24 hours): Temp Pulse Resp BP Pulse Ox 97.2 F L 94 H 20 116/68 96 06/01/18 15:00 06/01/18 15:00 06/01/18 15:00 06/01/18 15:00 06/01/18 15:00 - Medications Medications: Current Medications Acetylcysteine (Acetylcysteine 20%) 4 ml INH RQ6 [facility] Last Admin: 06/01/18 19:46 Dose: 4 ml Al Hydrox/Mg Hydrox/Simethicone (Maalox 30 Ml) 30 ml PO Q8 PRN PRN Reason: Indigestion / Heartburn Albuterol Sulfate (Albuterol 0.042% Inhal Cathie (1.25mg/3ml) Ud) 1.25 mg INH RQ6 [facility] Last Admin: 06/01/18 19:45 Dose: 1.25 mg Clotrimazole (Mycelex Ryne) 10 mg PO TID [facility] Last Admin: 06/01/18 18:50 Dose: 10 mg Famotidine (Pepcid) 20 mg PO BID [facility] Last Admin: 06/01/18 18:51 Dose: 20 mg Guaifenesin (Robitussin) 100 mg PO QID [facility] Last Admin: 06/01/18 18:51 Dose: 100 mg Heparin Sodium (Porcine) (Heparin) 5,000 units SC Q12 [facility] Last Admin: 05/15/18 21:33 Dose: 5,000 units Micafungin Sodium 100 mg/ (Sodium Chloride) 100 mls @ 100 mls/hr IV Q24H [facility]; Protocol Last Admin: 06/01/18 14:14 Dose: 100 mls/hr Chromium/Copper/Manganese/Zinc 1 ml/ Multivitamins/Vitamin C 10 ml/ Amino Acids 1,011 mls @ 70 mls/hr IV .[id number] [facility] Stop: 06/02/18 08:00 Last Admin: 06/01/18 18:49 Dose: 70 mls/hr Amino Acids (Clinimix 4.25/5 % "E" (1000 Ml)) 1,000 mls @ 70 mls/hr IV .[id number] [facility] Stop: 06/02/18 18:00 Fat Emulsion Intravenous (Intralipid 20%) 500 mls @ 70 mls/hr IV DAILY@1800 [facility] Last Admin: 06/01/18 18:48 Dose: 70 mls/hr Losartan Potassium (Cozaar) 25 mg PO DAILY [facility] Last Admin: 06/01/18 10:01 Dose: 25 mg Megestrol Acetate (Megace) 400 mg PO BID [facility] Last Admin: 06/01/18 18:50 Dose: 400 mg Mirtazapine (Remeron) 15 mg PO HS [facility] Last Admin: 05/31/18 22:12 Dose: 15 mg Modafinil (Provigil) 100 mg PO DAILY [facility] Last Admin: 06/01/18 10:01 Dose: 100 mg Montelukast Sodium (Singulair) 10 mg PO DAILY [facility] Last Admin: 06/01/18 10:01 Dose: 10 mg - Labs Labs: 05/31/18 09:30 05/31/18 09:30 PT 15.8 SECONDS (9.7-12.2) H 05/14/18 19:37 INR 1.4 05/14/18 19:37 APTT 30 SECONDS (21-34) 05/14/18 19:37 - Constitutional Appears: Cachectic, Chronically Ill - Eye Exam Eye Exam: EOMI, PERRL - Respiratory Exam Respiratory Exam: Decreased Breath Sounds, Rhonchi - Cardiovascular Exam Cardiovascular Exam: REGULAR RHYTHM - GI/Abdominal Exam GI & Abdominal Exam: Soft, Tenderness, Hypoactive Bowel Sounds Additional comments: non-tender, no rebound or masses - Extremities Exam Extremities Exam: Pedal Edema Assessment and Plan (1) Malnutrition Assessment & Plan: Will consider PEG placement on monday if medically stable enough to undergo sedation for procedure. Will await Pulmonary clearance. Awaiting families final decision regarding consent for PEG. Observe continued po trial. (eating very little per staff) Status: Acute (2) Thrush, oral Status: Acute (3) Lung mass Assessment & Plan: No further work up planned per Pulmonary notes. Likely to be malignant. Status: Chronic
--- NOTE | 2018-06-01 20:54 | PN ---
DATE: 06/01/2018 SUBJECTIVE: The patient denies any chest pain. He is experiencing productive cough. Shortness of breath has improved after nebulizer therapy. PHYSICAL EXAMINATION: VITAL SIGNS: Blood pressure 116/68, heart rate 94, temperature 97.2, respirations 20. HEENT: Normocephalic. CHEST: Bilateral rhonchi. HEART: S1, S2, regular. EXTREMITIES: No edema. LABORATORY DATA: CBC: Hemoglobin and hematocrit 12.2, and 36.6, white count 10.3, platelet count 612,000. SMA-7: Today's SMA-7 was within normal limits except for creatinine 0.7. ASSESSMENT: 1. Lung mass. 2. Near-syncopal episode upon presentation. 3. Iatrogenic left upper lobe pneumothorax which resolved. 4. Thrombocytosis. 5. Elevated liver enzymes. 6. Hypertension. RECOMMENDATIONS: Continue Cozaar 25 mg once a day. Continue current TPN. Continue Zosyn 3.375 g every 8 hours, plan the date for gastrostomy feeding tube placement next week. I recommend screening for TB in view of thrombocytosis. Zach Marquez MD
--- NOTE | 2018-06-01 21:51 | PN ---
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 The patient was also unsure if he was in the hospital, but the patient right now is drinking at least three Ensures and also receiving PPN. As per family, they are still amenable for the patient to have a PEG tube placement and has scheduled for PEG tube placement next Monday. Now we have a problem, he is still very weak and appetite has been poor. MEDICATIONS: Current psych medicines are Provigil and Remeron. PHYSICAL EXAMINATION: GENERAL: He is alert, verbal, still weak, has periods of confusion. VITAL SIGNS: Temperature 97.7, pulse 99, blood pressure 127/64, respirations 20, oxygen saturation is 96%. He is about 5 feet 6 inches and weighs 125 pounds. SKIN: No diaphoresis. HEENT: No headache. No dizziness. NECK: Supple. RESPIRATORY: No dyspnea. CARDIOVASCULAR: No chest pain. GASTROINTESTINAL: Continues to have poor appetite. The patient is having TPN and drinking at least Ensure. EXTREMITIES: Gait is unsteady. MUSCULOSKELETAL: Generalized weakness. NEUROLOGIC: Alert with off and on periods of confusion. GENITOURINARY: No dysuria. MENTAL STATUS EXAMINATION: An elderly male, who looks stated age, oriented x2, still with periods of confusion. Mood is depressed, dysphoric. Affect is restricted. Speech spontaneous. Thought process, confused often. Thought content, the patient states he wants to go home for Vonnie. No overt psychosis. No suicidal or homicidal ideation. The patient's family agreed for PEG placement but as per Dr. Oro is reluctant for the patient to do more diagnostic lung biopsy. No suicidal ideation. Has intermittent periods of psychosis. Attention is limited. Insight and judgment limited. Impulse control is fair at this time. IMPRESSION: History of delirium as well as history of depression and mood disorder secondary to medical problems, history of lung mass. PLAN AND RECOMMENDATION: The patient seen, meds reviewed. Continue TPN as well as the patient is taking Ensure. The patient is followed by GI. Continue present psych meds as stated. The patient is for PEG tube placement next Monday. Richmond Emerson MD [facility] # [id number] [facility]
--- NOTE | 2018-06-02 01:08 | PN ---
DATE: 06/01/2018 SUBJECTIVE: Today, the patient is more alert and awake, but has poor appetite. No apparent respiratory distress. PHYSICAL EXAMINATION: VITAL SIGNS: The patient has a blood pressure of 116/68, pulse 94, respiration 20, temperature 97.2. HEENT: Mouth is moist. There is oral thrush but improving. NECK: Supple. LUNGS: There are some fine rales at the bases. HEART: Regular rate and rhythm. ABDOMEN: Soft, nontender. No palpable mass. EXTREMITIES: There is no edema. LABORATORY DATA: The patient's blood work was done yesterday. WBC 10.3, hemoglobin 12.2, hematocrit 36.6, and platelet is 612. ASSESSMENT AND PLAN: The plan is that we are going to continue the medications, antifungal medication intravenously. Also, we are going to continue feeding. Also, we are going to add puree diet. will be also added twice a day. The case was discussed with Micheline Cohen. Kyle Aldana MD
[2018-06-02] MEDS: Albuterol 0.042% Inhal Sol (1.25 mg/3 mL) UD INH SCH ×4 (02:02→20:49)
[2018-06-02] MEDS: Acetylcysteine 20% Inhal Soln (4ml) INH SCH ×4 (02:02→20:50)
[2018-06-02] MEDS ORDERED: PPN # 14 IV SCH (08:00)
[2018-06-02] MEDS: guaiFENesin 100 mg/5 ml Syrup UD PO SCH ×4 (09:23→22:24)
[2018-06-02] MEDS: Megestrol Acetate 40 mg/ml Cup PO SCH ×2 (09:23→18:42)
[2018-06-02 10:50] LABS: BASO # 0.1 K/uL (0.0-0.2); BASO % 1.1 % (0.0-2.0); EOS # 0.2 K/uL (0.0-0.7); EOS % 2.5 % (0.0-4.0); HEMOGLOBIN 10.9 g/dL (12.0-18.0); LYMPH # 1.3 K/uL (1.0-4.3); LYMPH % 16.7 % (20.0-40.0); MEAN CELL VOLUME 84.4 fL (80.0-94.0); MEAN CORPUSCULAR HEMOGLOBIN 27.9 pg (27.0-31.0); MEAN CORPUSCULAR HGB CONC 33.1 g/dL (33.0-37.0); MEAN PLATELET VOLUME 8.6 fL (7.2-11.7); MONO # 0.8 K/uL (0.0-0.8); MONO % 10.2 % (0.0-10.0); NEUT # 5.4 K/uL (1.8-7.0); NEUT % 69.5 % (50.0-75.0); RBC 3.92 Mil/uL (4.40-5.90); RED CELL DISTRIBUTION WIDTH 15.5 % (11.5-14.5); WHITE BLOOD COUNT 7.7 K/uL (4.8-10.8)
[2018-06-02 11:07] LABS: ALBUMIN 3.3 g/dL (3.5-5.0); ALT/SGPT 79 U/L (21-72); AST/SGOT 64 U/L (17-59); BLOOD UREA NITROGEN 17 mg/dL (9-20); CALCIUM 9.4 mg/dl (8.6-10.4); GFR NON-AFRICAN AMERICAN > 60
--- NOTE | 2018-06-02 11:27 | CP.PCM.PN ---
Subjective - Date & Time of Evaluation Date of Evaluation: 06/02/18 Time of Evaluation: 11:24 - Subjective Subjective: COVERING DR. SEN Patient denies having nausea, vomiting, abdominal pain. He is able to swallow pureed foods but is not eating much because of lack of appetite. He had one loose bowel movement this morning. Objective - Vital Signs/Intake and Output Vital Signs (last 24 hours): Temp Pulse Resp BP Pulse Ox 97.4 F L 85 20 122/67 100 06/02/18 07:00 06/02/18 07:00 06/02/18 07:00 06/02/18 07:00 06/02/18 07:00 Intake and Output: 06/02/18 06/02/18 06:59 18:59 Intake Total 1010 Balance 1010 - Medications Medications: Current Medications Acetylcysteine (Acetylcysteine 20%) 4 ml INH RQ6 [facility] Last Admin: 06/02/18 08:02 Dose: 4 ml Al Hydrox/Mg Hydrox/Simethicone (Maalox 30 Ml) 30 ml PO Q8 PRN PRN Reason: Indigestion / Heartburn Albuterol Sulfate (Albuterol 0.042% Inhal Cathie (1.25mg/3ml) Ud) 1.25 mg INH RQ6 [facility] Last Admin: 06/02/18 08:02 Dose: 1.25 mg Clotrimazole (Mycelex Ryne) 10 mg PO TID [facility] Last Admin: 06/02/18 09:23 Dose: 10 mg Famotidine (Pepcid) 20 mg PO BID [facility] Last Admin: 06/02/18 09:23 Dose: 20 mg Guaifenesin (Robitussin) 100 mg PO QID [facility] Last Admin: 06/02/18 09:23 Dose: 100 mg Heparin Sodium (Porcine) (Heparin) 5,000 units SC Q12 [facility] Last Admin: 05/15/18 21:33 Dose: 5,000 units Micafungin Sodium 100 mg/ (Sodium Chloride) 100 mls @ 100 mls/hr IV Q24H [facility]; Protocol Last Admin: 06/01/18 14:14 Dose: 100 mls/hr Amino Acids (Clinimix 4.25/5 % "E" (1000 Ml)) 1,000 mls @ 70 mls/hr IV .[id number] [facility] Stop: 06/02/18 18:00 Last Admin: 06/02/18 08:30 Dose: 70 mls/hr Fat Emulsion Intravenous (Intralipid 20%) 500 mls @ 70 mls/hr IV DAILY@1800 [facility] Last Admin: 06/01/18 18:48 Dose: 70 mls/hr Chromium/Copper/Manganese/Zinc 1 ml/ Multivitamins/Vitamin C 10 ml/ Amino Acids 1,011 mls @ 70 mls/hr IV .[id number] [facility] Stop: 06/03/18 08:00 Amino Acids (Clinimix 4.25/5 % "E" (1000 Ml)) 1,000 mls @ 70 mls/hr IV .[id number] [facility] Stop: 06/03/18 18:00 Losartan Potassium (Cozaar) 25 mg PO DAILY [facility] Last Admin: 06/02/18 09:23 Dose: 25 mg Megestrol Acetate (Megace) 400 mg PO BID [facility] Last Admin: 06/02/18 09:23 Dose: 400 mg Mirtazapine (Remeron) 15 mg PO HS [facility] Last Admin: 06/01/18 22:38 Dose: 15 mg Modafinil (Provigil) 100 mg PO DAILY [facility] Last Admin: 06/02/18 09:23 Dose: 100 mg Montelukast Sodium (Singulair) 10 mg PO DAILY [facility] Last Admin: 06/02/18 09:23 Dose: 10 mg - Labs Labs: 06/02/18 10:43 06/02/18 10:43 PT 15.8 SECONDS (9.7-12.2) H 05/14/18 19:37 INR 1.4 05/14/18 19:37 APTT 30 SECONDS (21-34) 05/14/18 19:37 - Constitutional Appears: No Acute Distress - Head Exam Head Exam: ATRAUMATIC, NORMOCEPHALIC - Eye Exam Eye Exam: EOMI, PERRL - Neck Exam Neck Exam: absent: Lymphadenopathy, Thyromegaly - Respiratory Exam Respiratory Exam: NORMAL BREATHING PATTERN. absent: Rales, Rhonchi, Wheezes - Cardiovascular Exam Cardiovascular Exam: REGULAR RHYTHM, +S1, +S2. absent: Gallop, Rubs, Murmur - GI/Abdominal Exam GI & Abdominal Exam: Soft, Normal Bowel Sounds. absent: Tenderness, Mass, Orga nomegaly - Rectal Exam Rectal Exam: Deferred - Extremities Exam Extremities Exam: absent: Calf Tenderness, Pedal Edema Assessment and Plan (1) Malnutrition Assessment & Plan: Patient is tentatively scheduled for PEG on Monday. Since the bowel movement today was loose, we will monitor the stools going forward; consider C difficile testing. Status: Acute
[2018-06-02] MEDS: Micafungin 100 MG in Sodium Chloride 0.9% 100 ML IV SCH (13:30)
--- NOTE | 2018-06-02 17:29 | PN ---
DATE: 06/02/2018 SUBJECTIVE: The patient still has poor appetite, but is able to drink his milk. He denies any chest pain, dizziness, or profuse hemoptysis. PHYSICAL EXAMINATION: VITAL SIGNS: Blood pressure 122/67, heart rate 85, temperature 97.4, and respirations 20. HEENT: Pale conjunctivae. CHEST: Minimal rhonchi. HEART: S1 and S2, regular. EXTREMITIES: Significant muscle wasting. LABORATORY DATA: Hemoglobin and hematocrit 10.9 and 33.1, white count 7.7, and platelet count 455,000. Today's SMA-7 is within normal limits except for glucose of 186 and creatinine 0.5. ASSESSMENT: 1. Near syncopal episode on admission. 2. Systemic hypertension. 3. Lung mass, rule out underlying malignancy. 4. Oral thrush. 5. Severe anorexia and cachexia. RECOMMENDATIONS: Continue current TPN. Continue Cozaar 25 mg once a day, Singulair 10 mg once a day, Robitussin 100 mg four times a day, and Pepcid 20 mg p.o. twice a day. The patient is scheduled for gastrostomy feeding tube placement on Monday. Zach Marquez MD
[2018-06-02] MEDS ORDERED: PPN IV SCH (18:00)
[2018-06-02] MEDS: Fat Emulsion 20% IV 500 ML IV SCH (18:44)
--- NOTE | 2018-06-02 20:37 | PN ---
DATE: 06/02/2018 SUBJECTIVE: The patient is seen. The patient is more alert and verbal and trying to eat, but the patient is complaining he is unable to eat pureed food and asking his diet to be advanced. The patient is taking Ensure. He is also on PPN. Plan is for the patient to have PEG tube this coming Monday. Behavior lee, he is doing well. There are periods of hallucinations but no major behavioral problems. PHYSICAL EXAMINATION: VITAL SIGNS: Temperature 97.4, pulse 85, blood pressure 122/67, respirations 20, oxygen saturation is 100%. GENERAL: He is alert, verbal, seen in his room resting, seen with family. SKIN: No pruritus, no diaphoresis. HEENT: No headache. No dizziness. NECK: Supple. RESPIRATORY: No dyspnea. CARDIOVASCULAR: No chest pain. GASTROINTESTINAL: The patient still has poor appetite but eating better. The patient wants to eat regular food not pureed food. No nausea, no vomiting. No abdominal pain. EXTREMITIES: Gait is unsteady. MUSCULOSKELETAL: Generalized weakness. NEUROLOGIC: Alert and oriented x3. GENITOURINARY: No dysuria. MENTAL STATUS EXAMINATION: An elderly male, who looks stated age, oriented x3, seen with family. Mood is still depressed, dysphoric. Affect is reactive. Speech spontaneous. Thought process coherent. Thought content, the patient wants to eat regular food. No overt psychosis. No suicidal or homicidal ideation. Attention and memory seem to be fair. Insight and judgment fair. Impulse control is fair. The patient is asking if his diet could be advanced. 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 PLAN AND RECOMMENDATION: The patient seen, meds reviewed. We will continue present psych meds. The patient is also on Megace. His liver function seems to be improving. We will continue PPN as ordered. The patient's family is reluctant for repeat lung biopsy, but willing for PEG tube placement this coming Monday. Richmond Emerson MD [facility]
--- NOTE | 2018-06-02 22:59 | PN ---
DATE: 06/02/2018 SUBJECTIVE: Today, the patient is seen and evaluated. The patient is out of bed to chair and denies any shortness of breath. No chest pain or abdominal pain. The patient has . PHYSICAL EXAMINATION: VITAL SIGNS: The patient has a blood pressure of 122/67, pulse 85, respiration 20, temperature 97.4. NECK: Supple. No JVD. LUNGS: Some fine rales at the bases. HEART: Regular rate and rhythm. ABDOMEN: Soft, nontender. No palpable mass. EXTREMITIES: There is no edema. There is an erythematous rash in both legs. LABORATORY DATA: WBC 7.7, hemoglobin 10.9, hematocrit 32.1, and platelet is 455. Chemistries showed sodium 134, potassium 4.4, chloride 101, bicarb is 22, BUN 7, and creatinine 0.5. PLAN: We are going to continue the feeding, and we are going to continue the antibacterial and antifungal medication, and also, the patient will have a PEG inserted today, family at the bedside and agrees with the procedure. Kyle Aldana MD
[2018-06-03] MEDS: Acetylcysteine 20% Inhal Soln (4ml) INH SCH ×4 (01:20→19:06)
[2018-06-03] MEDS: Albuterol 0.042% Inhal Sol (1.25 mg/3 mL) UD INH SCH ×3 (07:46→19:07)
[2018-06-03] MEDS ORDERED: PPN IV SCH ×2 (08:00→18:00)
[2018-06-03] MEDS: guaiFENesin 100 mg/5 ml Syrup UD PO SCH ×4 (09:48→22:34)
[2018-06-03] MEDS: Megestrol Acetate 40 mg/ml Cup PO SCH ×2 (09:48→18:36)
--- NOTE | 2018-06-03 10:09 | CP.PCM.PN ---
Subjective - Date & Time of Evaluation Date of Evaluation: 06/03/18 Time of Evaluation: 10:06 - Subjective Subjective: Patient denies having nausea, vomiting, abdominal pain. Objective - Vital Signs/Intake and Output Vital Signs (last 24 hours): Temp Pulse Resp BP Pulse Ox 98 F 96 H 20 128/65 96 06/03/18 07:00 06/03/18 07:00 06/03/18 07:00 06/03/18 07:00 06/03/18 07:00 Intake and Output: 06/03/18 06/03/18 06:59 18:59 Intake Total 990 Balance 990 - Medications Medications: Current Medications Acetylcysteine (Acetylcysteine 20%) 4 ml INH RQ6 [facility] Last Admin: 06/03/18 01:20 Dose: 4 ml Al Hydrox/Mg Hydrox/Simethicone (Maalox 30 Ml) 30 ml PO Q8 PRN PRN Reason: Indigestion / Heartburn Albuterol Sulfate (Albuterol 0.042% Inhal Cathie (1.25mg/3ml) Ud) 1.25 mg INH RQ6 [facility] Last Admin: 06/02/18 20:49 Dose: 1.25 mg Clotrimazole (Mycelex Ryne) 10 mg PO TID [facility] Last Admin: 06/03/18 09:48 Dose: 10 mg Famotidine (Pepcid) 20 mg PO BID [facility] Last Admin: 06/03/18 09:47 Dose: 20 mg Guaifenesin (Robitussin) 100 mg PO QID [facility] Last Admin: 06/03/18 09:48 Dose: 100 mg Heparin Sodium (Porcine) (Heparin) 5,000 units SC Q12 [facility] Last Admin: 05/15/18 21:33 Dose: 5,000 units Micafungin Sodium 100 mg/ (Sodium Chloride) 100 mls @ 100 mls/hr IV Q24H [facility]; Protocol Last Admin: 06/02/18 13:30 Dose: 100 mls/hr Fat Emulsion Intravenous (Intralipid 20%) 500 mls @ 70 mls/hr IV DAILY@1800 [facility] Last Admin: 06/02/18 18:44 Dose: 70 mls/hr Amino Acids (Clinimix 4.25/5 % "E" (1000 Ml)) 1,000 mls @ 70 mls/hr IV .[id number] [facility] Stop: 06/03/18 18:00 Last Admin: 06/03/18 09:46 Dose: 70 mls/hr Losartan Potassium (Cozaar) 25 mg PO DAILY [facility] Last Admin: 06/03/18 09:48 Dose: 25 mg Megestrol Acetate (Megace) 400 mg PO BID [facility] Last Admin: 06/03/18 09:48 Dose: 400 mg Mirtazapine (Remeron) 15 mg PO HS [facility] Last Admin: 06/02/18 22:24 Dose: 15 mg Modafinil (Provigil) 100 mg PO DAILY [facility] Last Admin: 06/03/18 09:47 Dose: 100 mg Montelukast Sodium (Singulair) 10 mg PO DAILY [facility] Last Admin: 06/03/18 09:47 Dose: 10 mg - Labs Labs: 06/02/18 10:43 06/02/18 10:43 PT 15.8 SECONDS (9.7-12.2) H 05/14/18 19:37 INR 1.4 05/14/18 19:37 APTT 30 SECONDS (21-34) 05/14/18 19:37 - Constitutional Appears: No Acute Distress - Head Exam Head Exam: ATRAUMATIC, NORMOCEPHALIC - Eye Exam Eye Exam: EOMI, PERRL - Neck Exam Neck Exam: absent: Lymphadenopathy, Thyromegaly - Respiratory Exam Respiratory Exam: NORMAL BREATHING PATTERN. absent: Rales, Rhonchi, Wheezes - Cardiovascular Exam Cardiovascular Exam: REGULAR RHYTHM, +S1, +S2. absent: Gallop, Rubs, Murmur - GI/Abdominal Exam GI & Abdominal Exam: Soft, Normal Bowel Sounds. absent: Tenderness, Mass, Organomegaly - Rectal Exam Rectal Exam: Deferred - Extremities Exam Extremities Exam: absent: Calf Tenderness, Pedal Edema Assessment and Plan (1) Malnutrition Assessment & Plan: we are awaiting clearance for PEG, which is tentatively scheduled for Monday. Status: Acute
[2018-06-03] MEDS: Micafungin 100 MG in Sodium Chloride 0.9% 100 ML IV SCH (13:11)
--- NOTE | 2018-06-03 15:07 | CP.PCM.PN ---
Subjective - Date & Time of Evaluation Date of Evaluation: 06/03/18 Time of Evaluation: 08:00 - Subjective Subjective: afeb weak and bedridden nad family refusing work up of lung mass antibiotics held remians afeb for PEG tube Objective - Vital Signs/Intake and Output Vital Signs (last 24 hours): Temp Pulse Resp BP Pulse Ox 98 F 96 H 20 128/65 96 06/03/18 07:00 06/03/18 07:00 06/03/18 07:00 06/03/18 07:00 06/03/18 07:00 Intake and Output: 06/03/18 06/03/18 06:59 18:59 Intake Total 990 Balance 990 - Medications Medications: Current Medications Acetylcysteine (Acetylcysteine 20%) 4 ml INH RQ6 [facility] Last Admin: 06/03/18 13:45 Dose: Not Given Al Hydrox/Mg Hydrox/Simethicone (Maalox 30 Ml) 30 ml PO Q8 PRN PRN Reason: Indigestion / Heartburn Albuterol Sulfate (Albuterol 0.042% Inhal Cathie (1.25mg/3ml) Ud) 1.25 mg INH RQ6 [facility] Last Admin: 06/03/18 13:45 Dose: Not Given Clotrimazole (Mycelex Ryne) 10 mg PO TID [facility] Last Admin: 06/03/18 13:12 Dose: 10 mg Famotidine (Pepcid) 20 mg PO BID [facility] Last Admin: 06/03/18 09:47 Dose: 20 mg Guaifenesin (Robitussin) 100 mg PO QID [facility] Last Admin: 06/03/18 13:12 Dose: 100 mg Heparin Sodium (Porcine) (Heparin) 5,000 units SC Q12 [facility] Last Admin: 05/15/18 21:33 Dose: 5,000 units Micafungin Sodium 100 mg/ (Sodium Chloride) 100 mls @ 100 mls/hr IV Q24H [facility]; Protocol Last Admin: 06/03/18 13:11 Dose: 100 mls/hr Fat Emulsion Intravenous (Intralipid 20%) 500 mls @ 70 mls/hr IV DAILY@1800 [facility] Last Admin: 06/02/18 18:44 Dose: 70 mls/hr Amino Acids (Clinimix 4.25/5 % "E" (1000 Ml)) 1,000 mls @ 70 mls/hr IV .[id number] [facility] Stop: 06/03/18 18:00 Last Admin: 06/03/18 09:46 Dose: 70 mls/hr Multivitamins/Vitamin C 10 ml/Chromium/Copper/Manganese/Zinc 1 ml/ Parenteral Electrolytes 20 ml/ Amino Acids 1,031 mls @ 70 mls/hr IV .[id number] [facility] Stop: 06/04/18 08:00 Parenteral Electrolytes 20 ml/ (Amino Acids) 1,020 mls @ 70 mls/hr IV .[id number] [facility] Stop: 06/04/18 18:00 Losartan Potassium (Cozaar) 25 mg PO DAILY [facility] Last Admin: 06/03/18 09:48 Dose: 25 mg Megestrol Acetate (Megace) 400 mg PO BID [facility] Last Admin: 06/03/18 09:48 Dose: 400 mg Mirtazapine (Remeron) 15 mg PO HS [facility] Last Admin: 06/02/18 22:24 Dose: 15 mg Modafinil (Provigil) 100 mg PO DAILY [facility] Last Admin: 06/03/18 09:47 Dose: 100 mg Montelukast Sodium (Singulair) 10 mg PO DAILY [facility] Last Admin: 06/03/18 09:47 Dose: 10 mg - Labs Labs: 06/02/18 10:43 06/02/18 10:43 PT 15.8 SECONDS (9.7-12.2) H 05/14/18 19:37 INR 1.4 05/14/18 19:37 APTT 30 SECONDS (21-34) 05/14/18 19:37 - Constitutional Appears: Non-toxic, Confused, Cachectic, Chronically Ill - Head Exam Head Exam: NORMOCEPHALIC - Eye Exam Eye Exam: absent: Scleral icterus - ENT Exam ENT Exam: Mucous Membranes Dry - Neck Exam Neck Exam: absent: Lymphadenopathy - Respiratory Exam Respiratory Exam: Decreased Breath Sounds - Cardiovascular Exam Cardiovascular Exam: REGULAR RHYTHM - GI/Abdominal Exam GI & Abdominal Exam: Distended, Soft - Rectal Exam Rectal Exam: Deferred - Exam Exam: NORMAL INSPECTION - Extremities Exam Extremities Exam: absent: Pedal Edema - Back Exam Back Exam: absent: CVA tenderness (L), CVA tenderness (R) - Neurological Exam Neurological Exam: Altered - Psychiatric Exam Psychiatric exam: Depressed Assessment and Plan (1) COPD exacerbation Status: Acute (2) Dehydration Status: Acute (3) Leukocytosis Status: Acute
--- NOTE | 2018-06-03 16:50 | CP.PCM.PN ---
Subjective - Date & Time of Evaluation Date of Evaluation: 06/03/18 Time of Evaluation: 16:46 - Subjective Subjective: PT ALERT, OOB IN CHAIR., NO SOB. NO COUGH. ROS; OTHERWISE NEG Objective - Vital Signs/Intake and Output Vital Signs (last 24 hours): Temp Pulse Resp BP Pulse Ox 98 F 96 H 20 128/65 96 06/03/18 07:00 06/03/18 07:00 06/03/18 07:00 06/03/18 07:00 06/03/18 07:00 Intake and Output: 06/03/18 06/03/18 06:59 18:59 Intake Total 990 Balance 990 - Medications Medications: Current Medications Acetylcysteine (Acetylcysteine 20%) 4 ml INH RQ6 [facility] Last Admin: 06/03/18 13:45 Dose: Not Given Al Hydrox/Mg Hydrox/Simethicone (Maalox 30 Ml) 30 ml PO Q8 PRN PRN Reason: Indigestion / Heartburn Albuterol Sulfate (Albuterol 0.042% Inhal Cathie (1.25mg/3ml) Ud) 1.25 mg INH RQ6 [facility] Last Admin: 06/03/18 13:45 Dose: Not Given Clotrimazole (Mycelex Ryne) 10 mg PO TID [facility] Last Admin: 06/03/18 13:12 Dose: 10 mg Famotidine (Pepcid) 20 mg PO BID [facility] Last Admin: 06/03/18 09:47 Dose: 20 mg Guaifenesin (Robitussin) 100 mg PO QID [facility] Last Admin: 06/03/18 13:12 Dose: 100 mg Heparin Sodium (Porcine) (Heparin) 5,000 units SC Q12 [facility] Last Admin: 05/15/18 21:33 Dose: 5,000 units Micafungin Sodium 100 mg/ (Sodium Chloride) 100 mls @ 100 mls/hr IV Q24H [facility]; Protocol Last Admin: 06/03/18 13:11 Dose: 100 mls/hr Fat Emulsion Intravenous (Intralipid 20%) 500 mls @ 70 mls/hr IV DAILY@1800 [facility] Last Admin: 06/02/18 18:44 Dose: 70 mls/hr Amino Acids (Clinimix 4.25/5 % "E" (1000 Ml)) 1,000 mls @ 70 mls/hr IV .[id number] [facility] Stop: 06/03/18 18:00 Last Admin: 06/03/18 09:46 Dose: 70 mls/hr Multivitamins/Vitamin C 10 ml/Chromium/Copper/Manganese/Zinc 1 ml/ Parenteral Electrolytes 20 ml/ Amino Acids 1,031 mls @ 70 mls/hr IV .[id number] [facility] Stop: 06/04/18 08:00 Parenteral Electrolytes 20 ml/ (Amino Acids) 1,020 mls @ 70 mls/hr IV .[id number] [facility] Stop: 06/04/18 18:00 Losartan Potassium (Cozaar) 25 mg PO DAILY [facility] Last Admin: 06/03/18 09:48 Dose: 25 mg Megestrol Acetate (Megace) 400 mg PO BID [facility] Last Admin: 06/03/18 09:48 Dose: 400 mg Mirtazapine (Remeron) 15 mg PO HS [facility] Last Admin: 06/02/18 22:24 Dose: 15 mg Modafinil (Provigil) 100 mg PO DAILY [facility] Last Admin: 06/03/18 09:47 Dose: 100 mg Montelukast Sodium (Singulair) 10 mg PO DAILY [facility] Last Admin: 06/03/18 09:47 Dose: 10 mg - Labs Labs: 06/02/18 10:43 06/02/18 10:43 PT 15.8 SECONDS (9.7-12.2) H 05/14/18 19:37 INR 1.4 05/14/18 19:37 APTT 30 SECONDS (21-34) 05/14/18 19:37 - Constitutional Appears: Non-toxic, No Acute Distress, Cachectic, Chronically Ill - Head Exam Head Exam: ATRAUMATIC, NORMOCEPHALIC - Eye Exam Eye Exam: EOMI, Normal appearance - ENT Exam ENT Exam: Mucous Membranes Moist - Neck Exam Neck Exam: Normal Inspection - Respiratory Exam Respiratory Exam: Decreased Breath Sounds. absent: Accessory Muscle Use, Wheezes, Respiratory Distress - Cardiovascular Exam Cardiovascular Exam: RRR, +S1, +S2 - GI/Abdominal Exam GI & Abdominal Exam: Soft. absent: Tenderness - Rectal Exam Rectal Exam: Deferred - Extremities Exam Extremities Exam: absent: Calf Tenderness, Pedal Edema - Back Exam Back Exam: absent: CVA tenderness (L), CVA tenderness (R) - Neurological Exam Neurological Exam: Alert, Awake, CN II-XII Intact - Skin Skin Exam: absent: Rash Assessment and Plan (1) COPD exacerbation Status: Acute (2) Dehydration Status: Acute (3) Cachexia Status: Acute (4) Respiratory failure Status: Acute (5) Near syncope Status: Acute (6) Esophageal reflux Status: Acute (7) Hypertension Status: Acute (8) Lung mass Status: Chronic (9) Weight loss Status: Acute - Assessment and Plan (Free Text) Assessment: RESP STATUS COMFORTABLE , CONT PULM TOILET., MONITOR O2 . CHECK ABG IN AM., FOR POSS PEG ON MONDAY . CXR REVIEWED. CONT AB PER ID. PROG POOR. DISCUSSED WITH STAFF AT LENGTH.
[2018-06-03 17:06] LABS: BASO # 0.1 K/uL (0.0-0.2); EOS # 0.2 K/uL (0.0-0.7); EOS % 2.5 % (0.0-4.0); LYMPH # 1.5 K/uL (1.0-4.3); LYMPH % 18.5 % (20.0-40.0); MEAN CELL VOLUME 83.6 fL (80.0-94.0); MEAN CORPUSCULAR HEMOGLOBIN 27.9 pg (27.0-31.0); MEAN CORPUSCULAR HGB CONC 33.3 g/dL (33.0-37.0); MEAN PLATELET VOLUME 8.9 fL (7.2-11.7); MONO # 0.6 K/uL (0.0-0.8); MONO % 6.7 % (0.0-10.0); NEUT % 71.3 % (50.0-75.0); RBC 3.95 Mil/uL (4.40-5.90); RED CELL DISTRIBUTION WIDTH 15.8 % (11.5-14.5); WHITE BLOOD COUNT 8.4 K/uL (4.8-10.8)
[2018-06-03 17:16] LABS: INR 1.4; PROTHROMBIN TIME 15.1 SECONDS (9.7-12.2)
[2018-06-03 17:27] LABS: ALBUMIN 3.4 g/dL (3.5-5.0); ALT/SGPT 70 U/L (21-72); AST/SGOT 43 U/L (17-59); BLOOD UREA NITROGEN 19 mg/dL (9-20); CALCIUM 9.6 mg/dl (8.6-10.4); GFR NON-AFRICAN AMERICAN > 60
--- NOTE | 2018-06-03 17:29 | PN ---
DATE: 06/03/2018 SUBJECTIVE: The patient denies any chest pain. Shortness of breath has improved as well as productive cough and no dizziness. He is mainly in bed or recliner and the family are by the patient's side. PHYSICAL EXAMINATION: VITAL SIGNS: Blood pressure 120/65, heart rate 96, temperature 98, and respirations 20. HEENT: Pale conjunctivae. CHEST: Minimal rhonchi. HEART: S1 and S2, regular. EXTREMITIES: No edema.. ASSESSMENT: 1. Near syncopal episode on presentation. 2. Systemic hypertension. 3. Mild anemia. 4. Large lung mass. 5. Thrombocytosis. 6. Severe anorexia and depression. RECOMMENDATIONS: Continue Cozaar 25 mg once a day, continue current PPN, continue Pepcid 20 mg p.o. twice a day. The patient will undergo gastrostomy feeding tube placement on Monday. Zach Marquez MD
--- NOTE | 2018-06-03 17:35 | RAD ---
Date of service: 06/03/2018 HISTORY: pneumonia COMPARISON: Comparison is made with 05/28/2018 FINDINGS: LUNGS: The left lung is again small in size. Persistent hazy opacity in the left lung more prominent in the upper lobe. Elevation of the left hemidiaphragm is again noted. PLEURA: No significant pleural effusion identified, no pneumothorax apparent. CARDIOVASCULAR: No aortic atherosclerotic calcification present. Normal cardiac size. No pulmonary vascular congestion. OSSEOUS STRUCTURES: No significant abnormalities. VISUALIZED UPPER ABDOMEN: Normal. OTHER FINDINGS: None. IMPRESSION: No significant interval changes noted since the previous study.
[2018-06-03] MEDS: Fat Emulsion 20% IV 500 ML IV SCH (18:38)
--- NOTE | 2018-06-03 20:20 | PN ---
DATE: 06/03/2018 SUBJECTIVE: Today, the patient is alert and awake, out of bed to chair. Denies any shortness of breath, chest pain or palpitation. Still anorexic. As per the , the patient took one can of Ensure. PHYSICAL EXAMINATION VITAL SIGNS: Blood pressure is 122/65, pulse 96, respirations 20, temperature 98 degrees Fahrenheit. NECK: Supple. LUNGS: Clear. HEART: Regular rate and rhythm. ABDOMEN: Soft and nontender. No palpable mass. EXTREMITIES: There is no edema. NEUROLOGIC: The patient has unsteady gait. LABORATORY DATA: The patient had a blood test done . PLAN: The plan is that we are going to repeat the blood work, CBC, CMP, PT and PTT. Continue labs in the morning. This was discussed with . Kyle Aldana MD
[2018-06-04] MEDS: Acetylcysteine 20% Inhal Soln (4ml) INH SCH ×4 (02:44→20:17)
[2018-06-04] MEDS: Albuterol 0.042% Inhal Sol (1.25 mg/3 mL) UD INH SCH ×4 (02:44→20:17)
[2018-06-04] MEDS ORDERED: PPN IV SCH (08:00)
[2018-06-04 08:07] LABS: INR 1.4; PROTHROMBIN TIME 15.2 SECONDS (9.7-12.2)
[2018-06-04] MEDS: Megestrol Acetate 40 mg/ml Cup PO SCH ×2 (09:03→18:02)
[2018-06-04] MEDS: guaiFENesin 100 mg/5 ml Syrup UD PO SCH ×4 (09:03→22:16)
[2018-06-04] MEDS: Micafungin 100 MG in Sodium Chloride 0.9% 100 ML IV SCH (14:52)
--- NOTE | 2018-06-04 16:34 | PN ---
DATE: 06/04/2018 SUBJECTIVE: The patient is seen. The patient is alert, still feeling weak and has very poor p.o. intake. The patient scheduled for PEG tube in the morning to be done by Dr. Blanton. states the patient still has very poor p.o. intake despite her bringing only food. The patient is currently on TPN and also receiving Megace and Provigil and Remeron. PHYSICAL EXAMINATION: VITAL SIGNS: Temperature 97.4, pulse 91, blood pressure 124/68, respirations 18, oxygen saturation 98%. GENERAL: He is alert, weak, lying in a Cyn chair, still has poor p.o. intake. Alert with periods of confusion. No hallucinations noted today. SKIN: No diaphoresis. HEENT: No headache. No dizziness. NECK: Supple. RESPIRATORY: Not in acute respiratory distress. CARDIOVASCULAR: No chest pain. No palpitations. GASTROINTESTINAL: The patient is trying to eat, but still has poor p.o. intake. No nausea. No vomiting. No abdominal pain. EXTREMITIES: Gait is steady. MUSCULOSKELETAL: Generalized weakness. NEUROLOGIC: Alert with periods of hallucinations noted . MENTAL STATUS EXAMINATION: Alert, frail-looking male, who looks stated age, oriented x3. The patient is about 125 pounds. Mood is still depressed, dysphoric, somatic. Affect restricted. Speech spontaneous. Thought process, confused. Thought content; the patient is still willing to go for PEG tube placement. No overt hallucinations noted. No suicidal or homicidal ideation. Attention and memory seem to be limited at times. Insight and judgment, fair.. IMPRESSION: History of delirium as well as history of depression and mood disorder secondary to medical problems, history of failure to thrive, and history of lung mass. PLAN AND RECOMMENDATION: The patient seen, medications reviewed. Continue present management. We will continue present psych meds. The patient to continue TPN, but the patient will be going for PEG tube placement in the morning. Richmond Emerson MD MTDTiana
--- NOTE | 2018-06-04 19:17 | CP.PCM.PN ---
Subjective - Date & Time of Evaluation Date of Evaluation: 06/04/18 Time of Evaluation: 19:14 - Subjective Subjective: PT AWAKE, NO DISTRESS., LESS COUGH. ROS; OTHERWISE NEG. Objective - Vital Signs/Intake and Output Vital Signs (last 24 hours): Temp Pulse Resp BP Pulse Ox 98.2 F 95 H 20 108/65 94 L 06/04/18 15:00 06/04/18 15:00 06/04/18 15:00 06/04/18 15:00 06/04/18 15:00 - Medications Medications: Current Medications Acetylcysteine (Acetylcysteine 20%) 4 ml INH RQ6 [facility] Last Admin: 06/04/18 13:41 Dose: 4 ml Al Hydrox/Mg Hydrox/Simethicone (Maalox 30 Ml) 30 ml PO Q8 PRN PRN Reason: Indigestion / Heartburn Albuterol Sulfate (Albuterol 0.042% Inhal Cathie (1.25mg/3ml) Ud) 1.25 mg INH RQ6 [facility] Last Admin: 06/04/18 13:40 Dose: 1.25 mg Clotrimazole (Mycelex Ryne) 10 mg PO TID [facility] Last Admin: 06/04/18 18:03 Dose: 10 mg Famotidine (Pepcid) 20 mg PO BID [facility] Last Admin: 06/04/18 18:03 Dose: 20 mg Guaifenesin (Robitussin) 100 mg PO QID [facility] Last Admin: 06/04/18 18:02 Dose: 100 mg Heparin Sodium (Porcine) (Heparin) 5,000 units SC Q12 [facility] Last Admin: 05/15/18 21:33 Dose: 5,000 units Micafungin Sodium 100 mg/ (Sodium Chloride) 100 mls @ 100 mls/hr IV Q24H [facility]; Protocol Last Admin: 06/04/18 14:52 Dose: 100 mls/hr Losartan Potassium (Cozaar) 25 mg PO DAILY [facility] Last Admin: 06/04/18 09:03 Dose: 25 mg Megestrol Acetate (Megace) 400 mg PO BID [facility] Last Admin: 06/04/18 18:02 Dose: 400 mg Mirtazapine (Remeron) 15 mg PO HS [facility] Last Admin: 06/03/18 22:34 Dose: 15 mg Modafinil (Provigil) 100 mg PO DAILY [facility] Last Admin: 12/17/18 09:10 Dose: 100 mg Montelukast Sodium (Singulair) 10 mg PO DAILY [facility] Last Admin: 06/04/18 09:03 Dose: 10 mg - Labs Labs: 06/03/18 17:02 06/03/18 17:02 PT 15.2 SECONDS (9.7-12.2) H 06/04/18 07:55 INR 1.4 06/04/18 07:55 APTT 32 SECONDS (21-34) 06/03/18 17:02 - Constitutional Appears: No Acute Distress, Cachectic, Chronically Ill - Head Exam Head Exam: ATRAUMATIC, NORMOCEPHALIC - Eye Exam Eye Exam: EOMI, Normal appearance - ENT Exam ENT Exam: Mucous Membranes Moist - Neck Exam Neck Exam: Normal Inspection - Respiratory Exam Respiratory Exam: Decreased Breath Sounds. absent: Accessory Muscle Use, Wheezes, Respiratory Distress - Cardiovascular Exam Cardiovascular Exam: RRR, +S1, +S2 - GI/Abdominal Exam GI & Abdominal Exam: Soft. absent: Tenderness - Rectal Exam Rectal Exam: Deferred - Extremities Exam Extremities Exam: absent: Calf Tenderness, Pedal Edema - Back Exam Back Exam: absent: CVA tenderness (L), CVA tenderness (R) - Neurological Exam Neurological Exam: Awake, CN II-XII Intact - Psychiatric Exam Psychiatric exam: Depressed - Skin Skin Exam: absent: Rash Assessment and Plan (1) COPD exacerbation Status: Acute (2) Dehydration Status: Acute (3) Cachexia Status: Acute (4) Respiratory failure Status: Acute (5) Near syncope Status: Acute (6) Esophageal reflux Status: Acute (7) Hypertension Status: Acute (8) Lung mass Status: Chronic (9) Weight loss Status: Acute - Assessment and Plan (Free Text) Assessment: RESP STATUS COMFORTABLE AT REST. CONT PULM TOILET., MONITOR O2 SAT. ABG STILL PENDING. CXR REVIEWED. PULM STATUS OPTIMIZED FOR POSS PEG IN AM., PROG POOR. DISCUSSED WITH STAFF AT LENGTH AND FAMILY AT BEDSIDE.
[2018-06-04 19:42] LABS: ABG ALLEN TEST POS; ARTERIAL BLOOD GAS HEMOGLOBIN 10.7 g/dL (11.7-17.4); ARTERIAL BLOOD GAS O2 SAT 99.6 % (95-98); ARTERIAL BLOOD GAS PCO2 29 mm/Hg (35-45); ARTERIAL BLOOD GAS PH 7.46 (7.35-7.45); ARTERIAL BLOOD GAS PO2 105 mm/Hg (80-100); ARTERIAL BLOOD GAS TCO2 21.5 mmol/L (22-28)
--- NOTE | 2018-06-04 21:46 | PN ---
DATE: 06/04/2018 FOLLOWUP SUBJECTIVE: The patient is reported by his daughter to have been experiencing productive cough with blood-tinged sputum overnight yesterday. He denies any chest pain at this time. PHYSICAL EXAMINATION: VITAL SIGNS: Blood pressure 108/65, heart rate 95, temperature 98.2, respirations 20. HEENT: Normocephalic. CHEST: Minimal rhonchi. HEART: S1 and S2 are regular. EXTREMITIES: No edema. ASSESSMENT: 1. Near syncopal episode upon presentation. 2. Lung mass. 3. Status post left pneumothorax, which resolved after pigtail catheter placement. 4. Hypertension. RECOMMENDATIONS: Continue Cozaar 25 mg once a day, PPN, Robitussin, and albuterol inhaler. The patient can undergo gastrostomy feeding tube from the cardiac point with postoperative telemetry monitoring. Zach Marquez MD
--- NOTE | 2018-06-04 22:12 | CP.PCM.PN ---
Subjective - Date & Time of Evaluation Date of Evaluation: 06/04/18 Time of Evaluation: 22:10 - Subjective Subjective: No c/o. Optimized for PEG by Pulmonary. Family is agreeable to Peg tube placement. Aware of risks and benefits as well as poor overall prognosis. Objective - Vital Signs/Intake and Output Vital Signs (last 24 hours): Temp Pulse Resp BP Pulse Ox 98.2 F 95 H 20 108/65 94 L 06/04/18 15:00 06/04/18 15:00 06/04/18 15:00 06/04/18 15:00 06/04/18 15:00 - Medications Medications: Current Medications Acetylcysteine (Acetylcysteine 20%) 4 ml INH RQ6 [facility] Last Admin: 06/04/18 20:17 Dose: 4 ml Al Hydrox/Mg Hydrox/Simethicone (Maalox 30 Ml) 30 ml PO Q8 PRN PRN Reason: Indigestion / Heartburn Albuterol Sulfate (Albuterol 0.042% Inhal Cathie (1.25mg/3ml) Ud) 1.25 mg INH RQ6 [facility] Last Admin: 06/04/18 20:17 Dose: 1.25 mg Clotrimazole (Mycelex Ryne) 10 mg PO TID [facility] Last Admin: 06/04/18 18:03 Dose: 10 mg Famotidine (Pepcid) 20 mg PO BID [facility] Last Admin: 06/04/18 18:03 Dose: 20 mg Guaifenesin (Robitussin) 100 mg PO QID [facility] Last Admin: 06/04/18 18:02 Dose: 100 mg Heparin Sodium (Porcine) (Heparin) 5,000 units SC Q12 [facility] Last Admin: 05/15/18 21:33 Dose: 5,000 units Micafungin Sodium 100 mg/ (Sodium Chloride) 100 mls @ 100 mls/hr IV Q24H [facility]; Protocol Last Admin: 06/04/18 14:52 Dose: 100 mls/hr Losartan Potassium (Cozaar) 25 mg PO DAILY [facility] Last Admin: 06/04/18 09:03 Dose: 25 mg Megestrol Acetate (Megace) 400 mg PO BID [facility] Last Admin: 06/04/18 18:02 Dose: 400 mg Mirtazapine (Remeron) 15 mg PO HS [facility] Last Admin: 06/03/18 22:34 Dose: 15 mg Modafinil (Provigil) 100 mg PO DAILY [facility] Last Admin: 06/04/18 09:10 Dose: 100 mg Montelukast Sodium (Singulair) 10 mg PO DAILY [facility] Last Admin: 06/04/18 09:03 Dose: 10 mg - Labs Labs: 06/03/18 17:02 06/03/18 17:02 PT 15.2 SECONDS (9.7-12.2) H 06/04/18 07:55 INR 1.4 06/04/18 07:55 APTT 32 SECONDS (21-34) 06/03/18 17:02 - Constitutional Appears: Chronically Ill - Head Exam Head Exam: ATRAUMATIC, NORMOCEPHALIC - Respiratory Exam Respiratory Exam: Decreased Breath Sounds, Rhonchi - Cardiovascular Exam Cardiovascular Exam: REGULAR RHYTHM - GI/Abdominal Exam GI & Abdominal Exam: Soft, Normal Bowel Sounds Additional comments: Non tender and no masses or rebound. Midline scar again noted. Assessment and Plan (1) Malnutrition Assessment & Plan: For EGD and Peg placement in am NPO ordered and continue abx Heparin and anticoagulants held Status: Acute (2) Thrush, oral Status: Acute (3) Lung mass Status: Chronic
[2018-06-05] MEDS: Acetylcysteine 20% Inhal Soln (4ml) INH SCH ×4 (02:00→20:41)
[2018-06-05] MEDS: Albuterol 0.042% Inhal Sol (1.25 mg/3 mL) UD INH SCH ×3 (02:00→13:40)
--- NOTE | 2018-06-05 02:07 | PN ---
DATE: 06/04/2018 SUBJECTIVE: Today, the patient is alert and awake. No respiratory distress. The patient is still anorexic. No chest pain. No shortness of breath. PHYSICAL EXAMINATION: GENERAL: The patient is cachectic. VITAL SIGNS: The patient has blood pressure of 108/65, pulse Is 95, respirations 20, temperature 98.2. NECK: Supple. LUNGS: Clear. HEART: Regular rate and rhythm. ABDOMEN: Soft, flat. Positive bowel sounds. EXTREMITIES: There is no edema. LABORATORY DATA: The patient has labs that was done, showed WBC is 8.5, hemoglobin 11, hematocrit 33, and platelets is 461. Coag showed PT, INR 1.4, and PTT is 32. Chemistry: Sodium is 123, potassium 4.2, chloride 102, bicarb is 21, BUN 19, creatinine 0.5, and glucose is 137. ASSESSMENT AND PLAN: The patient is going to have percutaneous endoscopic gastrostomy tube inserted tomorrow. Gastroenterology appreciated. Case was discussed. The patient will be followed. Kyle Aldana MD
[2018-06-05] MEDS: Megestrol Acetate 40 mg/ml Cup PO SCH ×2 (10:38→18:37)
[2018-06-05] MEDS ORDERED: Propofol 10 mg/ml Inj (20 ML) ONE (10:38)
[2018-06-05] MEDS: guaiFENesin 100 mg/5 ml Syrup UD PO SCH ×4 (10:39→21:45)
--- NOTE | 2018-06-05 11:02 | CP.PCM.PN ---
Subjective - Date & Time of Evaluation Date of Evaluation: 06/05/18 Time of Evaluation: 11:00 - Subjective Subjective: PT ALERT, NO SOB. ROS ; OTHERWISE NEG. Objective - Vital Signs/Intake and Output Vital Signs (last 24 hours): Temp Pulse Resp BP Pulse Ox 98.0 F 92 H 20 114/63 95 06/05/18 10:35 06/05/18 10:35 06/05/18 10:35 06/05/18 10:35 06/05/18 10:35 Intake and Output: 06/05/18 06/05/18 06:59 18:59 Intake Total 150 200 Balance 150 200 - Medications Medications: Current Medications Acetylcysteine (Acetylcysteine 20%) 4 ml INH RQ6 [facility] Last Admin: 06/05/18 09:15 Dose: 4 ml Al Hydrox/Mg Hydrox/Simethicone (Maalox 30 Ml) 30 ml PO Q8 PRN PRN Reason: Indigestion / Heartburn Albuterol Sulfate (Albuterol 0.042% Inhal Cathie (1.25mg/3ml) Ud) 1.25 mg INH RQ6 [facility] Last Admin: 06/05/18 09:15 Dose: 1.25 mg Clotrimazole (Mycelex Ryne) 10 mg PO TID [facility] Last Admin: 06/05/18 10:39 Dose: Not Given Famotidine (Pepcid) 20 mg PO BID [facility] Last Admin: 06/05/18 10:39 Dose: Not Given Guaifenesin (Robitussin) 100 mg PO QID [facility] Last Admin: 06/05/18 10:39 Dose: Not Given Heparin Sodium (Porcine) (Heparin) 5,000 units SC Q12 [facility] Last Admin: 05/15/18 21:33 Dose: 5,000 units Micafungin Sodium 100 mg/ (Sodium Chloride) 100 mls @ 100 mls/hr IV Q24H [facility]; Protocol Last Admin: 06/04/18 14:52 Dose: 100 mls/hr Losartan Potassium (Cozaar) 25 mg PO DAILY [facility] Last Admin: 06/05/18 10:38 Dose: Not Given Megestrol Acetate (Megace) 400 mg PO BID [facility] Last Admin: 06/05/18 10:38 Dose: Not Given Mirtazapine (Remeron) 15 mg PO HS [facility] Last Admin: 06/04/18 22:16 Dose: 15 mg Modafinil (Provigil) 100 mg PO DAILY [facility] Last Admin: 06/05/18 10:39 Dose: Not Given Montelukast Sodium (Singulair) 10 mg PO DAILY [facility] Last Admin: 06/05/18 10:39 Dose: Not Given - Labs Labs: 06/03/18 17:02 06/03/18 17:02 PT 15.2 SECONDS (9.7-12.2) H 06/04/18 07:55 INR 1.4 06/04/18 07:55 APTT 32 SECONDS (21-34) 06/03/18 17:02 - Constitutional Appears: No Acute Distress, Cachectic, Chronically Ill - Head Exam Head Exam: ATRAUMATIC, NORMOCEPHALIC - Eye Exam Eye Exam: EOMI, Normal appearance - ENT Exam ENT Exam: Mucous Membranes Dry - Neck Exam Neck Exam: Normal Inspection - Respiratory Exam Respiratory Exam: Decreased Breath Sounds. absent: Accessory Muscle Use, Rhonchi, Wheezes, Respiratory Distress - Cardiovascular Exam Cardiovascular Exam: RRR, +S1, +S2 - GI/Abdominal Exam GI & Abdominal Exam: Soft. absent: Tenderness - Rectal Exam Rectal Exam: Deferred - Extremities Exam Extremities Exam: absent: Calf Tenderness, Pedal Edema - Back Exam Back Exam: absent: CVA tenderness (L), CVA tenderness (R) - Neurological Exam Neurological Exam: Alert, Awake, CN II-XII Intact - Psychiatric Exam Psychiatric exam: Depressed - Skin Skin Exam: absent: Rash Assessment and Plan (1) COPD exacerbation Status: Acute (2) Dehydration Status: Acute (3) Cachexia Status: Acute (4) Respiratory failure Status: Acute (5) Near syncope Status: Acute (6) Esophageal reflux Status: Acute (7) Hypertension Status: Acute (8) Lung mass Status: Chronic (9) Weight loss Status: Acute - Assessment and Plan (Free Text) Assessment: RESP STATUS COMFORTABLE., ADEQ ABG NOTED., CONT PULM TOILET., NEB BD., CXR REVIEWED. FOR PEG TODAY. PROG POOR. DISCUSSED WITH STAFF AND FAMILY AT BEDSIDE.
[2018-06-05] MEDS: Micafungin 100 MG in Sodium Chloride 0.9% 100 ML IV SCH (13:14)
--- NOTE | 2018-06-05 20:46 | PN ---
DATE: 06/05/2018 SUBJECTIVE: The patient underwent gastrostomy feeding tube placement. He denies any chest pain or shortness of breath at this time. PHYSICAL EXAMINATION: VITAL SIGNS: Blood pressure 159/53, heart rate 110, temperature 97.4, and respirations 20. HEENT: Normocephalic. CHEST: Minimal rhonchi. HEART: S1 and S2 are regular. EXTREMITIES: No edema. ASSESSMENT: 1. Status post gastrostomy feeding tube placement. 2. Systemic hypertension. 3. Near syncopal episode upon presentation. 4. Lung mass. 5. Mild anemia. 6. Significant oral thrush. RECOMMENDATIONS: Continue on Cozaar 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 Zach Marquez MD
[2018-06-06] MEDS: Acetylcysteine 20% Inhal Soln (4ml) INH SCH ×2 (02:00→19:17)
--- NOTE | 2018-06-06 07:00 | PN ---
DATE: 06/05/2018 SUBJECTIVE: Today, the patient had PEG inserted. At the time of evaluation this morning, the patient was fully alert and awake after the PEG, but denied any shortness of breath and no chest pain. PHYSICAL EXAMINATION VITAL SIGNS: The patient has a blood pressure of 159/53, pulse 98 to 110, respirations 20, temperature 97.4 NECK: Supple. LUNGS: There are some rales at the bases, residual. HEART: Regular rate and rhythm, tachycardic at times. ABDOMEN: Soft. PEG in place, which is covered by the abdominal band. EXTREMITIES: There is no edema. PLAN: At the request start feeding after okay from Dr. Blanton of , we are going to continue also the antifungal medication due to the oral thrush. The patient was seen and discussed with daughter and including the nurse practitioner, Pooja Meyers. Kyle Aldana MD
--- NOTE | 2018-06-06 09:28 | CP.PCM.PN ---
Subjective - Date & Time of Evaluation Date of Evaluation: 06/06/18 Time of Evaluation: 09:25 - Subjective Subjective: Tolerating tube feedings and minimal incisional pain. Feedings delayed awaiting pump device availability. No N/V/D Objective - Vital Signs/Intake and Output Vital Signs (last 24 hours): Temp Pulse Resp BP Pulse Ox 98.2 F 95 H 20 134/69 94 L 06/06/18 07:00 06/06/18 07:00 06/06/18 07:00 06/06/18 07:00 06/06/18 07:00 - Medications Medications: Current Medications Acetylcysteine (Acetylcysteine 20%) 4 ml INH RQ6 [facility] Last Admin: 06/06/18 02:00 Dose: Not Given Al Hydrox/Mg Hydrox/Simethicone (Maalox 30 Ml) 30 ml PO Q8 PRN PRN Reason: Indigestion / Heartburn Clotrimazole (Mycelex Ryne) 10 mg PO TID [facility] Last Admin: 06/05/18 18:37 Dose: 10 mg Famotidine (Pepcid) 20 mg PO BID [facility] Last Admin: 06/05/18 18:37 Dose: 20 mg Guaifenesin (Robitussin) 100 mg PO QID [facility] Last Admin: 06/05/18 21:45 Dose: 100 mg Heparin Sodium (Porcine) (Heparin) 5,000 units SC Q12 [facility] Last Admin: 05/15/18 21:33 Dose: 5,000 units Micafungin Sodium 100 mg/ (Sodium Chloride) 100 mls @ 100 mls/hr IV Q24H [facility]; P rotocol Last Admin: 06/05/18 13:14 Dose: 100 mls/hr Losartan Potassium (Cozaar) 25 mg PO DAILY [facility] Last Admin: 06/05/18 10:38 Dose: Not Given Megestrol Acetate (Megace) 400 mg PO BID [facility] Last Admin: 06/05/18 18:37 Dose: 400 mg Mirtazapine (Remeron) 15 mg PO HS [facility] Last Admin: 06/05/18 21:45 Dose: 15 mg Modafinil (Provigil) 100 mg PO DAILY [facility] Last Admin: 06/05/18 10:39 Dose: Not Given Montelukast Sodium (Singulair) 10 mg PO DAILY [facility] Last Admin: 06/05/18 10:39 Dose: Not Given - Labs Labs: 06/03/18 17:02 06/03/18 17:02 PT 15.2 SECONDS (9.7-12.2) H 06/04/18 07:55 INR 1.4 06/04/18 07:55 APTT 32 SECONDS (21-34) 06/03/18 17:02 - Constitutional Appears: Chronically Ill - Respiratory Exam Respiratory Exam: Decreased Breath Sounds, Rhonchi - Cardiovascular Exam Cardiovascular Exam: REGULAR RHYTHM - GI/Abdominal Exam GI & Abdominal Exam: Soft, Normal Bowel Sounds. absent: Tenderness Additional comments: GT intact and infusing. Dressing clean and dry. - Extremities Exam Extremities Exam: Normal Inspection Assessment and Plan (1) Malnutrition Assessment & Plan: S/P PEG POD#1 use GT plus po intake to meet nutritional needs. Wound care and flush tube to keep patency as ordered. Will follow as needed. Status: Acute (2) Thrush, oral Assessment & Plan: no thrush or esophagitis seen on EGD Status: Resolved (3) Lung mass Status: Chronic
[2018-06-06] MEDS: guaiFENesin 100 mg/5 ml Syrup UD PO SCH ×4 (09:32→22:23)
--- NOTE | 2018-06-06 12:19 | CARD ---
APPROVED REPORT Date of service: 06/05/2018 EKG Measurement Heart [id number] <Conclusion> Sinus tachycardia Left axis deviation Abnormal ECG
[2018-06-06] MEDS: Micafungin 100 MG in Sodium Chloride 0.9% 100 ML IV SCH (13:21)
--- NOTE | 2018-06-06 18:49 | CP.PCM.PN ---
Subjective - Date & Time of Evaluation Date of Evaluation: 06/06/18 Time of Evaluation: 18:46 - Subjective Subjective: PT ALERT, NO SOB., ON PEG FEEDINGS. ROS; OTHERWISE NEG/. Objective - Vital Signs/Intake and Output Vital Signs (last 24 hours): Temp Pulse Resp BP Pulse Ox 98.2 F 99 H 20 134/69 94 L 06/06/18 07:00 06/06/18 07:00 06/06/18 07:00 06/06/18 07:00 06/06/18 07:00 - Medications Medications: Current Medications Acetylcysteine (Acetylcysteine 20%) 4 ml INH RQ6 [facility] Last Admin: 06/06/18 02:00 Dose: Not Given Al Hydrox/Mg Hydrox/Simethicone (Maalox 30 Ml) 30 ml PO Q8 PRN PRN Reason: Indigestion / Heartburn Clotrimazole (Mycelex Ryne) 10 mg PO TID [facility] Last Admin: 06/06/18 18:30 Dose: 10 mg Famotidine (Pepcid) 20 mg PO BID [facility] Last Admin: 06/06/18 18:30 Dose: 20 mg Guaifenesin (Robitussin) 100 mg PO QID [facility] Last Admin: 06/06/18 18:30 Dose: 100 mg Heparin Sodium (Porcine) (Heparin) 5,000 units SC Q12 [facility] Last Admin: 05/15/18 21:33 Dose: 5,000 units Micafungin Sodium 100 mg/ (Sodium Chloride) 100 mls @ 100 mls/hr IV Q24H [facility]; Protocol Last Admin: 06/06/18 13:21 Dose: 100 mls/hr Losartan Potassium (Cozaar) 25 mg PO DAILY [facility] Last Admin: 06/06/18 09:32 Dose: 25 mg Mirtazapine (Remeron) 15 mg PO HS [facility] Last Admin: 06/05/18 21:45 Dose: 15 mg Modafinil (Provigil) 100 mg PO DAILY [facility] Last Admin: 06/06/18 09:34 Dose: 100 mg Montelukast Sodium (Singulair) 10 mg PO DAILY [facility] Last Admin: 06/06/18 09:32 Dose: 10 mg - Labs Labs: 06/03/18 17:02 06/03/18 17:02 PT 15.2 SECONDS (9.7-12.2) H 06/04/18 07:55 INR 1.4 06/04/18 07:55 APTT 32 SECONDS (21-34) 06/03/18 17:02 - Constitutional Appears: Non-toxic, No Acute Distress, Cachectic, Chronically Ill - Head Exam Head Exam: ATRAUMATIC, NORMOCEPHALIC - Eye Exam Eye Exam: EOMI, Normal appearance - ENT Exam ENT Exam: Mucous Membranes Dry - Neck Exam Neck Exam: Normal Inspection - Respiratory Exam Respiratory Exam: Decreased Breath Sounds. absent: Accessory Muscle Use, Wheezes, Respiratory Distress - Cardiovascular Exam Cardiovascular Exam: RRR, +S1, +S2 - GI/Abdominal Exam GI & Abdominal Exam: Soft Additional comments: +PEG - Rectal Exam Rectal Exam: Deferred - Extremities Exam Extremities Exam: absent: Calf Tenderness, Pedal Edema - Back Exam Back Exam: absent: CVA tenderness (L), CVA tenderness (R) - Neurological Exam Neurological Exam: Alert, Awake, CN II-XII Intact - Psychiatric Exam Psychiatric exam: Depressed - Skin Skin Exam: absent: Rash Assessment and Plan (1) COPD exacerbation Status: Acute (2) Dehydration Status: Acute (3) Cachexia Status: Acute (4) Respiratory failure Status: Acute (5) Near syncope Status: Acute (6) Esophageal reflux Status: Acute (7) Hypertension Status: Acute (8) Lung mass Status: Chronic (9) Weight loss Status: Acute - Assessment and Plan (Free Text) Assessment: RESP STATUS COMFORTABLE. CONT PULM TOILET., NEB BD., ADEQ OXYGENATION. CXR REVIEWED. PEG FEEDINGS PER GI. PROG POOR. DISCUSSED WT STAFF AND FAMILY AT BEDSIDE.
--- NOTE | 2018-06-06 19:56 | PN ---
DATE: 06/06/2018 SUBJECTIVE: The patient is status post endoscopy and PEG placement. The patient is doing much better. He is more alert, verbal, still feeling weak. He wants to go home for Vonnie, the family wants to take him home. The patient has off and on periods of confusion that could be related to the anesthesia he got from his last procedure, but otherwise he is doing much better. PHYSICAL EXAMINATION: VITAL SIGNS: Temperature 98.2, pulse 99, blood pressure 134/69, respirations 20, oxygen saturation is 94%. REVIEW OF SYSTEMS: HEENT: The patient is alert, verbal, with some mild periods of confusion, but no behavioral problems, not in acute respiratory distress. SKIN: No diaphoresis. HEENT: No headache. No dizziness. NECK: Supple. RESPIRATORY: No dyspnea. CARDIOVASCULAR: No chest pain. GASTROINTESTINAL: No abdominal pain. The patient is tolerating PEG tube feeding. EXTREMITIES: Gait still unsteady at times. MUSCULOSKELETAL: Feels weak. NEUROLOGIC: Alert and oriented x3 with periods of confusion. GENITOURINARY: No urinary problems. MENTAL STATUS EXAMINATION: Elderly male, who looks stated age, oriented x3 with some periods of confusion. Speech spontaneous. Affect is reactive. Mood is brighter. Thought process, he has periods of confusion. Thought content, the patient wants to go home. No psychosis. No suicidal or homicidal ideation. Attention and memory seem to be fair. Insight and judgment fair. Impulse control is fair. IMPRESSION: History of delirium, mostly drug induced, improving, as well as history of depression and mood disorder secondary to medical problems as well as history of lung mass. PLAN AND RECOMMENDATIONS: The patient seen, meds reviewed. Psych-lee, the patient is stable to go home. Continue present psych meds. The patient also may need followup with psych medication for depression and also continue PEG tube feeding as ordered. Psych-lee, as stated he is stable for discharge once medically cleared. Richmond Emerson MD
--- NOTE | 2018-06-06 20:54 | PN ---
DATE: 06/06/2018 SUBJECTIVE: The patient denies any chest pain or shortness of breath. No reported arrhythmia. The gastrostomy tube is being used for feeding and medications now. PHYSICAL EXAMINATION: VITAL SIGNS: Blood pressure 134/69, heart rate 95, temperature 98.2, respirations 20. HEENT: Normocephalic. CHEST: Minimal rhonchi. HEART: Si and S2 , regular. EXTREMITIES: No edema. EKG revealed sinus rhythm, left axis deviation. ASSESSMENT: 1. Systemic hypertension. 2. Status post gastrostomy feeding tube placement. 3. Large lung mass. 4. Depression. 5. Elevated liver enzymes. RECOMMENDATIONS: Continue Cozaar 25 mg once a day. Resume subcutaneous heparin if there is no contraindication and no recurrence of hemoptysis. Continue Singulair 10 mg once a day, Robitussin 100 mg four times a day. Discontinue telemetry. Zach Marquez MD
--- NOTE | 2018-06-06 22:37 | PN ---
DATE: 06/06/2018 SUBJECTIVE: Today, the patient is more alert and awake, but the patient had a PEG inserted yesterday. PHYSICAL EXAMINATION: HEENT: Mouth is moist, but still has some thrush. NECK: Supple. LUNGS: Clear but some fine rales at the bases. HEART: Regular rate and rhythm. ABDOMEN: Soft. PEG is in place. EXTREMITIES: There is no edema. ASSESSMENT AND PLAN: The plan is that we are going to start the patient on feeding through the percutaneous endoscopic gastrostomy, and also we are going to continue antibiotic therapy and current medications. If the patient tolerated well, we will discharge. However, I was informed that the patient was somewhat hypoxemic while going to the bathroom, so we are going to monitor the oxygen and if possible, give home oxygen therapy. The case was reviewed and discussed with Pooja Meyers, the nurse practitioner and also the family. Kyle Aldana MD
[2018-06-07] MEDS: Acetylcysteine 20% Inhal Soln (4ml) INH SCH ×4 (01:14→20:00)
[2018-06-07 07:00] LABS: BASO # 0.1 K/uL (0.0-0.2); BASO % 0.5 % (0.0-2.0); EOS # 0.4 K/uL (0.0-0.7); EOS % 3.1 % (0.0-4.0); HEMOGLOBIN 11.3 g/dL (12.0-18.0); LYMPH # 1.7 K/uL (1.0-4.3); LYMPH % 13.7 % (20.0-40.0); MEAN CORPUSCULAR HEMOGLOBIN 27.6 pg (27.0-31.0); MEAN CORPUSCULAR HGB CONC 32.9 g/dL (33.0-37.0); MEAN PLATELET VOLUME 9.4 fL (7.2-11.7); MONO # 0.9 K/uL (0.0-0.8); MONO % 7.5 % (0.0-10.0); NEUT # 9.1 K/uL (1.8-7.0); NEUT % 75.2 % (50.0-75.0); RBC 4.1 Mil/uL (4.40-5.90); RED CELL DISTRIBUTION WIDTH 15.8 % (11.5-14.5); WHITE BLOOD COUNT 12.2 K/uL (4.8-10.8)
[2018-06-07 07:24] LABS: LDL CHOLESTEROL 77 mg/dL (0-129)
[2018-06-07 07:34] LABS: ALBUMIN 3.4 g/dL (3.5-5.0); ALT/SGPT 91 U/L (21-72); AST/SGOT 74 U/L (17-59); BLOOD UREA NITROGEN 21 mg/dL (9-20); CALCIUM 9.2 mg/dl (8.6-10.4); GFR NON-AFRICAN AMERICAN > 60; HDL CHOLESTEROL 22 mg/dL (30-70)
[2018-06-07] MEDS ORDERED: Potassium Chloride 20 mEq/15 ml LIQ UD PO ONE (08:45)
[2018-06-07] MEDS: guaiFENesin 100 mg/5 ml Syrup UD PO SCH ×4 (09:16→22:03)
--- NOTE | 2018-06-07 11:05 | CP.PCM.PN ---
Subjective - Date & Time of Evaluation Date of Evaluation: 06/07/18 Time of Evaluation: 11:03 - Subjective Subjective: PT AWAKE OOB IN CHAIR. +DIARRHEA LAST NIGHT. ROS; OTHERWISE NEG. Objective - Vital Signs/Intake and Output Vital Signs (last 24 hours): Temp Pulse Resp BP Pulse Ox 99.1 F 107 H 20 118/72 97 06/07/18 07:00 06/07/18 07:00 06/07/18 07:00 06/07/18 07:00 06/07/18 07:00 - Medications Medications: Current Medications Acetylcysteine (Acetylcysteine 20%) 4 ml INH RQ6 [facility] Last Admin: 06/07/18 01:14 Dose: Not Given Al Hydrox/Mg Hydrox/Simethicone (Maalox 30 Ml) 30 ml PO Q8 PRN PRN Reason: Indigestion / Heartburn Clotrimazole (Mycelex Ryne) 10 mg PO TID [facility] Last Admin: 06/06/18 18:30 Dose: 10 mg Famotidine (Pepcid) 20 mg PO BID [facility] Last Admin: 06/07/18 09:16 Dose: 20 mg Guaifenesin (Robitussin) 100 mg PO QID [facility] Last Admin: 06/07/18 09:16 Dose: 100 mg Heparin Sodium (Porcine) (Heparin) 5,000 units SC Q12 [facility] Last Admin: 05/15/18 21:33 Dose: 5,000 units Micafungin Sodium 100 mg/ (Sodium Chloride) 100 mls @ 100 mls/hr IV Q24H [facility]; Protocol Last Admin: 06/06/18 13:21 Dose: 100 mls/hr Losartan Potassium (Cozaar) 25 mg PO DAILY [facility] Last Admin: 06/07/18 09:16 Dose: 25 mg Mirtazapine (Remeron) 15 mg PO HS [facility] Last Admin: 06/06/18 22:24 Dose: 15 mg Modafinil (Provigil) 100 mg PO DAILY [facility] Last Admin: 06/07/18 09:17 Dose: 100 mg Montelukast Sodium (Singulair) 10 mg PO DAILY [facility] Last Admin: 06/07/18 09:16 Dose: 10 mg Ondansetron HCl (Zofran Inj) 2 mg IVP Q6 PRN PRN Reason: Nausea/Vomiting - Labs Labs: 06/07/18 06:52 06/07/18 06:52 PT 15.2 SECONDS (9.7-12.2) H 06/04/18 07:55 INR 1.4 06/04/18 07:55 APTT 32 SECONDS (21-34) 06/03/18 17:02 - Constitutional Appears: Non-toxic, No Acute Distress, Cachectic, Chronically Ill - Head Exam Head Exam: ATRAUMATIC, NORMOCEPHALIC - Eye Exam Eye Exam: EOMI, Normal appearance - ENT Exam ENT Exam: Mucous Membranes Moist - Neck Exam Neck Exam: Normal Inspection - Respiratory Exam Respiratory Exam: Decreased Breath Sounds. absent: Accessory Muscle Use, Rhonchi, Wheezes, Respiratory Distress - Cardiovascular Exam Cardiovascular Exam: RRR, +S1, +S2 - GI/Abdominal Exam GI & Abdominal Exam: Soft Additional comments: +PEG - Rectal Exam Rectal Exam: Deferred - Extremities Exam Extremities Exam: absent: Calf Tenderness, Pedal Edema - Back Exam Back Exam: absent: CVA tenderness (L), CVA tenderness (R) - Neurological Exam Neurological Exam: Alert, Awake, CN II-XII Intact - Psychiatric Exam Psychiatric exam: Depressed - Skin Skin Exam: absent: Rash Assessment and Plan (1) COPD exacerbation Status: Acute (2) Dehydration Status: Acute (3) Cachexia Status: Acute (4) Respiratory failure Status: Acute (5) Near syncope Status: Acute (6) Esophageal reflux Status: Acute (7) Hypertension Status: Acute (8) Lung mass Status: Chronic (9) Weight loss Status: Acute - Assessment and Plan (Free Text) Assessment: RESP STATUS NO SIG CHANGE. COMFORTABLE AT REST. CONT NEB BD., MONITOR O2 SAT. CXR REVIEWED. PEG FEEDING PER GI. DISCUSSED WITH STAFF AND FAMILY AT BEDSIDE. PROG POOR. ;
[2018-06-07] MEDS: Micafungin 100 MG in Sodium Chloride 0.9% 100 ML IV SCH (14:31)
--- NOTE | 2018-06-07 19:29 | PN ---
DATE: 06/07/2018 SUBJECTIVE: The patient is still experiencing poor appetite. He had blood-tinged sputum today according to the daughter. PHYSICAL EXAMINATION: VITAL SIGNS: Blood pressure 118/72, heart rate 107, temperature 99.1, and respirations 20. HEENT: Temporal wasting. CHEST: Minimal rhonchi. HEART: Si and S2, regular. ABDOMEN: Soft. EXTREMITIES: No edema. LABORATORY DATA: Hemoglobin and hematocrit 11.3 and 34.4, white count 12.2, and platelet count 488,000. Today's potassium is 3.2, glucose 115, liver enzymes are elevated. AST, ALT, and alkaline phosphatase are 74, 91, and 216 respectively. ASSESSMENT: 1. Near-syncopal episode. 2. Large lung mass. 3. Hypokalemia. 4. Consider underlying pneumonia. 5. Systemic hypertension. 6. New onset diarrhea. RECOMMENDATIONS: Case discussed with the primary care physician, Dr. Aldana and nurse practitioner. Continue Cozaar 25 mg once a day, subcutaneous heparin will be still on hold. Continue IV micafungin and Mycelex Ryen. Continue Robitussin 100 mg four times a day. The patient did receive K-Dur 40 mEq at a single dose a day and I will start KCL 20 mEq elixir daily. I will follow up TB screening results as well as stool for Clostridium difficile. Zach Marquez MD
--- NOTE | 2018-06-07 22:26 | PN ---
DATE: 06/07/2018 SUBJECTIVE: Today, the patient was seen early this morning, and the patient was somewhat tired but lethargic but responding to questions. The patient has an episode of vomiting today and diarrhea early this morning. PHYSICAL EXAMINATION: VITAL SIGNS: The patient has blood pressure of 118/72, pulse is 107, respirations 20, temperature 99.1. HEENT: Mouth still has some oral thrush. NECK: Supple. No JVD. LUNGS: He has some rales at the bases. ABDOMEN: Soft and nontender. No palpable mass. There is a PEG, and the PEG is patent. EXTREMITIES: There is no edema. LABORATORY DATA: The patient has blood test done. WBC is 12.2 going up, hemoglobin 11.3, hematocrit 34.4, and platelets 488. Chemistries, sodium is 136, potassium 3.2, chloride 105, bicarb is 22, BUN 21, creatinine 0.5, and glucose is 115. AST is 74, ALT 91, alkaline phosphatase is 216. Plan is that we are going to address the stool for C. diff and also for tomorrow, and the case was discussed with Dr. Marquez, appeals court associate justice, and the nurse practitioner, Pooja Meyers, and also the summary to daughter and the . Dr. Marquez is going to cover me from 06/08/2018 to 06/20/2018. Everybody is informed. Kyle Aldana MD
[2018-06-08] MEDS: metroNIDAZOLE IV 500 mg/100 ml 500 MG/100 ML BAG IVPB SCH ×3 (01:32→16:18)
[2018-06-08] MEDS: Vancomycin 125 MG/5 ML SOLN (ORAL/RECTAL) PEG SCH ×5 (01:32→22:39)
--- NOTE | 2018-06-08 07:56 | CP.PCM.PN ---
Subjective - Date & Time of Evaluation Date of Evaluation: 06/08/18 Time of Evaluation: 07:53 - Subjective Subjective: PT IN NO DISTRESS. +DIARRHEA. ROS; OTHERWISE NEG. Objective - Vital Signs/Intake and Output Vital Signs (last 24 hours): Temp Pulse Resp BP Pulse Ox 98.7 F 110 H 20 111/72 97 06/07/18 15:00 06/07/18 15:00 06/07/18 15:00 06/07/18 15:00 06/07/18 15:00 Intake and Output: 06/08/18 06/08/18 06:59 18:59 Intake Total 540 Balance 540 - Medications Medications: Current Medications Acetylcysteine (Acetylcysteine 20%) 4 ml INH RQ6 [facility] Last Admin: 06/07/18 14:00 Dose: Not Given Al Hydrox/Mg Hydrox/Simethicone (Maalox 30 Ml) 30 ml PO Q8 PRN PRN Reason: Indigestion / Heartburn Clotrimazole (Mycelex Ryne) 10 mg PO TID [facility] Last Admin: 06/07/18 17:57 Dose: 10 mg Famotidine (Pepcid) 20 mg PO BID [facility] Last Admin: 06/07/18 17:57 Dose: 20 mg Guaifenesin (Robitussin) 100 mg PO QID [facility] Last Admin: 06/07/18 22:03 Dose: 100 mg Heparin Sodium (Porcine) (Heparin) 5,000 units SC Q12 [facility] Last Admin: 05/15/18 21:33 Dose: 5,000 units Micafungin Sodium 100 mg/ (Sodium Chloride) 100 mls @ 100 mls/hr IV Q24H [facility]; Protocol Last Admin: 06/07/18 14:31 Dose: 100 mls/hr Metronidazole (Flagyl) 500 mg in 100 mls @ 100 mls/hr IVPB Q8H [facility]; Protocol Last Admin: 06/08/18 01:32 Dose: 100 mls/hr Losartan Potassium (Cozaar) 25 mg PO DAILY [facility] Last Admin: 06/07/18 09:16 Dose: 25 mg Mirtazapine (Remeron) 15 mg PO HS [facility] Last Admin: 06/07/18 22:03 Dose: 15 mg Modafinil (Provigil) 100 mg PO DAILY [facility] Last Admin: 12/20/18 09:17 Dose: 100 mg Montelukast Sodium (Singulair) 10 mg PO DAILY [facility] Last Admin: 06/07/18 09:16 Dose: 10 mg Ondansetron HCl (Zofran Inj) 2 mg IVP Q6 PRN PRN Reason: Nausea/Vomiting Potassium Chloride (K-Dur 20 Meq Er Tab) 20 meq PO BRK [facility] Vancomycin HCl (Vancocin (Oral Or Rectal Use)) 125 mg PEG QID [facility]; Protocol Last Admin: 06/08/18 01:32 Dose: 125 mg - Labs Labs: 06/07/18 06:52 06/07/18 06:52 PT 15.2 SECONDS (9.7-12.2) H 06/04/18 07:55 INR 1.4 06/04/18 07:55 APTT 32 SECONDS (21-34) 06/03/18 17:02 - Constitutional Appears: No Acute Distress, Cachectic, Chronically Ill - Head Exam Head Exam: ATRAUMATIC, NORMOCEPHALIC - Eye Exam Eye Exam: EOMI, Normal appearance - ENT Exam ENT Exam: Mucous Membranes Moist - Neck Exam Neck Exam: Normal Inspection - Respiratory Exam Respiratory Exam: Decreased Breath Sounds. absent: Accessory Muscle Use, Wheezes, Respiratory Distress - Cardiovascular Exam Cardiovascular Exam: RRR, +S1, +S2 - GI/Abdominal Exam GI & Abdominal Exam: Soft Additional comments: +PEG - Rectal Exam Rectal Exam: Deferred - Extremities Exam Extremities Exam: absent: Calf Tenderness, Pedal Edema - Back Exam Back Exam: absent: CVA tenderness (L), CVA tenderness (R) - Neurological Exam Neurological Exam: Alert, Awake, CN II-XII Intact - Psychiatric Exam Psychiatric exam: Depressed - Skin Skin Exam: absent: Rash Assessment and Plan (1) COPD exacerbation Status: Acute (2) Dehydration Status: Acute (3) Cachexia Status: Acute (4) Respiratory failure Status: Acute (5) Near syncope Status: Acute (6) Esophageal reflux Status: Acute (7) Hypertension Status: Acute (8) Lung mass Status: Chronic (9) Weight loss Status: Acute - Assessment and Plan (Free Text) Assessment: RESP STATUS NO SIG CHANGE., COMFORTABLE AT REST. CONT PULM TOILET., MONITOR O2 S AT. ADEQ OXYGENATION., CXR REVIEWED. NO LUNG BX AT THIS TIME PER PT AND FAMILY'S WISHES. +C DIFF NOTED, CONT TX PER ID. PEG FEEDINGS. PROG POOR. DISCUSSED WITH STAFF AND FAMILY AT BEDSIDE. DR GREWAL WILL BE COVERING [place] 06/09 - 06/16/18.
[2018-06-08] MEDS: Potassium Chloride 20 mEq ER Tab PO SCH (08:31)
[2018-06-08] MEDS: Acetylcysteine 20% Inhal Soln (4ml) INH SCH (08:47)
[2018-06-08] MEDS: guaiFENesin 100 mg/5 ml Syrup UD PO SCH ×4 (10:49→22:39)
--- NOTE | 2018-06-08 12:02 | CARD ---
APPROVED REPORT Date of service: 06/07/2018 EKG Measurement Heart [id number] <Conclusion> Sinus tachycardia Left axis deviation Anterior infarct, age undetermined Abnormal ECG
[2018-06-08] MEDS: Micafungin 100 MG in Sodium Chloride 0.9% 100 ML IV SCH (12:22)
--- NOTE | 2018-06-08 17:11 | CP.PCM.PN ---
Subjective - Date & Time of Evaluation Date of Evaluation: 06/08/18 Time of Evaluation: 07:00 - Subjective Subjective: c diff + started rx Objective - Vital Signs/Intake and Output Vital Signs (last 24 hours): Temp Pulse Resp BP Pulse Ox 97.3 F L 99 H 20 114/62 95 06/08/18 07:00 06/08/18 07:00 06/08/18 07:00 06/08/18 07:00 06/08/18 07:00 Intake and Output: 06/08/18 06/08/18 06:59 18:59 Intake Total 540 Balance 540 - Medications Medications: Current Medications Acetylcysteine (Acetylcysteine 20%) 4 ml INH RQ6 [facility] Last Admin: 06/08/18 08:47 Dose: Not Given Al Hydrox/Mg Hydrox/Simethicone (Maalox 30 Ml) 30 ml PO Q8 PRN PRN Reason: Indigestion / Heartburn Clotrimazole (Mycelex Ryne) 10 mg PO TID [facility] Last Admin: 06/08/18 13:07 Dose: 10 mg Famotidine (Pepcid) 20 mg PO BID [facility] Last Admin: 06/08/18 10:49 Dose: 20 mg Guaifenesin (Robitussin) 100 mg PO QID [facility] Last Admin: 06/08/18 13:07 Dose: 100 mg Heparin Sodium (Porcine) (Heparin) 5,000 units SC Q12 [facility] Last Admin: 05/15/18 21:33 Dose: 5,000 units Micafungin Sodium 100 mg/ (Sodium Chloride) 100 mls @ 100 mls/hr IV Q24H [facility]; Protocol Last Admin: 06/08/18 12:22 Dose: 100 mls/hr Metronidazole (Flagyl) 500 mg in 100 mls @ 100 mls/hr IVPB Q8H [facility]; Protocol Last Admin: 06/08/18 16:18 Dose: 100 mls/hr Losartan Potassium (Cozaar) 25 mg PO DAILY [facility] Last Admin: 06/08/18 10:49 Dose: 25 mg Mirtazapine (Remeron) 15 mg PO HS [facility] Last Admin: 06/07/18 22:03 Dose: 15 mg Modafinil (Provigil) 100 mg PO DAILY [facility] Last Admin: 06/08/18 10:49 Dose: 100 mg Montelukast Sodium (Singulair) 10 mg PO DAILY [facility] Last Admin: 06/08/18 10:49 Dose: 10 mg Ondansetron HCl (Zofran Inj) 2 mg IVP Q6 PRN PRN Reason: Nausea/Vomiting Potassium Chloride (K-Dur 20 Meq Er Tab) 20 meq PO BRK [facility] Last Admin: 06/08/18 08:31 Dose: 20 meq Vancomycin HCl (Vancocin (Oral Or Rectal Use)) 125 mg PEG QID [facility]; Protocol Last Admin: 06/08/18 13:07 Dose: 125 mg - Labs Labs: 06/07/18 06:52 06/07/18 06:52 PT 15.2 SECONDS (9.7-12.2) H 06/04/18 07:55 INR 1.4 06/04/18 07:55 APTT 32 SECONDS (21-34) 06/03/18 17:02 - Constitutional Appears: Non-toxic, Cachectic, Chronically Ill - Head Exam Head Exam: NORMOCEPHALIC - Eye Exam Eye Exam: absent: Scleral icterus - ENT Exam ENT Exam: Mucous Membranes Dry - Neck Exam Neck Exam: absent: Lymphadenopathy - Respiratory Exam Respiratory Exam: Decreased Breath Sounds - Cardiovascular Exam Cardiovascular Exam: REGULAR RHYTHM - GI/Abdominal Exam GI & Abdominal Exam: Distended - Rectal Exam Rectal Exam: Deferred - Exam Exam: NORMAL INSPECTION - Extremities Exam Extremities Exam: absent: Pedal Edema - Back Exam Back Exam: absent: CVA tenderness (L), CVA tenderness (R) - Neurological Exam Neurological Exam: Alert, Awake, CN II-XII Intact - Psychiatric Exam Psychiatric exam: Depressed - Skin Skin Exam: Dry Assessment and Plan (1) COPD exacerbation Status: Acute (2) Dehydration Status: Acute (3) Leukocytosis Status: Acute - Assessment and Plan (Free Text) Assessment: dc iv antibiotics as recommended start PO Vanco GI follow up
--- NOTE | 2018-06-08 18:43 | PN ---
DATE: 06/08/2018 SUBJECTIVE: The patient is still experiencing diarrhea. Stool C. diff antigen and toxins were positive, and the patient was started on vancomycin at 125 mg four times daily via gastrostomy tube. PHYSICAL EXAMINATION VITAL SIGNS: Blood pressure , heart rate 99, temperature 97.3, respirations 20. HEENT: Normocephalic. CHEST: Clear. HEART: S1 and S2 regular. EXTREMITIES: No edema. ASSESSMENT: 1. Near-syncopal episode on admission. 2. Clostridium difficile colitis and diarrhea. 3. Hypokalemia. 4. Large lung mass. 5. Mild anemia. RECOMMENDATIONS: Continue current Cozaar 25 mg once a day, intravenous Flagyl 500 mg every 8 hours. Continue K-Dur 20 mEq once a day, Robitussin 100 mg four times daily, vancomycin 125 mg four times daily via gastrostomy tube. Obtain BMP in a.m. Zach Marquez MD
[2018-06-09] MEDS: metroNIDAZOLE IV 500 mg/100 ml 500 MG/100 ML BAG IVPB SCH ×3 (01:20→16:14)
[2018-06-09] MEDS: Acetylcysteine 20% Inhal Soln (4ml) INH SCH ×4 (01:24→20:48)
--- NOTE | 2018-06-09 04:03 | PN ---
DATE: 06/08/2018 SUBJECTIVE: The patient was seen. The patient was supposed to be discharged, but was canceled because the patient was having bouts of diarrhea. The patient had about six bouts of diarrhea this morning according to the , patient has no nausea or abdominal pain. Test showed he is C. difficile positive. The patient is on isolation. The patient has demanded to be discharged. He is still feeling weak, but on PEG tube feeding. PHYSICAL EXAMINATION: VITAL SIGNS: Temperature 97.3, pulse 99, blood pressure 114/62, respirations 20, and O2 saturation is 95%. REVIEW OF SYSTEMS: CONSTITUTIONAL: The patient is alert, verbal. Still in confusion but much better. I think this is close to his baseline. The patient wants to go home, but then he persistently demanded to go home because of his diarrhea. His said he cannot take care of him at home with his current condition especially with frequent bouts of diarrhea. SKIN: No diaphoresis. HEENT: No headache or blurry vision. NECK: Supple. RESPIRATORY: No dyspnea. CARDIOVASCULAR: No chest pain. GASTROINTESTINAL: The patient is on PEG tube feeding but having multiple bouts of diarrhea. No nausea or vomiting. EXTREMITIES: Gait unsteady. MUSCULOSKELETAL: Weak. NEUROLOGIC: Alert with periods of confusion, but confusion is improving. GENITOURINARY: No urinary problems. MENTAL STATUS EXAMINATION: Elderly male who looks stated age, oriented x2. Mood is dysphoric. Affect is reactive. Speech is spontaneous. Thought process is coherent. Thought content, no overt psychosis or suicidal ideation. The patient states he has multiple bouts of diarrhea and willing to stay in the hospital for further treatment. Attention and memory seemed to be fair. Insight and judgment fair. Impulse control is fair. IMPRESSION: Delirium as well as depression and mood disorder secondary medical problems, history of a lung mass, Clostridium difficile colitis. PLAN AND RECOMMENDATIONS: The patient was seen. Meds reviewed. Continue present management. Continue present psych medications. The patient is on Provigil and Remeron and also on PEG tube feeding. Patient receiving Flagyl for his C. difficile colitis. Richmond Emerson MD MTDTiana
[2018-06-09 08:20] LABS: BLOOD UREA NITROGEN 17 mg/dL (9-20); CALCIUM 8.8 mg/dl (8.6-10.4); GFR NON-AFRICAN AMERICAN > 60
[2018-06-09] MEDS: Potassium Chloride 20 mEq ER Tab PO SCH (09:16)
[2018-06-09] MEDS: Vancomycin 125 MG/5 ML SOLN (ORAL/RECTAL) PEG SCH ×4 (09:17→22:42)
[2018-06-09] MEDS: guaiFENesin 100 mg/5 ml Syrup UD PO SCH ×4 (09:17→22:42)
--- NOTE | 2018-06-09 11:00 | CP.PCM.PN ---
Subjective - Date & Time of Evaluation Date of Evaluation: 06/09/18 Time of Evaluation: 10:57 - Subjective Subjective: Patient with new onset of diarrhea and stool +C diff. Has been on fpc abx due to Pulmonary findings Tolerating tube feedings. Objective - Vital Signs/Intake and Output Vital Signs (last 24 hours): Temp Pulse Resp BP Pulse Ox 98.1 F 87 20 117/72 95 06/09/18 07:00 06/09/18 07:00 06/09/18 07:00 06/09/18 07:00 06/09/18 07:00 Intake and Output: 06/09/18 06/09/18 06:59 18:59 Intake Total 300 Output Total 300 Balance 0 - Medications Medications: Current Medications Acetylcysteine (Acetylcysteine 20%) 4 ml INH RQ6 [facility] Last Admin: 06/09/18 09:40 Dose: Not Given Al Hydrox/Mg Hydrox/Simethicone (Maalox 30 Ml) 30 ml PO Q8 PRN PRN Reason: Indigestion / Heartburn Clotrimazole (Mycelex Ryne) 10 mg PO TID [facility] Last Admin: 06/08/18 17:43 Dose: 10 mg Famotidine (Pepcid) 20 mg PO BID [facility] Last Admin: 06/09/18 09:16 Dose: 20 mg Guaifenesin (Robitussin) 100 mg PO QID [facility] Last Admin: 06/09/18 09:17 Dose: 100 mg Heparin Sodium (Porcine) (Heparin) 5,000 units SC Q12 [facility] Last Admin: 05/15/18 21:33 Dose: 5,000 units Micafungin Sodium 100 mg/ (Sodium Chloride) 100 mls @ 100 mls/hr IV Q24H [facility]; Protocol Last Admin: 06/08/18 12:22 Dose: 100 mls/hr Metronidazole (Flagyl) 500 mg in 100 mls @ 100 mls/hr IVPB Q8H [facility]; Protocol Last Admin: 06/09/18 09:16 Dose: 100 mls/hr Losartan Potassium (Cozaar) 25 mg PO DAILY [facility] Last Admin: 06/09/18 09:16 Dose: 25 mg Mirtazapine (Remeron) 15 mg PO HS [facility] Last Admin: 06/08/18 22:38 Dose: 15 mg Modafinil (Provigil) 100 mg PO DAILY [facility] Last Admin: 06/09/18 09:15 Dose: 100 mg Montelukast Sodium (Singulair) 10 mg PO DAILY [facility] Last Admin: 06/09/18 09:15 Dose: 10 mg Ondansetron HCl (Zofran Inj) 2 mg IVP Q6 PRN PRN Reason: Nausea/Vomiting Potassium Chloride (K-Dur 20 Meq Er Tab) 20 meq PO BRK [facility] Last Admin: 06/09/18 09:16 Dose: 20 meq Vancomycin HCl (Vancocin (Oral Or Rectal Use)) 125 mg PEG QID [facility]; Protocol Last Admin: 06/09/18 09:17 Dose: 125 mg - Labs Labs: 06/07/18 06:52 06/09/18 08:01 PT 15.2 SECONDS (9.7-12.2) H 06/04/18 07:55 INR 1.4 06/04/18 07:55 APTT 32 SECONDS (21-34) 06/03/18 17:02 - Constitutional Appears: No Acute Distress - Head Exam Head Exam: ATRAUMATIC, NORMOCEPHALIC - Respiratory Exam Respiratory Exam: Decreased Breath Sounds, Rhonchi - Cardiovascular Exam Cardiovascular Exam: REGULAR RHYTHM - GI/Abdominal Exam GI & Abdominal Exam: Soft, Hyperactive Bowel Sounds. absent: Tenderness Additional comments: GT intact - Extremities Exam Extremities Exam: Normal Inspection Assessment and Plan (1) Malnutrition Assessment & Plan: Continue GT feedings Status: Acute (2) Thrush, oral Status: Resolved (3) Lung mass Status: Chronic (4) C. difficile colitis Assessment & Plan: Patient now on oral Vancomycin by ID Continue current meds Assess need and duration for other antibiotics Florastor bid Status: Acute
--- NOTE | 2018-06-09 14:12 | CP.PCM.PN ---
Subjective - Date & Time of Evaluation Date of Evaluation: 06/09/18 Time of Evaluation: 14:12 - Subjective Subjective: Pulmonary coverage for Dr. Oro Patient seen and examined Chart reviewed Patient is mildly dyspneic Objective - Vital Signs/Intake and Output Vital Signs (last 24 hours): Temp Pulse Resp BP Pulse Ox 98.1 F 87 20 117/72 95 06/09/18 07:00 06/09/18 07:00 06/09/18 07:00 06/09/18 07:00 06/09/18 07:00 Intake and Output: 06/09/18 06/09/18 06:59 18:59 Intake Total 300 Output Total 300 Balance 0 - Medications Medications: Current Medications Acetylcysteine (Acetylcysteine 20%) 4 ml INH RQ6 [facility] Last Admin: 06/09/18 09:40 Dose: Not Given Al Hydrox/Mg Hydrox/Simethicone (Maalox 30 Ml) 30 ml PO Q8 PRN PRN Reason: Indigestion / Heartburn Clotrimazole (Mycelex Ryne) 10 mg PO TID [facility] Last Admin: 06/09/18 11:23 Dose: 10 mg Famotidine (Pepcid) 20 mg PO BID [facility] Last Admin: 06/09/18 09:16 Dose: 20 mg Guaifenesin (Robitussin) 100 mg PO QID [facility] Last Admin: 06/09/18 09:17 Dose: 100 mg Heparin Sodium (Porcine) (Heparin) 5,000 units SC Q12 [facility] Last Admin: 05/15/18 21:33 Dose: 5,000 units Micafungin Sodium 100 mg/ (Sodium Chloride) 100 mls @ 100 mls/hr IV Q24H [facility]; Protocol Last Admin: 06/08/18 12:22 Dose: 100 mls/hr Metronidazole (Flagyl) 500 mg in 100 mls @ 100 mls/hr IVPB Q8H [facility]; Protocol Last Admin: 06/09/18 09:16 Dose: 100 mls/hr Losartan Potassium (Cozaar) 25 mg PO DAILY [facility] Last Admin: 06/09/18 09:16 Dose: 25 mg Mirtazapine (Remeron) 15 mg PO HS [facility] Last Admin: 06/08/18 22:38 Dose: 15 mg Modafinil (Provigil) 100 mg PO DAILY [facility] Last Admin: 06/09/18 09:15 Dose: 100 mg Montelukast Sodium (Singulair) 10 mg PO DAILY [facility] Last Admin: 06/09/18 09:15 Dose: 10 mg Ondansetron HCl (Zofran Inj) 2 mg IVP Q6 PRN PRN Reason: Nausea/Vomiting Potassium Chloride (K-Dur 20 Meq Er Tab) 20 meq PO BRK [facility] Last Admin: 06/09/18 09:16 Dose: 20 meq Vancomycin HCl (Vancocin (Oral Or Rectal Use)) 125 mg PEG QID [facility]; Protocol Last Admin: 06/09/18 09:17 Dose: 125 mg - Labs Labs: 06/07/18 06:52 06/09/18 08:01 PT 15.2 SECONDS (9.7-12.2) H 06/04/18 07:55 INR 1.4 06/04/18 07:55 APTT 32 SECONDS (21-34) 06/03/18 17:02 - Head Exam Head Exam: NORMAL INSPECTION - Eye Exam Eye Exam: Normal appearance - ENT Exam ENT Exam: Mucous Membranes Moist - Respiratory Exam Respiratory Exam: Decreased Breath Sounds, Rhonchi - Cardiovascular Exam Cardiovascular Exam: REGULAR RHYTHM, +S1, +S2 - GI/Abdominal Exam GI & Abdominal Exam: Soft, Normal Bowel Sounds - Extremities Exam Extremities Exam: Normal Inspection Assessment and Plan (1) COPD (chronic obstructive pulmonary disease) Status: Acute (2) Lung mass Status: Chronic (3) Malnutrition Status: Chronic - Assessment and Plan (Free Text) Plan: Bronchodilators Continue Singulair Continue antibiotics Robitussin Oxygen supplementation Chest PT DVT/GI prophylaxis
[2018-06-09] MEDS: Micafungin 100 MG in Sodium Chloride 0.9% 100 ML IV SCH (16:49)
--- NOTE | 2018-06-09 20:50 | PN ---
DATE: 06/09/2018 SUBJECTIVE: The patient is still experiencing diarrhea as well as productive cough of blood-tinged sputum. PHYSICAL EXAMINATION: VITAL SIGNS: Blood pressure 117/72, heart rate 87, temperature 98.1, and respirations 20. HEENT: Normocephalic. CHEST: Minimal rhonchi. HEART: S1 and S2 regular. EXTREMITIES: No edema. LABORATORY DATA: Today's SMA-7 is within normal limits except for carbon dioxide of 18 and creatinine of 0.4. ASSESSMENT: 1. Lung mass. 2. Clostridium difficile diarrhea. 3. Improved hypokalemia. 4. Near-syncopal episode on presentation. PLAN AND RECOMMENDATIONS: Continue Cozaar 25 mg once a day, IV Flagyl 500 mg every 8 hours. Continue K-Dur 20 mEq once a day. Continue withholding subcutaneous heparin. Continue IV micafungin and oral Mycelex. Continue oral vancomycin at 125 mg 4 times a day. I will obtain AFB smear x3. Zach Marquez MD
--- NOTE | 2018-06-09 22:16 | PN ---
DATE: 06/09/2018 SUBJECTIVE: The patient is seen with his . The patient is still having bouts of diarrhea, about six times according to the . The patient is feeling weak but receiving tube feeding. The patient's meds reviewed. We will discontinue Remeron for now as the patient is still having diarrhea and Remeron can worsen it. The patient is currently treated for C. difficile colitis and also having PEG tube feeding. PHYSICAL EXAMINATION VITAL SIGNS: Temperature 98.1, pulse rate 87, blood pressure 117/70, respirations 20, oxygen saturation 95%. GENERAL: Alert, verbal, feeling weak, seen in his room with his , agitated. SKIN: No pruritus. HEENT: No headache. No dizziness. NECK: Supple. RESPIRATORY: No dyspnea. CARDIOVASCULAR: No chest pain. GASTROINTESTINAL: Recurring bouts of diarrhea. No abdominal pain. No nausea or vomiting. EXTREMITIES: Gait is unsteady. MUSCULOSKELETAL: Weak. NEUROLOGIC: Alert with periods of confusion. The patient is generally coherent. GENITOURINARY: No urinary problems. MENTAL STATUS EXAMINATION: Elderly male in [facility], looks frail, oriented x3, anxious at times . Affect is reactive. Mood is dysphoric. Thought process is confused as stated at times but improving. Thought content, no psychosis. No suicidal or homicidal ideation. The patient still wants to go home. Attention and memory seem to be fair. Insight and judgment are fair. Impulse control is fair. IMPRESSION: Delirium, depression, mood disorder secondary to medical problems, history of lung mass as well as Clostridium difficile colitis. PLAN AND RECOMMENDATIONS: The patient was seen. Meds reviewed. We will discontinue the Remeron for now. Continue Provigil as ordered. Continue PEG tube feeding. The patient is currently treated for C. difficile colitis. Once the patient is medically stable, he can go home. Once the diarrhea has improved, we can resume back the Remeron. Richmond Emerson MD MTDD
[2018-06-10] MEDS: metroNIDAZOLE IV 500 mg/100 ml 500 MG/100 ML BAG IVPB SCH ×3 (00:24→17:34)
[2018-06-10] MEDS: Acetylcysteine 20% Inhal Soln (4ml) INH SCH ×4 (02:36→19:50)
[2018-06-10] MEDS: Vancomycin 125 MG/5 ML SOLN (ORAL/RECTAL) PEG SCH ×4 (10:09→21:44)
[2018-06-10] MEDS: guaiFENesin 100 mg/5 ml Syrup UD PO SCH ×4 (10:10→21:44)
--- NOTE | 2018-06-10 13:06 | CP.PCM.PN ---
Subjective - Date & Time of Evaluation Date of Evaluation: 06/10/18 Time of Evaluation: 13:03 - Subjective Subjective: Less diarrhea, no pain, tolerating feedings thus far. Objective - Vital Signs/Intake and Output Vital Signs (last 24 hours): Temp Pulse Resp BP Pulse Ox 97.7 F 85 20 142/73 97 06/10/18 07:00 06/10/18 07:00 06/10/18 07:00 06/10/18 07:00 06/10/18 07:00 Intake and Output: 06/10/18 06/10/18 06:59 18:59 Intake Total 340 Balance 340 - Medications Medications: Current Medications Acetylcysteine (Acetylcysteine 20%) 4 ml INH RQ6 [facility] Last Admin: 06/10/18 08:00 Dose: Not Given Al Hydrox/Mg Hydrox/Simethicone (Maalox 30 Ml) 30 ml PO Q8 PRN PRN Reason: Indigestion / Heartburn Clotrimazole (Mycelex Ryne) 10 mg PO TID [facility] Last Admin: 06/10/18 10:10 Dose: 10 mg Famotidine (Pepcid) 20 mg PO BID [facility] Last Admin: 06/10/18 10:10 Dose: 20 mg Guaifenesin (Robitussin) 100 mg PO QID [facility] Last Admin: 06/10/18 10:10 Dose: 100 mg Heparin Sodium (Porcine) (Heparin) 5,000 units SC Q12 [facility] Last Admin: 05/15/18 21:33 Dose: 5,000 units Metronidazole (Flagyl) 500 mg in 100 mls @ 100 mls/hr IVPB Q8H [facility]; Protocol Last Admin: 06/10/18 09:22 Dose: 100 mls/hr Losartan Potassium (Cozaar) 25 mg PO DAILY [facility] Last Admin: 06/10/18 10:10 Dose: 25 mg Modafinil (Provigil) 100 mg PO DAILY [facility] Last Admin: 06/10/18 10:09 Dose: 100 mg Montelukast Sodium (Singulair) 10 mg PO DAILY [facility] Last Admin: 06/10/18 10:10 Dose: 10 mg Ondansetron HCl (Zofran Inj) 2 mg IVP Q6 PRN PRN Reason: Nausea/Vomiting Potassium Chloride (K-Dur 20 Meq Er Tab) 20 meq PO BRK [facility] Last Admin: 06/09/18 09:16 Dose: 20 meq Vancomycin HCl (Vancocin (Oral Or Rectal Use)) 125 mg PEG QID [facility]; Protocol Last Admin: 06/10/18 10:09 Dose: 125 mg - Labs Labs: 06/07/18 06:52 06/09/18 08:01 PT 15.2 SECONDS (9.7-12.2) H 06/04/18 07:55 INR 1.4 06/04/18 07:55 APTT 32 SECONDS (21-34) 06/03/18 17:02 - Constitutional Appears: No Acute Distress - Head Exam Head Exam: ATRAUMATIC, NORMOCEPHALIC - Respiratory Exam Respiratory Exam: Decreased Breath Sounds, Rhonchi - Cardiovascular Exam Cardiovascular Exam: REGULAR RHYTHM - GI/Abdominal Exam GI & Abdominal Exam: Soft, Hyperactive Bowel Sounds. absent: Tenderness Additional comments: GT intact and infusing well. - Extremities Exam Extremities Exam: Normal Inspection Assessment and Plan (1) Malnutrition Assessment & Plan: ON GT feedings. May need traveling freight agent to recommend change in tube feedings in view of diarrhea. Status: Acute (2) Thrush, oral Status: Resolved (3) Lung mass Status: Chronic (4) C. difficile colitis Assessment & Plan: Improving on po Vancomycin. Status: Acute
--- NOTE | 2018-06-10 14:51 | CP.PCM.PN ---
Subjective - Date & Time of Evaluation Date of Evaluation: 06/10/18 Time of Evaluation: 08:00 - Subjective Subjective: less diarrhea no distress at bedside Objective - Vital Signs/Intake and Output Vital Signs (last 24 hours): Temp Pulse Resp BP Pulse Ox 97.7 F 85 20 142/73 97 06/10/18 07:00 06/10/18 07:00 06/10/18 07:00 06/10/18 07:00 06/10/18 07:00 Intake and Output: 06/10/18 06/10/18 06:59 18:59 Intake Total 340 Balance 340 - Medications Medications: Current Medications Acetylcysteine (Acetylcysteine 20%) 4 ml INH RQ6 [facility] Last Admin: 06/10/18 08:00 Dose: Not Given Al Hydrox/Mg Hydrox/Simethicone (Maalox 30 Ml) 30 ml PO Q8 PRN PRN Reason: Indigestion / Heartburn Clotrimazole (Mycelex Ryne) 10 mg PO TID [facility] Last Admin: 06/10/18 14:07 Dose: 10 mg Famotidine (Pepcid) 20 mg PO BID [facility] Last Admin: 06/10/18 10:10 Dose: 20 mg Guaifenesin (Robitussin) 100 mg PO QID [facility] Last Admin: 06/10/18 14:07 Dose: 100 mg Heparin Sodium (Porcine) (Heparin) 5,000 units SC Q12 [facility] Last Admin: 05/15/18 21:33 Dose: 5,000 units Metronidazole (Flagyl) 500 mg in 100 mls @ 100 mls/hr IVPB Q8H [facility]; Protocol Last Admin: 06/10/18 09:22 Dose: 100 mls/hr Losartan Potassium (Cozaar) 25 mg PO DAILY [facility] Last Admin: 06/10/18 10:10 Dose: 25 mg Modafinil (Provigil) 100 mg PO DAILY [facility] Last Admin: 06/10/18 10:09 Dose: 100 mg Montelukast Sodium (Singulair) 10 mg PO DAILY [facility] Last Admin: 06/10/18 10:10 Dose: 10 mg Ondansetron HCl (Zofran Inj) 2 mg IVP Q6 PRN PRN Reason: Nausea/Vomiting Potassium Chloride (K-Dur 20 Meq Er Tab) 20 meq PO BRK [facility] Last Admin: 06/09/18 09:16 Dose: 20 meq Vancomycin HCl (Vancocin (Oral Or Rectal Use)) 125 mg PEG QID [facility]; Protocol Last Admin: 06/10/18 14:06 Dose: 125 mg - Labs Labs: 06/07/18 06:52 06/09/18 08:01 PT 15.2 SECONDS (9.7-12.2) H 06/04/18 07:55 INR 1.4 06/04/18 07:55 APTT 32 SECONDS (21-34) 06/03/18 17:02 - Constitutional Appears: Non-toxic, Chronically Ill - Head Exam Head Exam: NORMOCEPHALIC - Eye Exam Eye Exam: PERRL. absent: Scleral icterus - ENT Exam ENT Exam: Mucous Membranes Dry - Neck Exam Neck Exam: absent: Lymphadenopathy - Respiratory Exam Respiratory Exam: Decreased Breath Sounds - Cardiovascular Exam Cardiovascular Exam: REGULAR RHYTHM - GI/Abdominal Exam GI & Abdominal Exam: Distended, Soft - Rectal Exam Rectal Exam: Deferred - Exam Exam: NORMAL INSPECTION - Extremities Exam Extremities Exam: absent: Pedal Edema - Back Exam Back Exam: absent: CVA tenderness (L), CVA tenderness (R) - Neurological Exam Neurological Exam: Alert, Awake, CN II-XII Intact Assessment and Plan (1) COPD exacerbation Status: Acute (2) Dehydration Status: Acute (3) Leukocytosis Status: Acute
[2018-06-10] MEDS: Potassium Chloride 20 mEq ER Tab PO SCH (14:54)
--- NOTE | 2018-06-10 15:31 | CP.PCM.PN ---
Subjective - Date & Time of Evaluation Date of Evaluation: 06/10/18 Time of Evaluation: 15:31 - Subjective Subjective: Patient seen and examined Sitting comfortably in chair Objective - Vital Signs/Intake and Output Vital Signs (last 24 hours): Temp Pulse Resp BP Pulse Ox 97.7 F 85 20 142/73 97 06/10/18 07:00 06/10/18 07:00 06/10/18 07:00 06/10/18 07:00 06/10/18 07:00 Intake and Output: 06/10/18 06/10/18 06:59 18:59 Intake Total 340 Balance 340 - Medications Medications: Current Medications Acetylcysteine (Acetylcysteine 20%) 4 ml INH RQ6 [facility] Last Admin: 06/10/18 08:00 Dose: Not Given Al Hydrox/Mg Hydrox/Simethicone (Maalox 30 Ml) 30 ml PO Q8 PRN PRN Reason: Indigestion / Heartburn Clotrimazole (Mycelex Ryne) 10 mg PO TID [facility] Last Admin: 06/10/18 14:07 Dose: 10 mg Famotidine (Pepcid) 20 mg PO BID [facility] Last Admin: 06/10/18 10:10 Dose: 20 mg Guaifenesin (Robitussin) 100 mg PO QID [facility] Last Admin: 06/10/18 14:07 Dose: 100 mg Heparin Sodium (Porcine) (Heparin) 5,000 units SC Q12 [facility] Last Admin: 05/15/18 21:33 Dose: 5,000 units Metronidazole (Flagyl) 500 mg in 100 mls @ 100 mls/hr IVPB Q8H [facility]; Protocol Last Admin: 06/10/18 09:22 Dose: 100 mls/hr Losartan Potassium (Cozaar) 25 mg PO DAILY [facility] Last Admin: 06/10/18 10:10 Dose: 25 mg Modafinil (Provigil) 100 mg PO DAILY [facility] Last Admin: 06/10/18 10:09 Dose: 100 mg Montelukast Sodium (Singulair) 10 mg PO DAILY [facility] Last Admin: 06/10/18 10:10 Dose: 10 mg Ondansetron HCl (Zofran Inj) 2 mg IVP Q6 PRN PRN Reason: Nausea/Vomiting Potassium Chloride (Potassium Chloride Oral Soln) 20 meq PEG BRK [facility] Vancomycin HCl (Vancocin (Oral Or Rectal Use)) 125 mg PEG QID [facility]; Protocol Last Admin: 06/10/18 14:06 Dose: 125 mg - Labs Labs: 06/07/18 06:52 06/09/18 08:01 PT 15.2 SECONDS (9.7-12.2) H 06/04/18 07:55 INR 1.4 06/04/18 07:55 APTT 32 SECONDS (21-34) 06/03/18 17:02 - Head Exam Head Exam: NORMAL INSPECTION - Eye Exam Eye Exam: Normal appearance - ENT Exam ENT Exam: Mucous Membranes Moist - Respiratory Exam Respiratory Exam: Decreased Breath Sounds - Cardiovascular Exam Cardiovascular Exam: REGULAR RHYTHM, +S1, +S2 - GI/Abdominal Exam GI & Abdominal Exam: Soft, Normal Bowel Sounds - Extremities Exam Extremities Exam: Normal Inspection Assessment and Plan (1) COPD (chronic obstructive pulmonary disease) Status: Acute (2) Lung mass Status: Chronic (3) Malnutrition Status: Chronic - Assessment and Plan (Free Text) Plan: Bronchodilators Continue Singulair Continue antibiotics Robitussin Oxygen supplementation Chest PT DVT/GI prophylaxis
--- NOTE | 2018-06-10 21:41 | PN ---
DATE: 06/10/[address] Aldana. SUBJECTIVE: The patient is still experiencing productive cough with blood-tinged sputum. PHYSICAL EXAMINATION VITAL SIGNS: Blood pressure 142/73, heart rate 85, temperature 97.7, respirations 20. HEENT: Normocephalic. CHEST: Bilateral rhonchi. HEART: S1 and S2 regular. EXTREMITIES: Significant muscle wasting. ASSESSMENT: 1. Large lung mass. 2. Mild hemoptysis. 3. Klebsiella pneumoniae pneumonia. 4. Near-syncopal episode on presentation. 5. Clostridium difficile colitis. PLAN: Continue Cozaar 25 mg once a day, Pepcid 20 mg twice a day, potassium chloride 20 mEq daily via nasogastric tube, Singulair 10 mg daily and vancomycin 125 mg four times daily via gastrostomy tube. Zach Marquez MD
[2018-06-11] MEDS: metroNIDAZOLE IV 500 mg/100 ml 500 MG/100 ML BAG IVPB SCH ×3 (00:17→16:54)
--- NOTE | 2018-06-11 00:28 | CP.PCM.PN ---
Subjective - Date & Time of Evaluation Date of Evaluation: 06/08/18 Time of Evaluation: 13:00 Objective - Vital Signs/Intake and Output Vital Signs (last 24 hours): Temp Pulse Resp BP Pulse Ox 98.6 F 84 20 114/65 98 06/10/18 15:30 06/10/18 15:30 06/10/18 15:30 06/10/18 15:30 06/10/18 15:30 - Medications Medications: Current Medications Acetylcysteine (Acetylcysteine 20%) 4 ml INH RQ6 [facility] Last Admin: 06/10/18 19:50 Dose: Not Given Al Hydrox/Mg Hydrox/Simethicone (Maalox 30 Ml) 30 ml PO Q8 PRN PRN Reason: Indigestion / Heartburn Clotrimazole (Mycelex Ryne) 10 mg PO TID [facility] Last Admin: 06/10/18 17:34 Dose: 10 mg Famotidine (Pepcid) 20 mg PO BID [facility] Last Admin: 06/10/18 17:34 Dose: 20 mg Guaifenesin (Robitussin) 100 mg PO QID [facility] Last Admin: 06/10/18 21:44 Dose: 100 mg Heparin Sodium (Porcine) (Heparin) 5,000 units SC Q12 [facility] Last Admin: 05/15/18 21:33 Dose: 5,000 units Metronidazole (Flagyl) 500 mg in 100 mls @ 100 mls/hr IVPB Q8H [facility]; Protocol Last Admin: 06/11/18 00:17 Dose: 100 mls/hr Losartan Potassium (Cozaar) 25 mg PO DAILY [facility] Last Admin: 06/10/18 10:10 Dose: 25 mg Modafinil (Provigil) 100 mg PO DAILY [facility] Last Admin: 06/10/18 10:09 Dose: 100 mg Montelukast Sodium (Singulair) 10 mg PO DAILY [facility] Last Admin: 06/10/18 10:10 Dose: 10 mg Ondansetron HCl (Zofran Inj) 2 mg IVP Q6 PRN PRN Reason: Nausea/Vomiting Potassium Chloride (Potassium Chloride Oral Soln) 20 meq PEG BRK [facility] Vancomycin HCl (Vancocin (Oral Or Rectal Use)) 125 mg PEG QID [facility]; Protocol Last Admin: 06/10/18 21:44 Dose: 125 mg - Labs Labs: 06/07/18 06:52 06/09/18 08:01 PT 15.2 SECONDS (9.7-12.2) H 06/04/18 07:55 INR 1.4 06/04/18 07:55 APTT 32 SECONDS (21-34) 06/03/18 17:02
--- NOTE | 2018-06-11 00:29 | CP.PCM.PN ---
Subjective - Date & Time of Evaluation Date of Evaluation: 06/10/18 Time of Evaluation: 16:00 Objective - Vital Signs/Intake and Output Vital Signs (last 24 hours): Temp Pulse Resp BP Pulse Ox 98.6 F 84 20 114/65 98 06/10/18 15:30 06/10/18 15:30 06/10/18 15:30 06/10/18 15:30 06/10/18 15:30 - Medications Medications: Current Medications Acetylcysteine (Acetylcysteine 20%) 4 ml INH RQ6 [facility] Last Admin: 06/10/18 19:50 Dose: Not Given Al Hydrox/Mg Hydrox/Simethicone (Maalox 30 Ml) 30 ml PO Q8 PRN PRN Reason: Indigestion / Heartburn Clotrimazole (Mycelex Ryne) 10 mg PO TID [facility] Last Admin: 06/10/18 17:34 Dose: 10 mg Famotidine (Pepcid) 20 mg PO BID [facility] Last Admin: 06/10/18 17:34 Dose: 20 mg Guaifenesin (Robitussin) 100 mg PO QID [facility] Last Admin: 06/10/18 21:44 Dose: 100 mg Heparin Sodium (Porcine) (Heparin) 5,000 units SC Q12 [facility] Last Admin: 05/15/18 21:33 Dose: 5,000 units Metronidazole (Flagyl) 500 mg in 100 mls @ 100 mls/hr IVPB Q8H [facility]; Protocol Last Admin: 06/11/18 00:17 Dose: 100 mls/hr Losartan Potassium (Cozaar) 25 mg PO DAILY [facility] Last Admin: 06/10/18 10:10 Dose: 25 mg Modafinil (Provigil) 100 mg PO DAILY [facility] Last Admin: 06/10/18 10:09 Dose: 100 mg Montelukast Sodium (Singulair) 10 mg PO DAILY [facility] Last Admin: 06/10/18 10:10 Dose: 10 mg Ondansetron HCl (Zofran Inj) 2 mg IVP Q6 PRN PRN Reason: Nausea/Vomiting Potassium Chloride (Potassium Chloride Oral Soln) 20 meq PEG BRK [facility] Vancomycin HCl (Vancocin (Oral Or Rectal Use)) 125 mg PEG QID [facility]; Protocol Last Admin: 06/10/18 21:44 Dose: 125 mg - Labs Labs: 06/07/18 06:52 06/09/18 08:01 PT 15.2 SECONDS (9.7-12.2) H 06/04/18 07:55 INR 1.4 06/04/18 07:55 APTT 32 SECONDS (21-34) 06/03/18 17:02
--- NOTE | 2018-06-11 00:29 | CP.PCM.PN ---
Subjective - Date & Time of Evaluation Date of Evaluation: 06/09/18 Time of Evaluation: 16:00 Objective - Vital Signs/Intake and Output Vital Signs (last 24 hours): Temp Pulse Resp BP Pulse Ox 98.6 F 84 20 114/65 98 06/10/18 15:30 06/10/18 15:30 06/10/18 15:30 06/10/18 15:30 06/10/18 15:30 - Medications Medications: Current Medications Acetylcysteine (Acetylcysteine 20%) 4 ml INH RQ6 [facility] Last Admin: 06/10/18 19:50 Dose: Not Given Al Hydrox/Mg Hydrox/Simethicone (Maalox 30 Ml) 30 ml PO Q8 PRN PRN Reason: Indigestion / Heartburn Clotrimazole (Mycelex Ryne) 10 mg PO TID [facility] Last Admin: 06/10/18 17:34 Dose: 10 mg Famotidine (Pepcid) 20 mg PO BID [facility] Last Admin: 06/10/18 17:34 Dose: 20 mg Guaifenesin (Robitussin) 100 mg PO QID [facility] Last Admin: 06/10/18 21:44 Dose: 100 mg Heparin Sodium (Porcine) (Heparin) 5,000 units SC Q12 [facility] Last Admin: 05/15/18 21:33 Dose: 5,000 units Metronidazole (Flagyl) 500 mg in 100 mls @ 100 mls/hr IVPB Q8H [facility]; Protocol Last Admin: 06/11/18 00:17 Dose: 100 mls/hr Losartan Potassium (Cozaar) 25 mg PO DAILY [facility] Last Admin: 06/10/18 10:10 Dose: 25 mg Modafinil (Provigil) 100 mg PO DAILY [facility] Last Admin: 06/10/18 10:09 Dose: 100 mg Montelukast Sodium (Singulair) 10 mg PO DAILY [facility] Last Admin: 06/10/18 10:10 Dose: 10 mg Ondansetron HCl (Zofran Inj) 2 mg IVP Q6 PRN PRN Reason: Nausea/Vomiting Potassium Chloride (Potassium Chloride Oral Soln) 20 meq PEG BRK [facility] Vancomycin HCl (Vancocin (Oral Or Rectal Use)) 125 mg PEG QID [facility]; Protocol Last Admin: 06/10/18 21:44 Dose: 125 mg - Labs Labs: 06/07/18 06:52 06/09/18 08:01 PT 15.2 SECONDS (9.7-12.2) H 06/04/18 07:55 INR 1.4 06/04/18 07:55 APTT 32 SECONDS (21-34) 06/03/18 17:02
[2018-06-11] MEDS: Acetylcysteine 20% Inhal Soln (4ml) INH SCH (02:23)
[2018-06-11] MEDS: Potassium Chloride 20 mEq/15 ml LIQ UD PEG SCH (08:18)
--- NOTE | 2018-06-11 08:41 | CP.PCM.PN ---
Subjective - Date & Time of Evaluation Date of Evaluation: 06/11/18 Time of Evaluation: 08:40 - Subjective Subjective: No diarrhea this morning. On Vanco per ID. Objective - Vital Signs/Intake and Output Vital Signs (last 24 hours): Temp Pulse Resp BP Pulse Ox 98.1 F 92 H 20 122/71 96 06/11/18 08:32 06/11/18 08:32 06/11/18 08:32 06/11/18 08:32 06/11/18 08:32 Intake and Output: 06/11/18 06/11/18 06:59 18:59 Intake Total 780 Balance 780 - Medications Medications: Current Medications Acetylcysteine (Acetylcysteine 20%) 4 ml INH RQ6 [facility] Last Admin: 06/11/18 02:23 Dose: Not Given Al Hydrox/Mg Hydrox/Simethicone (Maalox 30 Ml) 30 ml PO Q8 PRN PRN Reason: Indigestion / Heartburn Clotrimazole (Mycelex Ryne) 10 mg PO TID [facility] Last Admin: 06/10/18 17:34 Dose: 10 mg Famotidine (Pepcid) 20 mg PO BID [facility] Last Admin: 06/10/18 17:34 Dose: 20 mg Guaifenesin (Robitussin) 100 mg PO QID [facility] Last Admin: 06/10/18 21:44 Dose: 100 mg Heparin Sodium (Porcine) (Heparin) 5,000 units SC Q12 [facility] Last Admin: 05/15/18 21:33 Dose: 5,000 units Metronidazole (Flagyl) 500 mg in 100 mls @ 100 mls/hr IVPB Q8H [facility]; Protocol Last Admin: 06/11/18 08:18 Dose: 100 mls/hr Losartan Potassium (Cozaar) 25 mg PO DAILY [facility] Last Admin: 06/10/18 10:10 Dose: 25 mg Modafinil (Provigil) 100 mg PO DAILY [facility] Last Admin: 06/10/18 10:09 Dose: 100 mg Montelukast Sodium (Singulair) 10 mg PO DAILY [facility] Last Admin: 06/10/18 10:10 Dose: 10 mg Ondansetron HCl (Zofran Inj) 2 mg IVP Q6 PRN PRN Reason: Nausea/Vomiting Potassium Chloride (Potassium Chloride Oral Soln) 20 meq PEG BRK [facility] Last Admin: 06/11/18 08:18 Dose: 20 meq Vancomycin HCl (Vancocin (Oral Or Rectal Use)) 125 mg PEG QID [facility]; Protocol Last Admin: 06/10/18 21:44 Dose: 125 mg - Labs Labs: 06/07/18 06:52 06/09/18 08:01 PT 15.2 SECONDS (9.7-12.2) H 06/04/18 07:55 INR 1.4 06/04/18 07:55 APTT 32 SECONDS (21-34) 06/03/18 17:02 - Constitutional Appears: No Acute Distress, Chronically Ill - Head Exam Head Exam: ATRAUMATIC, NORMOCEPHALIC - Respiratory Exam Respiratory Exam: Decreased Breath Sounds, Rhonchi - Cardiovascular Exam Cardiovascular Exam: REGULAR RHYTHM - GI/Abdominal Exam GI & Abdominal Exam: Soft, Normal Bowel Sounds. absent: Distended, Tenderness, Mass, Rebound Additional comments: Peg tube intact and infusing. - Extremities Exam Extremities Exam: Normal Inspection Assessment and Plan (1) Malnutrition Assessment & Plan: Continue Peg tube feeds to meet needs Status: Chronic (2) Thrush, oral Status: Resolved (3) Lung mass Status: Chronic (4) C. difficile colitis Assessment & Plan: On po Vanco per ID. Add Florastor bid. Status: Acute
[2018-06-11] MEDS: Vancomycin 125 MG/5 ML SOLN (ORAL/RECTAL) PEG SCH ×4 (09:57→21:30)
[2018-06-11] MEDS: guaiFENesin 100 mg/5 ml Syrup UD PO SCH ×4 (09:57→21:30)
[2018-06-11] MEDS: Saccharomyces Boulardi 250 mg Cap PO SCH ×2 (09:58→21:31)
--- NOTE | 2018-06-11 13:47 | CP.PCM.PN ---
Subjective - Date & Time of Evaluation Date of Evaluation: 06/11/18 Time of Evaluation: 13:46 - Subjective Subjective: Patient seen and examined No events overnight Objective - Vital Signs/Intake and Output Vital Signs (last 24 hours): Temp Pulse Resp BP Pulse Ox 98.1 F 81 20 120/69 96 06/11/18 08:32 06/11/18 09:57 06/11/18 08:32 06/11/18 09:57 06/11/18 08:32 Intake and Output: 06/11/18 06/11/18 06:59 18:59 Intake Total 780 Balance 780 - Medications Medications: Current Medications Acetylcysteine (Acetylcysteine 20%) 4 ml INH RQ6 [facility] Last Admin: 06/11/18 02:23 Dose: Not Given Al Hydrox/Mg Hydrox/Simethicone (Maalox 30 Ml) 30 ml PO Q8 PRN PRN Reason: Indigestion / Heartburn Clotrimazole (Mycelex Ryne) 10 mg PO TID [facility] Last Admin: 06/11/18 13:00 Dose: 10 mg Famotidine (Pepcid) 20 mg PO BID [facility] Last Admin: 06/11/18 09:57 Dose: 20 mg Guaifenesin (Robitussin) 100 mg PO QID [facility] Last Admin: 06/11/18 13:00 Dose: 100 mg Heparin Sodium (Porcine) (Heparin) 5,000 units SC Q12 [facility] Last Admin: 05/15/18 21:33 Dose: 5,000 units Metronidazole (Flagyl) 500 mg in 100 mls @ 100 mls/hr IVPB Q8H [facility]; Protocol Last Admin: 06/11/18 08:18 Dose: 100 mls/hr Losartan Potassium (Cozaar) 25 mg PO DAILY [facility] Last Admin: 06/11/18 09:58 Dose: 25 mg Modafinil (Provigil) 100 mg PO DAILY [facility] Last Admin: 06/11/18 09:58 Dose: 100 mg Montelukast Sodium (Singulair) 10 mg PO DAILY [facility] Last Admin: 06/11/18 09:58 Dose: 10 mg Ondansetron HCl (Zofran Inj) 2 mg IVP Q6 PRN PRN Reason: Nausea/Vomiting Potassium Chloride (Potassium Chloride Oral Soln) 20 meq PEG BRK [facility] Last Admin: 06/11/18 08:18 Dose: 20 meq Saccharomyces Boulardii (Florastor) 250 mg PO BID [facility] Last Admin: 06/11/18 09:58 Dose: 250 mg Vancomycin HCl (Vancocin (Oral Or Rectal Use)) 125 mg PEG QID [facility]; Protocol Last Admin: 06/11/18 13:00 Dose: 125 mg - Labs Labs: 06/07/18 06:52 06/09/18 08:01 PT 15.2 SECONDS (9.7-12.2) H 06/04/18 07:55 INR 1.4 06/04/18 07:55 APTT 32 SECONDS (21-34) 06/03/18 17:02 - Head Exam Head Exam: NORMAL INSPECTION - Eye Exam Eye Exam: Normal appearance - ENT Exam ENT Exam: Mucous Membranes Moist - Respiratory Exam Respiratory Exam: Decreased Breath Sounds - Cardiovascular Exam Cardiovascular Exam: REGULAR RHYTHM, +S1, +S2 - GI/Abdominal Exam GI & Abdominal Exam: Soft, Normal Bowel Sounds - Extremities Exam Extremities Exam: Normal Inspection Assessment and Plan - Assessment and Plan (Free Text) Plan: Bronchodilators Continue Singulair Continue antibiotics Robitussin Oxygen supplementation Chest PT Continue supportive care DVT/GI prophylaxis
--- NOTE | 2018-06-11 14:37 | CP.PCM.PN ---
Subjective - Date & Time of Evaluation Date of Evaluation: 06/11/18 Time of Evaluation: 09:00 - Subjective Subjective: clinically same Objective - Vital Signs/Intake and Output Vital Signs (last 24 hours): Temp Pulse Resp BP Pulse Ox 98.1 F 81 20 120/69 96 06/11/18 08:32 06/11/18 09:57 06/11/18 08:32 06/11/18 09:57 06/11/18 08:32 Intake and Output: 06/11/18 06/11/18 06:59 18:59 Intake Total 780 730 Output Total 2 Balance 780 728 - Medications Medications: Current Medications Acetylcysteine (Acetylcysteine 20%) 4 ml INH RQ6 [facility] Last Admin: 06/11/18 02:23 Dose: Not Given Al Hydrox/Mg Hydrox/Simethicone (Maalox 30 Ml) 30 ml PO Q8 PRN PRN Reason: Indigestion / Heartburn Clotrimazole (Mycelex Ryne) 10 mg PO TID [facility] Last Admin: 06/11/18 13:00 Dose: 10 mg Famotidine (Pepcid) 20 mg PO BID [facility] Last Admin: 06/11/18 09:57 Dose: 20 mg Guaifenesin (Robitussin) 100 mg PO QID [facility] Last Admin: 06/11/18 13:00 Dose: 100 mg Heparin Sodium (Porcine) (Heparin) 5,000 units SC Q12 [facility] Last Admin: 05/15/18 21:33 Dose: 5,000 units Metronidazole (Flagyl) 500 mg in 100 mls @ 100 mls/hr IVPB Q8H [facility]; Protocol Last Admin: 06/11/18 08:18 Dose: 100 mls/hr Losartan Potassium (Cozaar) 25 mg PO DAILY [facility] Last Admin: 06/11/18 09:58 Dose: 25 mg Modafinil (Provigil) 100 mg PO DAILY [facility] Last Admin: 06/11/18 09:58 Dose: 100 mg Montelukast Sodium (Singulair) 10 mg PO DAILY [facility] Last Admin: 06/11/18 09:58 Dose: 10 mg Ondansetron HCl (Zofran Inj) 2 mg IVP Q6 PRN PRN Reason: Nausea/Vomiting Potassium Chloride (Potassium Chloride Oral Soln) 20 meq PEG BRK [facility] Last Admin: 06/11/18 08:18 Dose: 20 meq Saccharomyces Boulardii (Florastor) 250 mg PO BID [facility] Last Admin: 06/11/18 09:58 Dose: 250 mg Vancomycin HCl (Vancocin (Oral Or Rectal Use)) 125 mg PEG QID [facility]; Protocol Last Admin: 06/11/18 13:00 Dose: 125 mg - Labs Labs: 06/07/18 06:52 06/09/18 08:01 PT 15.2 SECONDS (9.7-12.2) H 06/04/18 07:55 INR 1.4 06/04/18 07:55 APTT 32 SECONDS (21-34) 06/03/18 17:02 - Constitutional Appears: Well - Head Exam Head Exam: ATRAUMATIC, NORMAL INSPECTION, NORMOCEPHALIC - Eye Exam Eye Exam: EOMI, Normal appearance, PERRL Pupil Exam: NORMAL ACCOMODATION, PERRL - ENT Exam ENT Exam: Mucous Membranes Moist, Normal Exam - Neck Exam Neck Exam: Full ROM, Normal Inspection. absent: Lymphadenopathy - Respiratory Exam Respiratory Exam: Decreased Breath Sounds - Cardiovascular Exam Cardiovascular Exam: REGULAR RHYTHM, +S1, +S2 - GI/Abdominal Exam GI & Abdominal Exam: Soft, Diminished Bowel Sounds - Rectal Exam Rectal Exam: Deferred
--- NOTE | 2018-06-11 19:19 | PN ---
DATE: 06/11/2018 SUBJECTIVE: The patient's diarrhea has improved. The bowel movement is slightly soft according to the . PHYSICAL EXAMINATION: VITAL SIGNS: Blood pressure 122/71, heart rate 92, temperature 98.1, and respirations 20. HEENT: Normocephalic. CHEST: Bilateral rhonchi. HEART: S1 and S2 regular. EXTREMITIES: Significant muscle wasting. ASSESSMENT: 1. Lung mass. 2. Mild hemoptysis. 3. Improved hypokalemia. 4. Clostridium difficile colitis. PLAN: Continue Cozaar 25 mg once a day, IV Flagyl 500 mg every 8 hours, Mycelex Ryne 2 mg t.i.d., Pepcid 20 mg p.o. twice a day, KCL elixir 20 mg daily, and vancomycin 125 mg 4 times a day via gastrostomy tube. Zach Marquez MD
[2018-06-12] MEDS: metroNIDAZOLE IV 500 mg/100 ml 500 MG/100 ML BAG IVPB SCH ×3 (00:40→16:38)
[2018-06-12] MEDS: Acetylcysteine 20% Inhal Soln (4ml) INH SCH ×2 (08:00→14:12)
[2018-06-12] MEDS: Potassium Chloride 20 mEq/15 ml LIQ UD PEG SCH (08:07)
[2018-06-12] MEDS: guaiFENesin 100 mg/5 ml Syrup UD PO SCH ×4 (09:39→21:25)
[2018-06-12] MEDS: Vancomycin 125 MG/5 ML SOLN (ORAL/RECTAL) PEG SCH ×4 (09:39→21:25)
--- NOTE | 2018-06-12 11:51 | CP.PCM.PN ---
Subjective - Date & Time of Evaluation Date of Evaluation: 06/12/18 Time of Evaluation: 11:49 - Subjective Subjective: Begin taking po today. Tolerating tube feedings. Diarrhea much improved Objective - Vital Signs/Intake and Output Vital Signs (last 24 hours): Temp Pulse Resp BP Pulse Ox 98.2 F 84 18 120/68 96 06/12/18 08:40 06/12/18 08:40 06/12/18 08:40 06/12/18 08:40 06/12/18 08:40 - Medications Medications: Current Medications Acetylcysteine (Acetylcysteine 20%) 4 ml INH RQ6 [facility] Last Admin: 06/11/18 02:23 Dose: Not Given Al Hydrox/Mg Hydrox/Simethicone (Maalox 30 Ml) 30 ml PO Q8 PRN PRN Reason: Indigestion / Heartburn Clotrimazole (Mycelex Ryne) 10 mg PO TID [facility] Last Admin: 06/12/18 09:40 Dose: 10 mg Famotidine (Pepcid) 20 mg PO BID [facility] Last Admin: 06/12/18 09:40 Dose: 20 mg Guaifenesin (Robitussin) 100 mg PO QID [facility] Last Admin: 06/12/18 09:39 Dose: 100 mg Heparin Sodium (Porcine) (Heparin) 5,000 units SC Q12 [facility] Last Admin: 05/15/18 21:33 Dose: 5,000 units Metronidazole (Flagyl) 500 mg in 100 mls @ 100 mls/hr IVPB Q8H [facility]; Protocol Last Admin: 06/12/18 08:06 Dose: 100 mls/hr Losartan Potassium (Cozaar) 25 mg PO DAILY [facility] Last Admin: 06/12/18 09:40 Dose: 25 mg Modafinil (Provigil) 100 mg PO DAILY [facility] Last Admin: 06/12/18 09:39 Dose: 100 mg Montelukast Sodium (Singulair) 10 mg PO DAILY [facility] Last Admin: 06/12/18 09:40 Dose: 10 mg Ondansetron HCl (Zofran Inj) 2 mg IVP Q6 PRN PRN Reason: Nausea/Vomiting Potassium Chloride (Potassium Chloride Oral Soln) 20 meq PEG BRK [facility] Last Admin: 06/12/18 08:07 Dose: 20 meq Saccharomyces Boulardii (Florastor) 250 mg PO BID [facility] Last Admin: 06/11/18 21:31 Dose: 250 mg Vancomycin HCl (Vancocin (Oral Or Rectal Use)) 125 mg PEG QID [facility]; Protocol Last Admin: 06/12/18 09:39 Dose: 125 mg - Labs Labs: 06/07/18 06:52 06/09/18 08:01 PT 15.2 SECONDS (9.7-12.2) H 06/04/18 07:55 INR 1.4 06/04/18 07:55 APTT 32 SECONDS (21-34) 06/03/18 17:02 - Constitutional Appears: No Acute Distress - Head Exam Head Exam: ATRAUMATIC, NORMOCEPHALIC - Eye Exam Eye Exam: EOMI, PERRL - Respiratory Exam Respiratory Exam: Decreased Breath Sounds - Cardiovascular Exam Cardiovascular Exam: REGULAR RHYTHM - GI/Abdominal Exam GI & Abdominal Exam: Soft, Normal Bowel Sounds. absent: Tenderness Additional comments: GT intact and infusing well - Extremities Exam Extremities Exam: Pedal Edema Assessment and Plan (1) Malnutrition Assessment & Plan: continue GT feedings to meet needs. Status: Chronic (2) Thrush, oral Status: Resolved (3) Lung mass Status: Chronic (4) C. difficile colitis Assessment & Plan: Continue po Vanco as per ID. Clinically improving Status: Acute
[2018-06-12] MEDS: Saccharomyces Boulardi 250 mg Cap PO SCH ×2 (14:07→18:24)
--- NOTE | 2018-06-12 19:22 | PN ---
DATE: 06/11/[address] Kyle Aldana. SUBJECTIVE: The patient's diarrhea improved. He was able to have a meal with his today, still mild productive cough with blood-tinged sputum. PHYSICAL EXAMINATION: VITAL SIGNS: Blood pressure 120/68, heart rate 84, temperature 98.2, respirations 18. HEENT: Normocephalic. CHEST: Bilateral rhonchi. HEART: S1 and S2 regular. EXTREMITIES: No edema. LABORATORY DATA: AFB sputum smear is negative. ASSESSMENT: 1. Large lung mass. 2. Severe anorexia, requiring gastrostomy feeding tube placement. 3. Mild anemia. 4. Systemic hypertension. 5. Clostridium difficile colitis. PLAN: Continue Cozaar 25 mg once a day, IV Flagyl 500 mg every 8 hours, Pepcid 20 mg p.o. twice a day, potassium chloride 20 mEq daily via gastrostomy feeding tube. Continue vancomycin 125 mg 4 times a day via gastrostomy tube. Zach Marquez MD
--- NOTE | 2018-06-12 20:23 | CP.PCM.PN ---
Subjective - Date & Time of Evaluation Date of Evaluation: 06/12/18 Time of Evaluation: 08:15 - Subjective Subjective: clinically same Objective - Vital Signs/Intake and Output Vital Signs (last 24 hours): Temp Pulse Resp BP Pulse Ox 98 F 98 H 20 122/76 96 06/12/18 15:43 06/12/18 15:43 06/12/18 15:43 06/12/18 15:43 06/12/18 15:43 - Medications Medications: Current Medications Acetylcysteine (Acetylcysteine 20%) 4 ml INH RQ6 [facility] Last Admin: 06/12/18 14:12 Dose: Not Given Al Hydrox/Mg Hydrox/Simethicone (Maalox 30 Ml) 30 ml PO Q8 PRN PRN Reason: Indigestion / Heartburn Famotidine (Pepcid) 20 mg PO BID [facility] Last Admin: 06/12/18 18:23 Dose: 20 mg Guaifenesin (Robitussin) 100 mg PO QID [facility] Last Admin: 06/12/18 18:23 Dose: 100 mg Heparin Sodium (Porcine) (Heparin) 5,000 units SC Q12 [facility] Last Admin: 05/15/18 21:33 Dose: 5,000 units Metronidazole (Flagyl) 500 mg in 100 mls @ 100 mls/hr IVPB Q8H [facility]; Protocol Last Admin: 06/12/18 16:38 Dose: 100 mls/hr Losartan Potassium (Cozaar) 25 mg PO DAILY [facility] Last Admin: 06/12/18 09:40 Dose: 25 mg Modafinil (Provigil) 100 mg PO DAILY [facility] Last Admin: 06/12/18 09:39 Dose: 100 mg Ondansetron HCl (Zofran Inj) 2 mg IVP Q6 PRN PRN Reason: Nausea/Vomiting Potassium Chloride (Potassium Chloride Oral Soln) 20 meq PEG BRK [facility] Last Admin: 06/12/18 08:07 Dose: 20 meq Saccharomyces Boulardii (Florastor) 250 mg PO BID [facility] Last Admin: 06/12/18 18:24 Dose: 250 mg Vancomycin HCl (Vancocin (Oral Or Rectal Use)) 125 mg PEG QID [facility]; Protocol Last Admin: 06/12/18 18:23 Dose: 125 mg - Labs Labs: 06/07/18 06:52 06/09/18 08:01 PT 15.2 SECONDS (9.7-12.2) H 06/04/18 07:55 INR 1.4 06/04/18 07:55 APTT 32 SECONDS (21-34) 06/03/18 17:02 - Constitutional Appears: Well - Head Exam Head Exam: ATRAUMATIC, NORMAL INSPECTION, NORMOCEPHALIC - Eye Exam Eye Exam: EOMI, Normal appearance, PERRL Pupil Exam: NORMAL ACCOMODATION, PERRL - ENT Exam ENT Exam: Mucous Membranes Moist, Normal Exam - Neck Exam Neck Exam: Full ROM, Normal Inspection. absent: Lymphadenopathy - Respiratory Exam Respiratory Exam: Decreased Breath Sounds - Cardiovascular Exam Cardiovascular Exam: REGULAR RHYTHM, +S1, +S2 - GI/Abdominal Exam GI & Abdominal Exam: Soft, Diminished Bowel Sounds - Rectal Exam Rectal Exam: Deferred
[2018-06-13] MEDS: metroNIDAZOLE IV 500 mg/100 ml 500 MG/100 ML BAG IVPB SCH ×3 (00:41→17:36)
[2018-06-13] MEDS: Acetylcysteine 20% Inhal Soln (4ml) INH SCH ×2 (07:40→13:45)
[2018-06-13] MEDS: Potassium Chloride 20 mEq/15 ml LIQ UD PEG SCH (08:06)
[2018-06-13 08:48] VITALS: PULSE 95
--- NOTE | 2018-06-13 09:37 | CP.PCM.PN ---
Subjective - Date & Time of Evaluation Date of Evaluation: 06/13/18 Time of Evaluation: 09:35 - Subjective Subjective: No diarrhea or pain. Drank coffee yesterday Objective - Vital Signs/Intake and Output Vital Signs (last 24 hours): Temp Pulse Resp BP Pulse Ox 97.5 F L 95 H 18 123/77 96 06/13/18 08:47 06/13/18 08:47 06/13/18 08:47 06/13/18 08:47 06/13/18 08:47 Intake and Output: 06/13/18 06/13/18 06:59 18:59 Intake Total 1090 Balance 1090 - Medications Medications: Current Medications Acetylcysteine (Acetylcysteine 20%) 4 ml INH RQ6 [facility] Last Admin: 06/12/18 14:12 Dose: Not Given Al Hydrox/Mg Hydrox/Simethicone (Maalox 30 Ml) 30 ml PO Q8 PRN PRN Reason: Indigestion / Heartburn Famotidine (Pepcid) 20 mg PO BID [facility] Last Admin: 06/12/18 18:23 Dose: 20 mg Guaifenesin (Robitussin) 100 mg PO QID [facility] Last Admin: 06/12/18 21:25 Dose: 100 mg Heparin Sodium (Porcine) (Heparin) 5,000 units SC Q12 [facility] Last Admin: 05/15/18 21:33 Dose: 5,000 units Metronidazole (Flagyl) 500 mg in 100 mls @ 100 mls/hr IVPB Q8H [facility]; Protocol Last Admin: 06/13/18 08:37 Dose: 100 mls/hr Losartan Potassium (Cozaar) 25 mg PO DAILY [facility] Last Admin: 06/12/18 09:40 Dose: 25 mg Modafinil (Provigil) 100 mg PO DAILY [facility] Last Admin: 06/12/18 09:39 Dose: 100 mg Ondansetron HCl (Zofran Inj) 2 mg IVP Q6 PRN PRN Reason: Nausea/Vomiting Potassium Chloride (Potassium Chloride Oral Soln) 20 meq PEG BRK [facility] Last Admin: 06/13/18 08:06 Dose: 20 meq Saccharomyces Boulardii (Florastor) 250 mg PO BID [facility] Last Admin: 06/12/18 18:24 Dose: 250 mg Vancomycin HCl (Vancocin (Oral Or Rectal Use)) 125 mg PEG QID [facility]; Protocol Last Admin: 06/12/18 21:25 Dose: 125 mg - Labs Labs: 06/07/18 06:52 06/09/18 08:01 PT 15.2 SECONDS (9.7-12.2) H 06/04/18 07:55 INR 1.4 06/04/18 07:55 APTT 32 SECONDS (21-34) 06/03/18 17:02 - Constitutional Appears: No Acute Distress - Head Exam Head Exam: ATRAUMATIC, NORMOCEPHALIC - Respiratory Exam Respiratory Exam: Decreased Breath Sounds, Rhonchi - Cardiovascular Exam Cardiovascular Exam: REGULAR RHYTHM - GI/Abdominal Exam GI & Abdominal Exam: Soft, Normal Bowel Sounds. absent: Tenderness Additional comments: GT intact and dressing clean and dry - Extremities Exam Extremities Exam: Pedal Edema Assessment and Plan (1) Malnutrition Assessment & Plan: Continue GT feedings plus po as desired Status: Chronic (2) Thrush, oral Status: Resolved (3) Lung mass Status: Chronic (4) C. difficile colitis Assessment & Plan: On Vanco and clinically stable. Cont probiotics as well. Status: Acute
[2018-06-13] MEDS: Saccharomyces Boulardi 250 mg Cap PO SCH ×2 (09:56→17:44)
[2018-06-13] MEDS: guaiFENesin 100 mg/5 ml Syrup UD PO SCH ×3 (09:56→17:44)
[2018-06-13] MEDS: Vancomycin 125 MG/5 ML SOLN (ORAL/RECTAL) PEG SCH ×3 (10:04→17:45)
--- NOTE | 2018-06-13 11:04 | CP.PCM.PN ---
Subjective - Date & Time of Evaluation Date of Evaluation: 06/13/18 Time of Evaluation: 11:04 - Subjective Subjective: Patient seen and examined Comfortable Objective - Vital Signs/Intake and Output Vital Signs (last 24 hours): Temp Pulse Resp BP Pulse Ox 97.5 F L 95 H 18 123/77 96 06/13/18 08:47 06/13/18 08:47 06/13/18 08:47 06/13/18 08:47 06/13/18 08:47 Intake and Output: 06/13/18 06/13/18 06:59 18:59 Intake Total 1090 Balance 1090 - Medications Medications: Current Medications Acetylcysteine (Acetylcysteine 20%) 4 ml INH RQ6 [facility] Last Admin: 06/13/18 07:40 Dose: Not Given Al Hydrox/Mg Hydrox/Simethicone (Maalox 30 Ml) 30 ml PO Q8 PRN PRN Reason: Indigestion / Heartburn Famotidine (Pepcid) 20 mg PO BID [facility] Last Admin: 06/13/18 09:56 Dose: 20 mg Guaifenesin (Robitussin) 100 mg PO QID [facility] Last Admin: 06/13/18 09:56 Dose: 100 mg Heparin Sodium (Porcine) (Heparin) 5,000 units SC Q12 [facility] Last Admin: 05/15/18 21:33 Dose: 5,000 units Metronidazole (Flagyl) 500 mg in 100 mls @ 100 mls/hr IVPB Q8H [facility]; Protocol Last Admin: 06/13/18 08:37 Dose: 100 mls/hr Losartan Potassium (Cozaar) 25 mg PO DAILY [facility] Last Admin: 06/13/18 09:56 Dose: 25 mg Modafinil (Provigil) 100 mg PO DAILY [facility] Last Admin: 06/13/18 09:56 Dose: 100 mg Ondansetron HCl (Zofran Inj) 2 mg IVP Q6 PRN PRN Reason: Nausea/Vomiting Potassium Chloride (Potassium Chloride Oral Soln) 20 meq PEG BRK [facility] Last Admin: 06/13/18 08:06 Dose: 20 meq Saccharomyces Boulardii (Florastor) 250 mg PO BID [facility] Last Admin: 06/13/18 09:56 Dose: 250 mg Vancomycin HCl (Vancocin (Oral Or Rectal Use)) 125 mg PEG QID [facility]; Protocol Last Admin: 06/13/18 10:04 Dose: 125 mg - Labs Labs: 06/07/18 06:52 06/09/18 08:01 PT 15.2 SECONDS (9.7-12.2) H 06/04/18 07:55 INR 1.4 06/04/18 07:55 APTT 32 SECONDS (21-34) 06/03/18 17:02 - Head Exam Head Exam: NORMAL INSPECTION - Eye Exam Eye Exam: Normal appearance - ENT Exam ENT Exam: Mucous Membranes Moist - Respiratory Exam Respiratory Exam: Clear to Ausculation Bilateral - Cardiovascular Exam Cardiovascular Exam: REGULAR RHYTHM, +S1. absent: +S2 - GI/Abdominal Exam GI & Abdominal Exam: Soft, Normal Bowel Sounds - Extremities Exam Extremities Exam: Normal Inspection Assessment and Plan (1) COPD (chronic obstructive pulmonary disease) Status: Acute (2) Lung mass Status: Chronic (3) Malnutrition Status: Chronic - Assessment and Plan (Free Text) Plan: Bronchodilators Continue Singulair Continue antibiotics Robitussin Oxygen supplementation Chest PT DVT/GI prophylaxis
--- NOTE | 2018-06-13 13:41 | PN ---
DATE: 06/13/2018 SUBJECTIVE: The patient denies any dizziness. He is still not having oral food intake. Diarrhea has improved. PHYSICAL EXAMINATION: VITAL SIGNS: Blood pressure 123/77, heart rate 95, temperature 97.5, respirations 18. HEENT: Normocephalic. CHEST: Bilateral rhonchi. HEART: S1, S2 regular. EXTREMITIES: No edema. ASSESSMENT: 1. Large lung mass. 2. Near syncopal episode on presentation. 3. Systemic hypertension. 4. Clostridium difficile colitis. RECOMMENDATIONS: Continue Cozaar 25 mg once a day, IV Flagyl 500 mg every 8 hours, Pepcid 20 mg p.o. twice a day, sodium chloride 20 mEq solution daily via gastrostomy feeding tube, vancomycin 125 mg four times daily via gastrostomy tube. Zach Marquez MD
[2018-06-13 14:44] LABS: BLOOD UREA NITROGEN 10 mg/dL (9-20); GFR NON-AFRICAN AMERICAN > 60
--- NOTE | 2018-06-13 15:43 | CP.PCM.PN ---
Subjective - Date & Time of Evaluation Date of Evaluation: 06/13/18 Time of Evaluation: 09:00 - Subjective Subjective: clinically same Objective - Vital Signs/Intake and Output Vital Signs (last 24 hours): Temp Pulse Resp BP Pulse Ox 97.5 F L 95 H 18 123/77 96 06/13/18 08:47 06/13/18 08:47 06/13/18 08:47 06/13/18 08:47 06/13/18 08:47 Intake and Output: 06/13/18 06/13/18 06:59 18:59 Intake Total 1090 Balance 1090 - Medications Medications: Current Medications Acetylcysteine (Acetylcysteine 20%) 4 ml INH RQ6 [facility] Last Admin: 06/13/18 13:45 Dose: Not Given Al Hydrox/Mg Hydrox/Simethicone (Maalox 30 Ml) 30 ml PO Q8 PRN PRN Reason: Indigestion / Heartburn Famotidine (Pepcid) 20 mg PO BID [facility] Last Admin: 06/13/18 09:56 Dose: 20 mg Guaifenesin (Robitussin) 100 mg PO QID [facility] Last Admin: 06/13/18 13:51 Dose: 100 mg Heparin Sodium (Porcine) (Heparin) 5,000 units SC Q12 [facility] Last Admin: 05/15/18 21:33 Dose: 5,000 units Metronidazole (Flagyl) 500 mg in 100 mls @ 100 mls/hr IVPB Q8H [facility]; Protocol Last Admin: 06/13/18 08:37 Dose: 100 mls/hr Losartan Potassium (Cozaar) 25 mg PO DAILY [facility] Last Admin: 06/13/18 09:56 Dose: 25 mg Modafinil (Provigil) 100 mg PO DAILY [facility] Last Admin: 06/13/18 09:56 Dose: 100 mg Ondansetron HCl (Zofran Inj) 2 mg IVP Q6 PRN PRN Reason: Nausea/Vomiting Potassium Chloride (Potassium Chloride Oral Soln) 20 meq PEG BRK [facility] Last Admin: 06/13/18 08:06 Dose: 20 meq Saccharomyces Boulardii (Florastor) 250 mg PO BID [facility] Last Admin: 06/13/18 09:56 Dose: 250 mg Vancomycin HCl (Vancocin (Oral Or Rectal Use)) 125 mg PEG QID [facility]; Protocol Last Admin: 06/13/18 13:51 Dose: 125 mg - Labs Labs: 06/07/18 06:52 06/13/18 14:00 PT 15.2 SECONDS (9.7-12.2) H 06/04/18 07:55 INR 1.4 06/04/18 07:55 APTT 32 SECONDS (21-34) 06/03/18 17:02 - Constitutional Appears: Well - Head Exam Head Exam: ATRAUMATIC, NORMAL INSPECTION, NORMOCEPHALIC - Eye Exam Eye Exam: EOMI, Normal appearance, PERRL Pupil Exam: NORMAL ACCOMODATION, PERRL - ENT Exam ENT Exam: Mucous Membranes Moist, Normal Exam - Neck Exam Neck Exam: Full ROM, Normal Inspection. absent: Lymphadenopathy - Respiratory Exam Respiratory Exam: Decreased Breath Sounds - Cardiovascular Exam Cardiovascular Exam: REGULAR RHYTHM, +S1, +S2 - GI/Abdominal Exam GI & Abdominal Exam: Soft, Diminished Bowel Sounds - Rectal Exam Rectal Exam: Deferred
--- NOTE | 2018-06-13 15:53 | CP.PCM.PN ---
Subjective - Date & Time of Evaluation Date of Evaluation: 06/13/18 Time of Evaluation: 08:00 - Subjective Subjective: afeb seen and examined labs reviewed exam unchanged cont rx as ordered Objective - Vital Signs/Intake and Output Vital Signs (last 24 hours): Temp Pulse Resp BP Pulse Ox 97.5 F L 95 H 18 123/77 96 06/13/18 08:47 06/13/18 08:47 06/13/18 08:47 06/13/18 08:47 06/13/18 08:47 Intake and Output: 06/13/18 06/13/18 06:59 18:59 Intake Total 1090 Balance 1090 - Medications Medications: Current Medications Acetylcysteine (Acetylcysteine 20%) 4 ml INH RQ6 [facility] Last Admin: 06/13/18 13:45 Dose: Not Given Al Hydrox/Mg Hydrox/Simethicone (Maalox 30 Ml) 30 ml PO Q8 PRN PRN Reason: Indigestion / Heartburn Famotidine (Pepcid) 20 mg PO BID [facility] Last Admin: 06/13/18 09:56 Dose: 20 mg Guaifenesin (Robitussin) 100 mg PO QID [facility] Last Admin: 06/13/18 13:51 Dose: 100 mg Heparin Sodium (Porcine) (Heparin) 5,000 units SC Q12 [facility] Last Admin: 05/15/18 21:33 Dose: 5,000 units Metronidazole (Flagyl) 500 mg in 100 mls @ 100 mls/hr IVPB Q8H [facility]; Protocol Last Admin: 06/13/18 08:37 Dose: 100 mls/hr Losartan Potassium (Cozaar) 25 mg PO DAILY [facility] Last Admin: 06/13/18 09:56 Dose: 25 mg Modafinil (Provigil) 100 mg PO DAILY [facility] Last Admin: 06/13/18 09:56 Dose: 100 mg Ondansetron HCl (Zofran Inj) 2 mg IVP Q6 PRN PRN Reason: Nausea/Vomiting Potassium Chloride (Potassium Chloride Oral Soln) 20 meq PEG BRK [facility] Last Admin: 06/13/18 08:06 Dose: 20 meq Saccharomyces Boulardii (Florastor) 250 mg PO BID [facility] Last Admin: 06/13/18 09:56 Dose: 250 mg Vancomycin HCl (Vancocin (Oral Or Rectal Use)) 125 mg PEG QID [facility]; Protocol Last Admin: 06/13/18 13:51 Dose: 125 mg - Labs Labs: 06/07/18 06:52 06/13/18 14:00 PT 15.2 SECONDS (9.7-12.2) H 06/04/18 07:55 INR 1.4 06/04/18 07:55 APTT 32 SECONDS (21-34) 06/03/18 17:02 Assessment and Plan (1) COPD exacerbation Status: Acute (2) Dehydration Status: Acute (3) Leukocytosis Status: Acute
--- NOTE | 2018-06-13 16:26 | CP.PCM.PN ---
Subjective - Date & Time of Evaluation Date of Evaluation: 06/13/18 Time of Evaluation: 11:00 - Subjective Subjective: Patient seen today oob sitting in the chair , comfortable , denies any abdominal pain, N/v, no diarrhea reported, tolerating GT feeding also oral small amount a febrile labs done today and reviewed - parish Objective - Vital Signs/Intake and Output Vital Signs (last 24 hours): Temp Pulse Resp BP Pulse Ox 97.5 F L 95 H 18 123/77 96 06/13/18 08:47 06/13/18 08:47 06/13/18 08:47 06/13/18 08:47 06/13/18 08:47 Intake and Output: 06/13/18 06/13/18 06:59 18:59 Intake Total 1090 Balance 1090 - Medications Medications: Current Medications Acetylcysteine (Acetylcysteine 20%) 4 ml INH RQ6 [facility] Last Admin: 06/13/18 13:45 Dose: Not Given Al Hydrox/Mg Hydrox/Simethicone (Maalox 30 Ml) 30 ml PO Q8 PRN PRN Reason: Indigestion / Heartburn Famotidine (Pepcid) 20 mg PO BID [facility] Last Admin: 06/13/18 09:56 Dose: 20 mg Guaifenesin (Robitussin) 100 mg PO QID [facility] Last Admin: 06/13/18 13:51 Dose: 100 mg Heparin Sodium (Porcine) (Heparin) 5,000 units SC Q12 [facility] Last Admin: 05/15/18 21:33 Dose: 5,000 units Metronidazole (Flagyl) 500 mg in 100 mls @ 100 mls/hr IVPB Q8H [facility]; Protocol Last Admin: 06/13/18 08:37 Dose: 100 mls/hr Losartan Potassium (Cozaar) 25 mg PO DAILY [facility] Last Admin: 06/13/18 09:56 Dose: 25 mg Modafinil (Provigil) 100 mg PO DAILY [facility] Last Admin: 06/13/18 09:56 Dose: 100 mg Ondansetron HCl (Zofran Inj) 2 mg IVP Q6 PRN PRN Reason: Nausea/Vomiting Potassium Chloride (Potassium Chloride Oral Soln) 20 meq PEG BRK [facility] Last Admin: 06/13/18 08:06 Dose: 20 meq Saccharomyces Boulardii (Florastor) 250 mg PO BID [facility] Last Admin: 06/13/18 09:56 Dose: 250 mg Vancomycin HCl (Vancocin (Oral Or Rectal Use)) 125 mg PEG QID [facility]; Protocol Last Admin: 06/13/18 13:51 Dose: 125 mg - Labs Labs: 06/07/18 06:52 06/13/18 14:00 PT 15.2 SECONDS (9.7-12.2) H 06/04/18 07:55 INR 1.4 06/04/18 07:55 APTT 32 SECONDS (21-34) 06/03/18 17:02 Assessment and Plan - Assessment and Plan (Free Text) Assessment: A/P 73 year old male with PMHx of HTN, COPD, lung mass admitted with generalized weakness, hypotention , poor po intake , sob and syncope s/p biopsy of lung mass s/p peg tube insertion , and patient started on feeding developed diarrhea and c- dif . positive and started on vanco diarrhea resolved and patietn tolerating GT feeding and small amount of po D/w Dr. Garcia continue total of 14 days of vanco for c- dif . ( started on 06/08) and received 5 days in hospital seen by Dr. Marquez ( covering for Dr. Aldana) today as per CM oxygen ready for home use D/w Dr. Marquez ( covering for Dr. Aldana) stable for discharge home today and follow up with Dr. Aldana office Discharge plan discussed with patient, daughter and at bed side
[2018-06-13 16:37] VITALS: BP 114/69; RESP 20; TEMP 97; O2SAT 95
--- NOTE | 2018-06-13 20:14 | PN ---
DATE: 06/13/2018 SUBJECTIVE: The patient is seen. The patient is feeling better and will be going home today. He will be discharged. The patient's is concerned because the patient is expressing desire to smoke again. The patient's reports that her has a history of smoking for 55 years and used to consume up to three packs of cigarettes a day. The patient has not been smoking in the hospital. The patient was advised that if he has cravings to smoke, he is to use the nicotine patch or the Nicorette gum. The patient said he would like to smoke and use the Nicorette gum. PHYSICAL EXAMINATION VITAL SIGNS: Temperature 97.5, pulse 95, blood pressure 123/77, respirations 18, oxygen saturation 96%. GENERAL: The patient is alert, verbal, still feeling weak, tolerating PEG tube feeding. The patient states that he has no more diarrhea. SKIN: No diaphoresis. HEENT: No headache. No dizziness. NECK: Supple. RESPIRATORY: No dyspnea. CARDIOVASCULAR: No chest pain. GASTROINTESTINAL: No abdominal pain. No diarrhea. The patient has been eating pleasure food and also tolerating PEG tube feeding. The patient states he wants to try to eat regular food at home as well as to have the PEG tube feeding. EXTREMITIES: Gait unsteady. MUSCULOSKELETAL: Feels weak. NEUROLOGIC: Alert and oriented x3. No confusion noted. GENITOURINARY: No dysuria. MENTAL STATUS EXAMINATION: Elderly male who looks stated age, alert and oriented x3. Mood is bright. Affect is reactive. Speech is spontaneous. Thought process is coherent. Thought content, the patient is excited to go home. No psychosis. No suicidal or homicidal ideation. Attention and memory seem to be fair. Insight and judgment are fair. Impulse control is fair. MEDICATIONS: Psych-lee, the patient is noted taking Provigil 100 mg p.o. daily. The patient also is on vancomycin for C. difficile colitis. IMPRESSION: Delirium as well as history of depression, mood disorder secondary to medical problems, history of lung mass, Clostridium difficile colitis, improving. PLAN AND RECOMMENDATIONS: The patient is seen. Meds reviewed. Continue present management. Continue present psych meds. The patient is also on Provigil 100 mg daily. The patient is advised to follow up as an outpatient for the patient's history of depression, also follow up with Dr. Aldana. Psych-lee, he is stable for discharge once cleared by Dr. Aldana. Richmond Emerson MD
== END 2018-06-13 18:31 | disposition home or self-care (01) | DRG 871 ==
LOC: C.ER 17:21 → C.9E 20:14 → C.6T 23:03
PROVIDERS: ADMIT Specialist; ATTEND Specialist
PROC: 0BBG3ZX Excision of Left Upper Lung Lobe, Percutaneous Approach, Diagnostic (ICD-10-PCS; principal; 2018-05-17)
PROC: BB24ZZZ Computerized Tomography (CT Scan) of Bilateral Lungs (ICD-10-PCS; 2018-05-17)
PROC: 0W9B30Z Drainage of Left Pleural Cavity with Drainage Device, Percutaneous Approach (ICD-10-PCS; 2018-05-21)
PROC: 3E0336Z Introduction of Nutritional Substance into Peripheral Vein, Percutaneous Approach (ICD-10-PCS; 2018-05-29)
PROC: 0DH68UZ Insertion of Feeding Device into Stomach, Via Natural or Artificial Opening Endoscopic (ICD-10-PCS; 2018-06-05)
PROC: 3E0G76Z Introduction of Nutritional Substance into Upper GI, Via Natural or Artificial Opening (ICD-10-PCS; 2018-06-06)
DX: A41.9 Sepsis, unspecified organism (principal); J15.0 Pneumonia due to Klebsiella pneumoniae; J44.0 Chronic obstructive pulmonary disease with (acute) lower respiratory infection; J96.91 Respiratory failure, unspecified with hypoxia; J95.811 Postprocedural pneumothorax; E87.1 Hypo-osmolality and hyponatremia; J44.1 Chronic obstructive pulmonary disease with (acute) exacerbation; R91.8 Other nonspecific abnormal finding of lung field; A04.72 Enterocolitis due to Clostridium difficile, not specified as recurrent; E46 Unspecified protein-calorie malnutrition; R64 Cachexia; J98.11 Atelectasis; R04.2 Hemoptysis; B37.0 Candidal stomatitis; E86.0 Dehydration; K21.9 Gastro-esophageal reflux disease without esophagitis; E87.6 Hypokalemia; I10 Essential (primary) hypertension; D64.9 Anemia, unspecified; F32.9 Major depressive disorder, single episode, unspecified; E78.00 Pure hypercholesterolemia, unspecified; Z87.891 Personal history of nicotine dependence; Z79.899 Other long term (current) drug therapy; Z87.01 Personal history of pneumonia (recurrent); Z74.01 Bed confinement status

== ENCOUNTER 2018-06-23 12:56 | Emergency (ER) | payer MEDICARE ==
[2018-06-23 13:15] VITALS: BMI 20.5
[2018-06-23 13:20] VITALS: RESP 22; TEMP 97.5
[2018-06-23] MEDS ORDERED: Sodium Chloride 0.9% 1,000 ML IV ONE (13:24)
--- NOTE | 2018-06-23 13:32 | C.PDOC ---
History Of Present Illness 73 y/o male BIBA because family is concerned for the patient. Patient is complaining of upper abdominal pain, generalized weakness, and dizziness for the past few days. Family states he has decreased appetite and today he had a nose bleed which has since stopped. Patient was admitted here for a month and was discharged 10 days ago. Patient was admitted for failure to thrive and had a G- tube placed for feeding during that admission. Patient has no other complaints. Time Seen by Provider: 06/23/18 13:02 Chief Complaint (Nursing): Abdominal Pain History Per: Patient History/Exam Limitations: no limitations Onset/Duration Of Symptoms: Days Current Symptoms Are (Timing): Still Present Past Medical History Reviewed: Historical Data, Nursing Documentation, Vital Signs Vital Signs: Last Vital Signs Temp 97.5 F L 06/23/18 13:15 Pulse 99 H 06/23/18 13:15 Resp 22 06/23/18 13:15 BP 115/70 06/23/18 13:15 Pulse Ox 93 L 06/23/18 13:15 - Medical History PMH: Asthma, COPD, Diverticulitis (Diverticulosis 04/2018 colonoscopy), Gastritis, HTN, Hypercholesterolemia, Pneumonia Denies: Chronic Kidney Disease - [facility] Procedures (03/29/18) COMPUTERIZED TOMOGRAPHY (CT SCAN) OF BILATERAL LUNGS (05/14/18) DRAINAGE OF L PLEURAL CAV WITH DRAIN DEV, PERC APPROACH (05/14/18) EXCISION OF LEFT UPPER LUNG LOBE, PERC APPROACH, DIAGN (05/14/18) EXCISION OF STOMACH, ENDO, DIAGN (04/21/18) INSERTION OF FEEDING DEVICE INTO STOMACH, ENDO (05/14/18) INSPECTION OF LOWER INTESTINAL TRACT, ENDO (04/21/18) INTRODUCTION OF NUTRITIONAL INTO PERIPH VEIN, PERC APPROACH (05/14/18) INTRODUCTION OF NUTRITIONAL INTO UP GI, VIA OPENING (05/14/18) Family History: States: No Known Family Hx - Social History Hx Alcohol Use: No Hx Substance Use: No - Immunization History Hx Tetanus Toxoid Vaccination: No Hx Influenza Vaccination: No Hx Pneumococcal Vaccination: No Review Of Systems Constitutional: Positive for: Weakness. Negative for: Fever Cardiovascular: Negative for: Chest Pain Respiratory: Negative for: Shortness of Breath Gastrointestinal: Positive for: Abdominal Pain. Negative for: Vomiting, Diarrhea Skin: Negative for: Rash Neurological: Positive for: Dizziness Physical Exam - Physical Exam Appears: Non-toxic, No Acute Distress, Other (Weak) Skin: Warm, Dry Head: Atraumatic, Normacephalic Eye(s): bilateral: Normal Inspection, PERRL Nose: No Epistaxis Oral Mucosa: Moist Chest: Symmetrical Cardiovascular: Rhythm Regular, No Murmur Respiratory: Normal Breath Sounds, No Rales, No Rhonchi, No Wheezing Gastrointestinal/Abdominal: Soft, No Tenderness, No Guarding, No Rebound, Other (G-tube to the right upper abdomen) Extremity: Normal ROM (of all extremities) Extremity: Bilateral: Atraumatic, Normal Color And Temperature Neurological/Psych: Oriented x3, Normal Speech ED Course And Treatment - Laboratory Results Result Diagrams: 06/23/18 13:32 06/23/18 13:32 O2 Sat by Pulse Oximetry: 93 (RA) Pulse Ox Interpretation: Abnormal Medical Decision Making Medical Decision Making: Plan: --Bloodwork --UA --IV fluids 1518- Case discussed with Dr. Aldana, went over vitals and lab results- everything has been unremarkable. States that patient can be discharged home with outpatient followup, would like patient to have Rx for iron. Lab results and phone call with Dr. Aldana discussed with patient and family- agree to discharge and outpatient followup. Rx for liquid iron written. Disposition - Disposition Disposition: HOME/ ROUTINE Disposition Time: 15:20 Condition: STABLE Additional Instructions: SABRINA DILL, thank you for letting us take care of you today. Your provider was Giulia Carmona MD and you were treated for WEAKNESS. The em ergency medical care you received today was directed at your acute symptoms. If you were prescribed any medication, please fill it and take as directed. It may take several days for your symptoms to resolve. Return to the Emergency Department if your symptoms worsen, do not improve, or if you have any other problems. Please contact your doctor or call one of the physicians/clinics you have been r eferred to that are listed on the Patient Visit Information form that is included in your discharge packet. Bring any paperwork you were given at discharge with you along with any medications you are taking to your follow up visit. Our treatment cannot replace ongoing medical care by a primary care provider outside of the emergency department. Thank you for allowing the [facility] team to be part of your care today. If you had an X-Ray or CT scan: A Radiologist will review the ED reading if any change in treatment is needed we will contact you. If you had a blood, urine, or wound culture: It will take several days for the results, if any change in treatment is needed we will contact you. If you had an STI test: It will take 48 hours for the results. Please call after 1 week if you have not heard back. Prescriptions: RX: Ferrous Sulfate [Feosol Liq] 300 mg PO DAILY 20 Days ud Instructions: Failure to Thrive, Adult (DC) Forms: [employer] (Maltese) - Clinical Impression Clinical Impression: Failure to thrive - Scribe Statement The provider has reviewed the documentation as recorded by the Oleg Gautam Provider Attestation: All medical record entries made by the Oleg were at my direction and personally dictated by me. I have reviewed the chart and agree that the record accurately reflects my personal performance of the history, physical exam, medical decision making, and the department course for this patient. I have also personally directed, reviewed, and agree with the discharge instructions and disposition.
[2018-06-23 13:48] LABS: BASO # 0.1 K/uL (0.0-0.2); BASO % 0.7 % (0.0-2.0); EOS # 0.2 K/uL (0.0-0.7); EOS % 2.1 % (0.0-4.0); HEMOGLOBIN 10.7 g/dL (12.0-18.0); LYMPH # 1.3 K/uL (1.0-4.3); LYMPH % 14.2 % (20.0-40.0); MEAN CELL VOLUME 82.9 fL (80.0-94.0); MEAN CORPUSCULAR HEMOGLOBIN 27.5 pg (27.0-31.0); MEAN CORPUSCULAR HGB CONC 33.2 g/dL (33.0-37.0); MEAN PLATELET VOLUME 8.2 fL (7.2-11.7); MONO # 0.8 K/uL (0.0-0.8); MONO % 8.5 % (0.0-10.0); NEUT # 6.7 K/uL (1.8-7.0); NEUT % 74.5 % (50.0-75.0); NRBC % 0.1 % (0.0-2.0); RBC 3.88 Mil/uL (4.40-5.90); RED CELL DISTRIBUTION WIDTH 16.4 % (11.5-14.5); WHITE BLOOD COUNT 8.9 K/uL (4.8-10.8)
[2018-06-23 14:07] LABS: ALB/GLOB RATIO 1.1 (1.0-2.1); ALBUMIN 3.5 g/dL (3.5-5.0); ALT/SGPT 37 U/L (21-72); AST/SGOT 40 U/L (17-59); BLOOD UREA NITROGEN 16 mg/dL (9-20); GFR NON-AFRICAN AMERICAN > 60; LIPASE 256 U/L (23-300)
[2018-06-23 15:39] VITALS: BP 128/67; PULSE 95
[2018-06-23 20:46] VITALS: O2SAT 93
== END 2018-06-23 15:58 | disposition home or self-care (01) ==
LOC: C.ER 12:56
DX: R62.7 Adult failure to thrive (principal)
CPT/HCPCS: 80053; 83690; 83735; 84100; 85025; 99284; J7030

== ENCOUNTER 2018-09-26 11:41 | Inpatient (IN) | payer MEDICARE ==
[2018-09-26 11:50] VITALS: BMI 20.6
[2018-09-26] MEDS ORDERED: Sodium Chloride 0.9% 500 ML IV ONE (11:56)
--- NOTE | 2018-09-26 12:15 | C.PDOC ---
History Of Present Illness Patient BIBA from home for several episodes of hemoptysis vs hematemesis that began approx 30 min [employer]. As per patient's daughter, patient has stage IV lung CA L side, HTN, hyperlipidemia, asthma/copd, diverticulitis, pneumonia. She states he has been having chronic cough with occasional mild blood streaks, but today it was larger volume and multiple times. She also admits patient has been mildly confused since being diagnosed in June 2018, and that has been worsening. PMD - Dr. Aldana Hem/onc- Dr. Celso Leos Time Seen by Provider: 09/26/18 11:48 Chief Complaint (Nursing): GI Problem History Per: Patient, Family History/Exam Limitations: other (confusion) Onset/Duration Of Symptoms: Mins Current Symptoms Are (Timing): Better Severity: Moderate Past Medical History Reviewed: Historical Data, Nursing Documentation, Vital Signs Vital Signs: Last Vital Signs Temp 98.6 F 09/26/18 11:49 Pulse 106 H 09/26/18 11:49 Resp 27 H 09/26/18 11:49 BP 106/58 L 09/26/18 11:49 Pulse Ox 90 L 09/26/18 11:49 - Medical History PMH: Asthma, COPD, Diverticulitis (Diverticulosis 04/2018 colonoscopy), Gas tritis, HTN, Hypercholesterolemia, Pneumonia - [facility] Procedures (03/29/18) COMPUTERIZED TOMOGRAPHY (CT SCAN) OF BILATERAL LUNGS (05/14/18) DRAINAGE OF L PLEURAL CAV WITH DRAIN DEV, PERC APPROACH (05/14/18) EXCISION OF LEFT UPPER LUNG LOBE, PERC APPROACH, DIAGN (05/14/18) EXCISION OF STOMACH, ENDO, DIAGN (04/21/18) INSERTION OF FEEDING DEVICE INTO STOMACH, ENDO (05/14/18) INSPECTION OF LOWER INTESTINAL TRACT, ENDO (04/21/18) INTRODUCTION OF NUTRITIONAL INTO PERIPH VEIN, PERC APPROACH (05/14/18) INTRODUCTION OF NUTRITIONAL INTO UP GI, VIA OPENING (05/14/18) Family History: States: No Known Family Hx - Social History Hx Alcohol Use: No Hx Substance Use: No - Immunization History Hx Tetanus Toxoid Vaccination: No Hx Influenza Vaccination: No Hx Pneumococcal Vaccination: No Review Of Systems Review Of Systems: ROS cannot be obtained secondary to pt's inabilty to answer questions. Physical Exam - Physical Exam Appears: Non-toxic, Chronically Ill, Other (mildly confused and cachectic appearing) Skin: Warm, Dry, Pale Head: Atraumatic, Normacephalic Eye(s): bilateral: Normal Inspection, PERRL, EOMI Oral Mucosa: Moist, Other (mild amount of blood in mouth, no active bleeding ) Tongue: Normal Appearing Lips: Normal Appearing Throat: Normal, No Erythema, No Exudate, No Drooling Lymphatic: No Adenopathy Cardiovascular: Rhythm Regular (tachycardic ) Respiratory: Decreased Breath Sounds (left side ), No Accessory Muscle Use, No Rales, No Rhonchi, No Wheezing Gastrointestinal/Abdominal: Normal Exam, Bowel Sounds, Soft, No Tenderness Extremity: No Pedal Edema, No Calf Tenderness Extremity: Bilateral: Atraumatic, Normal Color And Temperature, Normal ROM Neurological/Psych: Other (GCS3) ED Course And Treatment - Laboratory Results Result Diagrams: 09/26/18 12:15 09/26/18 12:15 O2 Sat by Pulse Oximetry: 90 (RA) Pulse Ox Interpretation: Abnormal Progress Note: Patient completely obtunded, GCS 3 - intubated for airway protection. Endotracheal Intubation - Endotracheal Intubation Intubated With ETT Size: 75 Blade Type Used: Curved Indication: Airway Protection Intubated: Orally Pre-Intubation Airway Assessment: Ventilated And Oxygenated, Need For Airway management Did Not Allow Time, Does Not Appear To Have A Difficult Airway Medications Used During Pre-Intubation: Etomidate (20mg) Post-Intubation Assessment: ETT Secured AT (cm): (23), Breath Sounds Equal Bilat, Placement Confirmed Via CXR, Color Change W/End Tidal CO2 Detector Disposition - Disposition Disposition Time: 13:30 Condition: FAIR Forms: CareMinimally invasive devices (Tuvaluan) - Clinical Impression Clinical Impression: Obtunded, Alcohol abuse Physician Patient Turnover Patient Signed Over To: Tanya Hays Handoff Comments: pending all labs/studies
[2018-09-26 12:19] LABS: BASO # 0.1 K/uL (0.0-0.2); BASO % 0.6 % (0.0-2.0); EOS # 0.1 K/uL (0.0-0.7); EOS % 1.1 % (0.0-4.0); LYMPH % 7.8 % (20.0-40.0); MEAN CORPUSCULAR HEMOGLOBIN 23.4 pg (27.0-31.0); MEAN CORPUSCULAR HGB CONC 31.4 g/dL (33.0-37.0); MEAN PLATELET VOLUME 6.9 fL (7.2-11.7); MONO % 7.8 % (0.0-10.0); NEUT # 10.6 K/uL (1.8-7.0); NEUT % 82.7 % (50.0-75.0); PLATELET COUNT 526 K/uL (130-400); RBC 3.46 Mil/uL (4.40-5.90); RED CELL DISTRIBUTION WIDTH 18.5 % (11.5-14.5); WHITE BLOOD COUNT 12.9 K/uL (4.8-10.8)
[2018-09-26 12:27] LABS: HEMOGLOBIN 8.1 g/dL (12.0-18.0); MEAN CELL VOLUME 74.5 fL (80.0-94.0)
[2018-09-26 12:31] LABS: ALT/SGPT 10 U/L (21-72); AST/SGOT 26 U/L (17-59); BLOOD UREA NITROGEN 10 mg/dL (9-20); CALCIUM 8.9 mg/dl (8.6-10.4); GFR NON-AFRICAN AMERICAN > 60
[2018-09-26 12:32] LABS: INR 1.7; PROTHROMBIN TIME 18.3 SECONDS (9.7-12.2)
[2018-09-26 12:39] LABS: VENOUS BLOOD GAS BASE EXCESS -3.3 mmol/L (0.0-2.0); VENOUS BLOOD GAS PCO2 46 mmHg (40-60); VENOUS BLOOD GAS PO2 9 mm/Hg (30-55); VENOUS BLOOD PH 7.31 (7.32-7.43)
[2018-09-26 12:43] LABS: CK-MB 0.31 ng/mL (0.0-3.38)
[2018-09-26 12:54] LABS: LYMPHOCYTE 8 % (20-40); MONOCYTE 7 % (0-10); NEUTROPHIL 85 % (50-75); TOTAL CELLS COUNTED 100
[2018-09-26 12:55] LABS: ANISOCYTOSIS SLIGHT; HYPOCHROMIC SLIGHT; OVALOCYTES SLIGHT; PLATELET ESTIMATE INCREASED (NORMAL); POIKILOCYTOSIS SLIGHT
[2018-09-26 12:56] LABS: BURR CELLS SLIGHT; LARGE PLATELETS PRESENT; TARGET CELLS SLIGHT; TEARDROP CELLS SLIGHT
[2018-09-26 12:57] LABS: GIANT PLATELETS PRESENT
--- NOTE | 2018-09-26 14:13 | RAD ---
Date of service: 09/26/2018 PROCEDURE: CHEST RADIOGRAPH, 1 VIEW HISTORY: hemoptysis COMPARISON: 06/03/2018 FINDINGS: LUNGS: Almost complete opacification of left hemithorax. There is left-sided volume loss with shift of the heart mediastinum towards the left side. Likely atelectasis. PLEURA: Cannot rule out left pleural effusion. No evidence of right pleural effusion. No pneumothorax. CARDIOVASCULAR: Limited evaluation of the heart due to opacification of left hemithorax. There is calcification of the thoracic aorta. OSSEOUS STRUCTURES: No significant abnormalities. VISUALIZED UPPER ABDOMEN: Normal. OTHER FINDINGS: None. IMPRESSION: Left-sided volume loss with opacification of left hemithorax suspicious for atelectasis. Consider the possibility of mucous plugging. Alternatively, obstructing neoplasm. Consider evaluation with computed tomography.
[2018-09-26 15:10] LABS: ACETAMINOPHEN < 10.0 ug/mL (10.0-30.0); SALICYLATE < 1.0 mg/dL 1
[2018-09-26] MEDS ORDERED: Albuterol 0.083% Inhal Sol (2.5 mg/3 mL) UD INH PRN (15:10)
[2018-09-26] MEDS ORDERED: Acetaminophen 650mg/20.3ml solution UD PO PRN (17:53)
[2018-09-26] MEDS: Sodium Chloride 0.9% 1,000 ML IV SCH (19:17)
--- NOTE | 2018-09-26 21:56 | CP.PCM.CON ---
History of Present Illness - History of Present Illness History of Present Illness: 73 yo H male well known to me with h/o of stage 4 lung ca, S/P Peg placement 06/05 who was noted to have coughing episodes followed by emesis vs hemoptysis of large amount of fresh blood, clots and "tissue" according to patients family at bedside. She says the bleeding was coming both from coughing and vomiting. No evidence of food material of tube feedings ot bilious material mixed in emesis. Hgb=8 on admission which is a 2g drop from previous baseline. Patient has been taking ASA but no GI prophylaxis. All feedings and meds have been given by GT. Daughter at bedside says she does not want him to be intubated and would prefer not to subject him to an endoscopy if possible. Lavage at beside with 300 cc of sterile water revealsed some bloody fluids and clots but mostly clear return. No further episodes since admission. Repeat cbc is pending shortly. No pain. Breathing comfortably. Review of Systems - Constitutional Constitutional: Weakness - Cardiovascular Cardiovascular: absent: Chest Pain, Dyspnea - Respiratory Respiratory: Cough, Hemoptysis. absent: Wheezing, Excessive Mucous Production - Gastrointestinal Gastrointestinal: As Per HPI, Hematemesis. absent: Coffee Ground Emesis, Diarrhea, Dyspepsia, Dysphagia, Hematochezia, Melena Past Patient History - Past Medical History & Family History Past Medical History?: Yes - Past Social History Smoking Status: Former Smoker Alcohol: Other (formerly heavy EtoH ingestion.) - CARDIAC Hx Hypercholesterolemia: Yes Hx Hypertension: Yes - PULMONARY Hx Asthma: Yes Hx Chronic Obstructive Pulmonary Disease (COPD): Yes Hx Pneumonia: Yes - NEUROLOGICAL Hx Neurological Disorder: No - HEENT Hx HEENT Problems: No - RENAL Hx Chronic Kidney Disease: No - ENDOCRINE/METABOLIC Hx Endocrine Disorders: No - HEMATOLOGICAL/ONCOLOGICAL Hx Blood Disorders: No Hx Cirrhosis: No Hx Hepatitis A: No Hx Hepatitis B: No Hx Hepatitis C: No Hx Human Immunodeficiency Virus (HIV): No - INTEGUMENTARY Hx Dermatological Problems: No - MUSCULOSKELETAL/RHEUMATOLOGICAL Hx Musculoskeletal Disorders: Yes Hx Falls: No Hx Unsteady Gait: Yes Other/Comment: weakness to all extremities - GASTROINTESTINAL Hx Gastrointestinal Disorders: Yes Hx Bowel Surgery: No Hx Diverticulitis: Yes (Diverticulosis 04/2018 colonoscopy) Hx Gastritis: Yes (EGD 06/05 with PEG placement) Hx Hemorrhoids: Yes - GENITOURINARY/GYNECOLOGICAL Hx Genitourinary Disorders: No - PSYCHIATRIC Hx Substance Use: No - SURGICAL HISTORY Hx Surgeries: Yes Other/Comment: Explore lap 1974 - ANESTHESIA Hx Anesthesia: Yes Hx Anesthesia Reactions: No Meds Allergies/Adverse Reactions: Allergies Allergy/AdvReac Type Severity Reaction Status Date / Time midazolam [From Versed] AdvReac SHORTNESS Verified 09/26/18 11:43 OF BREATH - Medications Medications: Current Medications Acetaminophen (Tylenol 650mg/20.3ml Solution Ud) 650 mg PO Q6 PRN PRN Reason: Pain, moderate (4-7) Albuterol Sulfate (Albuterol 0.083% Inhal Cathie (2.5 Mg/3 Ml) Ud) 2.5 mg INH RQ6 [facility]ISON Ferrous Sulfate (Feosol Liq) 300 mg PO DAILY [facility]ISON Sodium Chloride (Sodium Chloride 0.9%) 1,000 mls @ 60 mls/hr IV .[id number] ALLISON Azithromycin 500 mg/ Sodium (Chloride) 250 mls @ 250 mls/hr IVPB Q24H ALLISON; Protocol Losartan Potassium (Cozaar) 25 mg PO DAILY [facility] Montelukast Sodium (Singulair) 10 mg PO DAILY [facility] Pantoprazole Sodium (Protonix Inj) 40 mg IVP DAILY [facility] Last Admin: 09/26/18 18:50 Dose: 40 mg Physical Exam - Constitutional Appears: Cachectic, Chronically Ill - Head Exam Head Exam: ATRAUMATIC, NORMOCEPHALIC - Eye Exam Eye Exam: EOMI, PERRL - Neck Exam Neck exam: Negative for: Lymphadenopathy, Thyromegaly - Respiratory Exam Respiratory Exam: Decreased Breath Sounds. absent: Rales, Wheezes - Cardiovascular Exam Cardiovascular Exam: REGULAR RHYTHM, +S1 - GI/Abdominal Exam GI & Abdominal Exam: Normal Bowel Sounds, Soft. absent: Tenderness Additional comments: GT intact and flushes well with some blood tinged return and small fresh clots. - Rectal Exam Rectal Exam: Deferred - Extremities Exam Extremities exam: Positive for: normal inspection. Negative for: pedal edema - Neurological Exam Neurological exam: Alert - Psychiatric Exam Psychiatric exam: Normal Affect - Skin Skin Exam: Dry, Warm Results - Vital Signs Recent Vital Signs: Last Vital Signs Temp 98.4 F 09/26/18 16:48 Pulse 86 09/26/18 19:32 Resp 20 09/26/18 16:48 BP 120/78 09/26/18 16:48 Pulse Ox 97 09/26/18 16:48 - Labs Result Diagrams: 09/26/18 12:15 09/26/18 12:15 Labs: Laboratory Results - last 24 hr 09/26/18 09/26/18 09/26/18 12:15 12:15 12:15 WBC 12.9 H RBC 3.46 L Hgb 8.1 L D Hct 25.8 L MCV 74.5 L D MCH 23.4 L MCHC 31.4 L RDW 18.5 H Plt Count 526 H MPV 6.9 L Neut % (Auto) 82.7 H Lymph % (Auto) 7.8 L [place] % (Auto) 7.8 Eos % (Auto) 1.1 Baso % (Auto) 0.6 Neut # (Auto) 10.6 H Lymph # (Auto) 1.0 [place] # (Auto) 1.0 H Eos # (Auto) 0.1 Baso # (Auto) 0.1 Neutrophils % (Manual) 85 H Lymphocytes % (Manual) 8 L Monocytes % (Manual) 7 Platelet Estimate Increased H Large Platelets Present Giant Platelets Present Hypochromasia (manual) Slight Poikilocytosis (manual Slight Anisocytosis (manual) Slight Target Cells Slight Tear Drop Cells Slight Ovalocytes Slight [place] Cells Slight Acanthocytes (Spur) Slight PT 18.3 H INR 1.7 APTT 31 pO2 VBG pH VBG pCO2 VBG HCO3 VBG Total CO2 VBG O2 Sat (Calc) VBG Base Excess VBG Potassium Glucose Lactate Crit Value Called To Crit Value Called By Crit Value Read Back Blood Gas Notified Time Sodium 128 L Potassium 4.5 Chloride 97 L Carbon Dioxide 23 Anion Gap 12 BUN 10 Creatinine 0.4 L Est GFR ( Amer) > 60 Est GFR (Non-Af Amer) > 60 Random Glucose 113 H Calcium 8.9 Total Bilirubin 0.3 AST 26 ALT 10 L D Alkaline Phosphatase 103 Total Creatine Kinase < 20 L CK-MB (Mass) 0.31 Troponin I < 0.0120 Total Protein 6.1 L Albumin 3.0 L Globulin 3.1 Albumin/Globulin Ratio 1.0 Venous Blood Potassium Salicylates Acetaminophen Blood Type Antibody Screen 09/26/18 09/26/18 09/26/18 12:21 12:27 14:53 WBC RBC Hgb Hct MCV MCH MCHC RDW Plt Count MPV Neut % (Auto) Lymph % (Auto) [place] % (Auto) Eos % (Auto) Baso % (Auto) Neut # (Auto) Lymph # (Auto) [place] # (Auto) Eos # (Auto) Baso # (Auto) Neutrophils % (Manual) Lymphocytes % (Manual) Monocytes % (Manual) Platelet Estimate Large Platelets Giant Platelets Hypochromasia (manual) Poikilocytosis (manual Anisocytosis (manual) Target Cells Tear Drop Cells Ovalocytes [place] Cells Acanthocytes (Spur) PT INR APTT pO2 9 L VBG pH 7.31 L VBG pCO2 46 VBG HCO3 19.9 VBG Total CO2 24.6 VBG O2 Sat (Calc) 18.8 L VBG Base Excess -3.3 L VBG Potassium 4.2 Glucose 103 Lactate 2.2 H Crit Value Called To Giulia silva rn Crit Value Called By Christo peralta cementer machine Crit Value Read Back Y Blood Gas Notified Time 1240 Sodium 132.0 Potassium Chloride 102.0 Carbon Dioxide Anion Gap BUN Creatinine Est GFR ( Amer) Est GFR (Non-Af Amer) Random Glucose Calcium Total Bilirubin AST ALT Alkaline Phosphatase Total Creatine Kinase CK-MB (Mass) Troponin I Total Protein Albumin Globulin Albumin/Globulin Ratio Venous Blood Potassium 4.2 Salicylates < 1.0 Acetaminophen < 10.0 L Blood Type O POSITIVE Antibody Screen Negative Assessment & Plan (1) Hematemesis/vomiting blood Assessment and Plan: Hematemesis reported following episodes of forceful coughing in association with tissue likely represents hemoptysis and possible emesis of swallowed blood as opposed to a gastric source. Patient is at risk for gastric ulceration/gastritis with bleeding due to ASA use and no PPI or H2B prophylaxis. Family is adverse to EGD and wishes no intubation status as well. Will observe for evidence of further bleeding Hold ASA IV Protonix 40mg IV daily Monitor CBC and transfuse if hgb<8. Hold tube feedings for now and flush PEG to assess for further active bleeding. Prognosis is guarded based upon advance lung cancer and age. Status: Acute (2) Blood loss anemia Assessment and Plan: as above. Pulmonary loss due to coughing of necrotic tumor vs gastric/esophageal source. Status: Acute (3) Lung cancer Status: Chronic (4) PEG (percutaneous endoscopic gastrostomy) status Assessment and Plan: PEG tube appears intact and infuses and flushes normally. Hold tube feedings for now. Status: Chronic
[2018-09-26] MEDS: Azithromycin 500 MG in Sodium Chloride 0.9% 250 ML IVPB SCH (23:10)
[2018-09-27 00:14] LABS: BASO # 0.1 K/uL (0.0-0.2); BASO % 0.5 % (0.0-2.0); EOS # 0.2 K/uL (0.0-0.7); EOS % 1.7 % (0.0-4.0); HEMOGLOBIN 8.7 g/dL (12.0-18.0); LYMPH # 1.5 K/uL (1.0-4.3); MEAN CELL VOLUME 75.6 fL (80.0-94.0); MEAN CORPUSCULAR HEMOGLOBIN 24.3 pg (27.0-31.0); MEAN CORPUSCULAR HGB CONC 32.2 g/dL (33.0-37.0); MEAN PLATELET VOLUME 7.6 fL (7.2-11.7); MONO # 0.9 K/uL (0.0-0.8); NEUT # 9.7 K/uL (1.8-7.0); NEUT % 78.8 % (50.0-75.0); RBC 3.58 Mil/uL (4.40-5.90); RED CELL DISTRIBUTION WIDTH 19.5 % (11.5-14.5); WHITE BLOOD COUNT 12.3 K/uL (4.8-10.8)
[2018-09-27] MEDS: Albuterol 0.083% Inhal Sol (2.5 mg/3 mL) UD INH SCH ×4 (01:51→19:49)
[2018-09-27 07:39] LABS: BASO # 0.1 K/uL (0.0-0.2); BASO % 0.6 % (0.0-2.0); EOS # 0.2 K/uL (0.0-0.7); EOS % 1.7 % (0.0-4.0); HEMOGLOBIN 8.8 g/dL (12.0-18.0); LYMPH % 9.1 % (20.0-40.0); MEAN CELL VOLUME 75.7 fL (80.0-94.0); MEAN CORPUSCULAR HEMOGLOBIN 24.5 pg (27.0-31.0); MEAN CORPUSCULAR HGB CONC 32.4 g/dL (33.0-37.0); MEAN PLATELET VOLUME 7.4 fL (7.2-11.7); MONO # 0.8 K/uL (0.0-0.8); MONO % 7.7 % (0.0-10.0); NEUT # 8.9 K/uL (1.8-7.0); NEUT % 80.9 % (50.0-75.0); PLATELET COUNT 564 K/uL (130-400); RBC 3.58 Mil/uL (4.40-5.90); RED CELL DISTRIBUTION WIDTH 19.7 % (11.5-14.5)
--- NOTE | 2018-09-27 09:26 | CP.PCM.PN ---
<Tad Rosenberg - Last Filed: 09/27/18 09:28> Subjective - Date & Time of Evaluation Date of Evaluation: 09/27/18 Time of Evaluation: 09:19 - Subjective Subjective: GI Fellow PYG4, progress note. No acute overnight events. Daughter states a couple episodes of hemoptysis over night. Denies BM, vomiting. Vitals stable. No complaints. Objective - Vital Signs/Intake and Output Vital Signs (last 24 hours): Temp Pulse Resp BP Pulse Ox 98.1 F 97 H 20 104/58 L 95 09/27/18 07:00 09/27/18 07:00 09/27/18 07:00 09/27/18 07:00 09/27/18 07:00 - Medications Medications: Current Medications Acetaminophen (Tylenol 650mg/20.3ml Solution Ud) 650 mg PO Q6 PRN PRN Reason: Pain, moderate (4-7) Albuterol Sulfate (Albuterol 0.083% Inhal Cathie (2.5 Mg/3 Ml) Ud) 2.5 mg INH RQ6 ALLISON Last Admin: 09/27/18 01:51 Dose: Not Given Sodium Chloride (Sodium Chloride 0.9%) 1,000 mls @ 60 mls/hr IV .[id number] ALLISON Last Admin: 09/26/18 19:17 Dose: 60 mls/hr Azithromycin 500 mg/ Sodium (Chloride) 250 mls @ 250 mls/hr IVPB Q24H ALLISON; Protocol Last Admin: 09/26/18 23:10 Dose: 250 mls/hr Losartan Potassium (Cozaar) 25 mg PO DAILY [facility] Montelukast Sodium (Singulair) 10 mg PO DAILY [facility] Pantoprazole Sodium (Protonix Inj) 40 mg IVP DAILY [facility] Last Admin: 09/26/18 18:50 Dose: 40 mg - Labs Labs: 09/27/18 07:28 09/26/18 12:15 PT 18.3 SECONDS (9.7-12.2) H 09/26/18 12:15 INR 1.7 09/26/18 12:15 APTT 31 SECONDS (21-34) 09/26/18 12:15 - Constitutional Appears: Non-toxic, No Acute Distress - Eye Exam Eye Exam: EOMI, Normal appearance - ENT Exam ENT Exam: Mucous Membranes Moist, Normal Exam - Respiratory Exam Respiratory Exam: Clear to Ausculation Bilateral, NORMAL BREATHING PATTERN - Cardiovascular Exam Cardiovascular Exam: REGULAR RHYTHM, +S1, +S2 - GI/Abdominal Exam GI & Abdominal Exam: Soft, Normal Bowel Sounds. absent: Tenderness - Extremities Exam Extremities Exam: Normal Inspection. absent: Pedal Edema - Neurological Exam Neurological Exam: Alert, Awake - Psychiatric Exam Psychiatric exam: Normal Affect, Normal Mood - Skin Skin Exam: Normal Color, Warm Assessment and Plan - Assessment and Plan (Free Text) Assessment: #Acute blood loss anemia s/p 1u pRBCs #Hemoptysis #Lung cancers, stage 4 #S/P PEG PLAN: -Bleeding is stable -Etiology is likely lungs. -Continue to monitor Hb and signs of GI bleed -Transfuse pRBCs for Hb less than 8 or symptomatic -May benefit from d/c aspirin. If aspirin continued, use PPI. -Continue PPI -Start tube feeds Case discussed with Dr. Blanton, see attestation. <Herbert Blanton - Last Filed: 09/27/18 09:38> Objective - Vital Signs/Intake and Output Vital Signs (last 24 hours): Temp Pulse Resp BP Pulse Ox 98.1 F 97 H 20 104/58 L 95 09/27/18 07:00 09/27/18 07:00 09/27/18 07:00 09/27/18 07:00 09/27/18 07:00 - Medications Medications: Current Medications Acetaminophen (Tylenol 650mg/20.3ml Solution Ud) 650 mg PO Q6 PRN PRN Reason: Pain, moderate (4-7) Albuterol Sulfate (Albuterol 0.083% Inhal Cathie (2.5 Mg/3 Ml) Ud) 2.5 mg INH RQ6 [facility] Last Admin: 09/27/18 01:51 Dose: Not Given Sodium Chloride (Sodium Chloride 0.9%) 1,000 mls @ 60 mls/hr IV .[id number] [facility] Last Admin: 09/26/18 19:17 Dose: 60 mls/hr Azithromycin 500 mg/ Sodium (Chloride) 250 mls @ 250 mls/hr IVPB Q24H [facility]; Protocol Last Admin: 09/26/18 23:10 Dose: 250 mls/hr Losartan Potassium (Cozaar) 25 mg PO DAILY [facility] Montelukast Sodium (Singulair) 10 mg PO DAILY [facility] Pantoprazole Sodium (Protonix Inj) 40 mg IVP DAILY [facility] Last Admin: 09/26/18 18:50 Dose: 40 mg - Labs Labs: 09/27/18 07:28 09/26/18 12:15 PT 18.3 SECONDS (9.7-12.2) H 09/26/18 12:15 INR 1.7 09/26/18 12:15 APTT 31 SECONDS (21-34) 09/26/18 12:15 Assessment and Plan (1) Hematemesis/vomiting blood Status: Acute (2) Blood loss anemia Status: Acute (3) Lung cancer Status: Chronic (4) PEG (percutaneous endoscopic gastrostomy) status Status: Chronic Attending/Attestation - Attestation I have personally seen and examined this patient.: Yes I have fully participated in the care of the patient.: Yes I have reviewed all pertinent clinical information, including history, physical exam and plan: Yes Notes (Text): 09/27/18 09:35 Patient noted to have some mild coughing up with blood last night with family at bedside. GT appears to be clear. Hgb-8.7 with one unit transfusion given. Continue IV PRotonix Begins tube feedings at 30 ml/hr and advance as tolerated. No current plans for invasive work up as per family wishes Pulomonary consult requested and pending.
[2018-09-27] MEDS ORDERED: Ferrous Sulfate 300 mg/5 mL Liq UD PO SCH (10:00)
[2018-09-27 10:02] LABS: ANISOCYTOSIS MODERATE; LYMPHOCYTE 11 % (20-40); MONOCYTE 6 % (0-10); NEUTROPHIL 82 % (50-75); PLATELET ESTIMATE INCREASED (NORMAL); REACTIVE LYMPHOCYTES 1 % (0-0); TOTAL CELLS COUNTED 100
[2018-09-27 10:03] LABS: HYPOCHROMIC SLIGHT; OVALOCYTES SLIGHT; POIKILOCYTOSIS SLIGHT
[2018-09-27] MEDS: Sodium Chloride 0.9% 1,000 ML IV SCH ×2 (12:47)
--- NOTE | 2018-09-27 16:22 | CT ---
Date of service: 09/27/2018 PROCEDURE: CT Chest without contrast HISTORY: r/o pleural effusion known lung cancer history COMPARISON: 03/29/2018 TECHNIQUE: Contiguous axial images were obtained through the chest without intravenous contrast enhancement. Sagittal and coronal reconstructions were performed. Radiation dose: Total exam DLP = 475.23 mGy-cm. This CT exam was performed using one or more of the following dose reduction techniques: Automated exposure control, adjustment of the mA and/or kV according to patient size, and/or use of iterative reconstruction technique. FINDINGS: LUNGS: Interval complete opacification of the left hemithorax this patient with known large left hilar mass and prior inferred extensive atelectasis. Left pleural effusion present and concomitant compressive atelectasis also present. The left hilar mass is blending indistinguishable from the ipsilateral extensive atelectasis inferred as in part obstructive by the left hilar mass an also in part compressive from the left pleural effusion. Only a minimal small pocket of aerated lung in the left upper lung zone (coronal series 601, image 56) is present. Assessment for a concomitant lymphadenopathy problematic given the near complete left hemithoracic blending opacity here Interval larger right-sided pulmonary nodules in the right mid lung zone axis series 3, image 67 anterior and other more laterally on image 66 series 3. These are between 6 and 8 mm in size. No similar sized pulmonary nodules here seen the prior study-mention however of prior right middle lobe of small pulmonary nodules were made no similarly sized conspicuous nodules likely OC now seen on the prior study. Interval metastatic lesions are inferred. Posterior right apical pleural thickening and scarring-similar. MEDIASTINUM: Limited evaluation the mediastinum versus a silhouetting out by the an left lung significant atelectasis and leftward mediastinal shift. Central large left hilar mass known-contiguous lymphadenopathy here per prior studies inferred. There is presence of aortic atherosclerotic calcification and mural plaque on cross sectional studies. PLEURA: Left pleural effusion-interval change. No pneumothorax seen. BONES: No fracture. No destructive lesion. Thoracic spondylosis. UPPER ABDOMEN: Grossly unremarkable. OTHER FINDINGS: None. IMPRESSION: Interval extensive atelectasis and leftward mediastinal shift-inferred as obstructive from the large left central known lung mass and also in part from some compressive atelectasis given the interval left pleural effusion. Interval right pulmonary metastatic nodules inferred. Other findings as above.
[2018-09-27] MEDS ORDERED: guaiFENesin 200 mg/10 ml Syrup UD GT PRN (16:31)
[2018-09-27] MEDS: Azithromycin 500 MG in Sodium Chloride 0.9% 250 ML IVPB SCH (21:45)
[2018-09-28] MEDS: Albuterol 0.083% Inhal Sol (2.5 mg/3 mL) UD INH SCH ×3 (02:13→14:48)
--- NOTE | 2018-09-28 02:16 | PN ---
DATE: 09/27/2018 SUBJECTIVE: Today, the patient is awake, alert. Denied any pain, any shortness of breath, or any chest pain. The patient feels weak and is still anorexic. PHYSICAL EXAMINATION: VITAL SIGNS: The patient had a blood pressure of 110/52, pulse 98, respirations is 18, temperature 97.8. GENERAL: The patient is cachectic. LUNGS: Right lung is clear. The left lung has no audible breath sounds. HEART: Regular rate and rhythm. ABDOMEN: Soft. PEG in place. Positive bowel sounds. EXTREMITIES: There is no edema, but there is waste of the muscle of the lower extremity. LABORATORY DATA: Showed that WBC 11, hemoglobin 8.8, hematocrit 27, platelet is 564. Chemistry: Sodium 128, potassium 4.5 and bicarb 23. BUN , creatinine 0.4 from yesterday. Also, the patient had a CAT scan of the chest today and showed interval extensive atelectasis and leftward mediastinal shifts from the large left central lung mass and also in part from some compressive atelectasis, even the interval left pleural effusion. PLAN: We are going to continue current medications and case was discussed with the daughter and in that case possible palliative care was advised. Daughter planned to carry on that. The case was discussed with Pooja Meyers, the nurse practitioner. Kyle Aldana MD
--- NOTE | 2018-09-28 04:08 | CON ---
DATE: 09/27/2018 REASON FOR CONSULTATION: Upper GI bleeding as well as shortness of breath. HISTORY OF PRESENT ILLNESS: The patient is a 73-year-old male who according to daughter presented because of vomiting large amount of blood, but no black stool noted. The patient has a history of stage IV left lung CA and has been experiencing chronic cough with blood-streaked mucus. No retrosternal chest pain. The patient was evaluated by me in April of last year. An echocardiographic study at that time revealed normal left ventricular systolic function with normal segmental wall motion and grade 1 abnormal relaxation pattern as well as mild pulmonary hypertension. SOCIAL HISTORY The patient is currently nonsmoker. He lives with his family at home who takes care of his gastrostomy feeding since it was placed late last year. MEDICATIONS Albuterol inhaler every 6 hours p.r.n., Zithromax 500 mg intravenously daily, Cozaar 25 mg once a day, Protonix 40 mg intravenous once a day, Singulair 10 mg daily, normal saline at 60 mL an hour. PAST MEDICAL HISTORY: Stage IV lung CA history, history of depression, history of near syncope during his most recent admission in April of last year. PHYSICAL EXAMINATION: GENERAL: The patient is an elderly male who does not appear to be in acute distress. VITAL SIGNS: Blood pressure 110/52, heart rate 98, temperature 97.9, respirations 18. HEENT: Pale conjunctivae. CHEST: Diminished breath sounds over the bases. HEART: S1, S2, regular. EXTREMITIES: Trace leg edema. LABORATORY: CBC, hemoglobin and hematocrit 8.8 and 27.1, white count 11, platelet count 564,000. Admitting SMA-7, sodium 128, potassium 4.5, chloride 97, CO2 of 23, glucose 113, BUN 10, creatinine 0.4. One set of troponin is negative. Admitting chest x-ray yesterday revealed complete opacification of the left hemithorax. Chest CT scan without contrast revealed interval extensive atelectasis and leftward mediastinal shifting inferred as obstructive from the large left central known lung mass, left pleural effusion, interval right pulmonary metastatic nodules. PET scan in June of this year revealed large pleural effusion associated with complete collapse of the left lung. Multiple foci of intense increased FDG uptake noted at the collapsed left lung. Foci of intense increased FDG uptake at the collapsed lung seen extending through the left aspect of the mediastinum. Large focal intense increased FDG uptake noted at the left chest base, likely represent pleural metastasis. Multiple upper mediastinum, right paratracheal FDG avid lymph node consistent with metastasis. Focal increased FDG uptake at the right iliac bone adjacent to the sacroiliac joint, suggestive of osseous metastasis. ASSESSMENT: 1. Stage IV left lung cancer with complete opacification of the left hemothorax, most likely the source is hemoptysis rather than hematemesis. 2. Anemia. 3. Mild pulmonary hypertension, on the most recent echo in April of last year. 4. Grade 1 abnormal relaxation pattern. RECOMMENDATIONS: Continue current conservative medical approach including albuterol inhaler, IV Zithromax 500 mg daily, Cozaar 25 mg once a day, Singulair 10 mg daily, normal saline at 60 mL an hour. Case was discussed with the patient's daughter who requested DNR, however, has not been officially made yet on the chart. I relayed that to the nurse practitioner. The patient may be considered for left thoracocentesis. Zach Marquez MD
[2018-09-28 07:45] LABS: BASO # 0.1 K/uL (0.0-0.2); BASO % 0.5 % (0.0-2.0); EOS # 0.1 K/uL (0.0-0.7); HEMOGLOBIN 9.3 g/dL (12.0-18.0); LYMPH # 0.8 K/uL (1.0-4.3); LYMPH % 7.7 % (20.0-40.0); MEAN CORPUSCULAR HEMOGLOBIN 24.8 pg (27.0-31.0); MEAN PLATELET VOLUME 7.1 fL (7.2-11.7); MONO # 0.8 K/uL (0.0-0.8); MONO % 7.7 % (0.0-10.0); NEUT # 9.1 K/uL (1.8-7.0); NEUT % 83.1 % (50.0-75.0); PLATELET COUNT 541 K/uL (130-400); RBC 3.74 Mil/uL (4.40-5.90); RED CELL DISTRIBUTION WIDTH 19.7 % (11.5-14.5); WHITE BLOOD COUNT 10.9 K/uL (4.8-10.8)
[2018-09-28 08:56] LABS: BANDS 1 % (0-2); EOSINOPHIL 3 % (0-4); LYMPHOCYTE 9 % (20-40); MONOCYTE 3 % (0-10); MYELOCYTE 1 % (0-0); NEUTROPHIL 83 % (50-75); PLATELET ESTIMATE INCREASED (NORMAL); TOTAL CELLS COUNTED 100
[2018-09-28 08:57] LABS: ANISOCYTOSIS SLIGHT
[2018-09-28 08:58] LABS: HYPOCHROMIC SLIGHT; LARGE PLATELETS PRESENT; OVALOCYTES SLIGHT; POIKILOCYTOSIS SLIGHT
--- NOTE | 2018-09-28 09:22 | CP.PCM.PN ---
<Tad Rosenberg - Last Filed: 09/28/18 12:30> Subjective - Date & Time of Evaluation Date of Evaluation: 09/28/18 Time of Evaluation: 09:20 - Subjective Subjective: Patient sleeping comfortably. Daughter at bedside. No acute events or bleeding last night. No BMs. He does cough up bloody phlegm from time to time. Tolerating tube feeds. Objective - Vital Signs/Intake and Output Vital Signs (last 24 hours): Temp Pulse Resp BP Pulse Ox 98.0 F 98 H 18 121/58 L 97 09/28/18 07:00 09/28/18 07:00 09/28/18 07:00 09/28/18 07:00 09/28/18 07:00 Intake and Output: 09/28/18 09/28/18 06:59 18:59 Intake Total 1025 Balance 1025 - Medications Medications: Current Medications Acetaminophen (Tylenol 650mg/20.3ml Solution Ud) 650 mg PO Q6 PRN PRN Reason: Pain, moderate (4-7) Albuterol Sulfate (Albuterol 0.083% Inhal Cathie (2.5 Mg/3 Ml) Ud) 2.5 mg INH RQ6 [facility] Last Admin: 09/28/18 08:24 Dose: 2.5 mg Guaifenesin (Robitussin) 200 mg GT Q4H PRN PRN Reason: Cough and congestion Last Admin: 09/27/18 17:45 Dose: 200 mg Sodium Chloride (Sodium Chloride 0.9%) 1,000 mls @ 60 mls/hr IV .[id number] [facility] Last Admin: 09/27/18 12:47 Dose: 60 mls/hr Azithromycin 500 mg/ Sodium (Chloride) 250 mls @ 250 mls/hr IVPB Q24H [facility]; Protocol Last Admin: 09/27/18 21:45 Dose: 250 mls/hr Losartan Potassium (Cozaar) 25 mg PO DAILY [facility] Last Admin: 09/27/18 11:00 Dose: 25 mg Montelukast Sodium (Singulair) 10 mg PO DAILY [facility] Last Admin: 09/27/18 11:42 Dose: 10 mg Pantoprazole Sodium (Protonix Inj) 40 mg IVP DAILY [facility] Last Admin: 09/27/18 11:00 Dose: 40 mg - Labs Labs: 09/28/18 07:31 09/26/18 12:15 PT 18.3 SECONDS (9.7-12.2) H 09/26/18 12:15 INR 1.7 09/26/18 12:15 APTT 31 SECONDS (21-34) 09/26/18 12:15 - Constitutional Appears: Non-toxic, No Acute Distress, Cachectic, Chronically Ill - Eye Exam Eye Exam: EOMI, Normal appearance - Respiratory Exam Respiratory Exam: Clear to Ausculation Bilateral, NORMAL BREATHING PATTERN - Cardiovascular Exam Cardiovascular Exam: REGULAR RHYTHM, +S1, +S2 - GI/Abdominal Exam GI & Abdominal Exam: Soft, Normal Bowel Sounds. absent: Tenderness Additional comments: PEG tube functioning. - Psychiatric Exam Psychiatric exam: Normal Affect, Normal Mood - Skin Skin Exam: Normal Color, Warm Assessment and Plan - Assessment and Plan (Free Text) Assessment: #Acute blood loss anemia s/p 1u pRBCs #Hemoptysis #Lung cancers, stage 4 #S/P PEG #Hyponatremia PLAN: -No active bleeding -Etiology is likely lungs. No signs of GI bleeding. -Continue to monitor Hb and signs of GI bleed -Transfuse pRBCs for Hb less than 8 or symptomatic -May benefit from d/c aspirin. If aspirin continued, use PPI. -Continue PPI -Bolus tube feeds Case discussed with Dr. Blanton, see attestation. <Herbert Blanton - Last Filed: 09/28/18 12:40> Objective - Vital Signs/Intake and Output Vital Signs (last 24 hours): Temp Pulse Resp BP Pulse Ox 98.0 F 98 H 18 121/58 L 97 09/28/18 07:00 09/28/18 07:00 09/28/18 07:00 09/28/18 07:00 09/28/18 07:00 Intake and Output: 09/28/18 09/28/18 06:59 18:59 Intake Total 1025 Balance 1025 - Medications Medications: Current Medications Acetaminophen (Tylenol 650mg/20.3ml Solution Ud) 650 mg PO Q6 PRN PRN Reason: Pain, moderate (4-7) Albuterol Sulfate (Albuterol 0.083% Inhal Cathie (2.5 Mg/3 Ml) Ud) 2.5 mg INH RQ6 [facility] Last Admin: 09/28/18 08:24 Dose: 2.5 mg Guaifenesin (Robitussin) 200 mg GT Q4H PRN PRN Reason: Cough and congestion Last Admin: 09/27/18 17:45 Dose: 200 mg Sodium Chloride (Sodium Chloride 0.9%) 1,000 mls @ 60 mls/hr IV .[id number] [facility] Last Admin: 09/27/18 12:47 Dose: 60 mls/hr Azithromycin 500 mg/ Sodium (Chloride) 250 mls @ 250 mls/hr IVPB Q24H [facility]; Protocol Last Admin: 09/27/18 21:45 Dose: 250 mls/hr Losartan Potassium (Cozaar) 25 mg PO DAILY [facility] Last Admin: 09/28/18 11:44 Dose: 25 mg Montelukast Sodium (Singulair) 10 mg PO DAILY [facility] Last Admin: 09/28/18 11:45 Dose: 10 mg Pantoprazole Sodium (Protonix Inj) 40 mg IVP DAILY [facility] Last Admin: 09/28/18 11:44 Dose: 40 mg - Labs Labs: 09/28/18 07:31 09/26/18 12:15 PT 18.3 SECONDS (9.7-12.2) H 09/26/18 12:15 INR 1.7 09/26/18 12:15 APTT 31 SECONDS (21-34) 09/26/18 12:15 Assessment and Plan (1) Hematemesis/vomiting blood Status: Acute (2) Blood loss anemia Status: Acute (3) Lung cancer Status: Chronic (4) PEG (percutaneous endoscopic gastrostomy) status Status: Chronic Attending/Attestation - Attestation I have personally seen and examined this patient.: Yes I have fully participated in the care of the patient.: Yes I have reviewed all pertinent clinical information, including history, physical exam and plan: Yes Notes (Text): 09/28/18 12:38 Patient still with coughing of blood tinged sputum. No vomiting, melena or drainage of blood from GT. Tolerating feedings at 40ml/hr, bolus feedings done at home Q6. H/H remain stable. Agree with advancing diet to home bolus protocol and observe. 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 Palliative Care. Continue PPI would be optional unless ASA is to be resumed
[2018-09-28] MEDS ORDERED: Pantoprazole 40 mg EC Tab PO SCH (10:00)
--- NOTE | 2018-09-28 13:20 | CP.PCM.CON ---
History of Present Illness - History of Present Illness History of Present Illness: Palliative consult requested by Luigi Patton for goals of care discussion Patient is a 73 yo male admitted from home after several episodes of bloody sputum 30 min before 911 was called. per daughter, who is very involved in care, patient has occasionally bloody sputum in the past but no at this amount and frequency. Patient has known diagnosis of lung cancer stage IV since . On arrival WBC 12.9 Hb 9.[address] chest significant for atelectasis and right mediastinial shift due to know left lung mass. Patient startted on Zitromax and Neb Tx. Family stated they wished for DNR/DNI status. Palliative care was called to discuss goals of care. PMH: Stage IV lung cancer, HTN, asthma, COPD, chronic cough, mild confusion since diagnosis Soc. Hx: lives at home with daughter and , quit smoking years ago, started smoking at age 10. Fam. HxL two brothers from lung cancer Review of Systems - Constitutional Constitutional: Malaise, Weakness - EENT Eyes: absent: As Per HPI, Blind Spots, Blurred Vision, Change in Vision, Decreased Night Vision, Diplopia, Discharge, Dry Eye, Exophthalmos, Floaters, Irritation, Itchy Eyes, Loss of Peripheral Vision, Pain, Photophobia, Requires Corrective Lenses, Sees Flashes, Spots in Vision, Tunnel Vision, Other Visual Disturbances, Loss of Vision, Other Ears: absent: As Per HPI, Decreased Hearing, Ear Discharge, Ear Pain, Tinnitus, Abnormal Hearing, Disequilibrium, Dizziness, Other Nose/Mouth/Throat: absent: As Per HPI, Epistaxis, Nasal Congestion, Nasal Discharge, Nasal Obstruction, Nasal Trauma, Nose Pain, Post Nasal Drip, Sinus Pain, Sinus Pressure, Bleeding Gums, Change in Voice, Dental Pain, Dry Mouth, Dysphagia, Halitosis, Hoarsness, Lip Swelling, Mouth Lesions, Mouth Pain, Odynophagia, Sore Throat, Throat Swelling, Tongue Swelling, Facial Pain, Neck Pain, Neck Mass, Other - Cardiovascular Cardiovascular: Dyspnea on Exertion - Respiratory Respiratory: Cough, Dyspnea on Exertion Additional comments: bloody sputum - Gastrointestinal Gastrointestinal: absent: As Per HPI, Abdominal Pain, Belching, Bloating, Change in Bowel Habits, Change in Stool Character, Coffee Ground Emesis, Constipation, Cramping, Diarrhea, Dyspepsia, Dysphagia, Early Satiety, Excessive Flatus, Fecal Incontinence, Heartburn, Hematemesis, Hematochezia, Loose Stools, Melena, Nausea, Odynophagia, Temesmus, Vomiting, Other Additional comments: PEG - Genitourinary Genitourinary: absent: As Per HPI, Change in Urinary Stream, Difficulty Urinating, Dysuria, Flank Pain, Hematuria, Pyuria, Nocturia, Urinary Incontinence, Urinary Frequency, Urinary Hesitance, Urinary Urgency, Voiding Freq/Small Amts, Freq UTI, Hx Renal/Bladder Calculi, Hx /Renal Surgery, Bladder Distension, Other - Musculoskeletal Musculoskeletal: Muscle Weakness - Integumentary Integumentary: absent: As Per HPI, Acne, Alopecia, Bleeding Lesions, Change in Hair, Change in Nails, Change in Pigmentation, Changing Lesions, Dry Skin, Erythema, Furuncle, Hirsutism, Lesions, New Lesions, Non-Healing Lesions, Photosensitivity, Pruritus, Rash, Skin Pain, Skin Ulcer, Sores, Striae, Swelling, Unusual Bruising, Wounds, Jaundice, Other - Neurological Neurological: Weakness - Psychiatric Psychiatric: absent: As Per HPI, Abnormal Sleep Pattern, Anhedonia, Anxiety, Auditory Hallucinations, Behavioral Changes, Change in Appetite, Change in Libido, Confusion, Depression, Difficulty Concentrating, Hallucinations, Homicidal Ideation, Hopelessness, Irritability, Memory Loss, Mood Swings, Panic Attacks, Paranoia, Suicidal Ideation, Visual Hallucinations, Tactile Hallucinations, Other - Endocrine Endocrine: absent: As Per HPI, Change in Body Appearance, Change in Libido, Cold Intolorance, Deepening of Voice, Excessive Sweating, Fatigue, Flushing, Heat Intolorance, Increase in Ring/Shoe/Hat Size, Palpitations, Polydipsia, Polyphagia, Polyuria, Other - Hematologic/Lymphatic Hematologic: Easy Bleeding Additional comments: On ASA and Tylenol at home Past Patient History - Past Medical History & Family History Past Medical History?: Yes - Past Social History Smoking Status: Former Smoker Alcohol: Other (formerly heavy EtoH ingestion.) - CARDIAC Hx Hypercholesterolemia: Yes Hx Hypertension: Yes - PULMONARY Hx Chronic Obstructive Pulmonary Disease (COPD): Yes - NEUROLOGICAL Hx Neurological Disorder: No - HEENT Hx HEENT Problems: No - RENAL Hx Chronic Kidney Disease: No - ENDOCRINE/METABOLIC Hx Endocrine Disorders: No - HEMATOLOGICAL/ONCOLOGICAL Hx Blood Disorders: No Hx Cirrhosis: No Hx Hepatitis A: No Hx Hepatitis B: No Hx Hepatitis C: No Hx Human Immunodeficiency Virus (HIV): No - INTEGUMENTARY Hx Dermatological Problems: No - MUSCULOSKELETAL/RHEUMATOLOGICAL Hx Musculoskeletal Disorders: Yes Hx Falls: No Hx Unsteady Gait: Yes Other/Comment: weakness to all extremities - GASTROINTESTINAL Hx Gastrointestinal Disorders: Yes Hx Bowel Surgery: No Hx Diverticulitis: Yes (Diverticulosis 04/2018 colonoscopy) Hx Gastritis: Yes (EGD 06/05 with PEG placement) Hx Hemorrhoids: Yes - GENITOURINARY/GYNECOLOGICAL Hx Genitourinary Disorders: No - PSYCHIATRIC Hx Substance Use: No - SURGICAL HISTORY Hx Surgeries: Yes Other/Comment: Explore lap 1974 - ANESTHESIA Hx Anesthesia: Yes Hx Anesthesia Reactions: No Meds Allergies/Adverse Reactions: Allergies Allergy/AdvReac Type Severity Reaction Status Date / Time midazolam [From Versed] AdvReac SHORTNESS Verified 09/26/18 11:43 OF BREATH - Medications Medications: Current Medications Acetaminophen (Tylenol 650mg/20.3ml Solution Ud) 650 mg PO Q6 PRN PRN Reason: Pain, moderate (4-7) Albuterol Sulfate (Albuterol 0.083% Inhal Cathie (2.5 Mg/3 Ml) Ud) 2.5 mg INH RQ6 [facility] Last Admin: 09/28/18 08:24 Dose: 2.5 mg Guaifenesin (Robitussin) 200 mg GT Q4H PRN PRN Reason: Cough and congestion Last Admin: 09/27/18 17:45 Dose: 200 mg Sodium Chloride (Sodium Chloride 0.9%) 1,000 mls @ 60 mls/hr IV .[id number] [facility] Last Admin: 09/27/18 12:47 Dose: 60 mls/hr Azithromycin 500 mg/ Sodium (Chloride) 250 mls @ 250 mls/hr IVPB Q24H [facility]; Protocol Last Admin: 09/27/18 21:45 Dose: 250 mls/hr Losartan Potassium (Cozaar) 25 mg PO DAILY [facility] Last Admin: 09/28/18 11:44 Dose: 25 mg Montelukast Sodium (Singulair) 10 mg PO DAILY [facility] Last Admin: 09/28/18 11:45 Dose: 10 mg Pantoprazole Sodium (Protonix Inj) 40 mg IVP DAILY [facility] Last Admin: 09/28/18 11:44 Dose: 40 mg Physical Exam - Constitutional Appears: Chronically Ill - Head Exam Head Exam: ATRAUMATIC, NORMAL INSPECTION, NORMOCEPHALIC - Eye Exam Eye Exam: EOMI, Normal appearance, PERRL Pupil Exam: NORMAL ACCOMODATION, PERRL - ENT Exam ENT Exam: Mucous Membranes Moist, Normal Exam - Neck Exam Neck exam: Positive for: Normal Inspection - Respiratory Exam Respiratory Exam: Decreased Breath Sounds, Rhonchi - Cardiovascular Exam Cardiovascular Exam: Tachycardia, REGULAR RHYTHM - GI/Abdominal Exam Additional comments: PEG - Rectal Exam Rectal Exam: Deferred - Exam Exam: NORMAL INSPECTION - Extremities Exam Extremities exam: Positive for: normal inspection - Back Exam Back exam: NORMAL INSPECTION - Neurological Exam Neurological exam: Alert, Altered - Psychiatric Exam Psychiatric exam: Depressed - Skin Skin Exam: Dry, Intact, Normal Color, Warm Results - Vital Signs Recent Vital Signs: Last Vital Signs Temp 98.0 F 09/28/18 07:00 Pulse 98 H 09/28/18 07:00 Resp 18 09/28/18 07:00 BP 121/58 L 09/28/18 07:00 Pulse Ox 97 09/28/18 07:00 - Labs Result Diagrams: 09/28/18 07:31 09/26/18 12:15 Labs: Laboratory Results - last 24 hr 09/28/18 07:31 WBC 10.9 H RBC 3.74 L Hgb 9.3 L Hct 28.0 L MCV 75.0 L MCH 24.8 L MCHC 33.0 RDW 19.7 H Plt Count 541 H MPV 7.1 L Neut % (Auto) 83.1 H Lymph % (Auto) 7.7 L [place] % (Auto) 7.7 Eos % (Auto) 1.0 Baso % (Auto) 0.5 Neut # (Auto) 9.1 H Lymph # (Auto) 0.8 L [place] # (Auto) 0.8 Eos # (Auto) 0.1 Baso # (Auto) 0.1 Neutrophils % (Manual) 83 H Band Neutrophils % 1 Lymphocytes % (Manual) 9 L Monocytes % (Manual) 3 Eosinophils % (Manual) 3 Myelocytes % 1 H Platelet Estimate Increased H Large Platelets Present Hypochromasia (manual) Slight Poikilocytosis (manual Slight Anisocytosis (manual) Slight Ovalocytes Slight Assessment & Plan - Assessment and Plan (Free Text) Assessment: Palliative consult There was no Advance Directive on chart, PPS 20% I reviewed Medical records, all diagnostic studies, examined and interviewed patient in the chair Patient is alert, mildly confused, Surinamese and Egyptian speaking, prefers to speak Surinamese, looking very weak. Diminished breath sounds, occasional cough with mucus production, there is no blood in sputum since admission, o2Sat 98 % with NC HR 80-90, denies chest pain. PEG in place, tolerates feedings well, PEG flushes well. Denies abdominal pain, denies constipation. Active ROM to upper and lower extremities, ambulates with assistance short di stances only, able to ambulate to the bathroom . BP 121/58, HR 98, afebrile Pain : denies pain at rest. pain elicited with repositioning, reports his skin hurts and does not like to be touched. Reports moderate to severe pain of both hands while at rest. Takes Tylenol 650 mg daily at home. Per daughter that was enough to relieve pain. here Tylenol 650 mg PO Q 6 hr PRN is ordered. Goals of care discussed with daughter as she did not want her father to be aware of his diagnosis. Daughter reported being aware of advanced lung cancer. She is concerned with her father's comfort . Daughter states patient prefers to be at home rather than here and she asked about being ordered hospitals bed for use at home. I further elicited daughter's understanding and expectations of her father's condition. Very gently, I explained to her that at this stage of her father's condition, cure was not possible, but we could help her with providing comfort care at home. She agreed, that she would accept Comfort care services at home, but her father would not want someone else other than her mother providing personal care to him. I further tried to elicit her fears and concerns regarding her father prognosis as she was very focused on his comfort, especially on hospital's bed. She never mentioned fear of her father's , instead she was hoping for his recovery and return to normal life. Her biggest concern was how to hide diagnosis from her father, as she believes that would speed up his disease progression. I offered more information about comfort care at home using interchangeably words Hospice and Comfort Care. I was very clear that Hospice care at home was directed toward promoting comfort to patients where cure was not expected. Daughter agreed for her father to be evaluated to Hospice services at home. I shared the plan for home Hospice with Pooja FELDER who was fallowing this patient for Doctor Anup. After she spoke to patient's daughter, the daughter acted as she never heard of word " hospice" and obviously was very distressed. In comforting her, I learned daughter was afraid of " hospice people taking over decisions making regarding care of my father'. I comforted daughter the best I could and reassured her that all plans strictly made to reassure comfort of her father. I suggested she spoke to her mother before she made final decision. She agreed. I reinforced that patient should be aware of his diagnosis as it could help him plan these last days of his life accordingly. Code status discussed. daughter stated that her and her mother want patient to be treated without any agressive measures, especially no CPR, nor MV assistance. GALLITO introduced. She signed DNR/DNI. Impression * Advanced lung cancer * generalized weakness * Productive cough * PEG in situ * Generalized mild pain, worse with mobility * Daughter overprotective and is hiding diagnosis from the patient. This is a common behavior in 's culture . * Daughter experiencing anticipatory anxiety * Daughter is denying to accept poor prognosis * Daughter is concerned with lack of assisting devices at home , especially hospital's bed * Patient prefers to be at home rather than hospital * Comfort care at home discussed with daughter * Family wishes ordinary measures only, GALLITO signed Suggestion * Assist with ADLs * Continue Tylenol 650 mg for pain. As disease progresses patient will need more aggressive approach for pain control * Reinforce teaching with daughter for need for comfort measures at home. Acting in this way, daughter unconsciously denies needed care for her father. * Patient should be told his diagnosis by his PMD. Hiding it from patient is an Ethical Dilemma * SS to assist daughter with available devices at home, especially hospital's bed * DNR/DNI Palliative care will sign off . Advance care planing 60 min.
--- NOTE | 2018-09-28 14:35 | HP ---
HISTORY OF PRESENT ILLNESS: The patient is a 74-year-old male with history of CA of the lungs with metastasis. He was brought to the emergency room by EMS because the patient was vomiting lot of blood. The patient does state that there was large blood, red, and associated with cough and vomiting. Vomiting through the mouth and also blood passing through the nose. So EMS was called and the patient was evaluated in the emergency room and admitted. PAST MEDICAL HISTORY: The patient has a past medical history of hypertension, hyperlipidemia, asthma, diverticulosis, COPD, pneumonia, diverticulitis, and also lung CA with metastasis. ALLERGY: THE PATIENT HAS NO KNOWN ALLERGIES. 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 FAMILY HISTORY: No inherited disease. REVIEW OF SYSTEMS: RESPIRATORY SYSTEM: Shortness of breath on exertion. CARDIOVASCULAR: No chest pain, no GASTROINTESTINAL: There was vomiting, but the patient and severe anorexia. The patient has ____ PEG. GENITOURINARY: No dysuria. NEUROLOGIC: The patient feels very weak. PHYSICAL EXAMINATION: GENERAL: The patient on admission is very weak. The patient is cachectic. VITAL SIGNS: Blood pressure of 120/78, pulse 88, respirations 20, temperature 98.4. LUNGS: Clear on the right side but not in the left side, breath sound is not audible. HEART: Regular rate and rhythm. ABDOMEN: Soft. PEG in place. Positive bowel sounds. EXTREMITIES: No wasting of the muscles of the extremities. NEUROLOGIC: The patient is very weak, unsteady gait. LABORATORY DATA: The patient had some tests done in the labs which showed WBC 12.9, hemoglobin 8.1, hematocrit 25. ____ 5 to 6. Chemistry shows sodium 128, potassium 4.5, chloride 197, bicarb 23, BUN 10, creatinine 0.4 with GFR 60 and glucose 113. Troponin 0.012 and calcium ALT 10, AST 26, . Also the patient had a chest x-ray that has shown left-sided volume loss with opacification in the left hemithorax, suspicious of atelectasis causing the possibility of mucous plugging, IMPRESSION: Hematemesis and also lung cancer, and cachexia. The patient had a consult with GI and Cardiology with Dr. Marquez. Case was discussed with Pooja Meyers, the nurse practitioner. Kyle Aldana MD
--- NOTE | 2018-09-28 15:39 | CP.PCM.CON ---
History of Present Illness - History of Present Illness History of Present Illness: CHART REVIEWED. PT SEEN AND EXAMINED., NOT NOTIFIED OF CONSULT 73 YO HISP MALE WITH A HX COPD, CHRONIC RESP FAILURE, LUNG CA WITH METS, CACHEXIA, HTN, KNOWN TO ME, ADM WITH EPISODE DARK RED HEMOPTYSIS X 1 EPISODE, NO CHANGE SOB., ON HOME NEB ., +HOME O2. PT WITH PEG DUE TO POOR APPETITE. NOT TAKING ANY PO. ABLE TO STAND WITH ASSISTANCE. Review of Systems - Review of Systems All systems: reviewed and no additional remarkable complaints except - Constitutional Constitutional: Weight Loss, Weakness - EENT Eyes: absent: Change in Vision Ears: absent: Dizziness Nose/Mouth/Throat: absent: Nasal Congestion - Cardiovascular Cardiovascular: absent: Chest Pain - Respiratory Respiratory: Cough, Dyspnea, Hemoptysis, Dyspnea on Exertion, Excessive Mucous Production - Gastrointestinal Gastrointestinal: Hematemesis, Vomiting - Genitourinary Genitourinary: absent: Dysuria - Musculoskeletal Musculoskeletal: Muscle Weakness. absent: Joint Swelling - Integumentary Integumentary: absent: Rash - Neurological Neurological: absent: Focal Weakness - Endocrine Endocrine: absent: Change in Body Appearance Past Patient History - Past Medical History & Family History Past Medical History?: Yes Past Family History: Reviewed and not pertinent - Past Social History Smoking Status: Former Smoker Alcohol: None (formerly heavy EtoH ingestion.) Drugs: Denies - CARDIAC Hx Hypercholesterolemia: Yes Hx Hypertension: Yes - PULMONARY Hx Chronic Obstructive Pulmonary Disease (COPD): Yes Hx Lung Cancer: Yes - NEUROLOGICAL Hx Neurological Disorder: No - HEENT Hx HEENT Problems: No - RENAL Hx Chronic Kidney Disease: No - ENDOCRINE/METABOLIC Hx Endocrine Disorders: No - HEMATOLOGICAL/ONCOLOGICAL Hx Blood Disorders: No Hx Cirrhosis: No Hx Hepatitis A: No Hx Hepatitis B: No Hx Hepatitis C: No Hx Human Immunodeficiency Virus (HIV): No - INTEGUMENTARY Hx Dermatological Problems: No - MUSCULOSKELETAL/RHEUMATOLOGICAL Hx Musculoskeletal Disorders: Yes Hx Falls: No Hx Unsteady Gait: Yes Other/Comment: weakness to all extremities - GASTROINTESTINAL Hx Gastrointestinal Disorders: Yes Hx Bowel Surgery: No Hx Diverticulitis: Yes (Diverticulosis 04/2018 colonoscopy) Hx Gastritis: Yes (EGD 06/05 with PEG placement) Hx Hemorrhoids: Yes - GENITOURINARY/GYNECOLOGICAL Hx Genitourinary Disorders: No - PSYCHIATRIC Hx Substance Use: No - SURGICAL HISTORY Hx Surgeries: Yes Other/Comment: Explore lap 1974 - ANESTHESIA Hx Anesthesia: Yes Hx Anesthesia Reactions: No Meds Home Medications: Home Medication List Medication Instructions Recorded Confirmed Type Albuterol 0.083% [Albuterol 0.083% 2.5 mg INH RQ6 PRN 30 Days neb 09/28/18 Rx Inhal Cathie (2.5 mg/3 ml) UD] Allergies/Adverse Reactions: Allergies Allergy/AdvReac Type Severity Reaction Status Date / Time midazolam [From Versed] AdvReac SHORTNESS Verified 09/26/18 11:43 OF BREATH - Medications Medications: Current Medications Acetaminophen (Tylenol 650mg/20.3ml Solution Ud) 650 mg PO Q6 PRN PRN Reason: Pain, moderate (4-7) Last Admin: 09/28/18 15:09 Dose: 650 mg Albuterol Sulfate (Albuterol 0.083% Inhal Cathie (2.5 Mg/3 Ml) Ud) 2.5 mg INH RQ6 ALLISON Last Admin: 09/28/18 14:48 Dose: 2.5 mg Guaifenesin (Robitussin) 200 mg GT Q4H PRN PRN Reason: Cough and congestion Last Admin: 09/27/18 17:45 Dose: 200 mg Sodium Chloride (Sodium Chloride 0.9%) 1,000 mls @ 60 mls/hr IV .[id number] ALLISON Last Admin: 09/27/18 12:47 Dose: 60 mls/hr Azithromycin 500 mg/ Sodium (Chloride) 250 mls @ 250 mls/hr IVPB Q24H ALLISON; Protocol Last Admin: 09/27/18 21:45 Dose: 250 mls/hr Losartan Potassium (Cozaar) 25 mg PO DAILY [facility] Last Admin: 09/28/18 11:44 Dose: 25 mg Montelukast Sodium (Singulair) 10 mg PO DAILY [facility] Last Admin: 09/28/18 11:45 Dose: 10 mg Pantoprazole Sodium (Protonix Inj) 40 mg IVP DAILY [facility] [place] Last Admin: 09/28/18 11:44 Dose: 40 mg Physical Exam - Constitutional Appears: No Acute Distress, Cachectic, Chronically Ill - Head Exam Head Exam: ATRAUMATIC, NORMOCEPHALIC - Eye Exam Eye Exam: EOMI, Normal appearance - ENT Exam ENT Exam: Mucous Membranes Dry - Neck Exam Neck exam: Positive for: Normal Inspection - Respiratory Exam Respiratory Exam: Decreased Breath Sounds. absent: Accessory Muscle Use, Wheeze s - Cardiovascular Exam Cardiovascular Exam: RRR, +S1, +S2 - GI/Abdominal Exam GI & Abdominal Exam: Soft Additional comments: +PEG - Rectal Exam Rectal Exam: Deferred - Extremities Exam Extremities exam: Negative for: calf tenderness, pedal edema - Back Exam Back exam: absent: CVA tenderness (L), CVA tenderness (R) - Neurological Exam Neurological exam: Alert, CN II-XII Intact - Psychiatric Exam Psychiatric exam: Depressed Results - Vital Signs Recent Vital Signs: Last Vital Signs Temp 98.0 F 09/28/18 07:00 Pulse 98 H 09/28/18 07:00 Resp 18 09/28/18 07:00 BP 121/58 L 09/28/18 07:00 Pulse Ox 97 09/28/18 07:00 - Labs Result Diagrams: 09/28/18 07:31 09/26/18 12:15 Labs: Laboratory Results - last 24 hr 09/28/18 07:31 WBC 10.9 H RBC 3.74 L Hgb 9.3 L Hct 28.0 L MCV 75.0 L MCH 24.8 L MCHC 33.0 RDW 19.7 H Plt Count 541 H MPV 7.1 L Neut % (Auto) 83.1 H Lymph % (Auto) 7.7 L [place] % (Auto) 7.7 Eos % (Auto) 1.0 Baso % (Auto) 0.5 Neut # (Auto) 9.1 H Lymph # (Auto) 0.8 L [place] # (Auto) 0.8 Eos # (Auto) 0.1 Baso # (Auto) 0.1 Neutrophils % (Manual) 83 H Band Neutrophils % 1 Lymphocytes % (Manual) 9 L Monocytes % (Manual) 3 Eosinophils % (Manual) 3 Myelocytes % 1 H Platelet Estimate Increased H Large Platelets Present Hypochromasia (manual) Slight Poikilocytosis (manual Slight Anisocytosis (manual) Slight Ovalocytes Slight Assessment & Plan (1) Hematemesis/vomiting blood Status: Acute (2) Lung cancer Status: Chronic (3) PEG (percutaneous endoscopic gastrostomy) status Status: Chronic (4) Anemia Status: Acute (5) COPD exacerbation Status: Acute (6) Cachexia Status: Acute (7) Hypertension Status: Acute (8) Respiratory failure Status: Acute - Assessment and Plan (Free Text) Assessment: 73 YO MALE WITH A HX MULT MED PROBS ADM WITH DYSPNEA AND HEMOPTYSIS + END STAGE LUNG CA WITH METS., PNA, CHRONIC RESP FAILURE. CONT AB. CONT PULM TOILET, MONITOR O2 SAT. CXR REVIEWED. CT CHEST REVIEWED. CONT PEG FEEDINGS., GI EVAL NOTED. CARDIO EVAL NOTED. PROG GRIM. DNR/ DNI NOTED. DISCUSSED WITH STAFF AT LENGTH AND FAMILY AT BEDSIDE.
--- NOTE | 2018-09-28 16:12 | CP.PCM.PN ---
Subjective - Date & Time of Evaluation Date of Evaluation: 09/28/18 Time of Evaluation: 11:50 - Subjective Subjective: Patient seen today oob to recliner chair, looks very sick , and weak , lathargic, arousable, oriented to person, c/o productive cough and spitting up thick blood tinged secretions spo2 96% on nasal canula hgb - improved after PRBC transfusion- 9.3 Objective - Vital Signs/Intake and Output Vital Signs (last 24 hours): Temp Pulse Resp BP Pulse Ox 98.0 F 98 H 18 121/58 L 97 09/28/18 07:00 09/28/18 07:00 09/28/18 07:00 09/28/18 07:00 09/28/18 07:00 Intake and Output: 09/28/18 09/28/18 06:59 18:59 Intake Total 1025 Balance 1025 - Medications Medications: Current Medications Acetaminophen (Tylenol 650mg/20.3ml Solution Ud) 650 mg PO Q6 PRN PRN Reason: Pain, moderate (4-7) Last Admin: 09/28/18 15:09 Dose: 650 mg Albuterol Sulfate (Albuterol 0.083% Inhal Cathie (2.5 Mg/3 Ml) Ud) 2.5 mg INH RQ6 [facility] Last Admin: 09/28/18 14:48 Dose: 2.5 mg Guaifenesin (Robitussin) 200 mg GT Q4H PRN PRN Reason: Cough and congestion Last Admin: 09/27/18 17:45 Dose: 200 mg Sodium Chloride (Sodium Chloride 0.9%) 1,000 mls @ 60 mls/hr IV .[id number] ALLISON Last Admin: 09/27/18 12:47 Dose: 60 mls/hr Azithromycin 500 mg/ Sodium (Chloride) 250 mls @ 250 mls/hr IVPB Q24H [facility]; Protocol Last Admin: 09/27/18 21:45 Dose: 250 mls/hr Losartan Potassium (Cozaar) 25 mg PO DAILY [facility] Last Admin: 09/28/18 11:44 Dose: 25 mg Montelukast Sodium (Singulair) 10 mg PO DAILY [facility] Last Admin: 09/28/18 11:45 Dose: 10 mg Pantoprazole Sodium (Protonix Inj) 40 mg IVP DAILY [facility] Last Admin: 09/28/18 11:44 Dose: 40 mg - Labs Labs: 09/28/18 07:31 09/26/18 12:15 PT 18.3 SECONDS (9.7-12.2) H 09/26/18 12:15 INR 1.7 09/26/18 12:15 APTT 31 SECONDS (21-34) 09/26/18 12:15 Assessment and Plan - Assessment and Plan (Free Text) Assessment: A/P 73 yr old male with stage IV lung CA , HTN, hyperlipidemia, asthma/copd, diverticulitis, pneumonia was brought in to ED after mutiple episodes of vomitting with blood . as per Daughter he has been having chronic cough with o ccasional mild blood streaks, but today it was larger volume and multiple times. Patient received 1 unit of PRBC AND hgb improved - 9.3 GI was consulted - Prognosis is guarded based upon advance lung cancer and age recommends to d/c aspirin and continue PPI and resume tube feeding CT- chest - Interval extensive atelectasis and leftward mediastinal shift- inferred as obstructive from the large left central known lung mass and also in part from some compressive atelectasis given the interval left pleural effusion. Interval right pulmonary metastatic nodules inferred. Palliative care consulted for goal of care Family decided no aggressive treatment and wants to take patient home patient coughing frequently with thick secretions and on peg tube feeding and risk for aspiration Patient require hospital bed to keep hob elevated 45 to prevent aspiration and need frequent position to prevent decubitus ulcer Patient also require suction set up for suctioning secondary to patient mental status and could not clear up secretions himself the above plan discussed with Dr. Aldana and agrees with plan Hospital bed and suction machine ordered for patient to use at home as per Dr. Aldana discharge plan discussed with patient daughter at bed side , who understands and agrees with plan
[2018-09-28 17:15] VITALS: BP 110/62; PULSE 101; RESP 20; TEMP 99.2; O2SAT 100
--- NOTE | 2018-09-28 17:53 | PN ---
DATE: 09/28/2018 SUBJECTIVE: The patient reports left-sided chest pain. He does not appear to be in any respiratory distress, on nasal O2. PHYSICAL EXAMINATION: VITAL SIGNS: Blood pressure 121/58, heart rate 98, temperature 98, respirations 18. HEENT: Pale conjunctivae. CHEST: Absent breath sounds over the left base. HEART: S1 and S2 regular. ABDOMEN: Soft. EXTREMITIES: 1+ pitting edema. LABORATORY DATA: Today's hemoglobin and hematocrit are 9.3 and 28, white count 10.9, and platelet count 541,000. ASSESSMENT: 1. Stage IV metastatic lung cancer with complete opacification of the left hemithorax. 2. Hemoptysis. 3. Anemia. 4. Mild pulmonary hypertension. RECOMMENDATIONS: Continue current albuterol inhaler, continue Cozaar 25 mg daily via gastrostomy feeding tube. Continue IV Zithromax 500 mg daily. Continue Singulair 10 mg daily. Overall, prognosis is grave. Zach Marquez MD
--- NOTE | 2018-09-29 03:32 | PN ---
DATE: 09/28/2018 SUBJECTIVE: Today, the patient is seen sitting on the recliner in no apparent distress. The patient weak. PHYSICAL EXAMINATION: VITAL SIGNS: The patient now has blood pressure of 110/62, pulse is 98, respirations 18, and temperature 98. GENERAL: The patient is cachectic. NECK: Supple. LUNGS: Clear on the right side, but no breath sound on the left side. ABDOMEN: Soft. There is a PEG present. LABORATORY DATA: The patient has a CAT scan of the chest that show interval extensive atelectasis and there is no pleural effusion. ASSESSMENT AND PLAN: So at this point, the case is discussed with family. The patient will be discharged home. Kyle Aldana MD
== END 2018-09-28 18:28 | disposition home or self-care (01) | DRG 180 ==
LOC: C.ER 11:41 → C.9E 13:59 → C.6T 15:53
PROVIDERS: ADMIT Specialist; ATTEND Specialist
PROC: 30233N1 Transfusion of Nonautologous Red Blood Cells into Peripheral Vein, Percutaneous Approach (ICD-10-PCS; principal; 2018-09-28)
DX: C34.90 Malignant neoplasm of unspecified part of unspecified bronchus or lung (principal); J18.9 Pneumonia, unspecified organism; J44.0 Chronic obstructive pulmonary disease with (acute) lower respiratory infection; K57.92 Diverticulitis of intestine, part unspecified, without perforation or abscess without bleeding; R64 Cachexia; J90 Pleural effusion, not elsewhere classified; J98.19 Other pulmonary collapse; J96.10 Chronic respiratory failure, unspecified whether with hypoxia or hypercapnia; D62 Acute posthemorrhagic anemia; E78.5 Hyperlipidemia, unspecified; I10 Essential (primary) hypertension; R63.0 Anorexia; Z93.1 Gastrostomy status; Z87.891 Personal history of nicotine dependence; Z66 Do not resuscitate